=== PATIENT | female | born 1955 | race Caucasian/White ===

== ENCOUNTER 2019-10-31 21:37 | Observation (INO) | payer OTHER, SELFPAY ==
--- NOTE | ~2019-10-31 | CT_ITS ---
EXAMINATION: CT brain wo con DATE: 11/01/2019 11:04 INDICATION: Lightheadedness. Dizziness. TECHNIQUE: Computed tomography (CT) of the head was performed without intravenous contrast. The mA wa s adjusted according to patient size. Iterative reconstruction technique was employed. The dose-lengt h product was 605.33 mGy-cm. COMPARISON: None FINDINGS: The lateral and third ventricles are dilated out of proportion to the size of the sulci, li tamra secondary to central brain volume loss given the normal size of the temporal horns of the latera l ventricles. There is no intracranial hemorrhage, acute infarction, or abnormal intracranial mass le nohemi. The orbits are normal. The mastoid air cells are normal. The paranasal sinuses are clear. 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 IMPRESSION: 1. No acute intracranial pathology. Reviewed, dictated and finalized at location B. NESS DIRECTOR
[2019-10-31 21:43] VITALS: BP 169/86; PULSE 103; PULSE 99; RESP 20; TEMP 37.4; O2SAT 94
--- NOTE | 2019-10-31 21:46 | ED.WEAKNESS ---
HPI - Weakness General Chief complaint: Weakness Stated complaint: n/v/d Time Seen by Provider: 10/31/19 21:39 Source: patient and RN notes reviewed Mode of arrival: EMS Limitations: no limitations History of Present Illness HPI Narrative: Pt is a 64 y/o female who presents to the ED, via EMS, with c/o BLE weakness that began on Monday (10/29/19). Pt states that she was unable to walk from the bathroom back to the couch without any assistance. Pt notes that she is normally able to ambulate. Pt states that she tried to eat some Jello, but was unable to keep it down. Pt also reports lightheadedness, nausea, vomiting with one episode today, but denies diarrhea, CP, SOB, and ABD pain. MD Complaint: generalized weakness Onset (ago): day(s) (2) Duration: other (still present) Location: LLE and RLE Associated symptoms: nausea/vomiting and other (lightheadedness) Related Data Home Medications Medication Instructions Recorded Confirmed captopril 6.25 mg PO BID 10/31/19 11/01/19 metformin 1,000 mg PO BID 10/31/19 11/01/19 Allergies Allergy/AdvReac Type Severity Reaction Status Date / Time Sulfa (Sulfonamide Allergy Unknown Unknown Verified 10/31/19 22:28 Antibiotics) No Known Allergies Allergy Verified 10/31/19 22:28 Review of Systems Review of Systems: All systems reviewed & are unremarkable except as noted in HPI and below Cardiovascular: Cardiovascular: Denies chest pain and Reports lightheadedness Respiratory: Respiratory: Denies dyspnea Gastrointestinal: Gastrointestinal: Denies abdominal pain, Denies diarrhea and Reports nausea Neurologic: Reports weakness (BLE) PMFSH Past Medical History Medical History (Updated 11/28/19 @ 16:11 by Mitzy Arechiga MD) Diabetic peripheral neuropathy Essential hypertension Type II diabetes mellitus Surgical History Surgical History (Updated 11/01/19 @ 02:27 by Gala Menard DO) Hx of cholecystectomy Injury of bile duct requiring open surgical repair. Performed at [place]. Family History Family History (Updated 11/01/19 @ 02:29 by Gala Menard DO) Mother Patient's mother is in good health Father Diabetes mellitus Sibling Diabetes mellitus Social History Social History (Updated 11/01/19 @ 02:32 by Gala Menard DO) Social History: Primary care physician: Dr. Lucio Dalal Smoking status: Never smoker Additional smoking assessment comments: patient has lifelong nonsmoker. Alcohol intake: never Alcohol use details: She denies any alcohol use. Substance use: never Substance use type: does not use Additional living arrangements comments: She lives in her own home but currently has a house guest who is on parole. Her house guest also has a large dog. Occupation/Education: occupation Additional occupation/education comments: She works at [employer]. Gender identity (if verbalized by the patient): Female Spiritual care concerns: No Agree to blood products: No Exam Const: General: no acute distress and well developed Orientation/consciousness: oriented to person, oriented to place, oriented to time and patient oriented x3 HENMT: Head: normocephalic Ears: external ears normal General nose exam: Normal external nose present Eyes: General: appearance normal, both eyes and all related structures Conjunctivae: conjunctivae normal Neck: Neck: normal visual inspection and full ROM Chest: Chest palpation & inspection: normal inspection of the chest and no tenderness Resp: Effort & Inspection: normal respiratory effort Auscultation: clear to auscultation bilaterally Cardio: Rate: regular rate Rhythm: regular rhythm GI: GI Palp: No abdominal tenderness and Yes Soft to palpation Skin: General skin exam: normal color and turgor normal Neuro: General: oriented to person, oriented to place, oriented to time and patient oriented x3 Cranial nerves: Yes CN's II-XII intact bilater
--- NOTE | 2019-10-31 21:51 | ECG_ITS ---
Measurements Intervals [place] Rate: 100 P: 31 RI: 171 QRS: 14 QRSD: 74 T: 40 QT: 312 QTc: 403 Interpretive Statements SINUS TACHYCARDIA POSSIBLE LEFT ATRIAL ENLARGEMENT BASELINE ARTIFACT- III, AVF BORDERLINE ECG Electronically Signed On 11-01-2019 7:00:44 INTERIOR PANELER by Joey De La O D.O.
[2019-10-31 22:03] LABS: Glucose Point of Care > 500 (65-105)
[2019-10-31 22:06] LABS: Basophils Absolute Auto 0.1 K/mm3 (0.0-0.1); Basophils Percent Auto 0.4 % (0.2-1.2); Hematocrit 35.2 % (37.0-47.0); Immature Granulocyte Absolute 0.05 K/mm3 (0.00-0.031); Immature Granulocyte Percent A 0.4 % (0-0.5); Lymphocytes Absolute Auto 1.06 K/mm3 (0.9-3.2); Lymphocytes Percent Auto 7.4 % (18.3-44.2); Mean Corpuscular HGB Conc 34.1 g/dl (32-36); Mean Corpuscular Hemoglobin 29.2 pg (26-34); Mean Corpuscular Volume 85.6 fl (80-100); Mean Platelet Volume 9.7 fl (7.4-10.4); Monocytes Absolute Auto 0.7 K/mm3 (0.1-0.6); Monocytes Percent Auto 4.7 % (2.6-8.5); Neutrophils Absolute Auto 12.4 K/mm3 (1.3-6.7); Neutrophils Percent Auto 87.1 % (45.5-73.1); Platelet Count Result 393 k/mm3 (150-375); Red Blood Count 4.11 M/mm3 (4.2-5.4); Red Cell Distribution Width 11.6 % (11.5-14.5); White Blood Count 14.3 K/mm3 (4.5-10.0)
--- NOTE | 2019-10-31 22:17 | PC.NURSE ---
Called lab to add on Beta Hydroxybut
[2019-10-31 22:19] LABS: Add Urine Microscopic? YES; Appearance Urine Clear (Clear); Bilirubin Urine Negative (Negative); Blood Urine Negative (Negative); Color Urine Straw (Yellow); Glucose Urine UA 3+ mg/dL (Negative); Ketones Urine 1+ mg/dL (Negative); Leukocyte Esterase Ur Negative LEU/UL (Negative); Mucus Urine Rare /lpf; Nitrate Urine Negative (Negative); Protein Urine 1+ mg/dL (Negative); RBC Urine 0-2 /hpf (0-2); Specific Grav Ur 1.028 (1.001-1.035); Squamous Epithelial Cell Urine Rare /hpf (Few); WBC Urine 0-3 /hpf
[2019-10-31 22:19] LABS: Alanine Aminotransferase 24 U/L (4-35); Albumin Level 3.4 g/dL (3.5-5.1); Alkaline Phosphatase 387 U/L (38-126); Aspartate Amino Transferase 30 U/L (14-36); Bilirubin,Total 0.4 mg/dL (0.2-1.3); Blood Urea Nitrogen 10 mg/dL (7-17); Calcium 8.4 mg/dL (8.4-10.2); Carbon Dioxide 27 mmol/L (22-30); Chloride 85 mmol/L (98-107); Estimated CRCL calculation 92 ml/min; Estimated Glomerular Filt Rate > 60; Glucose 518 mg/dL (65-105); Potassium 4.1 mmol/L (3.4-5.0); Sodium 125 mmol/L (137-145)
[2019-10-31] MEDS: INSULIN HUMAN REGULAR (*BKC) 100 UNITS/ML 10 UNITS IV PUSH ×2 (22:20→23:59)
[2019-10-31 22:32] LABS: Beta-Hydroxybutyrate/Acetoacetate 1.06 mmol/L (0.02-0.27)
[2019-10-31] MEDS: SODIUM CHLORIDE 0.9% IV 1,000 ML 999 ML IV CONT (22:51)
[2019-10-31 23:26] VITALS: BP 137/67; PULSE 95; RESP 24; O2SAT 99
[2019-10-31 23:28] LABS: Alveolar/Arterial O2 Gradient 43.5 mmHg; Base Excess ABG 2.7 mEq/l (+/-2.0); Fractional Inspired Oxygen 21 %; HCO3 ABG 26.5 mEq/l (22.0-26.0); Oxygen Content ABG 15.1 %vol (16.0-22.0); Oxygen Saturation ABG 92.8 % (95.0-100.0); Oxyhemoglobin 91.5 % THb (90.0-100.0); PCO2 ABG 37.8 mmHg (35.0-45.0); Total Hemoglobin 11.7 g/dL (12.0-18.0); pH ABG 7.464 (7.350-7.450)
[2019-10-31 23:29] LABS: Device ROOM AIR; Site Drawn RIGHT BRACHIAL
[2019-10-31 23:42] LABS: Glucose Point of Care 425 (65-105)
[2019-11-01] VITALS (7 sets, daily range): BP systolic 126–147; BP diastolic 56–70; PULSE 70–109; RESP 16–22; TEMP 36.2–37.4; O2SAT 94–100; BMI 21.4
[2019-11-01] MEDS: SODIUM CHLORIDE 0.9% IV 1,000 ML 150 ML IV CONT
[2019-11-01] MEDS: SODIUM CHLORIDE 0.9% IV 1,000 ML 999 ML IV CONT (00:43)
--- NOTE | 2019-11-01 01:10 | PM.IMHP ---
H&P: HPI History of Present Illness Chief complaint: hyperglycemia Narrative: Date and time of patient contact: 11/01/2019 at 01:10 Marine Anglin is a 64 year old female with a past medical history of hypertension, hyperlipidemia and type 2 diabetes mellitus who presented to the ER with generalized weakness. the patient reported that she had noticed increased leg weakness since 10/29/2019. However this evening she became so weak that she could not walk back to the couch from the bathroom. Her house guest became concerned and called EMS. The patient reports that she has been out of her diabetes medications for several months. She initially stated that she could not afford her medications but then also stated that she was waiting for her new insurance to arrive. She has not been to see her primary care physician in 1 year. She had called her primary care physician's office to get a refill on her medications but has not yet been able to go pick them up from the pharmacy. In the field the patient's glucoses were greater than 600. She denies having any polydipsia, or polyphagia. However, she has been having polyuria. She denies any dysuria or hematuria. She reports normal bowel movements without hematochezia or melena. She has been having intermittent nausea on and off for a couple of months. The patient attempted eat Jell-O prior to coming to the ER but was unable to keep the Jell-O down. She has also been having some lightheadedness. She denies any dizziness, visual changes or loss of consciousness. patient has not seen an haunted history tour guide/financial analysis advisor for over 4 years. Review of Systems Review of Systems: Narrative: Except as documented in the HPI, all other systems were reviewed and are negative. [facility] Past Medical History Medical History (Updated 11/01/19 @ 02:37 by Gala Menard DO) Diabetic peripheral neuropathy Essential hypertension Type II diabetes mellitus Surgical History Surgical History (Updated 11/01/19 @ 02:27 by Gala Menard DO) Hx of cholecystectomy Injury of bile duct requiring open surgical repair. Performed at [place]. Family History Family History (Updated 11/01/19 @ 02:29 by Gala Menard DO) Mother Patient's mother is in good health Father Diabetes mellitus Sibling Diabetes mellitus Social History Social History (Updated 11/01/19 @ 02:32 by Gala J. Hopen, DO) Social History: Primary care physician: Dr. Lucio Dalal Smoking status: Never smoker Additional smoking assessment comments: patient has lifelong nonsmoker. Alcohol intake: never Alcohol use details: She denies any alcohol use. Substance use: never Substance use type: does not use Additional living arrangements comments: She lives in her own home but currently has a house guest who is on parole. Her house guest also has a large dog. Occupation/Education: occupation Additional occupation/education comments: She works at [employer]. Gender identity (if verbalized by the patient): Female Spiritual care concerns: No Agree to blood products: No Meds Home Medications and Allergies Home Medications Medication Instructions Recorded Confirmed Type atorvastatin 10 mg PO DAILY 10/31/19 11/01/19 History captopril 6.25 mg PO BID 10/31/19 11/01/19 History glipizide 5 mg PO BID 10/31/19 11/01/19 History metformin 1,000 mg PO BID 10/31/19 11/01/19 History Allergies Allergy/AdvReac Type Severity Reaction Status Date / Time Sulfa (Sulfonamide Allergy Unknown Unknown Verified 10/31/19 22:28 Antibiotics) No Known Allergies Allergy Verified 10/31/19 22:28 Vital Signs Vital Signs - 24 hr 10/31/19 21:43 10/31/19 23:26 11/01/19 00:15 Temperature 99.3 F 98.5 F Pulse Rate 103 H 95 93 Respiratory Rate 20 24 H 22 H Blood Pressure 169/86 H 137/67 138/68 Pulse Oximetry 94 99 100 11/01/19 00:25 Temperature 98.7 F Pulse R
[2019-11-01 01:17] LABS: Glucose Point of Care 324 (65-105)
[2019-11-01 05:33] LABS: Blood Urea Nitrogen 8 mg/dL (7-17); Calcium 8.1 mg/dL (8.4-10.2); Carbon Dioxide 29 mmol/L (22-30); Chloride 98 mmol/L (98-107); Estimated CRCL calculation 92 ml/min; Estimated Glomerular Filt Rate > 60; Glucose 340 mg/dL (65-105); Potassium 4.3 mmol/L (3.4-5.0); Sodium 135 mmol/L (137-145)
[2019-11-01] MEDS: glipiZIDE 5 MG TABLET PO (05:43)
[2019-11-01] MEDS: CAPTOPRIL 12.5 MG 6.25 MG PO (05:43)
[2019-11-01 06:03] LABS: Hemoglobin A1C 16.8 % (<5.7)
[2019-11-01 08:59] LABS: Glucose Point of Care 233 (65-105)
[2019-11-01] MEDS: INSULIN ASPART (*BKC) 100 UNITS/ML SUB-Q ×5 (09:21→17:53)
[2019-11-01] MEDS: ENOXAPARIN 40 MG/0.4 ML SYRINGE SUB-Q (09:31)
[2019-11-01] MEDS: ATORVASTATIN 10 MG TABLET PO ×2 (09:32→10:29)
--- NOTE | 2019-11-01 09:50 | PM.IMPN ---
Progress Note: A&P Assessment and Plan (1) Uncontrolled diabetes mellitus: Qualifiers: Diabetes mellitus type: type 2 Glycemic state: with hyperglycemia Qualified Code(s): E11.65 - Type 2 diabetes mellitus with hyperglycemia Code(s): E11.65 - Type 2 diabetes mellitus with hyperglycemia Status: Acute Assessment and Plan: -----patient's A1c is 16.8 which shows significantly uncontrolled diabetes. The patient does not check her blood glucose and I do not think she understands the risk of diabetes. After a long talk with her today, she seems like she understands a little bit more about it and understands that she needs to be on insulin therapy. She says she does not have insurance so we will do insulin 70 30 and continue her metformin. She will need to follow closely with her primary care doctor. Her last glucose was 233 which is an improvement for her. I will check some routine labs tomorrow such as thyroid, lipid panel, INR, and BMP as I do not think she routinely goes to the doctor. She had no yellowing of her skin or bloating of her abdomen. No signs of infection anywhere. Neuro exam is normal. Will increase atorvastatin. Pt agrees to do foot checks daily. (2) Non-adherence to medical treatment: Code(s): Z91.19 - Patient's noncompliance with other medical treatment and regimen Status: Acute Assessment and Plan: ------Please see above plan. (3) HTN (hypertension) with goal to be determined: Code(s): I10 - Essential (primary) hypertension Status: Acute Assessment and Plan: ----- last bp 126/59. continue catopril. Time Spent With Patient Time with patient: 25 - 35 minutes Subjective Date/time seen: 11/01/19 09:50 Interval history: Pt is a 64 y/o who is here for weakness and uncontrolled diabetes. Patient was seen today and was very upset when she was told that she will need to be on insulin therapy. She said her last A1c was around 7 and she checks her insulin about once every 3 weeks and she thinks she is usually around 130. She says she does not eat a lot of sweets but she does eat pasta at times. She does not seem surprised that her A1c is 16.8. She is very worried about losing her job and asked me to call [employer] for her. She says her weakness is much better and she was able to walk to the bathroom back on my exam. She has no stroke-like symptoms or had any in the past. She understands the risk of uncontrolled diabetes and we talked about eye checks and foot checks. Review of Systems Review of Systems: All systems reviewed & are unremarkable except as noted in HPI and below Exam Narrative: Exam Narrative: General: Well developed well nourished patient resting comfortably in bed in no acute distress HEENT: normocephalic Neck: supple Neuro: Alert and oriented x 4. Cranial nerves 2-12 intact. Equal strength the upper lower extremities 5/5. Able to do [id number] and her gait is normal. CV:RRR Resp:CTA Abd: Soft, non distended. No pain to palpation. Positive bowel sounds Extremities: No swelling, erythema, or pain to palpation. No wounds on her feet Objective Data Vital Signs Vital Signs: Vital Signs - 24 hr 10/31/19 21:43 10/31/19 23:26 11/01/19 00:15 Temperature 99.3 F 98.5 F Pulse Rate 103 H 95 93 Respiratory Rate 20 24 H 22 H Blood Pressure 169/86 H 137/67 138/68 Pulse Oximetry 94 99 100 11/01/19 00:25 11/01/19 06:00 Temperature 98.7 F 97.6 F Pulse Rate 109 H 70 Respiratory Rate 16 16 Blood Pressure 147/68 H 126/59 L Pulse Oximetry 98 99 Intake/Output Intake/Output: Intake & Output 10/29/19 10/30/19 10/31/19 11/01/19 23:59 23:59 23:59 23:59 Intake Total 1000 1400 Output Total 2850 Balance 1000 -1450 Meds/Results Medications: Active Medications Generic Name Dose Route Start Last Admin Trade Name Freq PRN Reason Stop Dose Admin Atorvastatin Calcium 20 mg 11/02/19 09:00
[2019-11-01] MEDS: metFORMIN HCL XR 500 MG TAB.SR.24H 1000 MG PO ×2 (10:26→17:59)
[2019-11-01 12:31] LABS: Glucose Point of Care 346 (65-105)
[2019-11-01 17:09] LABS: Glucose Point of Care 265 (65-105)
[2019-11-01] MEDS: INSULIN GLARGINE (*BKC) 100 UNITS/ML 10 UNITS SUB-Q (22:34)
[2019-11-02 01:16] LABS: Glucose Point of Care 253 (65-105)
[2019-11-02 06:00] VITALS: BP 143/75; PULSE 100; RESP 20; TEMP 36.9; O2SAT 96
[2019-11-02 06:02] LABS: Hematocrit 33.7 % (37.0-47.0); Hemoglobin 11.3 g/dL (12.0-15.0); Mean Corpuscular HGB Conc 33.5 g/dl (32-36); Mean Corpuscular Hemoglobin 28.9 pg (26-34); Mean Corpuscular Volume 86.2 fl (80-100); Mean Platelet Volume 9.6 fl (7.4-10.4); Platelet Count Result 337 k/mm3 (150-375); Red Blood Count 3.91 M/mm3 (4.2-5.4); Red Cell Distribution Width 11.6 % (11.5-14.5); White Blood Count 11.2 K/mm3 (4.5-10.0)
[2019-11-02 06:08] LABS: INR 1.1; Prothrombin Time 13.6 Seconds (11.1-14.7)
[2019-11-02 06:09] LABS: Cholesterol 90 mg/dL (0-200); HDL Direct 14 mg/dL; Triglycerides 132 mg/dL (<150)
[2019-11-02 06:10] LABS: Alanine Aminotransferase 19 U/L (4-35); Albumin Level 2.7 g/dL (3.5-5.1); Alkaline Phosphatase 289 U/L (38-126); Aspartate Amino Transferase 28 U/L (14-36); Bilirubin,Total 0.1 mg/dL (0.2-1.3); Blood Urea Nitrogen 5 mg/dL (7-17); Calcium 8.2 mg/dL (8.4-10.2); Carbon Dioxide 28 mmol/L (22-30); Chloride 90 mmol/L (98-107); Estimated CRCL calculation 92 ml/min; Estimated Glomerular Filt Rate > 60; Glucose 258 mg/dL (65-105); Potassium 3.6 mmol/L (3.4-5.0); Sodium 127 mmol/L (137-145)
[2019-11-02 06:20] LABS: LDL Cholesterol Direct 54 mg/dL
[2019-11-02 07:23] LABS: Folic Acid 9.4 ng/mL (2.76->20)
[2019-11-02 08:00] VITALS: PULSE 94; RESP 20; O2SAT 96
[2019-11-02 08:54] LABS: Glucose Point of Care 252 (65-105)
[2019-11-02 09:13] VITALS: BP 141/57; PULSE 94
[2019-11-02 09:14] LABS: Vitamin B12 > 1000.0 pg/mL (239-931)
[2019-11-02] MEDS: INSULIN ASPART (*BKC) 100 UNITS/ML SUB-Q ×4 (09:20→11:42)
[2019-11-02] MEDS: ONDANSETRON INJ 4 MG/2 ML VIAL IV PUSH (09:36)
[2019-11-02] MEDS: ACETAMINOPHEN 325 MG TABLET 650 MG PO (10:11)
[2019-11-02] MEDS: metFORMIN HCL XR 500 MG TAB.SR.24H 1000 MG PO (10:12)
[2019-11-02] MEDS: ATORVASTATIN 20 MG TABLET PO (10:13)
[2019-11-02] MEDS: ENOXAPARIN 40 MG/0.4 ML SYRINGE SUB-Q (10:13)
--- NOTE | 2019-11-02 10:43 | PM.DS ---
DS: Diagnosis Admitting Diagnosis Admitting Diagnosis: Type 2 diabetes mellitus with hyperglycemia Discharge Diagnosis (1) Uncontrolled diabetes mellitus: Qualifiers: Diabetes mellitus type: type 2 Glycemic state: with hyperglycemia Qualified Code(s): E11.65 - Type 2 diabetes mellitus with hyperglycemia Code(s): E11.65 - Type 2 diabetes mellitus with hyperglycemia Status: Acute Assessment and Plan: -----patient's A1c is 16.8 which shows significantly uncontrolled diabetes. After a long talk with her today, she seems like she understands a little bit more about it and understands that she needs to be on insulin therapy. She does have insurance coverage and was discharged on the medication below. She will need to follow closely with her primary care doctor. Her last glucose was 253 which is an improvement for her. She had no yellowing of her skin or bloating of her abdomen. No signs of infection anywhere. Neuro exam is normal. Will increase atorvastatin. Pt agrees to do foot checks daily. (2) Non-adherence to medical treatment: Code(s): Z91.19 - Patient's noncompliance with other medical treatment and regimen Status: Acute Assessment and Plan: ------Please see above plan. (3) HTN (hypertension) with goal to be determined: Code(s): I10 - Essential (primary) hypertension Status: Acute Assessment and Plan: ----- last bp 141/57. continue catopril. DS: Summary Hospital Course Reason for hospitalization: Weakness Hospital Course: Patient is a 64-year-old female who presented emergency room for overall weakness, inability to ambulate, nausea, vomiting and some lightheadedness. Temperature 37.4?, pulse 99, respiratory 20, blood pressure 169/86, pulse ox 94 on room air. Initial white blood cell count 14.3, hemoglobin 12.0, hematocrit 35.2, platelets 393. Sodium 125 but when corrected for glucose was actually 135. Her glucose was 518. Head CT showed no acute intracranial pathology. Patient was admitted to the hospitalist service. She is a known diabetic but had been noncompliance. Because of her A1c of 16.8, she was started on insulin regimen and metformin was continued. She improved with this treatment and the day of discharge her glucose was 253. She saw the childbirth educator and hardboard press operator while here who helped educate her. Overall, the patient had a better understanding of diabetes and her regimen was adjusted as shown below. Status at Discharge Functional status at discharge: independent ambulation Overall status at discharge: patient is back to baseline Time Spent with Patient Time attestation: Total time spent providing and/or coordinating discharge services: 34 minutes Time spent: Greater than 30 minutes Exam Narrative: Exam Narrative: General: Well developed well nourished patient resting comfortably in bed in no acute distress HEENT: normocephalic Neck: supple Neuro: Alert and oriented x 4. Cranial nerves 2-12 intact. Equal strength the upper lower extremities 5/5. Able to do [id number] and her gait is normal. CV:RRR Resp:CTA Abd: Soft, non distended. No pain to palpation. Positive bowel sounds Extremities: No swelling, erythema, or pain to palpation. No wounds on her feet DS: Data Data Completed and Pending Labs on day of discharge: Labs from last 24 hours 11/02/19 11/02/19 11/02/19 08:48 05:28 05:28 WBC RBC Hgb Hct MCV MCH MCHC RDW Plt Count MPV PT INR Sodium 127 L Potassium 3.6 Chloride 90 L Carbon Dioxide 28 BUN 5 L Creatinine 0.50 L Estim Creat Clear Calc 92 Estimated GFR > 60 Glucose 258 H POC Capillary Glucose 252 H Calcium 8.2 L Total Bilirubin 0.1 L Direct Bilirubin 0.0 AST 28 ALT 19 Alkaline Phosphatase 289 H Total Protein 6.0 L Albumin 2.7 L Ceruloplasmin Pending Triglycerides Cholesterol
[2019-11-02 12:00] LABS: Glucose Point of Care 253 (65-105)
--- NOTE | 2019-11-02 14:00 | PC.NURSE ---
Patient denies nausea and pain at this time.
[2019-11-06 13:37] LABS: Ceruloplasmin 43 mg/dL (18-53)
--- NOTE | 2019-11-08 11:15 | PC.NURSE ---
Ceruloplasm- 43. Darcy Krishna PA-C aware.
== END 2019-11-02 14:20 | disposition home or self-care (01) ==
LOC: ANHED 23:44 → ANH3MED 23:59
PROVIDERS: Physician Assistant; Admitting Provider Internal Medicine; Emergency Provider Emergency Medicine; Visit Provider Internal Medicine
DX: E11.65 Type 2 diabetes mellitus with hyperglycemia (principal); E11.42 Type 2 diabetes mellitus with diabetic polyneuropathy; I10 Essential (primary) hypertension; E78.5 Hyperlipidemia, unspecified; Z79.84 Long term (current) use of oral hypoglycemic drugs; Z79.899 Other long term (current) drug therapy; Z88.2 Allergy status to sulfonamides; Z83.3 Family history of diabetes mellitus; Z91.19 Patient's noncompliance with other medical treatment and regimen
CPT/HCPCS: 36415; 36600; 70450; 80048; 80053; 80061; 80076; 81001; 82010; 82390; 82607; 82746; 82805; 82948; 83036; 84443; 85025; 85027; 85610; 93005; 96361; 96372; 96374; 96376; 97110; 97116; 97161; 97165; 99285; A9270; G0378; J1650; J1815; J2405; J7030

== ENCOUNTER 2020-01-23 14:33 | Inpatient (IN) | payer OTHER, SELFPAY ==
[2020-01-23] VITALS (15 sets, daily range): BP systolic 106–131; BP diastolic 49–85; PULSE 59–122; RESP 18–30; TEMP 35.9–37.2; O2SAT 85–100; BMI 21.7
--- NOTE | ~2020-01-23 | CT_ITS ---
EXAMINATION: CT guide absc cath placement DATE: 01/27/2020 15:42 INDICATION: Hepatic abscess TECHNIQUE: The procedure including the risks and benefits was discussed with the patient. Risks discu ssed included bleeding and infection. The patient understood the risks and benefits and agreed to pro ceed. The patient was confirmed to be receiving appropriate antibiotic coverage. Patient was given 50 mcg fentanyl IV for generalized analgesia. The skin overlying the abdomen was prepped and draped in usual sterile fashion. Anesthetic was administered with 1% lidocaine subcutaneously. 18-gauge trocar needle was advanced into the hepatic abscess via posterior approach utilizing intermittent CT guidan ce. The inner needle was removed and a J-wire is advanced into the hepatic abscess with positioning c onfirmed by CT. The needle was removed over the wire and utilizing Seldinger technique the tract was serially dilated to 10 Fr. A 10 Fr catheter was inserted over the wire into the more anterosuperior a spect of the hepatic abscess. Following confirmation of positioning the wire was removed and the pigt ail loop formed and locked. The catheter was stitched to the skin with suture. Antibiotic appointment and a sterile dressing were applied. An additional adhesive fixation device was applied. A total of 50 mL of opaque appearance appearing [id number] fluid was aspirated and sent to the lab. Th e catheter was then attached to suction drainage and was draining additional fluid at the conclusion of the procedure. There were no immediate complications. The dose-length product was 194.37 mGy-cm. FINDINGS: CT images demonstrate the catheter within the multiloculated gas and fluid containing absce ss within the right hepatic lobe. 50 mL fluid was aspirated for testing. IMPRESSION: 1. Successful CT-guided percutaneous hepatic abscess drain catheter placement. 2. 50 mL fluid was sent for aerobic and anaerobic cultures. 3. The catheter will be managed by Dr. Becerra. Reviewed, dictated and finalized at location A.
--- NOTE | ~2020-01-23 | CT_ITS ---
EXAMINATION: CT abdomen pelvis wo/w con DATE: 01/27/2020 10:53 INDICATION: Liver mass TECHNIQUE: Computed tomography (CT) of the abdomen and pelvis was performed without and with 100 mL O mnipaque-350 intravenous contrast utilizing a dedicated liver mass protocol. Automated exposure contr ol and iterative reconstruction technique were employed. The dose-length product was 958.93 mGy-cm. COMPARISON: Ultrasound dated 01/27/2020 FINDINGS: Small right pleural effusion with dependent compressive atelectasis in the dependent right lower lobe and additional right middle and lower lobar atelectasis along the mildly elevated right hemidiaphrag m. Additional mild atelectasis in the dependent left lower lobe. Heart size is normal. Atheroscleroti c coronary artery calcification. No pericardial or left pleural effusion. Surgical clips at the gallb ladder fossa consistent with prior cholecystectomy. There is a loop of small bowel extending to the g allbladder fossa which could represent a hepatojejunostomy for treatment of a reported bile duct inju ry occurring at the time of the cholecystectomy. There is a multiloculated gas, fluid and debris fill ed mass in the right hepatic lobe which measures 17.4 x 10.7 x 10.4 cm concerning for hepatic abscess . Relatively uniform decreased parenchymal enhancement throughout the surrounding right hepatic lobe. Portal vein and its branches appear to remain patent with no evident thrombosis. Spleen, pancreas, b ilateral adrenal glands and left kidney are normal. 1 cm low-attenuation nonenhancing cyst at the low er pole of the right kidney. There is a short likely transient small bowel intussusception at the sit e of a small bowel anastomosis. Large amount of stool scattered throughout the colon. No dilated ricarda l to suggest obstruction. Normal appendix. Bladder, uterus and bilateral adnexa are unremarkable. No free intraperitoneal gas or fluid. No pathologically enlarged abdominal or pelvic lymphadenopathy. Mi ld scattered degenerative skeletal changes and a few scattered small benign bone islands. IMPRESSION: 1. 17.4 x 10.7 x 10.4 cm multiloculated gas and fluid collections occupying a significant portion of the right hepatic lobe concerning for hepatic abscess. Differential would include less likely necroti c malignant mass. 2. Small right pleural effusion. Reviewed, dictated and finalized at location A. IMPRESSION: 1. 17.4 x 10.7 x 10.4 cm multiloculated gas and fluid collections occupying a s ignificant portion of the right hepatic lobe concerning for hepatic abscess. Di fferential would include less likely necrotic malignant mass. 2. Small right pleural effusion.
--- NOTE | ~2020-01-23 | XR_ITS ---
XR chest 2V 01/23/2020 15:47 Indication: Shortness of breath Procedure: AP and lateral views of the chest Comparison: 07/11/2016 Findings: Right middle lobe and lower lobe airspace disease. No pleural effusion or pneumothorax. Karin vated right diaphragm. No edema. No acute osseous abnormality. Impression: 1: Right middle and lower lobe airspace disease, atelectasis versus pneumonia. Reviewed, dictated and finalized at location A. Impression: 1: Right middle and lower lobe airspace disease, atelectasis versus pneumonia.
--- NOTE | ~2020-01-23 | CT_ITS ---
EXAMINATION: CT brain wo con DATE: 01/23/2020 15:48 INDICATION: Status post fall. Headache. Weakness. TECHNIQUE: Computed tomography (CT) of the head was performed without intravenous contrast. The dose- length product was 605.33 mGy-cm. The mA was adjusted according to patient size. Iterative reconstruc tion technique was employed. COMPARISON: CT dated 11/01/2019 FINDINGS: Mild generalized atrophy. Prominence of the ventricles, likely due to parenchymal volume lo ss. No midline shift. Basilar cisterns are patent. There is intracranial atherosclerosis. There are s cattered mild periventricular and subcortical white matter changes, most likely related to small vess el ischemic disease (microangiopathy). No acute intracranial hemorrhage, infarction, mass or mass eff ect. Paranasal sinuses and mastoids are pneumatized. No depressed skull fractures. IMPRESSION: 1. No acute intracranial abnormality. 2: Chronic age-related findings. Reviewed, dictated and finalized at location A.
--- NOTE | ~2020-01-23 | US_ITS ---
EXAMINATION: US right upper quadrant DATE: 01/27/2020 08:36 INDICATION: Elevated alkaline phosphatase levels. Positive liver tip. TECHNIQUE: Multiple grayscale and Doppler ultrasound images of the abdomen were obtained. COMPARISON: None FINDINGS: The pancreatic head and body are normal in appearance. The pancreatic tail is not visualized. There is an approximately 15.2 cm mass in the right hepatic lobe with heterogeneous peripheral hyperechoic echogenicity and central decreased echogenicity. There appears to be internal flow on color Doppler. Normal echogenicity and contour, with a smooth surface at the left hepatic lobe. No intrahepatic bili shayla duct dilation suspected. First hepatofugal portal venous flow on color Doppler. The gallbladder i s not visualized and reportedly surgically absent. IMPRESSION: 1. 15.2 cm mass in the right hepatic lobe. Differential would include neoplasm either benign or malig nant, hepatic abscess or hematoma. Recommend further evaluation with hepatic mass protocol pre and po stcontrast of the abdomen and pelvis. 2. Reversal flow in the main portal vein consistent with portal venous hypertension. Reviewed, dictated and finalized at location A. IMPRESSION: 1. 15.2 cm mass in the right hepatic lobe. Differential would include neoplasm either benign or malignant, hepatic abscess or hematoma. Recommend further eval uation with hepatic mass protocol pre and postcontrast of the abdomen and pelvi s. 2. Reversal flow in the main portal vein consistent with portal venous hyperten nohemi.
--- NOTE | 2020-01-23 14:45 | ECG_ITS ---
Measurements Intervals [place] Rate: 123 P: 36 MA: 170 QRS: 24 QRSD: 81 T: 11 QT: 291 QTc: 417 Interpretive Statements SINUS TACHYCARDIA BASELINE ARTIFACT- I, II, III, AVF ABNORMAL ECG Electronically Signed On 01-23-2020 16:22:04 CDT by Joey De La O D.O.
--- NOTE | 2020-01-23 14:58 | ED.WEAKNESS ---
HPI - Weakness General Chief complaint: Weakness Stated complaint: WEAKNESS Time Seen by Provider: 01/23/20 14:44 Source: patient Mode of arrival: ambulatory Limitations: no limitations History of Present Illness HPI Narrative: Patient is a 64-year-old female who presents to the emergency department via EMS for generalized weakness. EMS reports being called to her home by a friend for a welfare check and lift assist from a fall. EMS reports when they arrived patient had gotten herself up but seemed very weak. She refused care on their initial call to her residence. Patient evidently spoke with her primary care physician who advised she come to the emergency department to be evaluated, so patient called EMS for transport to the hospital. Patient denies to me that she fell. She states she thought she had enough energy to take a shower, but ended up having to sit down in the shower due to weakness and had significant difficulty getting herself back up. Complaint: generalized weakness Related Data Allergies Allergy/AdvReac Type Severity Reaction Status Date / Time Sulfa (Sulfonamide Allergy Unknown Unknown Verified 01/23/20 15:26 Antibiotics) No Known Allergies Allergy Verified 01/23/20 14:45 Review of Systems Review of Systems: All systems reviewed & are unremarkable except as noted in HPI and below Constitutional: Constitutional: Denies fever(s) Cardiovascular: Cardiovascular: Denies chest pain Respiratory: Respiratory: Denies cough and Denies dyspnea Gastrointestinal: Gastrointestinal: Denies diarrhea, Denies nausea and Denies vomiting PMFSH Past Medical History Medical History Diabetic peripheral neuropathy Essential hypertension Type II diabetes mellitus Surgical History Surgical History Hx of cholecystectomy Injury of bile duct requiring open surgical repair. Performed at [place]. Family History Family History (Updated 11/01/19 @ 02:29 by Gala Menard DO) Mother Patient's mother is in good health Father Diabetes mellitus Sibling Diabetes mellitus Social History Social History Social History: Primary care physician: Dr. Lucio Dalal Smoking status: Never smoker Additional smoking assessment comments: patient has lifelong nonsmoker. Alcohol intake: never Substance use: never Substance use type: does not use Additional living arrangements comments: She lives in her own home but currently has a house guest who is on parole. Her house guest also has a large dog. Additional occupation/education comments: She works at [employer]. Gender identity (if verbalized by the patient): Male Spiritual care concerns: No Agree to blood products: Yes Exam Const: General: cooperative, no acute distress and alert Nutritional Appearance: well nourished Eyes: Conjunctivae: conjunctivae normal Pupils: Equal, round and reactive pupils present Resp: Effort & Inspection: normal respiratory effort Auscultation: diminished lung sounds on the right in the lower lung ricci Cardio: Rate: tachycardic Rhythm: regular rhythm GI: GI Palp: Yes Soft to palpation and No Tenderness to palpation present (GI) Auscultation: normal bowel sounds Skin: General skin exam: normal color Neuro: General: patient oriented x3 Cognition (Neuro): normal cognition Speech: normal speech Extrem: General: normal to inspection, full ROM and no clubbing, cyanosis or edema Psych: Mental Status: mental status grossly normal Affect: normal affect Attitude: cooperative Course Course Emergency Course: Patient presents with tachycardia, tachypnea, elevated white blood cell count, and findings both of pneumonia and UTI with criteria met for sepsis. Patient does have elevated lactic acid, but is not h
[2020-01-23] MEDS: SODIUM CHLORIDE 0.9% IV 1,000 ML 999 ML IV CONT (14:59)
[2020-01-23 15:16] LABS: Mean Corpuscular Hemoglobin 20.8 pg (26-34); Mean Corpuscular Volume 74.4 fl (80-100); Mean Platelet Volume 8.7 fl (7.4-10.4); Platelet Count Result 618 k/mm3 (150-375); Red Blood Count 3.36 M/mm3 (4.2-5.4); Red Cell Distribution Width 17.6 % (11.5-14.5); White Blood Count 24.5 K/mm3 (4.5-10.0)
[2020-01-23 15:20] LABS: Alveolar/Arterial O2 Gradient 56.4 mmHg; Base Excess ABG 1.2 mEq/l (+/-2.0); Carboxyhemoglobin 0.3 % THb (0-2.0); Fractional Inspired Oxygen 28 %; HCO3 ABG 24.3 mEq/l (22.0-26.0); Methemoglobin ABG 0.3 %THb (0-1.5); Oxygen Content ABG 9.7 %vol (16.0-22.0); Oxygen Saturation ABG 98.3 % (95.0-100.0); Oxyhemoglobin 96.6 % THb (90.0-100.0); PCO2 ABG 31.7 mmHg (35.0-45.0); PO2 ABG 105.8 mmHg (80.0-100.0); PO2 FiO2 Ratio Arterial Blood 3.78 %; Reduced Hemoglobin 2.8 %THb (0-5.0); pH ABG 7.502 (7.350-7.450)
[2020-01-23 15:21] LABS: Device NASAL CANNULA; Modified Allen's Test Pass; Site Drawn RIGHT RADIAL
[2020-01-23 15:26] LABS: INR 1.2
[2020-01-23 15:27] LABS: Partial Thromboplastin Time 35.5 SECONDS (22.3-36.8)
[2020-01-23 15:29] LABS: Alanine Aminotransferase 12 U/L (4-35); Albumin Level 2.8 g/dL (3.5-5.1); Alkaline Phosphatase 437 U/L (38-126); Aspartate Amino Transferase 24 U/L (14-36); Bilirubin,Total 0.2 mg/dL (0.2-1.3); Blood Urea Nitrogen 9 mg/dL (7-17); Calcium 8.1 mg/dL (8.4-10.2); Carbon Dioxide 25 mmol/L (22-30); Chloride 96 mmol/L (98-107); Estimated CRCL calculation 96 ml/min; Estimated Glomerular Filt Rate > 60; Glucose 138 mg/dL (65-105); Potassium 3.5 mmol/L (3.4-5.0); Sodium 130 mmol/L (137-145)
[2020-01-23 15:30] LABS: Phosphorus 4.2 mg/dL (2.5-4.5)
[2020-01-23 15:32] LABS: Add Urine Microscopic? YES; Appearance Urine Cloudy (Clear); Bacteria Urine 2+ /hpf; Bilirubin Urine Negative (Negative); Blood Urine Negative (Negative); Color Urine Yellow (Yellow); Glucose Urine UA Negative (Negative); Ketones Urine Negative (Negative); Leukocyte Esterase Ur 3+ LEU/UL (Negative); Mucus Urine Rare /lpf; Nitrate Urine Negative (Negative); Protein Urine 2+ mg/dL (Negative); Specific Grav Ur 1.013 (1.001-1.035); Squamous Epithelial Cell Urine Rare /hpf (Few); WBC Urine >75 /hpf
[2020-01-23 15:37] LABS: Band Neutrophils Percent 9 % (0-6); Lymphocytes Absolute Manual 3.92 K/mm3 (1.1-4.5); Monocytes Absolute Manual 0.24 K/mm3 (0.1-0.90); Monocytes Percent Manual 1 % (3-9); Neutrophils Absolute Manual 20.33 K/mm3 (1.7-7.2); Neutrophils Percent Manual 74 % (46-73); Total Cells Counted 100
[2020-01-23 15:38] LABS: Hypochromasia 1+ (NORMAL); Platelet Estimate Increased (Adequate)
[2020-01-23 15:39] LABS: Anisocytosis 3+ (NORMAL)
[2020-01-23 15:48] LABS: Creatine Kinase < 20 U/L (30-135)
[2020-01-23] MEDS: SODIUM CHLORIDE 0.9% IV 2,700 ML/1,000 ML BAG 999 ML IV CONT ×3 (16:41→19:45)
--- NOTE | 2020-01-23 17:02 | PC.NURSE ---
Pt clammy, diaphoretic and drowsy. Blood glocose taken with a result of 38. Dr Wild notified and juice given per verbal order
--- NOTE | 2020-01-23 17:42 | PC.NURSE ---
blood glucose 67 after 12oz juice. Okay per MD for pt to eat faustino crackers at this time
[2020-01-23 18:14] LABS: Reflex Lactic Acid Yes or No Add Lactic
[2020-01-23 18:23] LABS: Glucose Point of Care 38 (65-105)
[2020-01-23 18:23] LABS: Glucose Point of Care 67 (65-105)
[2020-01-23 18:24] LABS: Glucose Point of Care 73 (65-105)
--- NOTE | 2020-01-23 20:00 | PM.IMHP ---
H&P: HPI History of Present Illness Chief complaint: Generalized weakness. Narrative: Marine Anglin is a 64-year-old female, hyperlipidemia, and type 2 diabetes mellitus who presented to the emergency department earlier this afternoon via EMS from home for evaluation of generalized weakness. She was admitted to us in October 2019 after coming in with the same chief complaint. At that time, she was found to have uncontrolled diabetes with a hemoglobin A1c of 16.8%. She was discharged with Basaglar KwikPen, 10 units at bedtime, and she tells me now that now she is taking 5 units with each meal and at bedtime. Her glucose this morning was 146, and she did take her morning dose, however her glucoses have been low since arrival to the emergency department she is currently on a dextrose drip. In any regard, she reports that she has been feeling just fine but when she went to take a shower this morning, she began to feel weak in felt it would be best for her to take a bath instead. She was unable to fully stand to get out of the bath due to generalized weakness, and then she crawled to the couch to call her friend for help. He in turn called EMS and she was brought in for evaluation. Labs done in the emergency department demonstrated a hemoglobin 4 grams lower than what it was just 3 months ago. She was also found to have a white blood cell count of 24.5 and a lactic acidosis. With further questioning, she denies fever, chills, sweats, cold and flu symptoms, cough, chest pain, shortness breath, nausea, vomiting, diarrhea, and dysuria. No focal weakness or paresthesias. She denies facial asymmetry and dysarthria. No recent travel or sick contacts. Review of Systems Review of Systems: Narrative: Twelve systems were reviewed with pertinent positives and negatives as per HPI. No headache or neck ache. Denies sore throat. No rash. She denies exertional chest pain shortness of breath. No orthopnea, PND, or lower extremity edema. She denies nausea and vomiting. No diarrhea. Denies blurry vision, polyuria, and polydipsia. States her appetite has been as per usual. She had a normal bowel movement yesterday. She does report left knee pain from an injury sustained last February, which was re-injured several months ago. This is unchanged. Except as documented, all other systems were reviewed and are negative. [facility] Past Medical History Medical History (Updated 01/23/20 @ 23:06 by Yazmin Hugo PA-C) Diabetic peripheral neuropathy Essential hypertension Insulin dependent type 2 diabetes mellitus Hemoglobin A1c was 16.8% in October 2019. Surgical History Surgical History (Updated 01/23/20 @ 22:57 by Yazmin Hugo PA-C) History of cholecystectomy Injury of bile duct Requiring open surgical repair. Performed at [facility]. Family History Family History Mother Patient's mother is in good health Father Diabetes mellitus Sibling Diabetes mellitus Social History Social History (Updated 01/23/20 @ 22:58 by Yazmin Hugo PA-C) Social History: Surrogate decision maker: Jessica Maria, friend. Code status: Full code. Primary care physician: Dr. Lucio Dalal Smoking status: Never smoker Additional smoking assessment comments: Lifelong nonsmoker. Alcohol intake: never Substance use: never Additional living arrangements comments: Lives in her own home in [place]. Additional occupation/education comments: She works at [employer], but has not work since October 2019. Spiritual care concerns: No Agree to blood products: Yes Meds Home Medications and Allergies Home Medications Medication Instructions Recorded Confirmed Type insulin lispro [Humalog KwikPen 5 unit SUB-Q TIDWM #3 ml 11/02/19 01/23/20 Rx Insulin] Allergies Allergy/AdvReac Type Severity Reaction Status Date / Time Sulfa (Sulfonamide Kenn
--- NOTE | 2020-01-23 20:14 | ADMIMU ---
This patient, Marine Anglin, was admitted to IMU status, and placed in Intensive Care Unit-3. Patient/family oriented to hospital policies and general routines including ID bracelet, bed and alarms, visiting hours, pain management, procedures, bathroom and other care routines, personal items, smoking policy, room service/diet, and visiting hours. Valuables list has been completed. Information on how to activate the Rapid Response Team has been discussed. Patient/Family are encouraged to report perceived risks to care and to ask questions if they do not understand what they are told or what they should do.
[2020-01-23] MEDS: DEXTROSE 5% 1,000 ML 1,000 ML 75 ML IV CONT (20:20)
[2020-01-23 20:35] LABS: Glucose Point of Care 63 (65-105)
[2020-01-23 20:35] LABS: Glucose Point of Care 69 (65-105)
[2020-01-23 22:11] LABS: Glucose Point of Care 76 (65-105)
[2020-01-23 22:25] LABS: Hemoglobin A1C 8.2 % (<5.7)
[2020-01-23 22:28] LABS: Lactic Acid 1.6 mmol/L (0.7-2.1)
[2020-01-23 22:31] LABS: Lactate Dehydrogenase 400 U/L (313-618); Sodium 135 mmol/L (137-145)
[2020-01-23 22:40] LABS: Hematocrit 27.7 % (37.0-47.0); Hemoglobin 8.2 g/dL (12.0-15.0)
[2020-01-23 23:23] LABS: Iron 37 ug/dL (37-170)
[2020-01-23 23:31] LABS: Percent Iron Saturation 19 % (20-50)
[2020-01-24] VITALS (15 sets, daily range): BP systolic 102–137; BP diastolic 53–78; PULSE 87–104; RESP 18–29; TEMP 36.3–37.1; O2SAT 97–100
[2020-01-24] MEDS: DEXTROSE 50% 25 GM/50 ML SYRINGE IV PUSH ×2 (00:28→05:09)
[2020-01-24 00:33] LABS: Folic Acid 12.3 ng/mL (2.76->20)
[2020-01-24 00:56] LABS: Glucose Point of Care 108 (65-105)
[2020-01-24 00:56] LABS: Glucose Point of Care 51 (65-105)
[2020-01-24 02:05] LABS: Glucose Point of Care 82 (65-105)
[2020-01-24] MEDS: DEXTROSE 10% 1,000 ML 75 ML IV CONT ×2 (05:16→21:34)
[2020-01-24 05:47] LABS: Glucose Point of Care 25 (65-105)
[2020-01-24 05:47] LABS: Glucose Point of Care 323 (65-105)
[2020-01-24 05:47] LABS: Glucose Point of Care 150 (65-105)
[2020-01-24 05:49] LABS: Basophils Absolute Auto 0.1 K/mm3 (0.0-0.1); Basophils Percent Auto 0.3 % (0.2-1.2); Eosinophils Absolute Auto 0.1 K/mm3 (0-0.3); Eosinophils Percent Auto 0.4 % (0-4.4); Hematocrit 29.3 % (37.0-47.0); Hemoglobin 8.6 g/dL (12.0-15.0); Immature Granulocyte Absolute 0.15 K/mm3 (0.00-0.031); Immature Granulocyte Percent A 0.8 % (0-0.5); Lymphocytes Absolute Auto 3.21 K/mm3 (0.9-3.2); Lymphocytes Percent Auto 16.8 % (18.3-44.2); Mean Corpuscular HGB Conc 29.4 g/dl (32-36); Mean Corpuscular Hemoglobin 22.6 pg (26-34); Mean Corpuscular Volume 77.1 fl (80-100); Mean Platelet Volume 8.7 fl (7.4-10.4); Monocytes Absolute Auto 0.9 K/mm3 (0.1-0.6); Monocytes Percent Auto 4.9 % (2.6-8.5); Neutrophils Absolute Auto 14.6 K/mm3 (1.3-6.7); Neutrophils Percent Auto 76.8 % (45.5-73.1); Platelet Count Result 439 k/mm3 (150-375); Red Cell Distribution Width 18.5 % (11.5-14.5); White Blood Count 19.1 K/mm3 (4.5-10.0)
[2020-01-24 06:06] LABS: Blood Urea Nitrogen 8 mg/dL (7-17); Calcium 7.4 mg/dL (8.4-10.2); Carbon Dioxide 24 mmol/L (22-30); Chloride 105 mmol/L (98-107); Estimated CRCL calculation 78 ml/min; Estimated Glomerular Filt Rate > 60; Glucose 244 mg/dL (65-105); Magnesium 2.1 mg/dL (1.6-2.3); Phosphorus 3.3 mg/dL (2.5-4.5); Potassium 3.5 mmol/L (3.4-5.0); Sodium 135 mmol/L (137-145)
[2020-01-24 06:17] LABS: Anisocytosis 1+ (NORMAL); Platelet Estimate Adequate (Adequate)
[2020-01-24 06:38] LABS: Glucose Point of Care 109 (65-105)
--- NOTE | 2020-01-24 11:33 | P.PNIM_ITS ---
Progress Note: A&P Assessment and Plan (1) Pneumonia involving right lung: Qualifiers: Lung location: lower lobe of lung Pneumonia type: due to unspecified organism Qualified Code(s): J18.9 - Pneumonia, unspecified organism Code(s): J18.9 - Pneumonia, unspecified organism Status: Acute Assessment and Plan: * She has been started on azithromycin and ceftriaxone. * Specimen has been obtained which was sent for COVID-19 testing. * Sputum to be attempted for culture. * Check urinary antigens. * Albuterol MDI as needed for shortness of breath. * She remains on room air. (2) Sepsis: Qualifiers: Sepsis acute organ dysfunction status: unspecified Sepsis type: sepsis due to unspecified organism Qualified Code(s): A41.9 - Sepsis, unspecified organism Code(s): A41.9 - Sepsis, unspecified organism Status: Acute Assessment and Plan: * Present on admission and supported by tachycardia, leukocytosis, and lactic acidosis. * She received IV fluid rehydration, with repeat lactic acid level normal. * Vital signs, including blood pressure, remains stable. * Blood cultures have been obtained and are pending. * Continue Rocephin and azithromycin. (3) Microcytic anemia: Code(s): D50.9 - Iron deficiency anemia, unspecified Status: Acute Assessment and Plan: * Hgb 12 back in October but was 7.0 on admission here * Likely a contributing factor to her generalized weakness. * B12 folate levels are normal. * Ferritin level normal but could be acute phase reactant. Iron level normal but TIBC low to suggest more of anemia chronic disease. * Patient transfuse 1 unit. Repeat hemoglobin 8.6 today. * Will send stool to check for occult blood. * Continue to monitor hemoglobin closely. (4) UTI (urinary tract infection): Qualifiers: Hematuria presence: without hematuria Urinary tract infection type: site unspecified Qualified Code(s): N39.0 - Urinary tract infection, site not specified Code(s): N39.0 - Urinary tract infection, site not specified Status: Acute Assessment and Plan: * UA consistent with UTI. * Currently on ceftriaxone * Follow up on urine culture. (5) Insulin dependent type 2 diabetes mellitus: Code(s): E11.9 - Type 2 diabetes mellitus without complications; Z79.4 - [employer] (current) use of insulin Status: Acute Assessment and Plan: * Basal insulin on hold given hypoglycemia. * A1c 16.8 in October and now 8.2 now * Continue Accu-Cheks, cover with sliding scale insulin; Continue hypoglycemic protocol. (6) Hypoglycemia: Code(s): E16.2 - Hypoglycemia, unspecified Status: Acute Assessment and Plan: * Related to insulin and sepsis. * Glucose 244 by BMP but FSBS still low normal * Eating normally but currently on a dextrose drip. Continue the same. * Continue frequent Accu-Cheks. (7) Generalized weakness: Code(s): R53.1 - Weakness Status: Acute Assessment and Plan: * Secondary to infection, hypoglycemia and anemia. * Initiate fall precautions. * PT/OT has been consulted. (8) DVT prophylaxis: Code(s): Z29.9 - Encounter for prophylactic measures, unspecified Status: Acute Assessment and Plan: SCDs Subjective Date/time seen: 01/24/20 11:33 Interval history: 64yo female with DM and HTN here for weakness and found to have PNA. Feels well. Denies feeling SOB or cough. No CP. No n/v. Comp
--- NOTE | 2020-01-24 11:33 | PM.IMPN ---
Progress Note: A&P Assessment and Plan (1) Pneumonia involving right lung: Qualifiers: Lung location: lower lobe of lung Pneumonia type: due to unspecified organism Qualified Code(s): J18.9 - Pneumonia, unspecified organism Code(s): J18.9 - Pneumonia, unspecified organism Status: Acute Assessment and Plan: She has been started on azithromycin and ceftriaxone. Specimen has been obtained which was sent for COVID-19 testing. Sputum to be attempted for culture. Check urinary antigens. Albuterol MDI as needed for shortness of breath. She remains on room air. (2) Sepsis: Qualifiers: Sepsis acute organ dysfunction status: unspecified Sepsis type: sepsis due to unspecified organism Qualified Code(s): A41.9 - Sepsis, unspecified organism Code(s): A41.9 - Sepsis, unspecified organism Status: Acute Assessment and Plan: Present on admission and supported by tachycardia, leukocytosis, and lactic acidosis. She received IV fluid rehydration, with repeat lactic acid level normal. Vital signs, including blood pressure, remains stable. Blood cultures have been obtained and are pending. Continue Rocephin and azithromycin. (3) Microcytic anemia: Code(s): D50.9 - Iron deficiency anemia, unspecified Status: Acute Assessment and Plan: Hgb 12 back in October but was 7.0 on admission here Likely a contributing factor to her generalized weakness. B12 folate levels are normal. Ferritin level normal but could be acute phase reactant. Iron level normal but TIBC low to suggest more of anemia chronic disease. Patient transfuse 1 unit. Repeat hemoglobin 8.6 today. Will send stool to check for occult blood. Continue to monitor hemoglobin closely. (4) UTI (urinary tract infection): Qualifiers: Hematuria presence: without hematuria Urinary tract infection type: site unspecified Qualified Code(s): N39.0 - Urinary tract infection, site not specified Code(s): N39.0 - Urinary tract infection, site not specified Status: Acute Assessment and Plan: UA consistent with UTI. Currently on ceftriaxone Follow up on urine culture. (5) Insulin dependent type 2 diabetes mellitus: Code(s): E11.9 - Type 2 diabetes mellitus without complications; Z79.4 - alf (current) use of insulin Status: Acute Assessment and Plan: Basal insulin on hold given hypoglycemia. A1c 16.8 in October and now 8.2 now Continue Accu-Cheks, cover with sliding scale insulin; Continue hypoglycemic protocol. (6) Hypoglycemia: Code(s): E16.2 - Hypoglycemia, unspecified Status: Acute Assessment and Plan: Related to insulin and sepsis. Glucose 244 by BMP but FSBS still low normal Eating normally but currently on a dextrose drip. Continue the same. Continue frequent Accu-Cheks. (7) Generalized weakness: Code(s): R53.1 - Weakness Status: Acute Assessment and Plan: Secondary to infection, hypoglycemia and anemia. Initiate fall precautions. PT/OT has been consulted. (8) DVT prophylaxis: Code(s): Z29.9 - Encounter for prophylactic measures, unspecified Status: Acute Assessment and Plan: SCDs Subjective Date/time seen: 01/24/20 11:33 Interval history: 64yo female with DM and HTN here for weakness and found to have PNA. Feels well. Denies feeling SOB or cough. No CP. No n/v. Complains of right sided abd pain that is a common occurrence when her glucose is high. No dysuria or hematuria. no VALLEJO or sorethroat. Exam Narrative: Exam Narrative: General: NARD lying almost flat in bed Chest: decreased BS in the right lung base with possible egophony mid right lung field, nml RR CV: RRR with S1-S2. Tele showing no significant dysrhythmias GI: soft, NT/ND, +BS Skin: Warm and dry Ext: No pedal edema Neurological: Alert and approp
--- NOTE | 2020-01-24 11:40 | PCOTNOTE ---
OT evaluation attempted. Patient refusing therapy at this time despite encouragement. Will attempt OT evaluation at later time.
--- NOTE | 2020-01-24 11:43 | PCPTNOTE ---
Attempted physical therapy initial evaluation this morning, however patient refused due to reporting not feeling well and tired despite max encouragement from therapist. Patient reported needing to use bathroom to urinate, in which therapist encouraged patient to trial bedside commode, however patient refused due to reporting urgency and was going to have an accident. PT assisted patient and placed bedpan. Patient demonstrated independence with bridging and bed mobility. Patient reported being done, however did not urinate. Patient left in bed, all needs within reach, and bed alarm armed. Will re-attempt PT evaluation as deemed appropriate. Concern for patient's reduced voluntary participation and reduced motivation. Sinai Davis, PT, DPT
[2020-01-24 12:04] LABS: Glucose Point of Care 51 (65-105)
[2020-01-24 13:31] LABS: SARS-CoV-2 RNA PCR Negative
[2020-01-24 14:04] LABS: Glucose Point of Care 97 (65-105)
--- NOTE | 2020-01-24 14:04 | PC.NURSE ---
This patient, Marine Anglin, was received from ICU-3 on 01/24/20 at 1404. Personal belongings list checked and signed. Patient/family oriented to unit policies and routines
--- NOTE | 2020-01-24 14:08 | PC.NURSE ---
This patient, Marine Anglin, was transferred to [facility] on 01/24/20 at 1400. Personal belongings sent with patient. Report given to Kelley CHARLTON. Appropriate documentation sent with patient.
--- NOTE | 2020-01-24 14:12 | PC.NURSE ---
This patient, Marine Anglin, was received from [ ] on 01/24/20 at 141. Personal belongings list checked and signed. Patient/family oriented to unit policies and routines
[2020-01-24 16:20] LABS: Glucose Point of Care 131 (65-105)
[2020-01-24 20:13] LABS: Glucose Point of Care 133 (65-105)
[2020-01-25] VITALS (11 sets, daily range): BP systolic 126–142; BP diastolic 60–72; PULSE 98–117; RESP 16–32; TEMP 36.7–37.7; O2SAT 94–97
[2020-01-25 00:16] LABS: Glucose Point of Care 139 (65-105)
[2020-01-25 04:54] LABS: Basophils Absolute Auto 0.1 K/mm3 (0.0-0.1); Basophils Percent Auto 0.4 % (0.2-1.2); Eosinophils Absolute Auto 0.1 K/mm3 (0-0.3); Eosinophils Percent Auto 0.7 % (0-4.4); Hematocrit 26.1 % (37.0-47.0); Hemoglobin 7.5 g/dL (12.0-15.0); Immature Granulocyte Absolute 0.14 K/mm3 (0.00-0.031); Immature Granulocyte Percent A 0.7 % (0-0.5); Lymphocytes Absolute Auto 3.86 K/mm3 (0.9-3.2); Mean Corpuscular HGB Conc 28.7 g/dl (32-36); Mean Corpuscular Hemoglobin 22.2 pg (26-34); Mean Corpuscular Volume 77.2 fl (80-100); Mean Platelet Volume 8.8 fl (7.4-10.4); Monocytes Absolute Auto 1.1 K/mm3 (0.1-0.6); Monocytes Percent Auto 5.6 % (2.6-8.5); Neutrophils Percent Auto 72.6 % (45.5-73.1); Platelet Count Result 400 k/mm3 (150-375); Red Blood Count 3.38 M/mm3 (4.2-5.4); Red Cell Distribution Width 18.7 % (11.5-14.5); White Blood Count 19.3 K/mm3 (4.5-10.0)
[2020-01-25 04:57] LABS: Glucose Point of Care 117 (65-105)
[2020-01-25 05:16] LABS: Alanine Aminotransferase 11 U/L (4-35); Albumin Level 2.3 g/dL (3.5-5.1); Alkaline Phosphatase 376 U/L (38-126); Aspartate Amino Transferase 19 U/L (14-36); Bilirubin,Total 0.2 mg/dL (0.2-1.3); Blood Urea Nitrogen 10 mg/dL (7-17); CRP 6.9 mg/dL (<1.0); Calcium 7.4 mg/dL (8.4-10.2); Carbon Dioxide 24 mmol/L (22-30); Chloride 102 mmol/L (98-107); Estimated CRCL calculation 68 ml/min; Estimated Glomerular Filt Rate > 60; Glucose 120 mg/dL (65-105); Potassium 4.5 mmol/L (3.4-5.0); Sodium 131 mmol/L (137-145)
[2020-01-25 08:43] LABS: Glucose Point of Care 134 (65-105)
[2020-01-25] MEDS: DEXTROSE 10% 1,000 ML 75 ML IV CONT (12:18)
[2020-01-25 12:54] LABS: Glucose Point of Care 188 (65-105)
--- NOTE | 2020-01-25 13:17 | P.PNIM_ITS ---
Progress Note: A&P Assessment and Plan (1) Pneumonia involving right lung: Qualifiers: Lung location: lower lobe of lung Pneumonia type: due to unspecified organism Qualified Code(s): J18.9 - Pneumonia, unspecified organism Code(s): J18.9 - Pneumonia, unspecified organism Status: Acute Assessment and Plan: * Sepsis symptoms on admission. CXR showing right middle and lower lobe airspace disease. * Azithromycin and ceftriaxone started * COVID-19 testing negative. * Sputum to be attempted for culture. * Albuterol MDI as needed for shortness of breath. * She remains on room air. * WBC and CRP no change at 19K and 6.9 respectfully; continue to monitor WBC (2) Sepsis: Qualifiers: Sepsis acute organ dysfunction status: unspecified Sepsis type: sepsis due to unspecified organism Qualified Code(s): A41.9 - Sepsis, unspecified organism Code(s): A41.9 - Sepsis, unspecified organism Status: Acute Assessment and Plan: * Present on admission and supported by tachycardia, leukocytosis, and lactic acidosis. * She received IV fluid rehydration, with repeat lactic acid level normal. * HR mildly elevated. BP stable. No fevers * Blood cultures NGTD * Continue Rocephin and azithromycin. (3) Hypoglycemia: Code(s): E16.2 - Hypoglycemia, unspecified Status: Acute Assessment and Plan: * Related to insulin and sepsis. * Glucose 120 by BMP with mild elevated FSBS * Eating normally; still on D10 drip. * Continue frequent Accu-Cheks. * Wean off D10 (4) Microcytic anemia: Code(s): D50.9 - Iron deficiency anemia, unspecified Status: Acute Assessment and Plan: * Hgb 12 back in October but was 7.0 on admission here * Likely a contributing factor to her generalized weakness. * B12 and folate levels are normal. * Ferritin level normal but could be up due to being an acute phase reactant. Iron level normal but TIBC low to suggest more of anemia chronic disease. * Patient transfuse 1 unit with repeat hemoglobin 8.6; Hgb dropped to 7.5 today. * Stool occult blood test pending * Continue to monitor hemoglobin closely. * Add Protonix (5) UTI (urinary tract infection): Qualifiers: Hematuria presence: without hematuria Urinary tract infection type: site unspecified Qualified Code(s): N39.0 - Urinary tract infection, site not specified Code(s): N39.0 - Urinary tract infection, site not specified Status: Acute Assessment and Plan: * UA consistent with UTI. * Urine culture growing Klebsiella sensitive to Rocephin. * Continue ceftriaxone (6) Insulin dependent type 2 diabetes mellitus: Code(s): E11.9 - Type 2 diabetes mellitus without complications; Z79.4 - alf (current) use of insulin Status: Acute Assessment and Plan: * Basal insulin on hold given hypoglycemia. * A1c 16.8 in October and now 8.2 now * Continue Accu-Cheks, cover with sliding scale insulin; Continue hypoglycemic protocol. (7) Generalized weakness: Code(s): R53.1 - Weakness Status: Acute Assessment and Plan: * Secondary to infection, hypoglycemia and anemia. * Fall precautions. * PT/OT (8) DVT prophylaxis: Code(s): Z29.9 - Encounter for prophylactic measures, unspecified Status: Acute Assessment and Plan: SCDs Subjective Date/time seen: 01/25/20 13:17 Interval history: 64yo female with DM and HTN here for precious
--- NOTE | 2020-01-25 13:17 | PM.IMPN ---
Progress Note: A&P Assessment and Plan (1) Pneumonia involving right lung: Qualifiers: Lung location: lower lobe of lung Pneumonia type: due to unspecified organism Qualified Code(s): J18.9 - Pneumonia, unspecified organism Code(s): J18.9 - Pneumonia, unspecified organism Status: Acute Assessment and Plan: Sepsis symptoms on admission. CXR showing right middle and lower lobe airspace disease. Azithromycin and ceftriaxone started COVID-19 testing negative. Sputum to be attempted for culture. Albuterol MDI as needed for shortness of breath. She remains on room air. WBC and CRP no change at 19K and 6.9 respectfully; continue to monitor WBC (2) Sepsis: Qualifiers: Sepsis acute organ dysfunction status: unspecified Sepsis type: sepsis due to unspecified organism Qualified Code(s): A41.9 - Sepsis, unspecified organism Code(s): A41.9 - Sepsis, unspecified organism Status: Acute Assessment and Plan: Present on admission and supported by tachycardia, leukocytosis, and lactic acidosis. She received IV fluid rehydration, with repeat lactic acid level normal. HR mildly elevated. BP stable. No fevers Blood cultures NGTD Continue Rocephin and azithromycin. (3) Hypoglycemia: Code(s): E16.2 - Hypoglycemia, unspecified Status: Acute Assessment and Plan: Related to insulin and sepsis. Glucose 120 by BMP with mild elevated FSBS Eating normally; still on D10 drip. Continue frequent Accu-Cheks. Wean off D10 (4) Microcytic anemia: Code(s): D50.9 - Iron deficiency anemia, unspecified Status: Acute Assessment and Plan: Hgb 12 back in October but was 7.0 on admission here Likely a contributing factor to her generalized weakness. B12 and folate levels are normal. Ferritin level normal but could be up due to being an acute phase reactant. Iron level normal but TIBC low to suggest more of anemia chronic disease. Patient transfuse 1 unit with repeat hemoglobin 8.6; Hgb dropped to 7.5 today. Stool occult blood test pending Continue to monitor hemoglobin closely. Add Protonix (5) UTI (urinary tract infection): Qualifiers: Hematuria presence: without hematuria Urinary tract infection type: site unspecified Qualified Code(s): N39.0 - Urinary tract infection, site not specified Code(s): N39.0 - Urinary tract infection, site not specified Status: Acute Assessment and Plan: UA consistent with UTI. Urine culture growing Klebsiella sensitive to Rocephin. 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 A1c 16.8 in October and now 8.2 now Continue Accu-Cheks, cover with sliding scale insulin; Continue hypoglycemic protocol. (7) Generalized weakness: Code(s): R53.1 - Weakness Status: Acute Assessment and Plan: Secondary to infection, hypoglycemia and anemia. Fall precautions. PT/OT (8) DVT prophylaxis: Code(s): Z29.9 - Encounter for prophylactic measures, unspecified Status: Acute Assessment and Plan: SCDs Subjective Date/time seen: 01/25/20 13:17 Interval history: 64yo female with DM and HTN here for weakness and found to have PNA. Patient states she is 'improving'. She denies cough, SOB or CP. no abd pain, nausea or vomiting. Was up to the chair earlier. Eating okay. Exam Narrative: Exam Narrative: General: NARD sittin gup in bed Chest: distant BS, nml RR CV: RRR with S1-S2. Tele showing no significant dysrhythmias GI: soft, NT/ND, +BS Skin: Warm and dry Ext: No pedal edema Neurological: Alert and appropriate Psychiatric: Pleasant and cooperative Objectiv
[2020-01-25 14:50] LABS: Pneumococcal Antigen Urine Not Detected (Not Detected)
[2020-01-25 16:20] LABS: Glucose Point of Care 277 (65-105)
[2020-01-25] MEDS: INSULIN ASPART (*BKC) 100 UNITS/ML SUB-Q (17:21)
--- NOTE | 2020-01-25 18:45 | PC.NURSE ---
This patient, Marine Anglin, was transferred to [facility] on 01/25/20 at 1845. Personal belongings sent with patient. Belongings list checked and signed with receiving RN. Report given to LATESHA Chang. Appropriate documentation sent with patient.
--- NOTE | 2020-01-25 18:56 | PC.NURSE ---
This patient, Marine Anglin, was received from IMU on 01/25/20 at 1855. Personal belongings list checked and signed. Patient oriented to unit policies and routines
[2020-01-25 21:43] LABS: Glucose Point of Care 253 (65-105)
[2020-01-26 01:34] LABS: Glucose Point of Care 256 (65-105)
[2020-01-26 04:45] LABS: Glucose Point of Care 193 (65-105)
[2020-01-26 05:07] LABS: Basophils Absolute Auto 0.1 K/mm3 (0.0-0.1); Basophils Percent Auto 0.3 % (0.2-1.2); Eosinophils Absolute Auto 0.1 K/mm3 (0-0.3); Eosinophils Percent Auto 0.8 % (0-4.4); Hematocrit 26.8 % (37.0-47.0); Hemoglobin 7.8 g/dL (12.0-15.0); Immature Granulocyte Percent A 0.6 % (0-0.5); Lymphocytes Absolute Auto 3.71 K/mm3 (0.9-3.2); Lymphocytes Percent Auto 23.2 % (18.3-44.2); Mean Corpuscular HGB Conc 29.1 g/dl (32-36); Mean Corpuscular Hemoglobin 22.5 pg (26-34); Mean Corpuscular Volume 77.5 fl (80-100); Mean Platelet Volume 8.5 fl (7.4-10.4); Monocytes Absolute Auto 0.9 K/mm3 (0.1-0.6); Monocytes Percent Auto 5.7 % (2.6-8.5); Neutrophils Absolute Auto 11.1 K/mm3 (1.3-6.7); Neutrophils Percent Auto 69.4 % (45.5-73.1); Platelet Count Result 346 k/mm3 (150-375); Red Blood Count 3.46 M/mm3 (4.2-5.4); Red Cell Distribution Width 19.3 % (11.5-14.5)
[2020-01-26 05:27] LABS: Alanine Aminotransferase 11 U/L (4-35); Albumin Level 2.4 g/dL (3.5-5.1); Alkaline Phosphatase 378 U/L (38-126); Aspartate Amino Transferase 16 U/L (14-36); Bilirubin,Total 0.2 mg/dL (0.2-1.3); Blood Urea Nitrogen 11 mg/dL (7-17); Calcium 7.5 mg/dL (8.4-10.2); Carbon Dioxide 27 mmol/L (22-30); Chloride 101 mmol/L (98-107); Estimated CRCL calculation 60 ml/min; Estimated Glomerular Filt Rate > 60; Glucose 202 mg/dL (65-105); Potassium 4.6 mmol/L (3.4-5.0); Sodium 130 mmol/L (137-145)
[2020-01-26] MEDS: LANSOPRAZOLE ORAL SUSP 30 MG/10 ML ORAL.SUSP PO (05:30)
[2020-01-26 06:56] LABS: Platelet Estimate Adequate (Adequate)
[2020-01-26 06:57] LABS: Hypochromasia 2+ (NORMAL); Ovalocytes 1+ (NORMAL); Poikilocytosis 1+ (NORMAL)
[2020-01-26 07:53] LABS: Glucose Point of Care 146 (65-105)
[2020-01-26 09:18] VITALS: BP 137/58; PULSE 105; RESP 20; TEMP 36.2; O2SAT 97
[2020-01-26 11:22] LABS: Glucose Point of Care 246 (65-105)
[2020-01-26] MEDS: INSULIN ASPART (*BKC) 100 UNITS/ML SUB-Q ×2 (11:31→16:22)
[2020-01-26 13:48] VITALS: BP 136/65; PULSE 104; RESP 16; TEMP 37.1; O2SAT 96
--- NOTE | 2020-01-26 14:00 | PCPTNOTE ---
Attempted to perform PT treatment with Marine. She refused stating that she was tired. Could not even persuade her to do exercises in bed. Will try again tomorrow.
[2020-01-26 16:00] VITALS: BP 133/61; PULSE 96; RESP 18; TEMP 36.8; O2SAT 97
[2020-01-26 16:21] LABS: Glucose Point of Care 275 (65-105)
--- NOTE | 2020-01-26 17:19 | P.PNIM_ITS ---
Progress Note: A&P Assessment and Plan (1) Pneumonia involving right lung: Qualifiers: Lung location: lower lobe of lung Pneumonia type: due to unspecified organism Qualified Code(s): J18.9 - Pneumonia, unspecified organism Code(s): J18.9 - Pneumonia, unspecified organism Status: Acute Assessment and Plan: * Sepsis symptoms on admission. CXR showing right middle and lower lobe airspace disease. * Azithromycin and ceftriaxone started * COVID-19 testing negative. * Sputum to be attempted for culture. * Albuterol MDI as needed for shortness of breath. * She remains on room air. * WBC down to 16K today. Continue to monitor WBC (2) Sepsis: Qualifiers: Sepsis acute organ dysfunction status: unspecified Sepsis type: sepsis due to unspecified organism Qualified Code(s): A41.9 - Sepsis, unspecified organism Code(s): A41.9 - Sepsis, unspecified organism Status: Acute Assessment and Plan: * Present on admission and supported by tachycardia, leukocytosis, and lactic acidosis. * She received IV fluid rehydration, with repeat lactic acid level normal. * HR mildly elevated. BP stable. No fevers * Blood cultures NGTD * Continue Rocephin and azithromycin. (3) Hypoglycemia: Code(s): E16.2 - Hypoglycemia, unspecified Status: Acute Assessment and Plan: * Related to insulin and sepsis. * Glucose 202 this morning by BNP but 146 by FSBS. * Weaned off the Dextrose drip last night * Continue frequent Accu-Cheks. * Consider Levemir QAM at discharge (4) Microcytic anemia: Code(s): D50.9 - Iron deficiency anemia, unspecified Status: Acute Assessment and Plan: * Hgb 12 back in October but was 7.0 on admission here * Likely a contributing factor to her generalized weakness. * B12 and folate levels are normal. * Ferritin level normal but could be up due to being an acute phase reactant. Iron level normal but TIBC low to suggest more of anemia chronic disease. * Patient transfuse 1 unit with repeat hemoglobin 8.6; Hgb dropped to 7.5 today. * Stool occult blood test pending * Continue to monitor hemoglobin closely. * Continue Prevacid (she could not take oral pills) * Will need to see GI as outpatient (5) UTI (urinary tract infection): Qualifiers: Hematuria presence: without hematuria Urinary tract infection type: site unspecified Qualified Code(s): N39.0 - Urinary tract infection, site not specified Code(s): N39.0 - Urinary tract infection, site not specified Status: Acute Assessment and Plan: * UA consistent with UTI. * Urine culture growing Klebsiella sensitive to Rocephin. * Continue ceftriaxone (6) Insulin dependent type 2 diabetes mellitus: Code(s): E11.9 - Type 2 diabetes mellitus without complications; Z79.4 - half-way (current) use of insulin Status: Acute Assessment and Plan: * Home insulin on hold given hypoglycemia. * A1c 16.8 in October and now 8.2 * Continue Accu-Cheks, cover with sliding scale insulin; Continue hypoglycemic protocol. (7) Generalized weakness: Code(s): R53.1 - Weakness Status: Acute Assessment and Plan: * Secondary to infection, hypoglycemia and anemia. * Initiate fall precautions. * PT/OT ordered but patietn refusing; she was educated about the need to have therapy. (8) DVT prophylaxis: Code(s): Z29.9 - Encounter for prophylactic measures, unspecified Status: Acute Assessme
--- NOTE | 2020-01-26 17:19 | PM.IMPN ---
Progress Note: A&P Assessment and Plan (1) Pneumonia involving right lung: Qualifiers: Lung location: lower lobe of lung Pneumonia type: due to unspecified organism Qualified Code(s): J18.9 - Pneumonia, unspecified organism Code(s): J18.9 - Pneumonia, unspecified organism Status: Acute Assessment and Plan: Sepsis symptoms on admission. CXR showing right middle and lower lobe airspace disease. Azithromycin and ceftriaxone started COVID-19 testing negative. Sputum to be attempted for culture. Albuterol MDI as needed for shortness of breath. She remains on room air. WBC down to 16K today. Continue to monitor WBC (2) Sepsis: Qualifiers: Sepsis acute organ dysfunction status: unspecified Sepsis type: sepsis due to unspecified organism Qualified Code(s): A41.9 - Sepsis, unspecified organism Code(s): A41.9 - Sepsis, unspecified organism Status: Acute Assessment and Plan: Present on admission and supported by tachycardia, leukocytosis, and lactic acidosis. She received IV fluid rehydration, with repeat lactic acid level normal. HR mildly elevated. BP stable. No fevers Blood cultures NGTD Continue Rocephin and azithromycin. (3) Hypoglycemia: Code(s): E16.2 - Hypoglycemia, unspecified Status: Acute Assessment and Plan: Related to insulin and sepsis. Glucose 202 this morning by BNP but 146 by FSBS. Weaned off the Dextrose drip last night Continue frequent Accu-Cheks. Consider Levemir QAM at discharge (4) Microcytic anemia: Code(s): D50.9 - Iron deficiency anemia, unspecified Status: Acute Assessment and Plan: Hgb 12 back in October but was 7.0 on admission here Likely a contributing factor to her generalized weakness. B12 and folate levels are normal. Ferritin level normal but could be up due to being an acute phase reactant. Iron level normal but TIBC low to suggest more of anemia chronic disease. Patient transfuse 1 unit with repeat hemoglobin 8.6; Hgb dropped to 7.5 today. Stool occult blood test pending Continue to monitor hemoglobin closely. Continue Prevacid (she could not take oral pills) Will need to see GI as outpatient (5) UTI (urinary tract infection): Qualifiers: Hematuria presence: without hematuria Urinary tract infection type: site unspecified Qualified Code(s): N39.0 - Urinary tract infection, site not specified Code(s): N39.0 - Urinary tract infection, site not specified Status: Acute Assessment and Plan: UA consistent with UTI. Urine culture growing Klebsiella sensitive to Rocephin. Continue ceftriaxone (6) Insulin dependent type 2 diabetes mellitus: Code(s): E11.9 - Type 2 diabetes mellitus without complications; Z79.4 - assisted (current) use of insulin Status: Acute Assessment and Plan: Home insulin on hold given hypoglycemia. A1c 16.8 in October and now 8.2 Continue Accu-Cheks, cover with sliding scale insulin; Continue hypoglycemic protocol. (7) Generalized weakness: Code(s): R53.1 - Weakness Status: Acute Assessment and Plan: Secondary to infection, hypoglycemia and anemia. Initiate fall precautions. PT/OT ordered but patietn refusing; she was educated about the need to have therapy. (8) DVT prophylaxis: Code(s): Z29.9 - Encounter for prophylactic measures, unspecified Status: Acute Assessment and Plan: SCDs Subjective Date/time seen: 01/26/20 17:19 Interval history: 64yo female with DM and HTN here for weakness and found to have PNA. Complains of abd pain today with nausea. Eating okay. No cough or SOB. Still feels very weak. She is refusing therapy. She lives home alone Exam Narrative: Exam Narrative: General: NARD Chest: few basilar crackles o/w clear CV: RRR with S1-S2 GI: soft, mild tenderness but no guarding, +BS E
[2020-01-26 18:57] LABS: Legionella pneumophila Ag Ur Not Detected (Not Detected)
[2020-01-26 20:59] LABS: Glucose Point of Care 291 (65-105)
[2020-01-26 22:00] VITALS: BP 130/72; PULSE 100; RESP 18; TEMP 36.6; O2SAT 96
[2020-01-26 23:42] LABS: Glucose Point of Care 310 (65-105)
[2020-01-27] VITALS (12 sets, daily range): BP systolic 120–137; BP diastolic 62–78; PULSE 87–97; RESP 14–18; TEMP 36.4–36.8; O2SAT 94–96
[2020-01-27 04:18] LABS: Glucose Point of Care 231 (65-105)
[2020-01-27 04:33] LABS: Immunochemical Fecal Occult Bl Negative (N)
[2020-01-27 04:34] LABS: IFOB Positive Control Positive
[2020-01-27 05:16] LABS: Hematocrit 27.3 % (37.0-47.0); Hemoglobin 7.9 g/dL (12.0-15.0); Mean Corpuscular HGB Conc 28.9 g/dl (32-36); Mean Corpuscular Hemoglobin 22.5 pg (26-34); Mean Corpuscular Volume 77.8 fl (80-100); Mean Platelet Volume 8.6 fl (7.4-10.4); Platelet Count Result 315 k/mm3 (150-375); Red Blood Count 3.51 M/mm3 (4.2-5.4); Red Cell Distribution Width 19.9 % (11.5-14.5); White Blood Count 15.3 K/mm3 (4.5-10.0)
[2020-01-27 05:25] LABS: Alanine Aminotransferase 14 U/L (4-35); Albumin Level 2.5 g/dL (3.5-5.1); Alkaline Phosphatase 454 U/L (38-126); Aspartate Amino Transferase 19 U/L (14-36); Bilirubin,Total 0.2 mg/dL (0.2-1.3); Blood Urea Nitrogen 11 mg/dL (7-17); Carbon Dioxide 27 mmol/L (22-30); Chloride 98 mmol/L (98-107); Estimated CRCL calculation 78 ml/min; Estimated Glomerular Filt Rate > 60; Glucose 226 mg/dL (65-105); Potassium 4.3 mmol/L (3.4-5.0); Sodium 128 mmol/L (137-145)
[2020-01-27] MEDS: LANSOPRAZOLE ORAL SUSP 30 MG/10 ML ORAL.SUSP PO (06:05)
[2020-01-27 09:02] LABS: Glucose Point of Care 169 (65-105)
--- NOTE | 2020-01-27 11:42 | P.PNIM_ITS ---
Progress Note: A&P Assessment and Plan (1) Liver abscess: Code(s): K75.0 - Abscess of liver Status: Acute Assessment and Plan: * Patient had lap cholecystectomy that was complicated by biliary injury requiring SB conduit * US performed due to persistently elevated AP and mild RUQ tenderness which should mass. * CT scan performed this morning showed a 17.4 x 10.7 x 10.4 cm multiloculated gas and fluid collections occupying a significant portion of the right hepatic lobe concerning for hepatic abscess vs less likely necrotic malignant mass. * This may have been present for a few months * Discussed with Radiology with plans for IR for drainage; Cx ordered * Abx changed to Zosyn; General Surgery consult for drain management (2) Pneumonia involving right lung: Qualifiers: Lung location: lower lobe of lung Pneumonia type: due to unspecified organism Qualified Code(s): J18.9 - Pneumonia, unspecified organism Code(s): J18.9 - Pneumonia, unspecified organism Status: Acute Assessment and Plan: * CXR showing right middle and lower lobe airspace disease. * Azithromycin and ceftriaxone started but changed to Zosyn today * COVID-19 testing negative. * Albuterol MDI as needed for shortness of breath but she remains on room air. * WBC down to 15K today. Continue to monitor WBC (3) Sepsis: Qualifiers: Sepsis acute organ dysfunction status: unspecified Sepsis type: sepsis due to unspecified organism Qualified Code(s): A41.9 - Sepsis, unspecified organism Code(s): A41.9 - Sepsis, unspecified organism Status: Acute Assessment and Plan: * Present on admission and supported by severe hypoglycemia, tachycardia, leukocytosis, and lactic acidosis. * Sepsis related to liver abscess and/or PNA * She received IV fluid hydration, with repeat lactic acid level normal. * Sepsis symptoms resolving * Blood cultures NGTD * Abx changed to Zosyn (4) Hypoglycemia: Code(s): E16.2 - Hypoglycemia, unspecified Status: Acute Assessment and Plan: * Glucose 38 on admission and was as low as 25 felt related to insulin and sepsis. * Glucose 226 this morning by BNP but 152 by FSBS. * Weaned off the Dextrose drip on 01/25/20 * Continue frequent Accu-Cheks. * Remains on sliding scale only (5) Microcytic anemia: Code(s): D50.9 - Iron deficiency anemia, unspecified Status: Acute Assessment and Plan: * Hgb 12 back in October but was 7.0 on admission here * Likely a contributing factor to her generalized weakness. * B12 and folate levels are normal. * Ferritin level normal, Iron level normal but TIBC low to suggest more of anemia chronic disease. * Patient transfused 1 unit with repeat hemoglobin 8.6 but mostly in the 7 range since * Stool occult blood test negative * Continue Prevacid (she could not take oral pills) * Suspect anemia related to chronic inflammatory response from liver abscess (6) UTI (urinary tract infection): Qualifiers: Hematuria presence: without hematuria Urinary tract infection type: site unspecified Qualified Code(s): N39.0 - Urinary tract infection, site not s pecified Code(s): N39.0 - Urinary tract infection, site not specified Status: Acute Assessment and Plan: * UA consistent with UTI. * Urine culture growing Klebsiella sensitive to Rocephin. * Continue IV abx (7) Insulin dependent type 2 diabetes mellitus: Code(s): E11.9 - Type 2 diabetes mellitus without complications; Z79.4 -
--- NOTE | 2020-01-27 11:42 | PM.IMPN ---
Progress Note: A&P Assessment and Plan (1) Liver abscess: Code(s): K75.0 - Abscess of liver Status: Acute Assessment and Plan: Patient had lap cholecystectomy that was complicated by biliary injury requiring SB conduit US performed due to persistently elevated AP and mild RUQ tenderness which should mass. CT scan performed this morning showed a 17.4 x 10.7 x 10.4 cm multiloculated gas and fluid collections occupying a significant portion of the right hepatic lobe concerning for hepatic abscess vs less likely necrotic malignant mass. This may have been present for a few months Discussed with Radiology with plans for IR for drainage; Cx ordered Abx changed to Zosyn; General Surgery consult for drain management (2) Pneumonia involving right lung: Qualifiers: Lung location: lower lobe of lung Pneumonia type: due to unspecified organism Qualified Code(s): J18.9 - Pneumonia, unspecified organism Code(s): J18.9 - Pneumonia, unspecified organism Status: Acute Assessment and Plan: CXR showing right middle and lower lobe airspace disease. Azithromycin and ceftriaxone started but changed to Zosyn today COVID-19 testing negative. Albuterol MDI as needed for shortness of breath but she remains on room air. WBC down to 15K today. Continue to monitor WBC (3) Sepsis: Qualifiers: Sepsis acute organ dysfunction status: unspecified Sepsis type: sepsis due to unspecified organism Qualified Code(s): A41.9 - Sepsis, unspecified organism Code(s): A41.9 - Sepsis, unspecified organism Status: Acute Assessment and Plan: Present on admission and supported by severe hypoglycemia, tachycardia, leukocytosis, and lactic acidosis. Sepsis related to liver abscess and/or PNA She received IV fluid hydration, with repeat lactic acid level normal. Sepsis symptoms resolving Blood cultures NGTD Abx changed to Zosyn (4) Hypoglycemia: Code(s): E16.2 - Hypoglycemia, unspecified Status: Acute Assessment and Plan: Glucose 38 on admission and was as low as 25 felt related to insulin and sepsis. Glucose 226 this morning by BNP but 152 by FSBS. Weaned off the Dextrose drip on 01/25/20 Continue frequent Accu-Cheks. Remains on sliding scale only (5) Microcytic anemia: Code(s): D50.9 - Iron deficiency anemia, unspecified Status: Acute Assessment and Plan: Hgb 12 back in October but was 7.0 on admission here Likely a contributing factor to her generalized weakness. B12 and folate levels are normal. Ferritin level normal, Iron level normal but TIBC low to suggest more of anemia chronic disease. Patient transfused 1 unit with repeat hemoglobin 8.6 but mostly in the 7 range since Stool occult blood test negative Continue Prevacid (she could not take oral pills) Suspect anemia related to chronic inflammatory response from liver abscess (6) UTI (urinary tract infection): Qualifiers: Hematuria presence: without hematuria Urinary tract infection type: site unspecified Qualified Code(s): N39.0 - Urinary tract infection, site not specified Code(s): N39.0 - Urinary tract infection, site not specified Status: Acute Assessment and Plan: UA consistent with UTI. Urine culture growing Klebsiella sensitive to Rocephin. 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 A1c 16.8 in October and now 8.2 Continue Accu-Cheks, cover with sliding scale insulin; Continue hypoglycemic protocol. (8) Generalized weakness: Code(s): R53.1 - Weakness Status: Acute Assessment and Plan: Secondary to infection, hypoglycemia and anemia. Initiate fall prec
[2020-01-27 12:19] LABS: Glucose Point of Care 152 (65-105)
--- NOTE | 2020-01-27 13:30 | PM.CNGS ---
Assessment and Plan Assessment and plan (1) Liver abscess: Code(s): K75.0 - Abscess of liver Status: Acute Assessment and Plan: CT scan of the abdomen and pelvis and ultrasound were reviewed and discussed with the patient in detail. She has evidence of a large multiloculated hepatic abscess in the right lobe of the liver that appears to be amenable to percutaneous drainage. The etiology of the hepatic abscess is unclear. She had a cholecystectomy with common bile duct injury and subsequent open surgical repair with likely a hepatojejunostomy, but this was about 24 years ago and seems unlikely to be contributing to this issue. Dr. Becerra and myself discussed the CT scan and ultrasound with the Radiologist, who is planning to place a percutaneous abscess drain today. We would agree with draining this abscess percutaneously, which will also allow for cultures to be sent. Will await C&S results and continue with the IV Zosyn for now. Could consider consulting Infectious Disease for their recommendations, which I will discuss with the Hospitalist. We will continue to trend labs, follow with serial abdominal exams, and monitor the patient closely. Thank you for allowing us to evaluate the patient in consultation and we will continue to follow along with you. (2) Pneumonia: Qualifiers: Laterality: right Lung location: lower lobe of lung Pneumonia type: due to unspecified organism Qualified Code(s): J18.9 - Pneumonia, unspecified organism Code(s): J18.9 - Pneumonia, unspecified organism Status: Acute Assessment and Plan: Currently on IV antibiotics and albuterol. COVID-19 testing negative. Currently on room air with no respiratory distress. Management per Hospitalist. (3) UTI (urinary tract infection): Qualifiers: Hematuria presence: without hematuria Urinary tract infection type: site unspecified Qualified Code(s): N39.0 - Urinary tract infection, site not specified Code(s): N39.0 - Urinary tract infection, site not specified Status: Acute Assessment and Plan: Urine culture showed growth of Klebsiella pneumoniae. Currently receiving IV antibitiocs. Management per Hospitalist. (4) Sepsis: Qualifiers: Sepsis acute organ dysfunction status: unspecified Sepsis type: sepsis due to unspecified organism Qualified Code(s): A41.9 - Sepsis, unspecified organism Code(s): A41.9 - Sepsis, unspecified organism Status: Acute Assessment and Plan: Criteria met on admission. Patient was started on IV antibiotics and received IV fluid resuscitation. Lactic acid normalized. Blood cultures NGTD. (5) Microcytic anemia: Code(s): D50.9 - Iron deficiency anemia, unspecified Status: Acute (6) Insulin dependent type 2 diabetes mellitus: Code(s): E11.9 - Type 2 diabetes mellitus without complications; Z79.4 - half-way (current) use of insulin Status: Acute (7) Hypertension: Qualifiers: Hypertension type: unspecified Qualified Code(s): I10 - Essential (primary) hypertension Code(s): I10 - Essential (primary) hypertension Status: Acute Additional Plan I discussed the patient's case and plan of care with Dr. Becerra today. The patient also had a large amount of stool in her colon and rectum. Will give her a dulcolax suppository now and could consider starting her on a gentle laxative if needed for constipation. History of Present Illness Consult details Consult date: 01/27/20 Reason for consult: other (Liver abscess) Requesting physician: Patrice Madden MD Narrative: This is a 64-year-old female with a history of uncontrolled diabetes mellitus with a recent hospitalization with generalized weakness in October of 2019 with a hemoglobin A1C of 16.8 and treated for her uncontrolled diabetes. She was started on insulin and discharged back home. The patient presented back to the emergency department on
--- NOTE | 2020-01-27 14:21 | PC.NURSE ---
To CT per bed. Consent sign by patient.
[2020-01-27] MEDS: BISACODYL 10 MG SUPPOSITORY RECTAL (16:25)
[2020-01-27 16:32] LABS: Glucose Point of Care 138 (65-105)
[2020-01-27 20:55] LABS: Glucose Point of Care 249 (65-105)
[2020-01-28 06:00] VITALS: BP 141/63; PULSE 87; RESP 20; TEMP 36.9; O2SAT 97
[2020-01-28] MEDS: LANSOPRAZOLE ORAL SUSP 30 MG/10 ML ORAL.SUSP PO (06:16)
[2020-01-28 06:30] LABS: Basophils Absolute Auto 0.1 K/mm3 (0.0-0.1); Basophils Percent Auto 0.4 % (0.2-1.2); Eosinophils Absolute Auto 0.1 K/mm3 (0-0.3); Eosinophils Percent Auto 0.5 % (0-4.4); Hematocrit 26.8 % (37.0-47.0); Hemoglobin 7.7 g/dL (12.0-15.0); Immature Granulocyte Absolute 0.07 K/mm3 (0.00-0.031); Immature Granulocyte Percent A 0.5 % (0-0.5); Lymphocytes Absolute Auto 3.34 K/mm3 (0.9-3.2); Lymphocytes Percent Auto 25.2 % (18.3-44.2); Mean Corpuscular HGB Conc 28.7 g/dl (32-36); Mean Corpuscular Hemoglobin 22.3 pg (26-34); Mean Corpuscular Volume 77.7 fl (80-100); Mean Platelet Volume 9.1 fl (7.4-10.4); Monocytes Absolute Auto 0.7 K/mm3 (0.1-0.6); Monocytes Percent Auto 5.4 % (2.6-8.5); Platelet Count Result 365 k/mm3 (150-375); Red Blood Count 3.45 M/mm3 (4.2-5.4); Red Cell Distribution Width 20.2 % (11.5-14.5); White Blood Count 13.2 K/mm3 (4.5-10.0)
[2020-01-28 06:42] LABS: Alanine Aminotransferase 12 U/L (4-35); Albumin Level 2.5 g/dL (3.5-5.1); Alkaline Phosphatase 446 U/L (38-126); Aspartate Amino Transferase 33 U/L (14-36); Bilirubin,Total 0.3 mg/dL (0.2-1.3); Blood Urea Nitrogen 13 mg/dL (7-17); Calcium 8.1 mg/dL (8.4-10.2); Carbon Dioxide 27 mmol/L (22-30); Chloride 97 mmol/L (98-107); Estimated CRCL calculation 76 ml/min; Estimated Glomerular Filt Rate > 60; Glucose 282 mg/dL (65-105); Potassium 4.3 mmol/L (3.4-5.0); Sodium 129 mmol/L (137-145)
[2020-01-28 07:28] LABS: Anisocytosis 1+ (NORMAL); Microcytosis 1+ (NORMAL); Platelet Estimate Adequate (Adequate)
[2020-01-28 07:29] LABS: Hypochromasia 1+ (NORMAL)
[2020-01-28] MEDS: INSULIN ASPART (*BKC) 100 UNITS/ML SUB-Q ×3 (07:57→16:19)
[2020-01-28 08:16] LABS: Glucose Point of Care 256 (65-105)
--- NOTE | 2020-01-28 08:47 | PM.PNGS ---
Progress Note: A&P Assessment and Plan (1) Liver abscess: Onset Date: 01/27/20 Code(s): K75.0 - Abscess of liver Status: Acute Assessment and Plan: Plan to leave drain in until follow-up CT shows complete collapse of the intrahepatic abscess Await ID recommendations for length of treatment. Await cultures for bacterial ID (2) Pneumonia involving right lung: Onset Date: ~01/23/20 Qualifiers: Lung location: lower lobe of lung Pneumonia type: due to unspecified organism Qualified Code(s): J18.9 - Pneumonia, unspecified organism Code(s): J18.9 - Pneumonia, unspecified organism Status: Acute Assessment and Plan: Patient had been on ceftriaxone for possible pneumonia. Now on Zosyn until further ID of the above abscess. (3) Microcytic anemia: Onset Date: Unknown Code(s): D50.9 - Iron deficiency anemia, unspecified Status: Acute Assessment and Plan: Has received transfusion at least 1 unit already this admission. Serial lab testing currently ordered. (4) Insulin dependent type 2 diabetes mellitus: Onset Date: Unknown Code(s): E11.9 - Type 2 diabetes mellitus without complications; Z79.4 - intermediate (current) use of insulin Status: Acute Assessment and Plan: Encouraged following a carbohydrate controlled diet with a little extra sodium. (5) Hypertension: Onset Date: Unknown Qualifiers: Hypertension type: unspecified Qualified Code(s): I10 - Essential (primary) hypertension Code(s): I10 - Essential (primary) hypertension Status: Acute (6) UTI (urinary tract infection): Onset Date: ~01/23/20 Qualifiers: Hematuria presence: without hematuria Urinary tract infection type: site unspecified Qualified Code(s): N39.0 - Urinary tract infection, site not specified Code(s): N39.0 - Urinary tract infection, site not specified Status: Acute Assessment and Plan: On appropriate antibiotics. (Klebsiella pneumonia) (7) Hyponatremia: Code(s): E87.1 - Hypo-osmolality and hyponatremia Status: Acute Assessment and Plan: Sodium is been running low the entire admission. Patient states that because of her hypertension she has been on a low-sodium diet. Additional Plan Plan to leave drain in until follow-up CT shows complete collapse of the intrahepatic abscess Await ID recommendations for length of treatment. Await cultures for bacterial ID. Subjective Subjective Date/Time Seen: 01/28/20 08:47 The patient lying in bed when I entered the room. States she had breakfast. Denies pain except for a small amount of pain near the drain site right posterior thorax. Positive bowel movement yesterday. Review of Systems Constitutional: Constitutional: Reports no additional constitutional complaints ENT: Reports other (Mucous Membranes moist.) Cardiovascular: Cardiovascular: Denies dyspnea Respiratory: Respiratory: Denies pain on inspiration and Denies dyspnea Musculoskeletal: Musculoskeletal: Reports other (No calf swelling or edema) Integumentary/Breasts: Skin/Breast: Reports system reviewed and no additional complaints, except as docu Exam Const: General: cooperative, no acute distress, alert and awake Orientation/consciousness: patient oriented x3 HENMT: Mouth: Yes moist mucous membranes Neck: Neck: normal visual inspection Chest: Chest palpation & inspection: normal inspection of the chest Resp: Effort & Inspection: normal respiratory effort Auscultation: clear to auscultation bilaterally Cardio: Jugular venous distension: no JVD Rate: regular rate Rhythm: regular rhythm GI: Inspection: normal to inspection and scar (Transverse upper abdominal scar from previous surgery.) GI Palp: No abdominal tenderness and Yes Soft to palpation Auscultation: normal bowel sounds Rectal Exam: deferred Other: Drain exits posterior right upper q
--- NOTE | 2020-01-28 10:30 | PCPTNOTE ---
Attempted Therapy session, Pt refused therapy stating I walked this morning with nursing and want to rest because I am very tired. Therapist reminded pt of the importance of therapy, Pt agreed however requested therapy to come back another time.
--- NOTE | 2020-01-28 11:05 | PCOTNOTE ---
Attempted to see patient this AM, patient declined at this time, stating, I just want to take a nap. Patient requested that therapist try back later if time permits. Will continue plan of care.
[2020-01-28 11:34] LABS: Glucose Point of Care 253 (65-105)
--- NOTE | 2020-01-28 11:38 | PM.IMPN ---
Progress Note: A&P Assessment and Plan (1) Liver abscess: Onset Date: 01/27/20 Code(s): K75.0 - Abscess of liver Status: Acute Assessment and Plan: Had laparoscopic cholecystectomy that was complicated by biliary injury requiring SB conduit. RUQ ultrasound with 15.2 cm mass right hepatic lobe. CT abdomen/pelvis with 17.4 x 10.7 x 10.4 cm multiloculated gas and fluid collection in right hepatic lobe. General surgery consulted and appreciate input. Of drain in hepatic abscess by Interventional Radiology on 01/27/2020. Still with. Still with purulent drainage. Infectious disease has been consulted. Now on IV Zosyn. Abscess culture pending. Blood cultures negative date. Will continue to monitor. (2) Pneumonia involving right lung: Onset Date: ~01/23/20 Qualifiers: Lung location: lower lobe of lung Pneumonia type: due to unspecified organism Qualified Code(s): J18.9 - Pneumonia, unspecified organism Code(s): J18.9 - Pneumonia, unspecified organism Status: Acute Assessment and Plan: Chest x-ray with right middle and lower lobe airspace disease. Initially on IV azithromycin ceftriaxone but now on IV Zosyn as noted above. COVID-19 testing negative. Remains on room air. Albuterol HFA as needed. (3) Sepsis: Qualifiers: Sepsis acute organ dysfunction status: unspecified Sepsis type: sepsis due to unspecified organism Qualified Code(s): A41.9 - Sepsis, unspecified organism Code(s): A41.9 - Sepsis, unspecified organism Status: Acute Assessment and Plan: Criteria met on admission. Cultures as noted above. Most likely result of liver abscess and/or pneumonia. IV Zosyn as noted above. (4) UTI (urinary tract infection): Onset Date: ~01/23/20 Qualifiers: Hematuria presence: without hematuria Urinary tract infection type: site unspecified Qualified Code(s): N39.0 - Urinary tract infection, site not specified Code(s): N39.0 - Urinary tract infection, site not specified Status: Acute Assessment and Plan: Urine culture positive for Klebsiella pneumoniae. Continue IV antibiotics as noted above. (5) Hypoglycemia: Code(s): E16.2 - Hypoglycemia, unspecified Status: Acute Assessment and Plan: Glucose low on admission with patient on dextrose drip which was discontinued on 01/25/2020. Glucose reviewed today with elevation. Treatment of diabetes as noted below. (6) Insulin dependent type 2 diabetes mellitus: Onset Date: Unknown Code(s): E11.9 - Type 2 diabetes mellitus without complications; Z79.4 - counter tender (current) use of insulin Status: Acute Assessment and Plan: Hemoglobin A1c currently 8.2. Glucose reviewed on 01/28/2020 and now elevated. Will resume home scheduled mealtime insulin along with sliding scale. Will continue to monitor. Adjust treatment as needed. (7) Microcytic anemia: Onset Date: Unknown Code(s): D50.9 - Iron deficiency anemia, unspecified Status: Acute Assessment and Plan: Hemoglobin low but stable at 7.7 today. No sign of active bleeding. Did receive 1 unit PRBC on 01/23/2020. Will continue to monitor. (8) Generalized weakness: Code(s): R53.1 - Weakness Status: Acute Assessment and Plan: Result of infection, hypoglycemia and anemia. Continue PT/OT. (9) DVT prophylaxis: Code(s): Z29.9 - Encounter for prophylactic measures, unspecified Status: Acute Assessment and Plan: SCDs. Time Spent With Patient Time with patient: 15 - 25 minutes Subjective Date/time seen: 01/28/20 11:38 Interval history: Date of Service: 01/28/2020. Admitted with weakness and hypoglcyemia. Found to have liver abscess with possible pneumonia. Denies abdominal pain. Denies cough and shortness of breath. Denies chest pain. Review of Systems Constitutional: Constitutional: De
[2020-01-28 13:41] VITALS: BP 125/60; PULSE 96; RESP 16; TEMP 37; O2SAT 97
--- NOTE | 2020-01-28 14:11 | WPDINFPN2 ---
Progress Note: A&P Assessment and Plan (1) Liver abscess: Onset Date: 01/27/20 Code(s): K75.0 - Abscess of liver Status: Acute Assessment and Plan: Liver abscess, source indeterminate so far. DM REC PipTazo #2, f/u micro, 2-3 weeks IV anticipated Subjective Date/time seen: 01/28/20 14:11 Objective Data Vital Signs Vital Signs: Vital Signs - 24 hr 01/27/20 14:45 01/27/20 14:50 01/27/20 14:55 Temperature Pulse Rate 90 92 93 Respiratory Rate 14 16 15 Blood Pressure 126/71 134/78 137/64 Pulse Oximetry 96 96 95 01/27/20 15:00 01/27/20 15:05 01/27/20 15:10 Temperature Pulse Rate 90 96 93 Respiratory Rate 16 17 17 Blood Pressure 129/68 131/72 128/65 Pulse Oximetry 94 94 95 01/27/20 15:15 01/27/20 15:20 01/27/20 15:25 Temperature Pulse Rate 93 92 91 Respiratory Rate 16 16 15 Blood Pressure 126/62 124/62 124/63 Pulse Oximetry 96 96 96 01/27/20 22:00 01/28/20 06:00 01/28/20 13:41 Temperature 36.4 C 36.9 C 37.0 C Pulse Rate 87 87 96 Respiratory Rate 18 20 16 Blood Pressure 125/62 141/63 H 125/60 Pulse Oximetry 96 97 97 Intake/Output Intake/Output: Intake & Output 01/25/20 01/26/20 01/27/20 01/28/20 23:59 23:59 23:59 23:59 Intake Total 3537 2180 740 930 Output Total 300 442 260 Balance 3237 2180 298 670 Meds/Results Medications: Active Medications Generic Name Dose Route Start Last Admin Trade Name Freq PRN Reason Stop Dose Admin Albuterol 2 puff 01/23/20 23:10 Proventil Hfa INHALATION QIDRT PRN Shortness Of Breath Dextrose 12.5 gm 01/23/20 23:09 01/24/20 05:09 Dextrose 50% Syringe IV PUSH 12.5 gm PRN PRN Administration Hypoglycemia Protocol Glucagon 1 mg 01/23/20 23:09 Glucagon For Inj IM PRN PRN Hypoglycemia Protocol Glucose 15 gm 01/23/20 23:09 Glutose 15 PO PRN PRN Hypoglycemia Protocol Dextrose 1,000 mls @ 100 mls/hr 01/23/20 23:09 Dextrose 5% 1,000 Ml IVPB PRN PRN Hypoglycemia Protocol Piperacillin/Tazobactam/Dextrose 3.375 gm in 50 mls @ 100 mls/hr 01/27/20 12:00 01/28/20 11:49 Zosyn 3.375 Gm/D5w 50ml Pm IVPB Infused Q6HR SULMA Infusion Insulin Aspart 3 - 6 units 01/24/20 08:00 01/28/20 11:21 Novolog SUB-Q 4 units TIDWM SULMA Administration Protocol Lansoprazole 30 mg 01/26/20 06:30 01/28/20 06:16 Prevacid Susp PO 30 mg DAILY@0630 SULMA Administration Radiology Results: ITS Impressions Chest X-Ray 01/23/20 15:54 Impression: 1: Right middle and lower lobe airspace disease, atelectasis versus pneumonia. Head CT 01/23/20 15:57 IMPRESSION: 1. No acute intracranial abnormality. 2: Chronic age-related findings. Upper Quadrant Ultrasound 01/27/20 09:02 IMPRESSION: 1. 15.2 cm mass in the right hepatic lobe. Differential would include neoplasm either benign or malignant, hepatic abscess or hematoma. Recommend further evaluation with hepatic mass protocol pre and postcontrast of the abdomen and pelvis. 2. Reversal flow in the main portal vein consistent with portal venous hypertension. Abdomen/Pelvis CT 01/27/20 10:54 IMPRESSION: 1. 17.4 x 10.7 x 10.4 cm multiloculated gas and fluid collections occupying a significant portion of the right hepatic lobe concerning for hepatic abscess. Differential would include less likely necrotic malignant mass. 2. Small right pleural effusion. Catheter Placement CT 01/27/20 15:55 IMPRESSION: 1. Successful CT-guided percutaneous hepatic abscess drain catheter placement. 2. 50 mL fluid was sent for aerobic and anaerobic cultures. 3. The catheter will be managed by Dr. Becerra. Labs Labs: Laboratory Results - last 24 hr 01/27/20 01/27/20 01/28/20 16:23 20:49 05:39 WBC 13.2 H RBC 3.45 L Hgb 7.7 L Hct 26.8 L MCV 77.7 L MCH 22.3 L MCHC 28.7 L RDW 20.2 H Plt Count 365 MPV 9.1 Immature Gran % (
--- NOTE | 2020-01-28 14:33 | PCOTNOTE ---
Attempted to see patient again 2x this afternoon, first attempt patient was working with HEALTH PRACTICE MANAGER. On second afternoon attempt, patient declined to work with OT, stating I just want to rest. Patient not seen this date for OT. Will continue plan of care tomorrow, 01/29/2020.
--- NOTE | 2020-01-28 15:31 | CONS_ITS ---
DATE OF CONSULTATION: 01/28/2020 REASON FOR CONSULTATION: Liver abscess. HISTORY OF PRESENT ILLNESS: Ms. Anglin is a 64-year-old female who was here in the hospital earlier this year with uncontrolled diabetes mellitus, A1c 16%. It is now down to 8%. She presented to the hospital on January 22 with marked weakness. Here, she was started on ceftriaxone and azithromycin. It was changed to piperacillin and tazobactam yesterday, day #2 now. Consultation requested. The patient has had evaluation here initially including a chest x-ray, followed by right upper quadrant ultrasound and abdomen CT, then percutaneous catheter drainage of a liver fluid collection. The patient denies any fever, abdominal pain, nausea, vomiting, weight loss, diarrhea. She follows no particular diets, has had no undercooked or uncooked food. She has largely been homebound since October and states a friend of hers who often drop off food for her, prepared elsewhere. She has had no livestock exposure nor recent travel. She denies any previous such episodes. She underwent cholecystectomy some 24 years ago, surgical scar indicates this was an open procedure. There apparently was an intraoperative injury to one of her ducts and this was repaired at the same time by her description. She denies any subsequent problems with the biliary tract. ALLERGIES: SULFA CAUSED UNKNOWN REACTION. PRESENT MEDICATIONS: List reviewed. No immunosuppressants. HABITS: No tobacco. No alcohol. PAST MEDICAL HISTORY: In addition to the above, hypertension, peripheral neuropathy, and hand surgery. FAMILY HISTORY: Diabetes. 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 She lives here in [place]. REVIEW OF SYSTEMS: 14-point review otherwise negative. PHYSICAL EXAMINATION: GENERAL: This is a middle-aged female who appears older than her actual age, thin, but not cachectic. No acute distress. VITAL SIGNS: T-max on the was 37.7, otherwise consistently afebrile, 125/60, 96, 16, 97%. SKIN: No rashes, warm and dry, and no ulcers. EENT: The conjunctivae are clear. The oropharynx and oral mucosa are normal. No paranasal sinus erythema, edema, tenderness. NECK: Without mass, thyromegaly or meningismus. LUNGS: Clear to auscultation and percussion. BACK: No CVAT. CARDIAC: Regular rate and rhythm. No murmur, gallop, or rub. Pulses are 1+ and equal. ABDOMEN: Drainage catheter in the posterior flank, right side, draining thin, cloudy fluid, no blood. She has no hepatosplenomegaly. The bladder is not palpable and elsewhere the abdomen is nontender, soft, and she has normal bowel sounds. EXTREMITIES: No clubbing, cyanosis, edema. LABORATORY DATA: Blood cultures, no growth after 5 days. Urine culture with Klebsiella pneumoniae and other gram-negative rods in small numbers, from her aspirate yesterday, gram-stain, rare epithelial cells, many white cells, few gram-negative rods. Culture is in process. White blood cell count 13.2, down from 24.5. On admission, hemoglobin 7.7, which is roughly stable. Platelets are 365. Differential shows a mild lymphocytosis. Earlier differential with minimal left shift. Prothrombin time 15.0. Blood gases 7.50, 32, 106, 24, 98%. Hyponatremia is demonstrated consistently. BUN and creatinine normal. Blood sugars in the 100s to 200s. A1c as above. Albumin 2.5, alkaline phosphatase 446, down from 454 yesterday. Transaminases, bilirubin normal. Urinalysis, multiple abnormalities, which are reviewed. Pneumococcal antigen was nonreactive. COVID test was nonreactive done for unknown reason. RADIOLOGY DATA: Chest x-ray, right middle and lower lobe airspace disease, and her abdomen and pelvic CT showed a 17 cm, gas f
[2020-01-28 16:23] LABS: Glucose Point of Care 317 (65-105)
[2020-01-28] MEDS: INSULIN ASPART (*BKC) 100 UNITS/ML 10 UNITS SUB-Q (21:26)
[2020-01-28 21:30] LABS: Glucose Point of Care 357 (65-105)
[2020-01-28 22:00] VITALS: BP 133/62; PULSE 94; RESP 18; TEMP 36.6; O2SAT 97
[2020-01-29 01:52] LABS: Glucose Point of Care 324 (65-105)
[2020-01-29] MEDS: INSULIN ASPART (*BKC) 100 UNITS/ML 12 UNITS SUB-Q (02:19)
[2020-01-29 05:52] VITALS: BP 142/72; PULSE 89; RESP 18; TEMP 36.4; O2SAT 98
[2020-01-29] MEDS: LANSOPRAZOLE ORAL SUSP 30 MG/10 ML ORAL.SUSP PO (05:56)
[2020-01-29 06:14] LABS: Hematocrit 27.4 % (37.0-47.0); Hemoglobin 8.1 g/dL (12.0-15.0); Mean Corpuscular HGB Conc 29.6 g/dl (32-36); Mean Corpuscular Hemoglobin 22.6 pg (26-34); Mean Corpuscular Volume 76.3 fl (80-100); Mean Platelet Volume 8.6 fl (7.4-10.4); Platelet Count Result 352 k/mm3 (150-375); Red Blood Count 3.59 M/mm3 (4.2-5.4); Red Cell Distribution Width 19.9 % (11.5-14.5); White Blood Count 15.3 K/mm3 (4.5-10.0)
[2020-01-29 06:31] LABS: Alanine Aminotransferase 11 U/L (4-35); Albumin Level 2.7 g/dL (3.5-5.1); Alkaline Phosphatase 440 U/L (38-126); Aspartate Amino Transferase 17 U/L (14-36); Bilirubin,Total 0.2 mg/dL (0.2-1.3); Blood Urea Nitrogen 11 mg/dL (7-17); Calcium 8.1 mg/dL (8.4-10.2); Carbon Dioxide 30 mmol/L (22-30); Chloride 98 mmol/L (98-107); Estimated CRCL calculation 89 ml/min; Estimated Glomerular Filt Rate > 60; Glucose 140 mg/dL (65-105); Magnesium 1.9 mg/dL (1.6-2.3); Potassium 4.1 mmol/L (3.4-5.0); Sodium 131 mmol/L (137-145)
[2020-01-29 07:51] LABS: Glucose Point of Care 154 (65-105)
[2020-01-29] MEDS: INSULIN ASPART (*BKC) 100 UNITS/ML SUB-Q ×5 (07:51→22:51)
[2020-01-29 09:48] LABS: Glucose Point of Care 181 (65-105)
--- NOTE | 2020-01-29 10:23 | PM.PNGS ---
Progress Note: A&P Assessment and Plan (1) Liver abscess: Onset Date: 01/27/20 Code(s): K75.0 - Abscess of liver Status: Acute Assessment and Plan: Plan to leave drain in until follow-up CT shows complete collapse of the intrahepatic abscess Await ID recommendations for length of treatment. Await cultures for bacterial ID (2) Pneumonia involving right lung: Onset Date: ~01/23/20 Qualifiers: Lung location: lower lobe of lung Pneumonia type: due to unspecified organism Qualified Code(s): J18.9 - Pneumonia, unspecified organism Code(s): J18.9 - Pneumonia, unspecified organism Status: Acute Assessment and Plan: Patient had been on ceftriaxone for possible pneumonia. Now on Zosyn until further ID of the above abscess. (3) Microcytic anemia: Onset Date: Unknown Code(s): D50.9 - Iron deficiency anemia, unspecified Status: Acute Assessment and Plan: Has received transfusion at least 1 unit already this admission. Serial lab testing currently ordered. Hemoglobin up to 8.1 today and now stable over several days. (4) Insulin dependent type 2 diabetes mellitus: Onset Date: Unknown Code(s): E11.9 - Type 2 diabetes mellitus without complications; Z79.4 - emt intermediate (current) use of insulin Status: Acute Assessment and Plan: Encouraged following a carbohydrate controlled diet with a little extra sodium. (5) Hypertension: Onset Date: Unknown Qualifiers: Hypertension type: unspecified Qualified Code(s): I10 - Essential (primary) hypertension Code(s): I10 - Essential (primary) hypertension Status: Acute Assessment and Plan: Apparently had 1 fairly elevated reading this morning. Nursing and hospitalist are working on this. (6) UTI (urinary tract infection): Onset Date: ~01/23/20 Qualifiers: Hematuria presence: without hematuria Urinary tract infection type: site unspecified Qualified Code(s): N39.0 - Urinary tract infection, site not specified Code(s): N39.0 - Urinary tract infection, site not specified Status: Acute Assessment and Plan: On appropriate antibiotics. (Klebsiella pneumonia) (7) Hyponatremia: Code(s): E87.1 - Hypo-osmolality and hyponatremia Status: Acute Assessment and Plan: Sodium is been running low the entire admission. Patient states that because of her hypertension she has been on a low-sodium diet. Additional Plan Plan to leave drain in until follow-up CT shows complete collapse of the intrahepatic abscess Await ID recommendations for length of treatment. Await cultures for bacterial ID. Encouraged activity and good nutrition. Subjective Subjective Date/Time Seen: 01/29/20 10:23 Patient seen lying in bed in her room. States he she has been up walking with PT. States that she felt slightly dizzy while sitting in her chair this morning and was found to have very high blood pressure. Denies any abdominal pain or problems. States she ate a regular breakfast without trouble today. Does not remember Dr. Mcelroy visiting yesterday. Review of Systems Constitutional: Constitutional: Reports as per HPI, Reports no additional constitutional complaints, Denies chills, Denies excessive sweating, Denies fever(s) and Denies headache(s) Eyes: Eyes: Denies change in vision and Denies loss of vision ENT: Denies dizziness, Denies headache(s) and Reports other (Mucous Membranes moist.) Cardiovascular: Cardiovascular: Denies chest pain, Denies syncope, Denies leg edema, Denies lightheadedness, Denies radiating jaw, neck or arm pain and Denies dyspnea Respiratory: Respiratory: Denies cough, Denies pain on inspiration, Denies dyspnea and Denies wheezing Gastrointestinal: Gastrointestinal: Reports as per HPI, Denies abdominal pain, Denies melena, Denies bloating, Denies hematochezia, Denies change in bowel habits, Denies cons
[2020-01-29 11:23] LABS: Glucose Point of Care 181 (65-105)
--- NOTE | 2020-01-29 12:35 | WPDINFPN2 ---
Progress Note: A&P Assessment and Plan (1) Liver abscess: Onset Date: 01/27/20 Code(s): K75.0 - Abscess of liver Status: Acute Assessment and Plan: 1. Liver abscess, source indeterminate so far. Klebsiella isolated, susceptibility pending. 2. Bacteriuria, same organism. This raises possibility of transient bacteremia from kidney, seeding the liver. But portal circulation is a more common source of liver abscess. 3. DM REC PipTazo #3, f/u susceptibility. 2-3 weeks IV anticipated. I will continue using PipTazo, rather than a more narrow spectrum agent, due to potential for co-pathogens not isolated to date. Subjective Date/time seen: 01/29/20 12:35 Interval history: up in chair earlier. No abd pain Exam Narrative: Exam Narrative: afebrile. Appears chronically ill, no resp distress Const: General: no acute distress Neck: Neck: supple Resp: Effort & Inspection: normal respiratory effort Auscultation: clear to auscultation bilaterally Cardio: Rate: regular rate Rhythm: regular rhythm Heart sounds: no gallops and no murmurs GI: Inspection: non-distended GI Palp: Yes Soft to palpation, No Tenderness to palpation present (GI) and No Guarding due to palpation present (GI) Objective Data Vital Signs Vital Signs: Vital Signs - 24 hr 01/28/20 13:41 01/28/20 22:00 01/29/20 05:52 Temperature 37.0 C 36.6 C 36.4 C Pulse Rate 96 94 89 Respiratory Rate 16 18 18 Blood Pressure 125/60 133/62 142/72 H Pulse Oximetry 97 97 98 Intake/Output Intake/Output: Intake & Output 01/26/20 01/27/20 01/28/20 01/29/20 23:59 23:59 23:59 23:59 Intake Total 2180 740 1320 780 Output Total 003 957 7481 Balance 2180 298 1000 -220 Meds/Results Medications: Active Medications Generic Name Dose Route Start Last Admin Trade Name Freq PRN Reason Stop Dose Admin Acetaminophen 1,000 mg 01/29/20 10:20 Tylenol Tablet PO Q6H PRN Mild Pain (1-3) or Fever Albuterol 2 puff 01/23/20 23:10 Proventil Hfa INHALATION QIDRT PRN Shortness Of Breath Dextrose 12.5 gm 01/23/20 23:09 01/24/20 05:09 Dextrose 50% Syringe IV PUSH 12.5 gm PRN PRN Administration Hypoglycemia Protocol Glucagon 1 mg 01/23/20 23:09 Glucagon For Inj IM PRN PRN Hypoglycemia Protocol Glucose 15 gm 01/23/20 23:09 Glutose 15 PO PRN PRN Hypoglycemia Protocol Dextrose 1,000 mls @ 100 mls/hr 01/23/20 23:09 Dextrose 5% 1,000 Ml IVPB PRN PRN Hypoglycemia Protocol Piperacillin/Tazobactam/Dextrose 3.375 gm in 50 mls @ 100 mls/hr 01/27/20 12:00 01/29/20 11:45 Zosyn 3.375 Gm/D5w 50ml Pm IVPB Infused Q6HR SULMA Infusion Insulin Aspart 3 - 6 units 01/24/20 08:00 01/29/20 11:18 Novolog SUB-Q Not Given TIDWM SULMA Protocol Insulin Aspart 5 units 01/29/20 08:00 01/29/20 11:18 Novolog SUB-Q 02/28/20 08:01 5 units TIDWM SULMA Administration Lansoprazole 30 mg 01/26/20 06:30 01/29/20 05:56 Prevacid Susp PO 30 mg DAILY@0630 SULMA Administration Radiology Results: ITS Impressions Chest X-Ray 01/23/20 15:54 Impression: 1: Right middle and lower lobe airspace disease, atelectasis versus pneumonia. Head CT 01/23/20 15:57 IMPRESSION: 1. No acute intracranial abnormality. 2: Chronic age-related findings. Upper Quadrant Ultrasound 01/27/20 09:02 IMPRESSION: 1. 15.2 cm mass in the right hepatic lobe. Differential would include neoplasm either benign or malignant, hepatic abscess or hematoma. Recommend further evaluation with hepatic mass protocol pre and postcontrast of the abdomen and pelvis. 2. Reversal flow in the main portal vein consistent with portal venous hypertension. Abdomen/Pelvis CT 01/27/20 10:54 IMPRESSION: 1. 17.4 x 10.7 x 10.4 cm multiloculated gas and fluid collections occupying a significant portion of the right hepatic lobe concerning for hepatic abscess. Differe
[2020-01-29 14:00] VITALS: BP 124/54; PULSE 90; RESP 18; TEMP 36.2; O2SAT 96
--- NOTE | 2020-01-29 15:18 | PM.IMPN ---
Progress Note: A&P Assessment and Plan (1) Liver abscess: Onset Date: 01/27/20 Code(s): K75.0 - Abscess of liver Status: Acute Assessment and Plan: Had laparoscopic cholecystectomy that was complicated by biliary injury requiring SB conduit. RUQ ultrasound with 15.2 cm mass right hepatic lobe. CT abdomen/pelvis with 17.4 x 10.7 x 10.4 cm multiloculated gas and fluid collection in right hepatic lobe. General surgery consulted and appreciate input. Placement of drain in hepatic abscess by Interventional Radiology on 01/27/2020. Still with purulent drainage. Appreciate help from Infectious Disease. Abscess now growing Klebsiella pneumoniae with sensitivities pending. Remains on IV Zosyn for now. Plan for 2-3 weeks IV antibiotics. Blood cultures remain negative. Will continue to monitor. (2) Pneumonia involving right lung: Onset Date: ~01/23/20 Qualifiers: Lung location: lower lobe of lung Pneumonia type: due to unspecified organism Qualified Code(s): J18.9 - Pneumonia, unspecified organism Code(s): J18.9 - Pneumonia, unspecified organism Status: Acute Assessment and Plan: Chest x-ray with right middle and lower lobe airspace disease. Initially on IV azithromycin and ceftriaxone but now on IV Zosyn as noted above with addition of abscess. COVID-19 testing negative. Stable on room air. Albuterol HFA as needed. (3) Sepsis: Qualifiers: Sepsis acute organ dysfunction status: unspecified Sepsis type: sepsis due to unspecified organism Qualified Code(s): A41.9 - Sepsis, unspecified organism Code(s): A41.9 - Sepsis, unspecified organism Status: Acute Assessment and Plan: Criteria met on admission. Cultures as noted above. Most likely result of liver abscess and/or pneumonia. Continue IV Zosyn as noted above. (4) UTI (urinary tract infection): Onset Date: ~01/23/20 Qualifiers: Hematuria presence: without hematuria Urinary tract infection type: site unspecified Qualified Code(s): N39.0 - Urinary tract infection, site not specified Code(s): N39.0 - Urinary tract infection, site not specified Status: Acute Assessment and Plan: Urine culture also positive for Klebsiella pneumoniae. Continue IV antibiotics as noted above. (5) Hypoglycemia: Code(s): E16.2 - Hypoglycemia, unspecified Status: Acute Assessment and Plan: Glucose low on admission with patient on dextrose drip which was discontinued on 01/25/2020. Glucose reviewed on 01/29/2020 and acceptable. Continue treatment of diabetes as noted below. 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 Glucose reviewed on 01/29/2020 and generally acceptable with occasional elevated reading. Will continue home scheduled mealtime insulin along with sliding scale. Will continue to monitor. Adjust treatment as needed. (7) Microcytic anemia: Onset Date: Unknown Code(s): D50.9 - Iron deficiency anemia, unspecified Status: Acute Assessment and Plan: Hemoglobin better at 8.1 today. No sign of active bleeding. Iron studies consistent with chronic disease. Vitamin B12 and folate normal. Did receive 1 unit PRBC on 01/23/2020. Will continue to monitor. (8) Generalized weakness: Code(s): R53.1 - Weakness Status: Acute Assessment and Plan: Result of infection, hypoglycemia and anemia. Improving. Continue PT/OT. (9) DVT prophylaxis: Code(s): Z29.9 - Encounter for prophylactic measures, unspecified Status: Acute Assessment and Plan: SCDs. Time Spent With Patient Time with patient: 15 - 25 minutes Subjective Date/time seen: 01/29/20 15:18 Interva
[2020-01-29 17:05] LABS: Glucose Point of Care 305 (65-105)
[2020-01-29 21:14] LABS: Glucose Point of Care 306 (65-105)
[2020-01-29 21:57] VITALS: BP 130/61; PULSE 91; RESP 16; TEMP 36.2; O2SAT 97
[2020-01-29 23:49] LABS: Glucose Point of Care 364 (65-105)
[2020-01-30] MEDS: INSULIN ASPART (*BKC) 100 UNITS/ML 6 UNITS SUB-Q (00:52)
[2020-01-30] MEDS: ACETAMINOPHEN 500 MG TABLET 1000 MG PO (03:46)
[2020-01-30 05:51] LABS: Blood Urea Nitrogen 12 mg/dL (7-17); Calcium 8.2 mg/dL (8.4-10.2); Carbon Dioxide 28 mmol/L (22-30); Chloride 101 mmol/L (98-107); Estimated CRCL calculation 75 ml/min; Estimated Glomerular Filt Rate > 60; Glucose 171 mg/dL (65-105); Potassium 4.3 mmol/L (3.4-5.0); Sodium 132 mmol/L (137-145)
[2020-01-30 06:00] VITALS: BP 121/67; PULSE 84; RESP 18; TEMP 35.7; O2SAT 97
[2020-01-30] MEDS: LANSOPRAZOLE ORAL SUSP 30 MG/10 ML ORAL.SUSP PO (06:51)
[2020-01-30 07:56] LABS: Glucose Point of Care 180 (65-105)
[2020-01-30] MEDS: INSULIN ASPART (*BKC) 100 UNITS/ML SUB-Q ×2 (07:58→11:50)
[2020-01-30 11:39] LABS: Glucose Point of Care 164 (65-105)
--- NOTE | 2020-01-30 12:46 | PM.PNGS ---
Progress Note: A&P Assessment and Plan (1) Liver abscess: Onset Date: 01/27/20 Code(s): K75.0 - Abscess of liver Status: Acute Assessment and Plan: Plan to leave drain in until follow-up CT shows complete collapse of the intrahepatic abscess Await ID recommendations for length of treatment. Await cultures for bacterial ID --- prelim is Klebsialla pnue. sens to Zosyn. (2) Pneumonia involving right lung: Onset Date: ~01/23/20 Qualifiers: Lung location: lower lobe of lung Pneumonia type: due to unspecified organism Qualified Code(s): J18.9 - Pneumonia, unspecified organism Code(s): J18.9 - Pneumonia, unspecified organism Status: Acute Assessment and Plan: Now on Zosyn until further ID of the above abscess. (3) Microcytic anemia: Onset Date: Unknown Code(s): D50.9 - Iron deficiency anemia, unspecified Status: Acute Assessment and Plan: Has received transfusion at least 1 unit already this admission. Serial lab testing currently ordered. Hemoglobin up to 8.1 today and now stable over several days. (4) Insulin dependent type 2 diabetes mellitus: Onset Date: Unknown Code(s): E11.9 - Type 2 diabetes mellitus without complications; Z79.4 - jail (current) use of insulin Status: Acute Assessment and Plan: Encouraged following a carbohydrate controlled diet with a little extra sodium. (5) Hypertension: Onset Date: Unknown Qualifiers: Hypertension type: unspecified Qualified Code(s): I10 - Essential (primary) hypertension Code(s): I10 - Essential (primary) hypertension Status: Acute Assessment and Plan: Nursing and hospitalist are working on this. (6) UTI (urinary tract infection): Onset Date: ~01/23/20 Qualifiers: Hematuria presence: without hematuria Urinary tract infection type: site unspecified Qualified Code(s): N39.0 - Urinary tract infection, site not specified Code(s): N39.0 - Urinary tract infection, site not specified Status: Acute Assessment and Plan: On appropriate antibiotics. (Klebsiella pneumonia) ( This appears to be similar etiologic agent as the liver abscess ) (7) Hyponatremia: Code(s): E87.1 - Hypo-osmolality and hyponatremia Status: Acute Assessment and Plan: Sodium is been running low the entire admission. Patient states that because of her hypertension she has been on a low-sodium diet. Additional Plan Plan to leave drain in until follow-up CT shows complete collapse of the intrahepatic abscess Await ID recommendations for length of treatment. Encouraged activity and good nutrition. Subjective Subjective Date/Time Seen: 01/30/20 12:46 Patient lying in bed comfortable when I entered the room. States she did not get enough at breakfast, so ordered more and has completed breakfast now. Denies abdominal pain. Has not had a bowel movement in the last 24 hours. Review of Systems Constitutional: Constitutional: Reports as per HPI, Reports no additional constitutional complaints, Denies chills, Denies excessive sweating, Denies fever(s) and Denies headache(s) Eyes: Eyes: Denies change in vision and Denies loss of vision ENT: Denies dizziness, Denies headache(s) and Reports other (Mucous Membranes moist.) Cardiovascular: Cardiovascular: Denies chest pain, Denies syncope, Denies leg edema, Denies lightheadedness, Denies radiating jaw, neck or arm pain and Denies dyspnea Respiratory: Respiratory: Denies cough, Denies pain on inspiration, Denies dyspnea and Denies wheezing Gastrointestinal: Gastrointestinal: Reports as per HPI, Denies abdominal pain, Denies melena, Denies bloating, Denies hematochezia, Denies change in bowel habits, Denies constipation, Denies diarrhea, Denies nausea and Denies vomiting Musculoskeletal: Musculoskeletal: Denies deformity, Denies joint swelling, Denies radiating pa
--- NOTE | 2020-01-30 13:51 | WPDINFPN2 ---
Progress Note: A&P Assessment and Plan (1) Liver abscess: Onset Date: 01/27/20 Code(s): K75.0 - Abscess of liver Status: Acute Assessment and Plan: 1. Liver abscess, Klebsiella and perhaps co-pathogens also. susceptibility is slightly different from from the urine isolate. 2. Bacteriuria, same organism. This raises possibility of transient bacteremia from kidney, seeding the liver. But portal circulation is a more common source of liver abscess. 3. DM REC PipTazo #4 / 14 days, through 02/09/20. BCs final ng. Removal of drain per Surgery, she has minimal volume thin straw fluid in bag now. Subjective Date/time seen: 01/30/20 13:51 Interval history: ruq pain at times. no n/v Exam Narrative: Exam Narrative: afebrile Const: General: no acute distress Eyes: General: appearance normal, both eyes and all related structures Resp: Effort & Inspection: normal respiratory effort Auscultation: clear to auscultation bilaterally Cardio: Rate: regular rate Rhythm: regular rhythm Heart sounds: no murmurs GI: Inspection: non-distended GI Palp: Yes Soft to palpation and No Tenderness to palpation present (GI) Objective Data Vital Signs Vital Signs: Vital Signs - 24 hr 01/29/20 14:00 01/29/20 21:57 01/30/20 06:00 Temperature 36.2 C L 36.2 C L 35.7 C L Pulse Rate 90 91 84 Respiratory Rate 18 16 18 Blood Pressure 124/54 L 130/61 121/67 Pulse Oximetry 96 97 97 Intake/Output Intake/Output: Intake & Output 01/27/20 01/28/20 01/29/20 01/30/20 23:59 23:59 23:59 23:59 Intake Total 740 1320 1370 1360 Output Total 407 438 4057 Balance 298 4008 341 4828 Meds/Results Medications: Active Medications Generic Name Dose Route Start Last Admin Trade Name Freq PRN Reason Stop Dose Admin Acetaminophen 1,000 mg 01/29/20 10:20 01/30/20 03:46 Tylenol Tablet PO 1,000 mg Q6H PRN Administration Mild Pain (1-3) or Fever Albuterol 2 puff 01/23/20 23:10 Proventil Hfa INHALATION QIDRT PRN Shortness Of Breath Dextrose 12.5 gm 01/23/20 23:09 01/24/20 05:09 Dextrose 50% Syringe IV PUSH 12.5 gm PRN PRN Administration Hypoglycemia Protocol Glucagon 1 mg 01/23/20 23:09 Glucagon For Inj IM PRN PRN Hypoglycemia Protocol Glucose 15 gm 01/23/20 23:09 Glutose 15 PO PRN PRN Hypoglycemia Protocol Dextrose 1,000 mls @ 100 mls/hr 01/23/20 23:09 Dextrose 5% 1,000 Ml IVPB PRN PRN Hypoglycemia Protocol Piperacillin/Tazobactam/Dextrose 3.375 gm in 50 mls @ 100 mls/hr 01/27/20 12:00 01/30/20 11:59 Zosyn 3.375 Gm/D5w 50ml Pm IVPB 100 mls/hr Q6HR SULMA Administration Insulin Aspart 3 - 6 units 01/24/20 08:00 01/30/20 11:50 Novolog SUB-Q Not Given TIDWM SULMA Protocol Insulin Aspart 5 units 01/30/20 08:00 01/30/20 11:50 Novolog SUB-Q 5 units 08,12 SULMA Administration Insulin Aspart 8 units 01/30/20 17:00 Novolog SUB-Q 17 SULMA Lansoprazole 30 mg 01/26/20 06:30 01/30/20 06:51 Prevacid Susp PO 30 mg DAILY@0630 SULMA Administration Radiology Results: ITS Impressions Chest X-Ray 01/23/20 15:54 Impression: 1: Right middle and lower lobe airspace disease, atelectasis versus pneumonia. Head CT 01/23/20 15:57 IMPRESSION: 1. No acute intracranial abnormality. 2: Chronic age-related findings. Upper Quadrant Ultrasound 01/27/20 09:02 IMPRESSION: 1. 15.2 cm mass in the right hepatic lobe. Differential would include neoplasm either benign or malignant, hepatic abscess or hematoma. Recommend further evaluation with hepatic mass protocol pre and postcontrast of the abdomen and pelvis. 2. Reversal flow in the main portal vein consistent with portal venous hypertension. Abdomen/Pelvis CT 01/27/20 10:54 IMPRESSION: 1. 17.4 x 10.7 x 10.4 cm multiloculated gas and fluid collections occupying a significant portion of the right hepatic lobe con
[2020-01-30 14:00] VITALS: BP 132/65; PULSE 90; RESP 16; TEMP 36.7; O2SAT 97
--- NOTE | 2020-01-30 14:53 | PM.IMPN ---
Progress Note: A&P Assessment and Plan (1) Liver abscess: Onset Date: 01/27/20 Code(s): K75.0 - Abscess of liver Status: Acute Assessment and Plan: Had laparoscopic cholecystectomy that was complicated by biliary injury requiring SB conduit. RUQ ultrasound with 15.2 cm mass right hepatic lobe. CT abdomen/pelvis with 17.4 x 10.7 x 10.4 cm multiloculated gas and fluid collection in right hepatic lobe. General surgery consulted and appreciate input. Placement of drain in hepatic abscess by Interventional Radiology on 01/27/2020. lso aAppreciate help from Infectious Disease. Abscess now growing Klebsiella pneumoniae sensitive to IV Zosyn. Per Infectious Disease plan for 14 days treatment with IV Zosyn and currently on day #4. Care coordination working on placement as patient will not be able to do IV antibiotics at home. Will need PICC line prior to discharge. Blood cultures final and negative. Per surgery, plan to leave drain in until repeat CT. Will continue to monitor. Continue PT/OT. (2) Pneumonia involving right lung: Onset Date: ~01/23/20 Qualifiers: Lung location: lower lobe of lung Pneumonia type: due to unspecified organism Qualified Code(s): J18.9 - Pneumonia, unspecified organism Code(s): J18.9 - Pneumonia, unspecified organism Status: Acute Assessment and Plan: Chest x-ray with right middle and lower lobe airspace disease. Initially on IV azithromycin and ceftriaxone but now on IV Zosyn as noted above with addition of abscess. COVID-19 testing negative. Improved and stable on room air. Continue albuterol HFA as needed. (3) Sepsis: Qualifiers: Sepsis acute organ dysfunction status: unspecified Sepsis type: sepsis due to unspecified organism Qualified Code(s): A41.9 - Sepsis, unspecified organism Code(s): A41.9 - Sepsis, unspecified organism Status: Acute Assessment and Plan: Criteria met on admission. Cultures as noted above. Most likely result of liver abscess and/or pneumonia. Continue IV Zosyn for 2 week course as noted above. (4) UTI (urinary tract infection): Onset Date: ~01/23/20 Qualifiers: Hematuria presence: without hematuria Urinary tract infection type: site unspecified Qualified Code(s): N39.0 - Urinary tract infection, site not specified Code(s): N39.0 - Urinary tract infection, site not specified Status: Acute Assessment and Plan: Urine culture also positive for Klebsiella pneumoniae. Continue IV antibiotics as noted above. (5) Hypoglycemia: Code(s): E16.2 - Hypoglycemia, unspecified Status: Acute Assessment and Plan: Glucose low on admission with patient on dextrose drip which was discontinued on 01/25/2020. Glucose reviewed on 01/30/2020 and acceptable. Continue treatment of diabetes as noted below. 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 Glucose reviewed on 01/30/2020 and remains generally acceptable with occasional elevated reading. Will continue home scheduled mealtime insulin along with sliding scale. Will continue to monitor. Adjust treatment as needed. (7) Microcytic anemia: Onset Date: Unknown Code(s): D50.9 - Iron deficiency anemia, unspecified Status: Acute Assessment and Plan: Hemoglobin increased again to 9.1 today. No sign of active bleeding. Iron studies consistent with chronic disease. Vitamin B12 and folate normal. Did receive 1 unit PRBC on 01/23/2020. Will continue to monitor. (8) Generalized weakness: Code(s): R53.1 - Weakness Status: Acute Assessment and Plan: Result of infection, hypoglycemia and anemia. Improving. Continue PT/OT. (9) DVT p
[2020-01-30] MEDS: INSULIN ASPART (*BKC) 100 UNITS/ML 8 UNITS SUB-Q (16:38)
[2020-01-30 16:44] LABS: Glucose Point of Care 197 (65-105)
[2020-01-30 17:35] LABS: Basophils Absolute Auto 0.1 K/mm3 (0.0-0.1); Basophils Percent Auto 0.4 % (0.2-1.2); Eosinophils Absolute Auto 0.1 K/mm3 (0-0.3); Eosinophils Percent Auto 0.8 % (0-4.4); Hematocrit 32.1 % (37.0-47.0); Hemoglobin 9.1 g/dL (12.0-15.0); Immature Granulocyte Absolute 0.08 K/mm3 (0.00-0.031); Immature Granulocyte Percent A 0.5 % (0-0.5); Lymphocytes Absolute Auto 2.19 K/mm3 (0.9-3.2); Lymphocytes Percent Auto 12.8 % (18.3-44.2); Mean Corpuscular HGB Conc 28.3 g/dl (32-36); Mean Corpuscular Hemoglobin 22.7 pg (26-34); Mean Platelet Volume 8.9 fl (7.4-10.4); Monocytes Absolute Auto 0.4 K/mm3 (0.1-0.6); Monocytes Percent Auto 2.5 % (2.6-8.5); Neutrophils Absolute Auto 14.2 K/mm3 (1.3-6.7); Platelet Count Result 450 k/mm3 (150-375); Red Blood Count 4.01 M/mm3 (4.2-5.4); Red Cell Distribution Width 21.1 % (11.5-14.5); White Blood Count 17.1 K/mm3 (4.5-10.0)
[2020-01-30 17:42] LABS: Hypochromasia 1+ (NORMAL); Platelet Estimate Increased (Adequate)
[2020-01-30 20:53] LABS: Glucose Point of Care 294 (65-105)
[2020-01-30 22:00] VITALS: BP 129/65; PULSE 97; RESP 16; TEMP 36.1; O2SAT 96
[2020-01-31 05:25] VITALS: BP 130/60; PULSE 89; RESP 16; TEMP 36.1; O2SAT 97
[2020-01-31 05:30] LABS: Blood Urea Nitrogen 10 mg/dL (7-17); Calcium 8.4 mg/dL (8.4-10.2); Carbon Dioxide 28 mmol/L (22-30); Chloride 98 mmol/L (98-107); Estimated CRCL calculation 85 ml/min; Estimated Glomerular Filt Rate > 60; Glucose 242 mg/dL (65-105); Potassium 4.5 mmol/L (3.4-5.0); Sodium 130 mmol/L (137-145)
[2020-01-31] MEDS: LANSOPRAZOLE ORAL SUSP 30 MG/10 ML ORAL.SUSP PO (06:03)
[2020-01-31 07:42] LABS: Glucose Point of Care 233 (65-105)
[2020-01-31] MEDS: INSULIN ASPART (*BKC) 100 UNITS/ML SUB-Q ×5 (07:58→16:45)
[2020-01-31 11:29] LABS: Glucose Point of Care 234 (65-105)
--- NOTE | 2020-01-31 12:14 | PM.IMPN ---
Progress Note: A&P Assessment and Plan (1) Liver abscess: Onset Date: 01/27/20 Code(s): K75.0 - Abscess of liver Status: Acute Assessment and Plan: Had laparoscopic cholecystectomy that was complicated by biliary injury requiring SB conduit. RUQ ultrasound with 15.2 cm mass right hepatic lobe. CT abdomen/pelvis with 17.4 x 10.7 x 10.4 cm multiloculated gas and fluid collection in right hepatic lobe. General surgery consulted and appreciate input. Placement of drain in hepatic abscess by Interventional Radiology on 01/27/2020. Appreciate help from Infectious Disease. Abscess now growing Klebsiella pneumoniae sensitive to IV Zosyn. Per Infectious Disease plan is for 14 days treatment with IV Zosyn. On Day #5/14 IV Zosyn. Has been accepted at [facility] when okay with others for discharge. Will need PICC line placed before discharge. Per general surgery, plan to leave drain in place until follow-up CT shows complete collapse of intrahepatic abscess. (2) Pneumonia involving right lung: Onset Date: ~01/23/20 Qualifiers: Lung location: lower lobe of lung Pneumonia type: due to unspecified organism Qualified Code(s): J18.9 - Pneumonia, unspecified organism Code(s): J18.9 - Pneumonia, unspecified organism Status: Acute Assessment and Plan: Chest x-ray with right middle and lower lobe airspace disease. Initially on IV azithromycin and ceftriaxone but now on IV Zosyn as noted above with addition of abscess. COVID-19 testing negative. Clinically improved. On room air. Continue albuterol HFA as needed. (3) Sepsis: Qualifiers: Sepsis acute organ dysfunction status: unspecified Sepsis type: sepsis due to unspecified organism Qualified Code(s): A41.9 - Sepsis, unspecified organism Code(s): A41.9 - Sepsis, unspecified organism Status: Acute Assessment and Plan: Criteria met on admission. Abscess culture as noted above. Blood cultures negative and final. Most likely result of liver abscess and/or pneumonia. Continue IV Zosyn for 2 week course as noted above. (4) UTI (urinary tract infection): Onset Date: ~01/23/20 Qualifiers: Hematuria presence: without hematuria Urinary tract infection type: site unspecified Qualified Code(s): N39.0 - Urinary tract infection, site not specified Code(s): N39.0 - Urinary tract infection, site not specified Status: Acute Assessment and Plan: Urine culture also positive for Klebsiella pneumoniae. Continue IV antibiotics as noted above. (5) Hypoglycemia: Code(s): E16.2 - Hypoglycemia, unspecified Status: Acute Assessment and Plan: Glucose low on admission with patient on dextrose drip which was discontinued on 01/25/2020. Glucose now elevated with treatment of diabetes as noted below. 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 Glucose reviewed on 01/31/2020 and now with more elevated readings. Will add low-dose Lantus. Continue home scheduled mealtime insulin. Continue sliding scale insulin. Will continue to monitor and adjust as needed. (7) Microcytic anemia: Onset Date: Unknown Code(s): D50.9 - Iron deficiency anemia, unspecified Status: Acute Assessment and Plan: Hemoglobin increased again to 9.1 on 01/30/2020. No sign of active bleeding. Iron studies consistent with chronic disease. Vitamin B12 and folate normal. Did receive 1 unit PRBC on 01/23/2020. Will continue to monitor. (8) Generalized weakness: Code(s): R53.1 - Weakness Status: Acute Assessment and Plan: Result of infection, hypoglycemia and anemia. Continues to improve. Continue PT/OT. (9) DVT prophylaxis:
--- NOTE | 2020-01-31 12:56 | WPDINFPN2 ---
Progress Note: A&P Assessment and Plan (1) Liver abscess: Onset Date: 01/27/20 Code(s): K75.0 - Abscess of liver Status: Acute Assessment and Plan: 1. Liver abscess, Klebsiella and perhaps co-pathogens also. susceptibility is slightly different from from the urine isolate. 2. Bacteriuria, same organism. This raises possibility of transient bacteremia from kidney, seeding the liver. But portal circulation is a more common source of liver abscess. 3. DM REC PipTazo #5 / 14 days, through 02/09/20. After IV therapy, give 7 days of Augmentin orally, see orders. Ok to swing bed Subjective Date/time seen: 01/31/20 12:56 Interval history: no abd pain. Exam Narrative: Exam Narrative: drain output lower, about 70 cc / 24 hours. Afebrile Const: General: no acute distress Eyes: General: appearance normal, both eyes and all related structures Resp: Effort & Inspection: normal respiratory effort Auscultation: clear to auscultation bilaterally Cardio: Rate: regular rate Rhythm: regular rhythm Heart sounds: no gallops and no murmurs GI: Inspection: non-distended GI Palp: Yes Soft to palpation and No Tenderness to palpation present (GI) Percussion: Yes normal to percussion Auscultation: normal bowel sounds Objective Data Vital Signs Vital Signs: Vital Signs - 24 hr 01/30/20 14:00 01/30/20 22:00 01/31/20 05:25 Temperature 36.7 C 36.1 C L 36.1 C L Pulse Rate 90 97 89 Respiratory Rate 16 16 16 Blood Pressure 132/65 129/65 130/60 Pulse Oximetry 97 96 97 Intake/Output Intake/Output: Intake & Output 01/28/20 01/29/20 01/30/20 01/31/20 23:59 23:59 23:59 23:59 Intake Total 1320 1370 2220 1340 Output Total 320 1000 170 Balance 1515 560 0238 1170 Meds/Results Medications: Active Medications Generic Name Dose Route Start Last Admin Trade Name Freq PRN Reason Stop Dose Admin Acetaminophen 1,000 mg 01/29/20 10:20 01/30/20 03:46 Tylenol Tablet PO 1,000 mg Q6H PRN Administration Mild Pain (1-3) or Fever Albuterol 2 puff 01/23/20 23:10 Proventil Hfa INHALATION QIDRT PRN Shortness Of Breath Dextrose 12.5 gm 01/23/20 23:09 01/24/20 05:09 Dextrose 50% Syringe IV PUSH 12.5 gm PRN PRN Administration Hypoglycemia Protocol Glucagon 1 mg 01/23/20 23:09 Glucagon For Inj IM PRN PRN Hypoglycemia Protocol Glucose 15 gm 01/23/20 23:09 Glutose 15 PO PRN PRN Hypoglycemia Protocol Dextrose 1,000 mls @ 100 mls/hr 01/23/20 23:09 Dextrose 5% 1,000 Ml IVPB PRN PRN Hypoglycemia Protocol Piperacillin/Tazobactam/Dextrose 3.375 gm in 50 mls @ 100 mls/hr 01/27/20 12:00 01/31/20 11:32 Zosyn 3.375 Gm/D5w 50ml Pm IVPB 100 mls/hr Q6HR SULMA Administration Insulin Aspart 3 - 6 units 01/24/20 08:00 01/31/20 11:32 Novolog SUB-Q 3 units TIDWM SULMA Administration Protocol Insulin Aspart 5 units 01/30/20 08:00 01/31/20 11:32 Novolog SUB-Q 5 units 08,12 SULMA Administration Insulin Aspart 8 units 01/30/20 17:00 01/30/20 16:38 Novolog SUB-Q 8 units 17 SULMA Administration Lansoprazole 30 mg 01/26/20 06:30 01/31/20 06:03 Prevacid Susp PO 30 mg DAILY@0630 SULMA Administration Radiology Results: ITS Impressions Chest X-Ray 01/23/20 15:54 Impression: 1: Right middle and lower lobe airspace disease, atelectasis versus pneumonia. Head CT 01/23/20 15:57 IMPRESSION: 1. No acute intracranial abnormality. 2: Chronic age-related findings. Upper Quadrant Ultrasound 01/27/20 09:02 IMPRESSION: 1. 15.2 cm mass in the right hepatic lobe. Differential would include neoplasm either benign or malignant, hepatic abscess or hematoma. Recommend further evaluation with hepatic mass protocol pre and postcontrast of the abdomen and pelvis. 2. Reversal flow in the main portal vein consistent with portal venous hypertension. Abdomen/Pelvis CT 01/08
--- NOTE | 2020-01-31 13:32 | PM.PNGS ---
Progress Note: A&P Assessment and Plan (1) Liver abscess: Onset Date: 01/27/20 Code(s): K75.0 - Abscess of liver Status: Acute Assessment and Plan: Plan to leave drain in until follow-up CT shows complete collapse of the intrahepatic abscess. Abscess cultures showing growth of Klebsialla pnuem. sensitive to Zosyn. Continue antibiotics per ID. Will repeat the CT scan mid next week and have this forwarded to Dr. Becerra and Dr. Mcelroy. Will schedule a follow-up appointment with the patient after the CT scan. ID's recommendations noted and appreciated. Plan for patient to get a PICC/midline for IV antibiotics and be transferred to a swing bed. (2) Pneumonia involving right lung: Onset Date: ~01/23/20 Qualifiers: Pneumonia type: due to unspecified organism Lung location: lower lobe of lung Qualified Code(s): J18.9 - Pneumonia, unspecified organism Code(s): J18.9 - Pneumonia, unspecified organism Status: Acute Assessment and Plan: Management per Hospitalist. Currently on IV antibiotics as mentioned above. (3) Microcytic anemia: Onset Date: Unknown Code(s): D50.9 - Iron deficiency anemia, unspecified Status: Acute Assessment and Plan: Hemoglobin stable for several days. (4) Insulin dependent type 2 diabetes mellitus: Onset Date: Unknown Code(s): E11.9 - Type 2 diabetes mellitus without complications; Z79.4 - intermediate designer (current) use of insulin Status: Acute (5) Hypertension: Onset Date: Unknown Qualifiers: Hypertension type: unspecified Qualified Code(s): I10 - Essential (primary) hypertension Code(s): I10 - Essential (primary) hypertension Status: Acute (6) UTI (urinary tract infection): Onset Date: ~01/23/20 Qualifiers: Hematuria presence: without hematuria Urinary tract infection type: site unspecified Qualified Code(s): N39.0 - Urinary tract infection, site not specified Code(s): N39.0 - Urinary tract infection, site not specified Status: Acute Assessment and Plan: Management per Hospitalist/ID. Urine culture shows growth of Klebsiella pneum. as well as abscess cultures with slightly different sensitivities. Continue abx per ID as above. (7) Hyponatremia: Code(s): E87.1 - Hypo-osmolality and hyponatremia Status: Acute Additional Plan Encouraged increased activity and good nutrition. Discussed plan of care with Dr. Becerra today. Subjective Subjective Date/Time Seen: 01/31/20 10:32 Patient reports: tolerating a regular diet Interval history: Patient reports upper abdominal pain overnight with deep breathing aggravating this pain. Denies nausea, vomiting or bloating. Patient has been afebrile over the past 24 hours. She reports mild upper abdominal pain today intermittently. No other complaints at this time. Review of Systems Review of Systems: All systems reviewed & are unremarkable except as noted in HPI and below Exam Const: General: cooperative, no acute distress, alert and awake Resp: Effort & Inspection: normal respiratory effort and no respiratory distress GI: Inspection: normal to inspection, non-distended and scar (Transverse upper abdominal scar from previous surgery.) GI Palp: Yes Soft to palpation, Yes Tenderness to palpation present (GI) (RUQ and epigastric), No Guarding due to palpation present (GI), No Rigid due to palpation and No Rebound tenderness present Percussion: Yes normal to percussion Auscultation: normal bowel sounds Other: Drain exits posterior right upper quadrant with cloudy landon output in drainage bag. Skin: General skin exam: pallor Neuro: General: patient oriented x3 and moves all extremities Psych: Mental Status: mental status grossly normal Attitude: cooperative Objective Data Vital Signs Vital Signs: Vital Signs - 24 hr 01/30/20 14:00 01/30/20 22:00 01/31/20 05:25 Temperature 36.7 C
[2020-01-31 14:00] VITALS: BP 126/59; PULSE 96; RESP 17; TEMP 36.4; O2SAT 97
[2020-01-31] MEDS: LIDOCAINE HCL 1% PF INJ 5 ML VIAL INFILTRATE (14:00)
--- NOTE | 2020-01-31 14:06 | PCDIET ---
Nutrition Follow-Up Complete: Pt current nutrition is DBCC +Glucerna BID. Nutrition recommendation: Appropriate Last recorded weight is 57 kg. Bowel Motility: 01/27 last BM Labs Reviewed:Glucose elevated at 242, Na 130 Meds Noted:Insulin Additional Notes: Seeing pt 2/2 to LOS. Pt with a great appetite, eating 90-100% of all meals. Pt also drinking Glucerna BID which is appropriate due to lower BMI. Glucerna includes low glycemic carbohydrates to help minimize blood sugar spikes and provides 180 kcal, 10g protein, 16g CHO, and 26 vitamins and minerals per 8oz serving. s/p yeimy and drain to hepatic abscess which is growing klebsiella. Pt on zosyn and preparing for d/c to [facility]. We will continue to monitor PO intake and wt for adequacy if pt remains here.
--- NOTE | 2020-01-31 14:59 | PM.DS ---
DS: Diagnosis Admitting Diagnosis Admitting Diagnosis: Pneumonia, unspecified organism Discharge Diagnosis (1) Liver abscess: Onset Date: 01/27/20 Code(s): K75.0 - Abscess of liver Status: Acute (2) Pneumonia involving right lung: Onset Date: ~01/23/20 Qualifiers: Lung location: lower lobe of lung Pneumonia type: due to unspecified organism Qualified Code(s): J18.9 - Pneumonia, unspecified organism Code(s): J18.9 - Pneumonia, unspecified organism Status: Acute (3) Sepsis: Qualifiers: Sepsis acute organ dysfunction status: unspecified Sepsis type: sepsis due to unspecified organism Qualified Code(s): A41.9 - Sepsis, unspecified organism Code(s): A41.9 - Sepsis, unspecified organism Status: Acute (4) UTI (urinary tract infection): Onset Date: ~01/23/20 Qualifiers: Hematuria presence: without hematuria Urinary tract infection type: site unspecified Qualified Code(s): N39.0 - Urinary tract infection, site not specified Code(s): N39.0 - Urinary tract infection, site not specified Status: Acute (5) Hypoglycemia: Code(s): E16.2 - Hypoglycemia, unspecified Status: Acute (6) Insulin dependent type 2 diabetes mellitus: Onset Date: Unknown Code(s): E11.9 - Type 2 diabetes mellitus without complications; Z79.4 - terminal computer operator (current) use of insulin Status: Acute (7) Microcytic anemia: Onset Date: Unknown Code(s): D50.9 - Iron deficiency anemia, unspecified Status: Acute (8) Generalized weakness: Code(s): R53.1 - Weakness Status: Acute DS: Summary Hospital Course Reason for hospitalization: Generalized weakness. Hospital Course: Date of Service of Discharge: January 31, 2020. History of Present Illness: Patient is a 64-year-old woman with type 2 diabetes mellitus and hyperlipidemia present to the emergency department by EMS from home for evaluation of generalized weakness. Patient was admitted in October 2019 for the same complaint. At that time she was found to have uncontrolled diabetes. Patient was discharged with the Basaglar 10 units at bedtime at that time but is now only using short-acting insulin 5 units with each meal and at bedtime. Glucose level is 146 on the morning of presentation. Glucose however decrease in the emergency room patient placed on dextrose drip. Patient reports at home she was unable to fully stand up to get out of the bath due to generalized weakness. She then crawled to the couch to call her friend for help. He in turn called EMS. In addition to glucose issues, patient was noted to have hemoglobin 4 g lower than what it was 3 months earlier. WBC was elevated with lactic acidosis. Patient on further questioning denied fever, chills, sweats, cold and flu symptoms, cough, chest pain, shortness of breath, nausea, vomiting and diarrhea. Course in Hospital: Patient was initially admitted to the IMU. She was started on IV ceftriaxone and azithromycin. COVID-19 testing was initiated and did eventually return as negative. Patient was placed on albuterol HFA. Blood and urine cultures were obtained with urine culture eventually growing Klebsiella pneumonia. Blood cultures were final and negative discharge. Patient was on room air by the time of discharge with lung exam clear. No urinary symptoms also by the time of discharge. During her stay, patient was noted to have persistently elevated alkaline phosphatase with mild right upper quadrant tenderness. She is known to have laparoscopic cholecystectomy complicated by biliary injury requiring SP conduit. ultrasound was performed which did reveal mass. Follow-up CT scan showed 17.4 x 10.7 x 10.4 cm multiloculated gas and fluid collections occupy a significant portion of the right hepatic lobe concerning for hepatic abscess. General surgery was consulted. Percutaneous drain was placed by Interve
[2020-01-31 16:27] LABS: Glucose Point of Care 356 (65-105)
[2020-01-31] MEDS: INSULIN ASPART (*BKC) 100 UNITS/ML 8 UNITS SUB-Q (16:45)
== END 2020-01-31 17:38 | disposition swing bed (61) | DRG 193 ==
LOC: ANHED 17:01 → ANHICU 18:19 → ANHIMU 01-24 16:44 → ANH2MED 01-27 11:57 → ANHICU 02-04 09:18 → ANHIMU 02-04 09:18
PROVIDERS: Internal Medicine; Physician Assistant; Radiology Diagnostic Radiology; Surgery; Admitting Provider Family Medicine; Emergency Provider Emergency Medicine; PCP Family Medicine; Visit Provider Hospitalist
PROC: 0F9530Z Drainage of Right Hepatic Duct with Drainage Device, Percutaneous Approach (ICD-10-PCS; principal; 2020-01-27 14:00)
DX: J18.9 Pneumonia, unspecified organism (principal); K75.0 Abscess of liver; N39.0 Urinary tract infection, site not specified; B96.1 Klebsiella pneumoniae [K. pneumoniae] as the cause of diseases classified elsewhere; Z20.828 Contact with and (suspected) exposure to other viral communicable diseases; E11.649 Type 2 diabetes mellitus with hypoglycemia without coma; D50.9 Iron deficiency anemia, unspecified; E78.5 Hyperlipidemia, unspecified; E11.42 Type 2 diabetes mellitus with diabetic polyneuropathy; I10 Essential (primary) hypertension; D63.8 Anemia in other chronic diseases classified elsewhere; D72.829 Elevated white blood cell count, unspecified; Z90.49 Acquired absence of other specified parts of digestive tract; Z79.4 Long term (current) use of insulin
CPT/HCPCS: 36415; 36430; 36569; 36600; 51701; 70450; 71046; 74178; 75989; 76705; 80048; 80053; 81001; 82274; 82375; 82550; 82607; 82728; 82746; 82805; 82948; 83036; 83050; 83540; 83550; 83605; 83615; 83735; 84100; 84295; 85014; 85018; 85025; 85027; 85610; 85730; 86140; 86850; 86900; 86901; 86923; 87040; 87070; 87075; 87077; 87086; 87088; 87186; 87205; 87449; 87635; 87899; 93005; 96361; 96365; 96367; 97110; 97116; 97162; 97165; 97530; 97535; 99285; A9270; C1729; C1751; C1769; J0456; J0696; J1815; J2250; J2543; J3010; J7030; J7070; P9016; Q9967; U0003

== ENCOUNTER 2020-01-31 19:30 | Inpatient (IN) | payer OTHER, SELFPAY ==
--- NOTE | ~2020-01-31 | CT_ITS ---
EXAMINATION: CT abdomen pelvis w con DATE: 02/06/2020 14:30 INDICATION: Liver abscess. TECHNIQUE: Computed tomography (CT) of the abdomen and pelvis was performed with 100 mL Omnipaque 350 intravenous contrast. Automated exposure control and iterative reconstruction technique were employe d. The dose-length product was 365.79 mGy-cm. COMPARISON: CT abdomen and pelvis 01/27/2020 FINDINGS: The visualized portions of the lung bases demonstrate mild atelectasis. There is a small ri ght pleural effusion. Cardiomegaly is noted. No pericardial effusion. There is an 8.8 x 4.9 x 3.9 cm abscess containing fluid and gas in right hepatic lobe, decreased from 17.9 x 10.9 x 9.8 cm on 0. There is a percutaneous drain in the inferior aspect of the abscess. There is surrounding hypoenha ncement in right hepatic lobe, consistent with phlegmon. There is chronic total occlusion of some por tomas veins in right hepatic lobe. There are changes of cholecystectomy. The spleen, pancreas, adrenal glands, and kidneys are normal. There are no dilated loops of bowel. The appendix is not visualized. There are no pathologically enlarged lymph nodes. There is no free intraperitoneal fluid. There is mi ld thoracolumbar spondylosis. IMPRESSION: 1. Abscess in right hepatic lobe with interval improvement with percutaneous drain in expected positi on. 2. Small right pleural effusion. Reviewed, dictated and finalized at location A. IMPRESSION: 1. Abscess in right hepatic lobe with interval improvement with percutaneous dr de león in expected position. 2. Small right pleural effusion.
[2020-01-31 18:35] VITALS: BP 127/79; PULSE 113; RESP 20; TEMP 36.6; O2SAT 97
--- NOTE | 2020-01-31 18:48 | PC.NURSE ---
states on very restrictive diabetic diet forType 1 diabetes. Low Carb.
--- NOTE | 2020-01-31 18:52 | ADMGEN ---
This patient, Marine Anglin, was admitted to 2nd Floor Room 205-2 swing bed status post Cholecystomy with drain place for abscess via stretcher/ambulance for IV antibiotics and PT/OT. Patient/family oriented to hospital policies and general routines including ID bracelet, bed and alarms, visiting hours, pain management, procedures, bathroom and other care routines, personal items, smoking policy, room service/diet, and visiting hours. Valuables list has been completed. Information on how to activate the Rapid Response Team has been discussed. Patient/Family are encouraged to report perceived risks to care and to ask questions if they do not understand what they are told or what they should do.
[2020-01-31 18:58] VITALS: BMI 20.4
--- NOTE | 2020-01-31 19:04 | PC.NURSE ---
Poor historian for allergies.
[2020-01-31] MEDS: INSULIN GLARGINE (*BKC) 100 UNITS/ML SUB-Q (21:20)
[2020-01-31 21:26] LABS: Glucose Point of Care 272 (65-105)
--- NOTE | 2020-01-31 21:30 | PC.NURSE ---
PICC Line flushed and cap applied; offered to turn off overbed light, patient declined. Patient hard of hearing. Unable to state mother's medical history. Drain has scant drainage in tubing. Diamond drain is depressed. Nurse at [facility] emptied Drain of 20ml of landon liquid prior to transfer.
--- NOTE | 2020-01-31 22:00 | PC.NURSE ---
Has not voided.
--- NOTE | 2020-01-31 23:25 | PC.NURSE ---
Report given to oncoming shift: no further drainage from drain and depressed. Has not voided. Contact Isolation for urine and Liver drain drainage.
[2020-02-01] VITALS: BP 142/73; PULSE 102; RESP 20; TEMP 36.6; O2SAT 96
--- NOTE | 2020-02-01 00:56 | PC.NURSE ---
[facility] care provided.
--- NOTE | 2020-02-01 01:33 | PC.NURSE ---
[id number] Nichols for clarification on diet order and SS insulin scale.
--- NOTE | 2020-02-01 06:06 | PC.NURSE ---
40ml thick landon liquid obtained from drain L lower back.
--- NOTE | 2020-02-01 06:20 | PC.NURSE ---
0616 Dr. Nichols notified of the unavailability of prevacid elixer. New orders recieved and noted.
[2020-02-01 07:15] VITALS: BP 119/82; PULSE 92; RESP 18; TEMP 36.6; O2SAT 96
[2020-02-01 07:58] LABS: Basophils Absolute Auto 0.04 K/mm3 (0.00-0.10); Basophils Percent Auto 0.3 % (0.0-1.0); Eosinophils Absolute Auto 0.27 K/mm3 (0.02-0.50); Eosinophils Percent Auto 2.1 % (1.0-6.0); Hematocrit 29.2 % (35.0-49.0); Hemoglobin 8.7 g/dL (12.0-15.0); Immature Granulocyte Absolute 0.08 K/mm3 (0.00-0.00); Immature Granulocyte Percent A 0.6 % (0.0-0.0); Lymphocytes Absolute Auto 2.46 K/mm3 (1.10-4.50); Lymphocytes Percent Auto 18.9 % (18.0-42.0); Mean Corpuscular HGB Conc 29.8 g/dL (32.0-36.0); Mean Corpuscular Hemoglobin 23.6 pg (27.0-31.0); Mean Corpuscular Volume 79.1 fL (78.0-102.0); Mean Platelet Volume 8.8 fl (9.2-11.8); Monocytes Absolute Auto 0.51 K/mm3 (0.10-0.90); Monocytes Percent Auto 3.9 % (2.0-11.0); Neutrophils Absolute Auto 9.6 K/mm3 (1.7-7.2); Neutrophils Percent Auto 74.2 % (50.0-70.0); Platelet Count Result 444 K/mm3 (150-420); Red Blood Count 3.69 M/mm3 (4.20-5.40); Red Cell Distribution Width 21.1 % (11.6-14.4)
[2020-02-01 08:08] LABS: Anion Gap 9.2 mmol/L (7-16); Blood Urea Nitrogen 11 mg/dL (7-18); Calcium 8.4 mg/dL (8.5-10.1); Carbon Dioxide 30 mmol/L (21-32); Chloride 101 mmol/L (98-108); Estimated CRCL calculation 63 ml/min; Estimated Glomerular Filt Rate > 60; Glucose 269 mg/dL (70-99); Osmolality Calculated 290 mOsm/kg (285-295); Potassium 4.2 mmol/L (3.5-5.1); Sodium 136 mmol/L (136-145)
[2020-02-01 11:36] LABS: Glucose Point of Care 312 (65-105)
--- NOTE | 2020-02-01 13:13 | PM.IMHP ---
H&P: HPI History of Present Illness Chief complaint: IV antibiotics <ARIES Maurer - Last Filed: 02/01/20 14:13> Narrative: Marine Anglin is a 64 year old female That was admitted into and since hospital for generalized weakness she was admitted for sepsis, UTI, pneumonia and liver abscess. She has a past medical history uncontrolled diabetes, diabetic peripheral neuropathy, and .essential hypertension. during her stay in [facility] she was tested for COVID-19 which was negative, urine cultures was collected and positive for klebsiella pneumonia. she is known to have laparoscopic cholecystecomy complicated by a biliary injury requiring SP conduit. CT scan revealed a 17x 10.7 x 10.4 cm hepatic abscess. General surgery was consulted Dr. Becerra and a percutaneous drain was placed by interventional radiology on 01/27/2020 with return of white creamy purulent drainage. Abscess culture also grew Klebsiella pneumonia. Dr. Mcelroy , infectious Disease was also consulted patient was placed on Zosyn. Once Zosyn is completed she will start Augmentin p.o.. patient is unable to manage IV antibiotics at home so she is being placed here at [facility] for physical therapy occupational therapy and IV antibiotic treatment. midline was placed on 01/31/2020. vital signs on admission 98, 92, 18, 96% on room air, 119/82. Patient admitted in swing bed for rehabilitation due to decreased balance decreased mobility in severe limited function endurant and/or mobility and IV antibiotics treatment. her primary care physician is Dr. Lucio Contreras DO in [facility], she is to make a follow-up appointment with him 1 week after discharging from rehab. <ARIES Maurer - Last Filed: 02/01/20 14:13> Review of Systems Constitutional: Constitutional: Reports as per HPI, Denies fatigue, Denies fever(s), Denies headache(s), Denies poor appetite and Reports weakness <ARIES Maurer - Last Filed: 02/01/20 14:13> Cardiovascular: Cardiovascular: Denies chest pain at rest, Denies dyspnea, Denies dyspnea on exertion and Denies orthopnea <ARIES Maurer - Last Filed: 02/01/20 14:13> Respiratory: Respiratory: Reports as per HPI, Denies chest congestion, Denies dyspnea and Denies wheezing <[facility] - Last Filed: 02/01/20 14:13> Gastrointestinal: Gastrointestinal: Denies constipation, Denies diarrhea, Denies nausea and Denies vomiting <Aydensofía LucienBetty Becerra [facility] - Last Filed: 02/01/20 14:13> Genitourinary: Genitourinary: Reports no additional female genitourinary complaints <Tello Becerra [facility] - Last Filed: 02/01/20 14:13> Musculoskeletal: Musculoskeletal: Reports muscle weakness <Aydensofía Becerra [facility] - Last Filed: 02/01/20 14:13> Integumentary/Breasts: Skin/Breast: Reports wounds ( hepatic drain) <Aydensofía Becerra [facility] - Last Filed: 02/01/20 14:13> Neurologic: Denies confusion, Denies vertigo, Denies dizziness, Denies syncope and Denies tingling <Tello Becerra [facility] - Last Filed: 02/01/20 14:13> Psychiatric: Psychiatric: Reports no additional psychiatric complaints <Aydensofía Becerra [facility] - Last Filed: 02/01/20 14:13> Endocrine: Endocrine: Reports no additional endocrine complaints <Tello Becerra [employer] - Last Filed: 02/01/20 14:13> Hematologic/Lymphatic: Hematologic/Lymphatic: Reports no additional hematologic/lymphatic complaints <[facility] - Last Filed: 02/01/20 14:13> [facility] Past Medical History Medical History: Medical History (Updated 01/28/20 @ 08:57 by Justin Becerra MD) Diabetic peripheral neuropathy Essential hypertension Insulin dependent type 2 diabetes mellitus (Unknown) Hemoglobin A1c was 16.8% in October 2019. <[facility] - Last Filed: 02/01/20 14:13> Family History Family History: Family History (Updated 01/31/20 @ 22:05 by Kristen Machuca RN) Mother Patient's mother is in good health
--- NOTE | 2020-02-01 13:20 | PC.NURSE ---
Patient sleeping quietly in bed. No signs of distress noted. Call light at side.
--- NOTE | 2020-02-01 14:11 | PM.EVENT ---
Event Note Event Note Event Note: Pt. with DM, admitted for Zosyn tx. of a draining K. pneumonia liver abscess. CT of abdomen in one week per Dr. Becerra and Cooper. Drainage tube to be removed if abscess has collapsed. Also has K. pneumonia UTI. She has a stable anemia, HCT = 17. Diabetes mellitus is being managed with Lispro, Lantus and sliding scale. Chart and GEOTHERMAL ELECTRICAL ENGINEER notes reviewed. Pt. in NAD. Drainage tube exits from the posterior lower chest. Cream colored d.c. in bag. Abd. soft and NT> Agree with note and plan.
[2020-02-01 15:45] VITALS: BP 118/74; PULSE 97; RESP 18; TEMP 36.6; O2SAT 98
[2020-02-01 17:36] LABS: Glucose Point of Care 297 (65-105)
[2020-02-01] MEDS: INSULIN GLARGINE (*BKC) 100 UNITS/ML SUB-Q (20:08)
[2020-02-01 20:56] LABS: Glucose Point of Care 214 (65-105)
[2020-02-01 23:13] VITALS: BP 142/77; PULSE 92; RESP 16; TEMP 36.2; O2SAT 98
[2020-02-02 07:22] VITALS: BP 131/85; PULSE 92; RESP 18; TEMP 36.3; O2SAT 97
[2020-02-02] MEDS: ACETAMINOPHEN 500 MG TABLET 1000 MG PO (08:36)
[2020-02-02 08:43] LABS: Glucose Point of Care 212 (65-105)
--- NOTE | 2020-02-02 11:35 | PC.NURSE ---
FRED Rincon in room to work with patient.
[2020-02-02 11:40] LABS: Glucose Point of Care 186 (65-105)
[2020-02-02 16:10] VITALS: BP 117/64; PULSE 87; RESP 18; TEMP 36.2; O2SAT 97
[2020-02-02 17:01] LABS: Glucose Point of Care 168 (65-105)
[2020-02-02] MEDS: INSULIN GLARGINE (*BKC) 100 UNITS/ML SUB-Q (20:06)
[2020-02-02 20:29] LABS: Glucose Point of Care 258 (65-105)
[2020-02-03] VITALS: BP 129/71; PULSE 88; RESP 20; TEMP 36.5; O2SAT 98
--- NOTE | 2020-02-03 | PC.NURSE ---
pt c/o itchy skin all over, red small bumps appears to be heat rash cupola charger notified and will call ERP
--- NOTE | 2020-02-03 00:15 | PC.NURSE ---
Dr. Santos notified of pt's c/o itching and discomfort on her back and legs; Orders received and noted.
--- NOTE | 2020-02-03 01:02 | PC.NURSE ---
pt incontinent of urine, linen and gown changed, tammy care performed, and lotion applied to pt body for puritis,
--- NOTE | 2020-02-03 02:40 | PC.NURSE ---
pt sleeping, no evidence of distress noted at this time.
--- NOTE | 2020-02-03 05:00 | PC.NURSE ---
pt requested to use bsc, voided 800 ml yellow, cloudy urine, pt able to get out of bed without assistance, assistance provided with depend. lotion applied to pt body for puritis
[2020-02-03 06:06] LABS: Hematocrit 33.9 % (35.0-49.0); Hemoglobin 9.7 g/dL (12.0-15.0); Mean Corpuscular HGB Conc 28.6 g/dL (32.0-36.0); Mean Corpuscular Hemoglobin 23.5 pg (27.0-31.0); Mean Corpuscular Volume 82.3 fL (78.0-102.0); Mean Platelet Volume 8.9 fl (9.2-11.8); Platelet Count Result 559 K/mm3 (150-420); Red Blood Count 4.12 M/mm3 (4.20-5.40); Red Cell Distribution Width 22.3 % (11.6-14.4); White Blood Count 10.7 K/mm3 (4.8-10.8)
[2020-02-03 06:22] LABS: Alanine Aminotransferase 14 U/L (14-59); Albumin Level 1.9 g/dL (3.4-5.0); Alkaline Phosphatase 296 U/L (46-116); Anion Gap 8.5 mmol/L (7-16); Aspartate Amino Transferase 13 U/L (15-37); Bilirubin,Total 0.1 mg/dL (0.00-1.00); Blood Urea Nitrogen 12 mg/dL (7-18); Calcium 8.6 mg/dL (8.5-10.1); Carbon Dioxide 30 mmol/L (21-32); Chloride 102 mmol/L (98-108); Estimated CRCL calculation 58 ml/min; Estimated Glomerular Filt Rate > 60; Glucose 215 mg/dL (70-99); Osmolality Calculated 287 mOsm/kg (285-295); Potassium 4.5 mmol/L (3.5-5.1); Sodium 136 mmol/L (136-145); Total Protein 6.7 g/dL (6.4-8.2)
[2020-02-03 07:22] LABS: Glucose Point of Care 206 (65-105)
[2020-02-03 07:25] VITALS: BP 126/73; PULSE 96; RESP 14; TEMP 36.6
[2020-02-03 08:00] VITALS: BP 126/73; PULSE 88; RESP 12; TEMP 36.6
[2020-02-03 11:29] LABS: Glucose Point of Care 311 (65-105)
--- NOTE | 2020-02-03 14:45 | PM.EVENT ---
Event Note Event Note Event Note: I have reviewed patient labs and reords. protein supplement has been added and code status updated.
[2020-02-03 16:19] VITALS: BP 123/62; PULSE 90; RESP 18; TEMP 36.4; O2SAT 97
--- NOTE | 2020-02-03 16:24 | PC.NURSE ---
Patient in bed. Answers questions without difficulty. Denies pain or nausea. Pleasant and smiling at nurse. SUZI drain intact SR up times 2. Call light and belongings within reach.
[2020-02-03 17:15] LABS: Glucose Point of Care 353 (65-105)
[2020-02-03] MEDS: DOCUSATE SODIUM 100 MG CAPSULE PO (20:14)
[2020-02-03 21:12] LABS: Glucose Point of Care 357 (65-105)
[2020-02-03] MEDS: INSULIN GLARGINE (*BKC) 100 UNITS/ML SUB-Q (21:18)
[2020-02-04] VITALS: BP 134/78; PULSE 97; RESP 20; TEMP 36; O2SAT 96
--- NOTE | 2020-02-04 06:00 | PC.NURSE ---
Inc care provided X2 this shift. L posterior drain emptied of thick green/landon liquid.
[2020-02-04 07:35] VITALS: BP 135/79; PULSE 95; RESP 20; TEMP 36.3; O2SAT 97
[2020-02-04 07:44] LABS: Glucose Point of Care 208 (65-105)
--- NOTE | 2020-02-04 08:05 | PC.NURSE ---
SBA up from bed to bathroom then to chair, able to get self up and ambulate with wheeled walker, denies pain, drain in place, dressing to back in place, dry and intact, color pale, breakfast tray provided
--- NOTE | 2020-02-04 09:15 | PC.NURSE ---
SBA up from chair to bed, able to get self up in bed with no assist, drain in place, marilee d/i,
--- NOTE | 2020-02-04 10:26 | PC.NURSE ---
REsting in bed, denies needs, personal items in reach
--- NOTE | 2020-02-04 11:10 | PC.NURSE ---
physical therapy working with patient
[2020-02-04 11:51] LABS: Glucose Point of Care 323 (65-105)
--- NOTE | 2020-02-04 12:50 | PC.NURSE ---
Laying on left side, pain from drain site noted, pain meds given
--- NOTE | 2020-02-04 14:13 | PC.NURSE ---
Resting on left side, no pain noted,
--- NOTE | 2020-02-04 14:19 | PC.NURSE ---
Drain emptied 20ml, dressing to back dry and intact
[2020-02-04 15:43] VITALS: BP 122/71; PULSE 96; RESP 16; TEMP 36.3; O2SAT 97
[2020-02-04 17:01] LABS: Glucose Point of Care 286 (65-105)
[2020-02-04] MEDS: INSULIN GLARGINE (*BKC) 100 UNITS/ML SUB-Q (20:45)
[2020-02-04 20:56] LABS: Glucose Point of Care 397 (65-105)
[2020-02-05] VITALS: BP 138/78; PULSE 84; RESP 20; TEMP 37; O2SAT 97
--- NOTE | 2020-02-05 00:15 | PC.NURSE ---
Pt Inc very lg amkameron valdez. Inc care provided.
--- NOTE | 2020-02-05 05:06 | PC.NURSE ---
Pt calls stating I need my depends changed. Inc care provided. Complete bed change.
[2020-02-05 07:26] LABS: Glucose Point of Care 262 (65-105)
[2020-02-05 07:31] VITALS: BP 123/72; PULSE 80; RESP 14; TEMP 36.9; O2SAT 98
[2020-02-05 11:31] LABS: Glucose Point of Care 345 (65-105)
[2020-02-05 16:00] VITALS: BP 123/70; PULSE 91; RESP 16; TEMP 36.5; O2SAT 98
--- NOTE | 2020-02-05 16:07 | PC.NURSE ---
Patient up to bathroom using w/w and 1 stand by assist. Back to bed and requested soda and jello. Pleasant and able to make needs known. SUZI drain intact with milky drainage. Patient denies pain. SR up x2 with call light, phone, and belongings within reach.
[2020-02-05 16:49] LABS: Glucose Point of Care 203 (65-105)
--- NOTE | 2020-02-05 17:32 | PC.NURSE ---
1720 Patient eating supper. Puncture wounds remain unchanged, redness surrounding site has decreased in size. No changes in neuro status.
--- NOTE | 2020-02-05 18:08 | PC.NURSE ---
1700 1 assist up to chair for supper. call light and belongings within reach. patient tolerated the transfer with gait belt and walker well.
--- NOTE | 2020-02-05 18:10 | PC.NURSE ---
1800 Patient fed self 100% of meal. 1 assist with gait belt and walker back to bed. Patient positioned for comfort. SUZI drain intact with minimal drainage observed. Call light and belongings within reach. Siderails up x2.
--- NOTE | 2020-02-05 18:45 | PC.NURSE ---
Patient in bed. Call light and belongings within reach. Denies pain. SUZI drain intact. PICC line intact to ADDIE.
--- NOTE | 2020-02-05 20:06 | PC.NURSE ---
5230 Patient refused to use bathroom before going back to bed. Stated she did not feel she had to go.
[2020-02-05] MEDS: INSULIN GLARGINE (*BKC) 100 UNITS/ML SUB-Q (20:34)
[2020-02-05] MEDS: DOCUSATE SODIUM 100 MG CAPSULE PO (20:35)
[2020-02-05 20:47] LABS: Glucose Point of Care 368 (65-105)
[2020-02-06] VITALS: BP 124/65; PULSE 88; RESP 18; TEMP 36.4; O2SAT 96
--- NOTE | 2020-02-06 00:50 | PC.NURSE ---
Patient ambulated to the bathroom. Metal Bonding Helper noticed that gauze and tegaderm dressing to drain insertion site was coming off. Existing dressing was removed. Small amount of purulent drainage was noted at the site. Site was cleansed with wound cleanser. A clean 4x4 gauze was placed over the insertion site and covered with a tegaderm. Patient tollerated well.
--- NOTE | 2020-02-06 06:09 | PC.NURSE ---
Patient rang call light and asked for another blanket. Upon entering the room the patient was found to be incontinent of urine. Patent states that she can usually tell when she has to void but she states that she was unable to tell that she needed to void this morning. Fretted String Instrument Repairer asked how long patient had been incontinent and she stated that she usually is not incontinent at home. Fretted String Instrument Repairer assisted patient to the bathroom and assisted her with changing her gown and washing up. After patient got back to bed automobile and property underwriter brought patient her second diet avery mist of the night. Patient has call light within reach.
[2020-02-06 07:15] VITALS: BP 143/70; PULSE 79; RESP 18; TEMP 36.3; O2SAT 98
--- NOTE | 2020-02-06 07:40 | PC.NURSE ---
OT in room to work with patient.
[2020-02-06] MEDS: ACETAMINOPHEN 500 MG TABLET 1000 MG PO (08:16)
--- NOTE | 2020-02-06 10:30 | PC.NURSE ---
Patient resting in bed. HOB elevated. Denies any needs. Call light and belongings within reach.
--- NOTE | 2020-02-06 10:45 | P.PNIM_ITS ---
Progress Note: A&P Assessment and Plan (1) Liver abscess: Onset Date: 01/27/20 Code(s): K75.0 - Abscess of liver Status: Acute Assessment and Plan: * Drain to remain at this time. * CT indicated-17.4 x 10.7 x 10.4 cm multiloculated gas and fluid collections occupying a significant portion of the right hepatic lobe concerning for hepatic abscess. * repeating CT scan today with contrast, results are to go to the surgeon and to infectious disease today for review * Dr. Becerra from surgery consulted and Percutanoues placed on 01/27/2020 * repeat CT of the abdomen and pelvis scheduled today, results are to be faxed to Dr. Becerra surgery at [facility] and Dr. Mcelroy her infectious disease * doctor Hernan , surgeon,will leave drain in place until review of repeat CT and complete collapse of the intra hepatic abscess * periodically checking CBC and BMP - completed today, stable and improved results as discussed above. * Drain and the drainage as discussed in detail above. * Cultures on drainage ordered. (2) DVT prophylaxis: Code(s): Z29.9 - Encounter for prophylactic measures, unspecified Status: Acute Assessment and Plan: continue Lovenox (3) Generalized weakness: Code(s): R53.1 - Weakness Status: Acute Assessment and Plan: *Exhibit tolerance during physical activity as evidenced by a normal fluctuation of vital signs during physical activity. *Patient will be ability to perform required activities of daily living. *Provide appropriate nutrition for healing and strength. *Use appropriate to prevent falls. *Continue physical therapy/occupational therapy ordered up for meals. ordered glucerna for bedtime. working to better control her ACHS glucose checks that have been elevated in 200-300s, through dietary changes and increased scheduled insulin doses. (4) Pneumonia involving right lung: Onset Date: ~01/23/20 Qualifiers: Lung location: lower lobe of lung Pneumonia type: due to unspecified organism Qualified Code(s): J18.9 - Pneumonia, unspecified organism Code(s): J18.9 - Pneumonia, unspecified organism Status: Acute Assessment and Plan: * Chest x-ray from 01/22Right middle and lower lobe airspace disease, atelectasis versus pneumonia. * patient has completed azithromycin and Rocephin * blood cultures returned back negative * will do a repeat chest x-ray Monday * continue nebulizers (5) Insulin dependent type 2 diabetes mellitus: Onset Date: Unknown Code(s): E11.9 - Type 2 diabetes mellitus without complications; Z79.4 - senior care (current) use of insulin Status: Acute Assessment and Plan: * patient blood sugars remain elevated since admission, at 200s to 300s. * continue Accu-Chek with sliding scale and hyper/hypo glycemic protocol * new medications added before patient discharged from [facility], Continued Lantus 100 u at HS; Humalog/Lispro 5mg changed to 10mg t.i.d. with meals yesterday. * patient's hemoglobin A1C from 01/22 - 8.2 * continue diabetic diet * Continue physical therapy/occupational therapy ordered up for meals. ordered glucerna for bedtime. discontinued carnation breakfasts. working to better control her [facility] glucose checks that have been elevated in 200-300s, through dietary changes and increased scheduled insulin doses. (6) Hypertension: Onset Date: Unknown Qualifiers: Hypertension type: unspecified Qualified Code(s): I10 - Essential (primary) hypertension Code(s): I10 - Essential (rachel
--- NOTE | 2020-02-06 10:45 | PM.IMPN ---
Progress Note: A&P Assessment and Plan (1) Liver abscess: Onset Date: 01/27/20 Code(s): K75.0 - Abscess of liver Status: Acute Assessment and Plan: Drain to remain at this time. CT indicated-17.4 x 10.7 x 10.4 cm multiloculated gas and fluid collections occupying a significant portion of the right hepatic lobe concerning for hepatic abscess. repeating CT scan today with contrast, results are to go to the surgeon and to infectious disease today for review Dr. Becerra from surgery consulted and Percutanoues placed on 01/27/[address] of the abdomen and pelvis scheduled today, results are to be faxed to Dr. Becerra surgery at [facility] and Dr. Mcelroy her infectious disease doctor Hernan , surgeon,will leave drain in place until review of repeat CT and complete collapse of the intra hepatic abscess periodically checking CBC and BMP - completed today, stable and improved results as discussed above. Drain and the drainage as discussed in detail above. Cultures on drainage ordered. (2) DVT prophylaxis: Code(s): Z29.9 - Encounter for prophylactic measures, unspecified Status: Acute Assessment and Plan: continue Lovenox (3) Generalized weakness: Code(s): R53.1 - Weakness Status: Acute Assessment and Plan: *Exhibit tolerance during physical activity as evidenced by a normal fluctuation of vital signs during physical activity. *Patient will be ability to perform required activities of daily living. *Provide appropriate nutrition for healing and strength. *Use appropriate to prevent falls. *Continue physical therapy/occupational therapy ordered up for meals. ordered glucerna for bedtime. working to better control her ACHS glucose checks that have been elevated in 200-300s, through dietary changes and increased scheduled insulin doses. (4) Pneumonia involving right lung: Onset Date: ~01/23/20 Qualifiers: Lung location: lower lobe of lung Pneumonia type: due to unspecified organism Qualified Code(s): J18.9 - Pneumonia, unspecified organism Code(s): J18.9 - Pneumonia, unspecified organism Status: Acute Assessment and Plan: Chest x-ray from 01/22Right middle and lower lobe airspace disease, atelectasis versus pneumonia. patient has completed azithromycin and Rocephin blood cultures returned back negative will do a repeat chest x-ray Monday continue nebulizers (5) Insulin dependent type 2 diabetes mellitus: Onset Date: Unknown Code(s): E11.9 - Type 2 diabetes mellitus without complications; Z79.4 - group home (current) use of insulin Status: Acute Assessment and Plan: patient blood sugars remain elevated since admission, at 200s to 300s. continue Accu-Chek with sliding scale and hyper/hypo glycemic protocol new medications added before patient discharged from [facility], Continued Lantus 100 u at HS; Humalog/Lispro 5mg changed to 10mg t.i.d. with meals yesterday. patient's hemoglobin A1C from 01/22 - 8.2 continue diabetic diet Continue physical therapy/occupational therapy ordered up for meals. ordered glucerna for bedtime. discontinued carnation breakfasts. working to better control her [facility] glucose checks that have been elevated in 200-300s, through dietary changes and increased scheduled insulin doses. (6) Hypertension: Onset Date: Unknown Qualifiers: Hypertension type: unspecified Qualified Code(s): I10 - Essential (primary) hypertension Code(s): I10 - Essential (primary) hypertension Status: Acute Assessment and Plan: controlled 119/92 patient currently not on any medication (7) UTI (urinary tract infection): Onset Date: ~01/23/20 Qualifiers: Hematuria presence: without hematuria Urinary tract infection type: site unspecified Qualified Code(s): N39.0 - Urinary tract infection, site not specified
[2020-02-06 10:49] LABS: Basophils Absolute Auto 0.03 K/mm3 (0.00-0.10); Basophils Percent Auto 0.5 % (0.0-1.0); Eosinophils Absolute Auto 0.23 K/mm3 (0.02-0.50); Eosinophils Percent Auto 3.5 % (1.0-6.0); Hematocrit 31.6 % (35.0-49.0); Hemoglobin 9.3 g/dL (12.0-15.0); Immature Granulocyte Absolute 0.02 K/mm3 (0.00-0.00); Immature Granulocyte Percent A 0.3 % (0.0-0.0); Lymphocytes Absolute Auto 1.87 K/mm3 (1.10-4.50); Lymphocytes Percent Auto 28.5 % (18.0-42.0); Mean Corpuscular HGB Conc 29.4 g/dL (32.0-36.0); Mean Corpuscular Hemoglobin 24.5 pg (27.0-31.0); Mean Corpuscular Volume 83.2 fL (78.0-102.0); Mean Platelet Volume 9.3 fl (9.2-11.8); Monocytes Absolute Auto 0.28 K/mm3 (0.10-0.90); Monocytes Percent Auto 4.3 % (2.0-11.0); Neutrophils Absolute Auto 4.1 K/mm3 (1.7-7.2); Neutrophils Percent Auto 62.9 % (50.0-70.0); Platelet Count Result 405 K/mm3 (150-420); White Blood Count 6.6 K/mm3 (4.8-10.8)
[2020-02-06 11:14] LABS: Alanine Aminotransferase 16 U/L (14-59); Albumin Level 2.1 g/dL (3.4-5.0); Alkaline Phosphatase 237 U/L (46-116); Anion Gap 12.8 mmol/L (7-16); Aspartate Amino Transferase 13 U/L (15-37); Bilirubin,Total 0.1 mg/dL (0.00-1.00); Blood Urea Nitrogen 15 mg/dL (7-18); Calcium 8.6 mg/dL (8.5-10.1); Carbon Dioxide 28 mmol/L (21-32); Chloride 99 mmol/L (98-108); Estimated CRCL calculation 53 ml/min; Estimated Glomerular Filt Rate > 60; Magnesium 1.6 mg/dL (1.8-2.4); Osmolality Calculated 299 mOsm/kg (285-295); Potassium 3.8 mmol/L (3.5-5.1); Sodium 136 mmol/L (136-145); Total Protein 7.1 g/dL (6.4-8.2)
[2020-02-06 11:20] LABS: CRP < 0.2 mg/dL (0.0-0.9); Glucose 408 mg/dL (70-99)
--- NOTE | 2020-02-06 11:30 | PC.NURSE ---
Patient remains on tele showing afib and sinus tach
[2020-02-06 11:38] LABS: Glucose Point of Care 277 (65-105)
[2020-02-06 11:42] LABS: Glucose Point of Care 364 (65-105)
--- NOTE | 2020-02-06 13:45 | PC.NURSE ---
Patient taken down to CT via wheelchair by [employer].
--- NOTE | 2020-02-06 14:15 | PC.NURSE ---
Patient back to room from having CT done. Positioned self in bed with no assist. Transferred from wheelchair to bed with gait belt, walker and SBA.
[2020-02-06] MEDS: MAGNESIUM SULF 4 GM/WATER100ML 4 GM/100 ML BAG IVPB (14:31)
[2020-02-06 15:40] VITALS: BP 123/69; PULSE 84; RESP 18; TEMP 36.4; O2SAT 98
[2020-02-06] MEDS: MAGNESIUM OXIDE 400 MG TABLET PO (17:13)
--- NOTE | 2020-02-06 18:30 | PC.NURSE ---
Patient resting quietly in bed. Denies any needs. Call light at side.
[2020-02-06 19:15] LABS: Glucose Point of Care 150 (65-105)
[2020-02-06 21:22] LABS: Glucose Point of Care 317 (65-105)
[2020-02-06] MEDS: INSULIN GLARGINE (*BKC) 100 UNITS/ML SUB-Q (21:40)
[2020-02-07] VITALS (7 sets, daily range): BP systolic 89–119; BP diastolic 47–65; PULSE 95–114; RESP 18; TEMP 36.6–37.4; O2SAT 95–99
--- NOTE | 2020-02-07 00:25 | PC.NURSE ---
Patient remains on sinus reta with a-fib.
--- NOTE | 2020-02-07 01:37 | PC.NURSE ---
Patient resting. telemetry shows sinus reta with a-fib.
--- NOTE | 2020-02-07 01:58 | PC.NURSE ---
Patient continues on tele showing sinus tach.
--- NOTE | 2020-02-07 02:57 | PC.NURSE ---
Patient continues on telemetry showing sinus tach
[2020-02-07 07:57] LABS: Glucose Point of Care 350 (65-105)
[2020-02-07 12:16] LABS: Glucose Point of Care 286 (65-105)
[2020-02-07] MEDS: SODIUM CHLORIDE 0.9% IV 1,000 ML 999 ML IV CONT (14:24)
[2020-02-07] MEDS: MAGNESIUM OXIDE 400 MG TABLET PO (16:39)
[2020-02-07 17:32] LABS: Glucose Point of Care 292 (65-105)
--- NOTE | 2020-02-07 19:42 | PM.IMPN ---
Progress Note: A&P Assessment and Plan (1) Liver abscess: Onset Date: 01/27/20 Code(s): K75.0 - Abscess of liver Status: Acute Assessment and Plan: Continue Zosyn. CT is today showed interval decrease in the size of the abscess. (2) DVT prophylaxis: Code(s): Z29.9 - Encounter for prophylactic measures, unspecified Status: Acute Assessment and Plan: Continue enoxaparin 40 mg daily (3) Weakness: Code(s): R53.1 - Weakness Status: Acute Assessment and Plan: PT and OT to continue. (4) Pneumonia involving right lung: Onset Date: ~01/23/20 Qualifiers: Pneumonia type: due to unspecified organism Lung location: lower lobe of lung Qualified Code(s): J18.9 - Pneumonia, unspecified organism Code(s): J18.9 - Pneumonia, unspecified organism Status: Acute Assessment and Plan: Continue antibiotics. (5) Insulin dependent type 2 diabetes mellitus: Onset Date: Unknown Code(s): E11.9 - Type 2 diabetes mellitus without complications; Z79.4 - halfway (current) use of insulin Status: Acute Assessment and Plan: Continue current treatment. (6) Hypertension: Onset Date: Unknown Qualifiers: Hypertension type: unspecified Qualified Code(s): I10 - Essential (primary) hypertension Code(s): I10 - Essential (primary) hypertension Status: Acute Assessment and Plan: Blood pressure is a bit low today with some tachycardia. She was given 1 L normal saline and both seem to be improving. If these signs persist will consider doing further workup. (7) UTI (urinary tract infection): Onset Date: ~01/23/20 Qualifiers: Hematuria presence: without hematuria Urinary tract infection type: site unspecified Qualified Code(s): N39.0 - Urinary tract infection, site not specified Code(s): N39.0 - Urinary tract infection, site not specified Status: Acute Assessment and Plan: Continue current antibiotic treatment. Time Spent With Patient Time with patient: less than 15 minutes Subjective Date/time seen: 02/07/20 1200 Patient complains that she has had itching on her back in the back of her legs. Nurses have intermittently noticed some redness but there is no other rash noted. Patient received some Benadryl last night for her symptoms and she seemed to be little more sleepy after that. She states she does not feel well today. Review of Systems Review of Systems: All systems reviewed & are unremarkable except as noted in HPI and below Exam Const: General: in distress mild and uncomfortable HENMT: Mouth: Yes moist mucous membranes Eyes: Sclera: sclerae normal Pupils: Equal, round and reactive pupils present EOM: EOMs intact bilaterally Resp: Effort & Inspection: normal respiratory effort Auscultation: clear to auscultation bilaterally, no rales, no rhonchi and no wheezes Cardio: Rate: tachycardic Rhythm: regular rhythm GI: Auscultation: normal bowel sounds Other: Soft, minimal tenderness no right upper quadrant. Drain site shows no erythema or swelling. There is pale yellow thick drainage. Skin: General skin exam: normal color and no rashes or lesions noted Wounds: no wounds Neuro: Cognition (Neuro): normal cognition Speech: normal speech Motor exam (neuro): 5/5 motor strength present throughout Extrem: General: normal to inspection, normal exam except as noted and no pedal edema Psych: Mental Status: mental status grossly normal Affect: normal affect Objective Data Vital Signs Vital Signs: Vital Signs - 24 hr 02/07/20 00:00 02/07/20 07:25 02/07/20 11:45 Temperature 36.9 C 37.4 C 36.9 C Pulse Rate 100 110 H 114 H Respiratory Rate 18 18 18 Blood Pressure 119/65 102/57 L 95/56 L Pulse Oximetry 98 97 95 02/07/20 13:50 02/07/20 15:28 02/07/20 18:00 Temperature 36.7 C 37.2 C 36.6 C Pulse Rate 108 H 95 99 Res
[2020-02-07] MEDS: DOCUSATE SODIUM 100 MG CAPSULE PO (20:35)
[2020-02-07] MEDS: INSULIN GLARGINE (*BKC) 100 UNITS/ML SUB-Q (20:40)
[2020-02-07 21:52] LABS: Glucose Point of Care 192 (65-105)
--- NOTE | 2020-02-07 22:05 | PC.NURSE ---
Patient appears to be sleeping by the rise and fall of her chest. Respirations even and unlabored. No distress noted. Call light in reach.
--- NOTE | 2020-02-07 23:10 | PC.NURSE ---
Patient appears to be sleeping by the rise and fall of her chest. Respirations even and unlabored. No distress noted. Call light in reach.
[2020-02-08] VITALS: BP 111/59; PULSE 98; RESP 18; TEMP 36.7; O2SAT 98
--- NOTE | 2020-02-08 | PC.NURSE ---
Patient's bed linen and gown changed due to incontinence with cares provided. Patient denies pain/complaints/other needs @ this time. No distress noted. Call light in reach.
--- NOTE | 2020-02-08 01:05 | PC.NURSE ---
Patient appears to be sleeping by the rise and fall of her chest. Respirations even and unlabored. No distress noted. Call light in reach.
--- NOTE | 2020-02-08 02:05 | PC.NURSE ---
Patient barely awakened when nurse started IV Zosyn to PICC line in RAC. Line flushes with ease. Respirations even and unlabored. No distress noted. Call light in reach.
--- NOTE | 2020-02-08 03:10 | PC.NURSE ---
Patient appears to be sleeping by the rise and fall of her chest. Respirations even and unlabored. No distress noted. Call light in reach.
--- NOTE | 2020-02-08 04:05 | PC.NURSE ---
Patient appears to be sleeping by the rise and fall of her chest. Respirations even and unlabored. No distress noted. Call light in reach.
--- NOTE | 2020-02-08 05:00 | PC.NURSE ---
Patient appears to be sleeping by the rise and fall of her chest. Respirations even and unlabored. No distress noted. Call light in reach.
--- NOTE | 2020-02-08 05:55 | PC.NURSE ---
Patient incontinent of urine with bed linens and gown being changed following incontinence care being provided. Drain emptied of 20 ml secretions. Denies pain/complaints/needs @ this time. No distress noted. Call light in reach.
[2020-02-08 07:41] LABS: Glucose Point of Care 314 (65-105)
[2020-02-08 08:00] VITALS: BP 121/54; PULSE 98; RESP 20; TEMP 36.6; O2SAT 98
[2020-02-08 10:22] LABS: Basophils Absolute Auto 0.02 K/mm3 (0.00-0.10); Basophils Percent Auto 0.2 % (0.0-1.0); Eosinophils Absolute Auto 0.58 K/mm3 (0.02-0.50); Hematocrit 33.1 % (35.0-49.0); Hemoglobin 9.7 g/dL (12.0-15.0); Immature Granulocyte Absolute 0.03 K/mm3 (0.00-0.00); Immature Granulocyte Percent A 0.4 % (0.0-0.0); Lymphocytes Absolute Auto 1.89 K/mm3 (1.10-4.50); Lymphocytes Percent Auto 22.7 % (18.0-42.0); Mean Corpuscular HGB Conc 29.3 g/dL (32.0-36.0); Mean Corpuscular Hemoglobin 24.9 pg (27.0-31.0); Mean Corpuscular Volume 84.9 fL (78.0-102.0); Mean Platelet Volume 9.1 fl (9.2-11.8); Monocytes Absolute Auto 0.31 K/mm3 (0.10-0.90); Monocytes Percent Auto 3.7 % (2.0-11.0); Neutrophils Absolute Auto 5.5 K/mm3 (1.7-7.2); Platelet Count Result 372 K/mm3 (150-420); Red Cell Distribution Width 25.4 % (11.6-14.4); White Blood Count 8.3 K/mm3 (4.8-10.8)
[2020-02-08 10:39] LABS: Alanine Aminotransferase 16 U/L (14-59); Albumin Level 2.1 g/dL (3.4-5.0); Alkaline Phosphatase 224 U/L (46-116); Anion Gap 11.8 mmol/L (7-16); Aspartate Amino Transferase 16 U/L (15-37); Bilirubin,Total 0.1 mg/dL (0.00-1.00); Blood Urea Nitrogen 13 mg/dL (7-18); CRP 1.5 mg/dL (0.0-0.9); Calcium 8.7 mg/dL (8.5-10.1); Carbon Dioxide 28 mmol/L (21-32); Chloride 102 mmol/L (98-108); Estimated CRCL calculation 52 ml/min; Estimated Glomerular Filt Rate > 60; Glucose 266 mg/dL (70-99); Magnesium 2.1 mg/dL (1.8-2.4); Osmolality Calculated 295 mOsm/kg (285-295); Potassium 3.8 mmol/L (3.5-5.1); Sodium 138 mmol/L (136-145); Total Protein 6.8 g/dL (6.4-8.2)
[2020-02-08 10:40] LABS: Troponin I < 0.02 ng/mL (0.00-0.056)
[2020-02-08 11:49] LABS: Glucose Point of Care 254 (65-105)
[2020-02-08] MEDS: HYDROCORTISONE 1% 30 GM CREAM 1 APPLIC TOPICAL ×2 (13:22→17:33)
--- NOTE | 2020-02-08 13:23 | PC.NURSE ---
Patient refused AM medications colace,pantoprazole,magnesuim,lovenox, miralax,loratidine. PROCESS ENG Peace Morejon aware.
--- NOTE | 2020-02-08 14:18 | PM.IMPN ---
Progress Note: A&P Assessment and Plan (1) Liver abscess: Onset Date: 01/27/20 <Peace SandersonBetty Morejon IMPORT EXPORT COORDINATOR - Last Filed: 02/08/20 14:59> Code(s): K75.0 - Abscess of liver <Peace MorejonIAM - Last Filed: 02/08/20 14:59> Status: Acute <Peace MorejonIAM - Last Filed: 02/08/20 14:59> Assessment and Plan: Drain to remain at this time. CT abdomen and pelvis 01/27/2020 and 02/06/2020. CT on 02/06/20 showed 8.8 x 4.9 x 3.9 cm abscess containing fluid and gas in right hepatic lobe, decreased from 17.9 x 10.9 x 9.8 cm on 01/27/20. There is a percutaneous drain in the inferior aspect of the abscess. There is surrounding hypoenhancement in right hepatic lobe, consistent with phlegmon. 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 There are changes of cholecystectomy. The spleen, pancreas, adrenal glands, and kidneys are normal. There are no dilated loops of bowel. The appendix is not visualized. There are no pathologically enlarged lymph nodes. There is no free intraperitoneal fluid. There is mild thoracolumbar spondylosis. Small right pleural effusion. repeating CT scan on 02/16/20 with contrast, results are to be faxed to Dr. Becerra surgery at [facility] and Dr. Mcelroy, infectious disease for review. Dr. Becerra from surgery consulted and Percutaneous Drain placed on 01/27/2020 per doctor Hernan , surgeon,will leave drain in place until review of repeat CT and complete collapse of the intra hepatic abscess periodically checking CBC and BMP - completed today, stable and improved results as discussed above. Drain and the drainage as discussed in detail above. Cultures on drainage ordered, 02/06/20. It should be noted that yesterday her surgeon Dr. Justin Becerra reviewed her CT scan completed on February 05, he noted the CT scan shows still a fairly large abscess in the right lobe of the liver. He recommend continued drainage for least another week, and consider repeat CT scan in 10 days. If at any time the drainage from the CT-guided drain comes down to less than 5 cc for 24 hours could consider daily flushing of the catheter with sterile saline 10 cc with reconnection to the bag. This should be done in the sterile manner. I have placed the order for the repeat CT scan to be done on February 15 as the Surgeon has asked. This CT scan on February 15 should be faxed to both ID Dr. Mcelroy and to Surgeon Dr. Becerra just as the February 05 CT scan results were for further evaluation and recommendations. <Peace Morejon NP - Last Filed: 02/08/20 14:59> (2) DVT prophylaxis: Code(s): Z29.9 - Encounter for prophylactic measures, unspecified <Peace Morejon NP - Last Filed: 02/08/20 14:59> Status: Acute <Peace Morejon NP - Last Filed: 02/08/20 14:59> Assessment and Plan: continue Lovenox patient has refused a dose, educated her regarding the reason for the medication and her risks if she refuses. <Peace Morejon NP - Last Filed: 02/08/20 14:59> (3) Generalized weakness: Code(s): R53.1 - Weakness <Peace Morejon NP - Last Filed: 02/08/20 14:59> Status: Acute <Peace Morejon NP - Last Filed: 02/08/20 14:59> Assessment and Plan: *Exhibit tolerance during physical activity as evidenced by a normal fluctuation of vital signs during physical activity. *Patient will be ability to perform required activities of daily living. *Provide appropriate nutrition for healing and strength. *Use appropriate to prevent falls. *Continue physical therapy/occupational therapy ordered up for meals. ordered glucerna for bedtime. working to better control her ACHS glucose checks that have been elevated in 200-300s, through dietary changes and increased scheduled insulin doses. <Peace Morejon NP - Last Filed: 02/08/20 14:59> (4) Pneumonia involving right lung: Onset Date: ~01/23/20 <Peace Morejon NP - Last
[2020-02-08 16:00] VITALS: BP 116/55; PULSE 88; RESP 20; TEMP 36.7
[2020-02-08 16:36] LABS: Glucose Point of Care 188 (65-105)
[2020-02-08 20:39] LABS: Glucose Point of Care 209 (65-105)
[2020-02-08] MEDS: INSULIN GLARGINE (*BKC) 100 UNITS/ML SUB-Q (22:02)
[2020-02-09] VITALS: BP 123/65; PULSE 93; RESP 14; TEMP 36.6; O2SAT 97
[2020-02-09 06:43] LABS: Glucose Point of Care 195 (65-105)
[2020-02-09 07:45] VITALS: BP 128/78; PULSE 87; RESP 18; TEMP 36.4; O2SAT 97
[2020-02-09] MEDS: HYDROCORTISONE 1% 30 GM CREAM 1 APPLIC TOPICAL ×3 (09:15→16:30)
[2020-02-09 11:42] LABS: Glucose Point of Care 268 (65-105)
[2020-02-09 15:37] VITALS: BP 116/63; PULSE 88; RESP 16; TEMP 36.2; O2SAT 97
--- NOTE | 2020-02-09 15:40 | PC.NURSE ---
pt resting in bed, tv on, given diet avery mist and melvin
[2020-02-09] MEDS: MAGNESIUM OXIDE 400 MG TABLET PO (16:28)
[2020-02-09 16:36] LABS: Glucose Point of Care 239 (65-105)
--- NOTE | 2020-02-09 20:02 | PC.NURSE ---
complete bed change done, pt reports she woke up from her nap and had wet the bed, brief and gown also changed, pt amb to restroom to void further then back to bed, call light in reach
[2020-02-09] MEDS: INSULIN GLARGINE (*BKC) 100 UNITS/ML SUB-Q (21:22)
[2020-02-09 21:30] LABS: Glucose Point of Care 192 (65-105)
[2020-02-09 23:53] VITALS: BP 131/64; PULSE 80; RESP 14; TEMP 36.3; O2SAT 96
[2020-02-10 06:00] LABS: Basophils Absolute Auto 0.05 K/mm3 (0.00-0.10); Basophils Percent Auto 0.8 % (0.0-1.0); Eosinophils Absolute Auto 0.61 K/mm3 (0.02-0.50); Eosinophils Percent Auto 9.4 % (1.0-6.0); Hematocrit 31.8 % (35.0-49.0); Hemoglobin 9.6 g/dL (12.0-15.0); Immature Granulocyte Absolute 0.02 K/mm3 (0.00-0.00); Immature Granulocyte Percent A 0.3 % (0.0-0.0); Lymphocytes Absolute Auto 1.96 K/mm3 (1.10-4.50); Lymphocytes Percent Auto 30.2 % (18.0-42.0); Mean Corpuscular HGB Conc 30.2 g/dL (32.0-36.0); Mean Corpuscular Hemoglobin 25.2 pg (27.0-31.0); Mean Corpuscular Volume 83.5 fL (78.0-102.0); Mean Platelet Volume 9.1 fl (9.2-11.8); Monocytes Absolute Auto 0.35 K/mm3 (0.10-0.90); Monocytes Percent Auto 5.4 % (2.0-11.0); Neutrophils Absolute Auto 3.5 K/mm3 (1.7-7.2); Neutrophils Percent Auto 53.9 % (50.0-70.0); Platelet Count Result 311 K/mm3 (150-420); Red Blood Count 3.81 M/mm3 (4.20-5.40); Red Cell Distribution Width 25.4 % (11.6-14.4); White Blood Count 6.5 K/mm3 (4.8-10.8)
[2020-02-10 06:43] LABS: Alanine Aminotransferase 19 U/L (14-59); Albumin Level 2.2 g/dL (3.4-5.0); Alkaline Phosphatase 215 U/L (46-116); Anion Gap 12.2 mmol/L (7-16); Aspartate Amino Transferase 17 U/L (15-37); Bilirubin,Total 0.1 mg/dL (0.00-1.00); Blood Urea Nitrogen 11 mg/dL (7-18); Carbon Dioxide 28 mmol/L (21-32); Chloride 106 mmol/L (98-108); Estimated CRCL calculation 61 ml/min; Estimated Glomerular Filt Rate > 60; Glucose 167 mg/dL (70-99); Osmolality Calculated 297 mOsm/kg (285-295); Potassium 4.2 mmol/L (3.5-5.1); Sodium 142 mmol/L (136-145); Total Protein 6.4 g/dL (6.4-8.2)
[2020-02-10 07:25] VITALS: BP 135/84; PULSE 88; RESP 18; TEMP 36.4; O2SAT 99
[2020-02-10 08:02] LABS: Glucose Point of Care 150 (65-105)
[2020-02-10] MEDS: SACCHAROMYCES BOULARDII 250 MG CAPSULE PO (09:26)
[2020-02-10 12:24] LABS: Glucose Point of Care 219 (65-105)
[2020-02-10 15:30] VITALS: BP 136/76; PULSE 84; RESP 16; TEMP 36.3; O2SAT 98
[2020-02-10 16:54] LABS: Glucose Point of Care 145 (65-105)
--- NOTE | 2020-02-10 17:16 | PM.EVENT ---
Event Note Event Note Event Note: Patient has been receiving IV antibiotics for her Klebsiella infection found in both her liver abscess and her urine. Today was the last day of her IV antibiotics, per the last infectious disease note at [place] from Dr. Mcelroy. She is yesica continue on oral antibiotics per that note of Dr. Mcelroy's. I spoke with Gen. Surgeon Dr. Becerra today and he advised that we call and speak to Dr. Mcelroy, infectious disease to see what course he wanted to continue on based on the following new information. Her February 05 CT scan continues to show a liver abscess, and while it has improved, the size is still significant. Due to the CT finding Dr. Becerra wants to continue the drain in place and has given instructions found in my last note. He wants to drain continued, and once the output becomes low, such as around 10-20 mls a day, it needs to be sterilely irrigated with 10 mils of normal saline flush per hospitalist and allowed to than drain out into the collection bag to ensure patency of the drain on a daily basis. He suggested repeating the CT scan on February 15, so that has been ordered Dr. Becerra wants us to discuss with Dr. Mcelroy the results of the wound/drain culture that was collected on February 05 as well as the fungal culture collected the same day. I reached out to lab today and found out that the fungal culture remains pending and can take up to 4 weeks. I also found out that the wound/ drain culture from January 19 is growing rare gram positive rods and rare gram-negative rods, with no identification of bacteria or sensitivities made available yet. Those will need to be followed up on and reported to infectious disease Dr. Mcelroy for consideration in furthering her IV antibiotics and or continuing her oral antibiotics. I called ID Dr. Mcelroy today at both his offices, including at [phone] and left a message for him to call me back; his nurse paged him but I have received no return call today. If patient will continue to be on IV antibiotics, she will need to stay in [facility] to continue that IV antibiotic therapy. If ID Dr. Mcelroy reviews the February 05 culture results and her most recent CT scan and finds that she can graduate to oral antibiotics, then she could go home with home health and follow up with ID and surgeons on an outpatient basis.
[2020-02-10] MEDS: MAGNESIUM OXIDE 400 MG TABLET PO (17:41)
--- NOTE | 2020-02-10 18:30 | PC.NURSE ---
Patient resting quietly in bed. Denies any needs. Call light at side
--- NOTE | 2020-02-10 19:30 | PC.NURSE ---
Patient sleeping quietly in bed. Shows no signs of distress. Breathing unlabored. Call light at side.
[2020-02-10 20:51] LABS: Glucose Point of Care 128 (65-105)
[2020-02-11] VITALS: BP 134/78; PULSE 85; RESP 16; TEMP 36.5; O2SAT 95
[2020-02-11] MEDS: AMOXICILLIN/CLAVULANATE K 500-125 MG TAB 0.5 TABLET PO ×3 (05:31→21:43)
[2020-02-11 07:30] VITALS: BP 133/73; PULSE 81; RESP 16; TEMP 36.2; O2SAT 97
[2020-02-11 07:41] LABS: Glucose Point of Care 140 (65-105)
[2020-02-11] MEDS: MAGNESIUM OXIDE 400 MG TABLET PO (08:26)
--- NOTE | 2020-02-11 10:15 | PC.NURSE ---
Patient sleeping quietly in bed on left side. No signs of distress noted. Call light at side.
[2020-02-11 11:42] LABS: Glucose Point of Care 203 (65-105)
--- NOTE | 2020-02-11 15:35 | PC.NURSE ---
Patient resting in bed with hob elevated. Reports no need at this time. Denies any pain. call devine within reach.
[2020-02-11 16:45] VITALS: BP 111/49; PULSE 83; RESP 18; TEMP 36.2; O2SAT 97
[2020-02-11 16:59] LABS: Glucose Point of Care 119 (65-105)
--- NOTE | 2020-02-11 18:30 | PC.NURSE ---
Patient sitting up in bed resting watching tv. Denies any needs. States she is doing fine. Call light and belongings within reach.
[2020-02-11] MEDS: INSULIN GLARGINE (*BKC) 100 UNITS/ML SUB-Q (21:43)
[2020-02-11 21:54] LABS: Glucose Point of Care 275 (65-105)
[2020-02-12] VITALS: BP 131/68; PULSE 82; RESP 18; TEMP 36.7; O2SAT 96
[2020-02-12] MEDS: AMOXICILLIN/CLAVULANATE K 500-125 MG TAB 0.5 TABLET PO ×2 (05:48→11:45)
[2020-02-12 07:13] LABS: Glucose Point of Care 220 (65-105)
[2020-02-12 07:15] VITALS: BP 136/73; PULSE 79; RESP 14; TEMP 36.3; O2SAT 98
[2020-02-12 07:39] VITALS: BP 136/73; PULSE 78; RESP 14; TEMP 36.3; O2SAT 97
[2020-02-12] MEDS: MAGNESIUM OXIDE 400 MG TABLET PO (08:45)
[2020-02-12] MEDS: HYDROCORTISONE 1% 30 GM CREAM 1 APPLIC TOPICAL ×2 (09:04→11:47)
--- NOTE | 2020-02-12 11:31 | PM.DS ---
DS: Diagnosis Admitting Diagnosis Admitting Diagnosis: Abscess of liver Discharge Diagnosis (1) Liver abscess: Onset Date: 01/27/20 Code(s): K75.0 - Abscess of liver Status: Acute Assessment and Plan: Drain to remain at this time Of discharge CT abdomen and pelvis 01/27/2020 and 02/06/2020. CT on 02/06/20 showed 8.8 x 4.9 x 3.9 cm abscess containing fluid and gas in right hepatic lobe, decreased from 17.9 x 10.9 x 9.8 cm on 01/27/20. There is a percutaneous drain in the inferior aspect of the abscess. There is surrounding hypoenhancement in right hepatic lobe, consistent with phlegmon. 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 There are changes of cholecystectomy. The spleen, pancreas, adrenal glands, and kidneys are normal. There are no dilated loops of bowel. The appendix is not visualized. There are no pathologically enlarged lymph nodes. There is no free intraperitoneal fluid. There is mild thoracolumbar spondylosis. Small right pleural effusion. repeating CT scan on 02/17/20 with contrast, results are to be faxed to Dr. Becerra surgery at [facility] and Dr. Mcelroy, infectious disease for review. Dr. Becerra from surgery consulted and Percutaneous Drain placed on 01/27/[address] per doctor Hernan , surgeon,will leave drain in place until review of repeat CT and complete collapse of the intra hepatic abscess periodically checking CBC and BMP - completed today, stable and improved results as discussed above. It should be noted that yesterday her surgeon Dr. Justin Becerra reviewed her CT scan completed on February 05, he noted the CT scan shows still a fairly large abscess in the right lobe of the liver. He recommend continued drainage for least another week, and consider repeat CT scan in 10 days. If at any time the drainage from the CT-guided drain comes down to less than 5 cc for 24 hours could consider daily flushing of the catheter with sterile saline 10 cc with reconnection to the bag. This should be done in the sterile manner. I have placed the order for the repeat CT scan to be done on February 15 as the Surgeon has asked. This CT scan on February 15 should be faxed to both DEEPAK Mcelroy and to Surgeon Dr. Becerra just as the February 05 CT scan results were for further evaluation and recommendations. Dr. Mcelroy notify of the new culture founding and no action needed at this time (2) DVT prophylaxis: Code(s): Z29.9 - Encounter for prophylactic measures, unspecified Status: Acute Assessment and Plan: continue Lovenox patient has refused a dose, educated her regarding the reason for the medication and her risks if she refuses. (3) Generalized weakness: Code(s): R53.1 - Weakness Status: Acute Assessment and Plan: patient will discharge home with physical therapy/ occupational therapy and home health and instructions on how to care for drain. she will also be given instructions on what to do if drainage become dislodged and follow-up with her surgeon Dr. Becerra (4) Pneumonia involving right lung: Onset Date: ~01/23/20 Qualifiers: Lung location: lower lobe of lung Pneumonia type: due to unspecified organism Qualified Code(s): J18.9 - Pneumonia, unspecified organism Code(s): J18.9 - Pneumonia, unspecified organism Status: Acute Assessment and Plan: Chest x-ray from 01/22Right middle and lower lobe airspace disease, atelectasis versus pneumonia. patient has completed azithromycin and Rocephin blood cultures returned back negative CT scan on 02/06/20 showed only Small right pleural effusion remained. (5) Insulin dependent type 2 diabetes mellitus: Onset Date: Unknown Code(s): E11.9 - Type 2 diabetes mellitus without complications; Z79.4 - [facility] (current) use of insulin Status: Acute Assessment and Plan: patient will discharge home with home insulin a
[2020-02-12 11:39] LABS: Glucose Point of Care 252 (65-105)
--- NOTE | 2020-02-12 23:17 | PM.EVENT ---
Event Note Event Note Event Note: Patient states she feels great. Alert and oriented. Mucous membranes are moist. Lungs are clear to auscultation bilaterally. Regular rate and rhythm without murmur. Abdomen is soft and nontender. Extremities are warm dry pink. DC home today with follow-up with Dr. Becerra. I have examined the patient and reviewed the chart. I discussed the patient's care with Mitch Becerra APN and agree with her assessment and plan.
== END 2020-02-12 15:00 | disposition home health service (06) | DRG 441 ==
PROVIDERS: Family Medicine; Nurse Practitioner; Admitting Provider Emergency Medicine; Visit Provider Emergency Medicine
DX: K75.0 Abscess of liver (principal); J18.9 Pneumonia, unspecified organism; N39.0 Urinary tract infection, site not specified; B96.1 Klebsiella pneumoniae [K. pneumoniae] as the cause of diseases classified elsewhere; R53.1 Weakness; E11.42 Type 2 diabetes mellitus with diabetic polyneuropathy; I10 Essential (primary) hypertension; D64.9 Anemia, unspecified; L29.9 Pruritus, unspecified; Z79.4 Long term (current) use of insulin
CPT/HCPCS: 36415; 74177; 80048; 80053; 83735; 84100; 84484; 85025; 85027; 86140; 87070; 87102; 87186; 87205; 87206; 97110; 97161; 97165; 97530; 97535; A9270; J1650; J1815; J2543; J3475; J7030; Q9965

== ENCOUNTER 2020-02-17 14:26 | Outpatient (CLI) | payer OTHER, SELFPAY ==
--- NOTE | ~2020-02-17 | CT_ITS ---
EXAMINATION: CT abdomen w con EXAM DATE: 02/17/2020 15:14 INDICATION: Liver abscess. TECHNIQUE: Spiral CT of the abdomen was performed following intravenous injection of 100 mL Omnipaque 350. Axial, coronal and sagittal images were reviewed. The dose-length product (DLP) for this exam ination was 321.64 mGy-cm. The exposure was tailored according to patient size (auto mA exposure con trol), and iterative reconstruction (ASIR) was used as additional dose reduction technique. Compariso n is made to prior examination from 02/06/2020. FINDINGS: There is large geographically shaped region of heterogeneous density in the right liver lob e measuring about 10 cm in diameter, could be hypoperfusion/infarction given that portal vein supplyi ng these segments appears to be occluded (approximately 50% of the right liver lobe). Within this the re is a smaller pocket of gas and fluid, difficult to measure its shape but approximately 5 x 3 cm to day, was about 6 x 4 cm on prior study. There is a pigtail catheter in position inferior to this absc ess, uncertain whether or not there is still communication between location of the pigtail catheter a nd this collection. Inflammation surrounding the affected liver segments. Spleen, pancreas, adrenal glands are unremarkable. On previous exam there are multiple foci of gas ad jacent to the inferior margin of the liver, only a few small punctate foci remaining. There are chol ecystectomy clips. Kidneys enhance symmetrically. There is no hydronephrosis. There is no retrope ritoneal lymphadenopathy. There is bowel anastomosis material. No small bowel obstruction. There is expected amount of colonic stool. No free intraperitoneal gas. The heart is normal in size. There are no pericardial or ple ural effusions. The lung bases are unremarkable. There are mild bony degenerative changes. No suspi cious bone lesions. IMPRESSION: Probable large liver infarction with mild interval decrease in the smaller abscess within it. Pigtail catheter position unchanged, within collapsed portion of abscess cavity. Reviewed, dictated and finalized at location A. IMPRESSION: Probable large liver infarction with mild interval decrease in the smaller abscess within it. Pigtail catheter position unchanged, within collapse d portion of abscess cavity.
== END 2020-02-17 14:27 | disposition home or self-care (01) ==
PROVIDERS: PCP Family Medicine; Visit Provider Surgery
DX: K75.0 Abscess of liver (principal)
CPT/HCPCS: 74160; Q9967

== ENCOUNTER 2020-02-27 13:28 | Outpatient (CLI) | payer OTHER, SELFPAY ==
[2020-02-27 15:00] LABS: Alanine Aminotransferase 33 U/L (4-35); Albumin Level 4.1 g/dL (3.5-5.1); Alkaline Phosphatase 333 U/L (38-126); Aspartate Amino Transferase 34 U/L (14-36); Bilirubin,Total 0.3 mg/dL (0.2-1.3); Blood Urea Nitrogen 11 mg/dL (7-17); Calcium 9.5 mg/dL (8.4-10.2); Carbon Dioxide 33 mmol/L (22-30); Chloride 90 mmol/L (98-107); Estimated Glomerular Filt Rate > 60; Glucose 524 mg/dL (65-105); Potassium 4.2 mmol/L (3.4-5.0); Sodium 131 mmol/L (137-145)
== END 2020-02-27 13:29 | disposition home or self-care (01) ==
LOC: ANHLAB 13:32
PROVIDERS: PCP Family Medicine; Visit Provider Family Medicine
DX: E87.1 Hypo-osmolality and hyponatremia (principal); R74.8 Abnormal levels of other serum enzymes
CPT/HCPCS: 36415; 80048; 80076

== ENCOUNTER 2020-03-11 14:39 | Outpatient (CLI) | payer OTHER, SELFPAY ==
[2020-03-11 15:21] LABS: Blood Urea Nitrogen 13 mg/dL (7-17); Calcium 9.6 mg/dL (8.4-10.2); Carbon Dioxide 30 mmol/L (22-30); Chloride 97 mmol/L (98-107); Estimated Glomerular Filt Rate > 60; Glucose 308 mg/dL (65-105); Potassium 4.2 mmol/L (3.4-5.0); Sodium 135 mmol/L (137-145)
== END 2020-03-11 14:40 | disposition home or self-care (01) ==
PROVIDERS: PCP Family Medicine; Visit Provider Family Medicine
DX: R74.8 Abnormal levels of other serum enzymes (principal); E87.1 Hypo-osmolality and hyponatremia
CPT/HCPCS: 36415; 80048

== ENCOUNTER 2020-05-18 10:51 | Outpatient (CLI) | payer OTHER, SELFPAY ==
[2020-05-18 11:50] LABS: Basophils Absolute Auto 0.1 K/mm3 (0.0-0.1); Basophils Percent Auto 0.6 % (0.2-1.2); Eosinophils Absolute Auto 0.2 K/mm3 (0-0.3); Eosinophils Percent Auto 1.9 % (0-4.4); Hematocrit 41.4 % (37.0-47.0); Hemoglobin 14.3 g/dL (12.0-15.0); Immature Granulocyte Absolute 0.02 K/mm3 (0.00-0.031); Immature Granulocyte Percent A 0.2 % (0-0.5); Lymphocytes Percent Auto 34.6 % (18.3-44.2); Mean Corpuscular HGB Conc 34.5 g/dl (32-36); Mean Corpuscular Hemoglobin 30.1 pg (26-34); Mean Corpuscular Volume 87.2 fl (80-100); Mean Platelet Volume 9.3 fl (7.4-10.4); Monocytes Absolute Auto 0.4 K/mm3 (0.1-0.6); Monocytes Percent Auto 4.4 % (2.6-8.5); Neutrophils Absolute Auto 4.9 K/mm3 (1.3-6.7); Neutrophils Percent Auto 58.3 % (45.5-73.1); Platelet Count Result 309 k/mm3 (150-375); Red Blood Count 4.75 M/mm3 (4.2-5.4); Red Cell Distribution Width 12.9 % (11.5-14.5); White Blood Count 8.4 K/mm3 (4.5-10.0)
[2020-05-18 12:04] LABS: Anion Gap 7 mmol/L (8-16); Blood Urea Nitrogen 13 mg/dL (7-17); Calcium 9.5 mg/dL (8.4-10.2); Carbon Dioxide 29 mmol/L (22-30); Chloride 101 mmol/L (98-107); Estimated Glomerular Filt Rate > 60; Glucose 173 mg/dL (65-105); Potassium 4.1 mmol/L (3.4-5.0); Sodium 137 mmol/L (137-145)
[2020-05-18 13:04] LABS: Erythrocyte Sedimentation Rate 29 mm/hr (0-20)
== END 2020-05-18 10:52 | disposition home or self-care (01) ==
PROVIDERS: PCP Family Medicine; Visit Provider Family Medicine
DX: E11.9 Type 2 diabetes mellitus without complications (principal); I10 Essential (primary) hypertension; Z79.4 Long term (current) use of insulin
CPT/HCPCS: 36415; 80048; 85025; 85652

== ENCOUNTER 2020-05-25 15:18 | Observation (INO) | payer OTHER, SELFPAY ==
--- NOTE | ~2020-05-25 | XR_ITS ---
EXAMINATION: XR chest 1V portable INDICATION: Transient alteration of awareness TECHNIQUE: Portable AP chest at 1719 hours COMPARISON: 01/23/2020 FINDINGS: The lungs are free of acute opacities. There is no pleural effusion or pneumothorax. The ca rdiomediastinal silhouette is normal. IMPRESSION: 1. No acute cardiopulmonary abnormality. Reviewed, dictated and finalized at location A.
--- NOTE | ~2020-05-25 | CT_ITS ---
EXAMINATION: CT abdomen pelvis wo con DATE: 05/25/2020 17:14 INDICATION: Hypoglycemia and confusion, history of liver abscess TECHNIQUE: Computed tomography (CT) of the abdomen and pelvis was performed without intravenous contr ast. The dose-length product (DLP) was 296.71 mGy-cm. Automated exposure control and iterative recons truction technique were employed. COMPARISON: 02/17/2020 FINDINGS: Minimal dependent atelectasis is present in the lung bases. The heart size is enlarged. Wit hin the limitations of noncontrast examination, the spleen, pancreas, and adrenal glands are normal. The gallbladder is surgically absent. There is hypoattenuation in the right hepatic lobe at the site of prior liver abscess. No definite acute abnormality of the liver is identified. The kidneys are unr emarkable. No pathologically enlarged abdominal or pelvic lymph nodes are identified. There is no dania e intraperitoneal gas or evidence of bowel obstruction. IMPRESSION: 1. No CT correlate for the patient's symptoms. Reviewed, dictated and finalized at location A.
--- NOTE | ~2020-05-25 | CT_ITS ---
EXAMINATION: CT brain wo con DATE: 05/25/2020 20:07 INDICATION: Altered mental status TECHNIQUE: Computed tomography (CT) of the head was performed without intravenous contrast. Sagittal and coronal reconstructions were performed. The mA was adjusted according to patient size. Iterative reconstruction technique was employed. The dose-length product was 605.33 mGy-cm. COMPARISON: head CT dated 01/23/20 and 11/01/2019 FINDINGS: No acute intracranial hemorrhage, acute infarction or abnormal extra axial fluid collection. There is mild scattered white matter hypoattenuation consistent with chronic small vessel ischemic disease. No interval change in disproportionate dilation of the third ventricle and frontal horns of the left and right lateral ventricles relative to the sulci and temporal horns of the lateral ventricles likel y related to central predominant atrophy. No mass/mass effect. The orbits, paranasal sinuses and mast oid air cells are normal. 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 IMPRESSION: 1. No acute intracranial process. Reviewed, dictated and finalized at location A.
--- NOTE | ~2020-05-25 | XR_ITS ---
EXAMINATION: XR abdomen/kub 1V DATE: 05/26/2020 18:59 INDICATION: Constipation TECHNIQUE: A supine view of the abdomen on 2 radiographs was obtained. COMPARISON: None. FINDINGS: Moderate amount of gas and stool scattered throughout the colon including a 6.5 similar ball of stool at the rectum consistent with given history of constipation. No dilated loops of small bowel to sugg est obstruction. Cholecystectomy clips in the right upper quadrant. Additional suture material the ri ght upper quadrant. Lung bases are clear. Heart size is normal. Mild lumbar dextrocurvature. IMPRESSION: 1. Moderate amount of colonic gas and stool consistent with given history of constipation. Reviewed, dictated and finalized at location A. IMPRESSION: 1. Moderate amount of colonic gas and stool consistent with given history of co nstipation.
--- NOTE | ~2020-05-25 | XR_ITS ---
EXAMINATION: XR abdomen/kub 1V DATE: 05/28/2020 06:35 INDICATION: Fecal impaction. TECHNIQUE: A supine view of the abdomen on 2 radiographs was obtained. COMPARISON: Abdomen radiograph 03/26/2020, CT abdomen and pelvis 03/25/2020 FINDINGS: There are no dilated loops of bowel. There is a moderate volume of stool in the colon. Ther e is a bowel staple line in right abdomen. Surgical clips in the right upper quadrant are likely from cholecystectomy. IMPRESSION: 1. Nonobstructive bowel gas pattern. Reviewed, dictated and finalized at location A.
[2020-05-25 15:28] VITALS: BP 162/90; PULSE 102; RESP 20; TEMP 36.8; O2SAT 98
[2020-05-25 15:29] VITALS: BP 149/79; PULSE 99; RESP 20; TEMP 36.7; O2SAT 97
[2020-05-25 15:29] LABS: Glucose Point of Care 171 (65-105)
--- NOTE | 2020-05-25 15:29 | ED.RECABL ---
HPI - Recheck/Abnormal Lab/Rx General Chief Complaint: Recheck/Abnormal Lab/Rx Stated Complaint: low blood sugar -resolved Time Seen by Provider: 05/25/20 15:20 Source: patient and EMS Mode of arrival: ambulatory Limitations: altered mental status History of Present Illness HPI narrative: Patient presents via EMS for low blood sugar. She was found in her bed diaphoretic and unresponsive. Her blood sugar was 26. She was given glucose and work-up. She does not remember the event. Her hair is still wet from the diaphoresis. She is still somewhat confused. She does not know where she is because they moved me . She said the year was 2019, but was able to correct herself to 2019. She does not complain of any pain. She denies that she has been sick. She admits that she is on insulin. Her record indicates that up until February she had a liver abscess, followed by Dr. Becerra here. Medical noncompliance is written on her diagnosis list. Related Data Allergies Allergy/AdvReac Type Severity Reaction Status Date / Time Sulfa (Sulfonamide Allergy Unknown Unknown Verified 05/25/20 15:35 Antibiotics) Review of Systems Review of Systems: Narrative: CONSTITUTIONAL: Denies fever, chills, or sweats. EYES: Denies visual changes, redness, or discharge. ENT: Denies rhinorrhea, congestion, sore throat, or otalgia. CARDIOVASCULAR: Denies chest pain, palpitations, or edema. RESPIRATORY: Denies cough or dyspnea. GASTROINTESTINAL: Denies abdominal pain, nausea, vomiting, or diarrhea. GENITOURINARY: Denies dysuria or hematuria. SKIN: Denies rash or itching. MUSCULOSKELETAL: Denies back pain, joint pain, or myalgia. NEUROLOGIC: Denies headache, numbness, or weakness. All systems reviewed & are unremarkable except as noted in HPI and below PMFSH Past Medical History Medical History Diabetic peripheral neuropathy Essential hypertension Insulin dependent type 2 diabetes mellitus (Unknown) Hemoglobin A1c was 16.8% in October 2019. Surgical History Surgical History History of cholecystectomy Laparoscopic cholecystectomy around 1995. History of hand surgery Injury of bile duct Following laparoscopic cholecystectomy in 1995, requiring open surgical repair. Performed at [facility]. Social History Social History Social History: Surrogate decision maker: Jessica Crow, friend. Code status: Full code. Primary care physician: Dr. Lucio Dalal Smoking status: Never smoker Second hand tobacco smoke exposure: No Additional smoking assessment comments: Lifelong nonsmoker. Alcohol intake: never Substance use: never Substance use type: does not use Additional living arrangements comments: Lives in her own home in [place]. Additional occupation/education comments: She works at [employer], but has not worked since October 2019. Gender identity (if verbalized by the patient): Female Spiritual care concerns: No Agree to blood products: Yes Exam Narrative: Exam Narrative: GENERAL: Red hair, confused, resisting the gown with the nurses. HEAD: Normocephalic, atraumatic. EYES: PERRLA and EOMI. ENT: Nares clear, no rhinorrhea or epistaxis. Mucous membranes moist. NECK: Supple. CHEST: Clear to auscultation. No respiratory distress. HEART: Regular rate and rhythm. No murmur heard. Normal peripheral pulses. ABDOMEN: Soft, nontender, nondistended, normal active bowel sounds. EXTREMITIES: Normal range of motion. No edema. SKIN: Warm, dry, no rash. NEURO: No focal deficits. Alert and oriented x1. PSYCH: Odd affect. Course Reevaluation(s) Reevaluation #1: The patient's blood sugar has remained above 100 her whole visit. I repeated her CAT scan from the liver abscess in February. There is no more abscess. I went back in to see her and she knew th
[2020-05-25 15:50] LABS: Basophils Percent Auto 0.3 % (0.2-1.2); Hematocrit 44.4 % (37.0-47.0); Hemoglobin 15.4 g/dL (12.0-15.0); Immature Granulocyte Absolute 0.02 K/mm3 (0.00-0.031); Immature Granulocyte Percent A 0.2 % (0-0.5); Lymphocytes Absolute Auto 0.86 K/mm3 (0.9-3.2); Mean Corpuscular HGB Conc 34.7 g/dl (32-36); Mean Corpuscular Hemoglobin 30.1 pg (26-34); Mean Corpuscular Volume 86.9 fl (80-100); Mean Platelet Volume 8.9 fl (7.4-10.4); Monocytes Absolute Auto 0.2 K/mm3 (0.1-0.6); Monocytes Percent Auto 1.5 % (2.6-8.5); Neutrophils Absolute Auto 9.7 K/mm3 (1.3-6.7); Platelet Count Result 322 k/mm3 (150-375); Red Blood Count 5.11 M/mm3 (4.2-5.4); Red Cell Distribution Width 13.1 % (11.5-14.5); White Blood Count 10.8 K/mm3 (4.5-10.0)
[2020-05-25 16:02] LABS: Alanine Aminotransferase 26 U/L (4-35); Albumin Level 4.6 g/dL (3.5-5.1); Alkaline Phosphatase 119 U/L (38-126); Anion Gap 11 mmol/L (8-16); Aspartate Amino Transferase 35 U/L (14-36); Bilirubin,Total 0.8 mg/dL (0.2-1.3); Blood Urea Nitrogen 23 mg/dL (7-17); Calcium 9.7 mg/dL (8.4-10.2); Carbon Dioxide 24 mmol/L (22-30); Chloride 101 mmol/L (98-107); Estimated CRCL calculation 68 ml/min; Estimated Glomerular Filt Rate > 60; Glucose 169 mg/dL (65-105); Potassium 4.9 mmol/L (3.4-5.0); Sodium 136 mmol/L (137-145)
[2020-05-25 17:56] LABS: Add Urine Microscopic? YES; Appearance Urine Clear (Clear); Bacteria Urine Trace /hpf; Bilirubin Urine Negative (Negative); Color Urine Yellow (Yellow); Glucose Urine UA 1+ mg/dL (Negative); Ketones Urine 1+ mg/dL (Negative); Leukocyte Esterase Ur 1+ LEU/UL (Negative); Mucus Urine Few /lpf; Nitrate Urine Negative (Negative); Protein Urine Negative (Negative); Specific Grav Ur 1.028 (1.001-1.035); Squamous Epithelial Cell Urine Few /hpf (Few); WBC Clumps Urine Present /HPF; WBC Urine 16-20 /hpf
[2020-05-25 17:57] LABS: Blood Urine Negative (Negative)
[2020-05-25 18:12] LABS: Glucose Point of Care 152 (65-105)
[2020-05-25 20:18] LABS: Glucose Point of Care 117 (65-105)
[2020-05-25 20:28] LABS: Creatine Kinase 63 U/L (30-135)
[2020-05-25 21:22] VITALS: BP 132/70; PULSE 78; RESP 18; O2SAT 99
--- NOTE | 2020-05-25 21:27 | PC.NURSE ---
patients family called police today for a wellness check because they were not able to contact patient since . police found patient in bed and called ems. ems found patient to have a blood sugar of 24 and was treated with d50. upon arrival to er patient was confused and unable to provide any provide any details as to why she was brought to er. this rn spoke to patients brother on phone and got some details
--- NOTE | 2020-05-25 22:25 | ADMGEN ---
This patient, Marine Anglin, was admitted to Medical Room 344-01. Patient/family oriented to hospital policies and general routines including ID bracelet, bed and alarms, visiting hours, pain management, procedures, bathroom and other care routines, personal items, smoking policy, room service/diet, and visiting hours. Valuables list has been completed. Information on how to activate the Rapid Response Team has been discussed. Patient/Family are encouraged to report perceived risks to care and to ask questions if they do not understand what they are told or what they should do.
[2020-05-25 23:00] VITALS: BMI 21.7
[2020-05-25 23:04] VITALS: BP 139/69; PULSE 119; RESP 18; TEMP 36.6; O2SAT 97; BMI 20.6
[2020-05-25 23:29] LABS: Glucose Point of Care 170 (65-105)
--- NOTE | 2020-05-25 23:59 | PM.IMHP ---
H&P: HPI History of Present Illness Date/Time: 05/25/20 23:59 Chief complaint: altered mental status/hypoglycemia Narrative: This is a 64 year old Diabetic female who was found by EMS poorly responsive and diaphoretic. She was found to have a blood glucose of 26 mg/dl. The patient on arrival to the hospital was still found to be somewhat confused. Her blood sugar eventually normalized and the patient was discharged home although ER provider decided they wanted to keep her in the hospital as they felt the patient could not care for herself as she lives at home alone. On my encounter with the patient prem she is alert and oriented x 4 although slow to answer some questions. She denies any pain, fever, cough, shortness of breath, headache, recent head trauma, abdominal pain, dysuria, hematuria, nausea, vomiting, diarrhea or rectal bleeding. She does admit to having several falls at home although none this week. No other complaints. Review of Systems Review of Systems: All systems reviewed & are unremarkable except as noted in HPI and below PMFSH Past Medical History Medical History (Updated 05/26/20 @ 04:23 by Lucio Coles MD) Diabetic peripheral neuropathy Essential hypertension GERD (gastroesophageal reflux disease) Insulin dependent type 2 diabetes mellitus (Unknown) Hemoglobin A1c was 16.8% in October 2019. Surgical History Surgical History History of cholecystectomy Laparoscopic cholecystectomy around 1995. History of hand surgery Injury of bile duct Following laparoscopic cholecystectomy in 1995, requiring open surgical repair. Performed at [facility]. Family History Family History Mother Patient's mother is in good health Father Diabetes mellitus Hypertension Sibling Diabetes mellitus Social History Social History Social History: Surrogate decision maker: Jessica Maria, friend. Code status: Full code. Primary care physician: Dr. Lucio Dalal Smoking status: Never smoker Second hand tobacco smoke exposure: No Alcohol intake: never Substance use: never Substance use type: does not use Additional living arrangements comments: Lives in her own home in [place]. Additional occupation/education comments: She works at [employer], but has not worked since October 2019. Gender identity (if verbalized by the patient): Female Spiritual care concerns: No Agree to blood products: Yes Meds Home Medications and Allergies Home Medications Medication Instructions Recorded Confirmed Type insulin lispro [Humalog KwikPen 5 unit SUB-Q TIDWM #3 ml 11/02/19 05/25/20 Rx Insulin] Lantus U-100 Insulin 5 unit SUBCUT HS #10 ml 01/31/20 05/25/20 Rx acetaminophen 1,000 mg PO Q6H PRN 14 Days tablet 01/31/20 05/25/20 Rx albuterol sulfate [Proventil HFA] 2 puff INHALATION QIDRT PRN 14 01/31/20 05/25/20 Rx Days gm insulin aspart U-100 [Novolog 3 - 6 unit SUBCUT TIDWM #10 ml 01/31/20 05/25/20 Rx U-100 Insulin aspart] lansoprazole 30 mg PO DAILY@0630 14 Days #14 cap 01/31/20 05/25/20 Rx Saccharomyces boulardii [Florastor] 250 mg PO TID 30 Days #90 cap 02/12/20 05/25/20 Rx docusate sodium 100 mg PO Q12HR PRN 05/25/20 05/25/20 History polyethylene glycol 3350 [Miralax] 17 g PO QAM PRN 05/25/20 05/25/20 History Allergies Allergy/AdvReac Type Severity Reaction Status Date / Time Sulfa (Sulfonamide Allergy Unknown Unknown Verified 05/25/20 15:35 Antibiotics) Vital Signs Vital Signs - 24 hr 05/25/20 15:28 05/25/20 15:29 05/25/20 21:22 Temperature 36.8 C 36.7 C Pulse Rate 102 H 99 78 Respiratory Rate 20 20 18 Blood Pressure 162/90 H 149/79 H 132/70 Pulse Oximetry 98 97 99 05/25/20 23:04 Temperature 36.6 C Pulse Rate 119 H Respiratory Rate 18 Blood Pressure 139/69 Pul
[2020-05-26] VITALS (9 sets, daily range): BP systolic 112–145; BP diastolic 64–74; PULSE 96–120; RESP 16–18; TEMP 36.2–36.9; O2SAT 98–100
[2020-05-26] MEDS: SODIUM CHLORIDE 0.9% IV 1,000 ML 100 ML IV CONT ×3 (00:04→22:14)
[2020-05-26 04:59] LABS: Glucose Point of Care 108 (65-105)
[2020-05-26] MEDS: LANSOPRAZOLE ORAL SUSP 30 MG/10 ML ORAL.SUSP PO (06:00)
[2020-05-26 06:07] LABS: Basophils Absolute Auto 0.1 K/mm3 (0.0-0.1); Basophils Percent Auto 0.5 % (0.2-1.2); Eosinophils Percent Auto 0.4 % (0-4.4); Hemoglobin 13.8 g/dL (12.0-15.0); Immature Granulocyte Absolute 0.03 K/mm3 (0.00-0.031); Immature Granulocyte Percent A 0.3 % (0-0.5); Lymphocytes Absolute Auto 2.16 K/mm3 (0.9-3.2); Lymphocytes Percent Auto 22.2 % (18.3-44.2); Mean Corpuscular HGB Conc 34.5 g/dl (32-36); Mean Corpuscular Hemoglobin 29.9 pg (26-34); Mean Corpuscular Volume 86.8 fl (80-100); Mean Platelet Volume 8.8 fl (7.4-10.4); Monocytes Absolute Auto 0.5 K/mm3 (0.1-0.6); Monocytes Percent Auto 5.1 % (2.6-8.5); Neutrophils Percent Auto 71.5 % (45.5-73.1); Platelet Count Result 314 k/mm3 (150-375); Red Blood Count 4.61 M/mm3 (4.2-5.4); Red Cell Distribution Width 12.9 % (11.5-14.5); White Blood Count 9.8 K/mm3 (4.5-10.0)
[2020-05-26 06:22] LABS: Alanine Aminotransferase 25 U/L (4-35); Albumin Level 4.2 g/dL (3.5-5.1); Alkaline Phosphatase 112 U/L (38-126); Anion Gap 7 mmol/L (8-16); Aspartate Amino Transferase 35 U/L (14-36); Bilirubin,Total 1.1 mg/dL (0.2-1.3); Blood Urea Nitrogen 24 mg/dL (7-17); Calcium 9.6 mg/dL (8.4-10.2); Carbon Dioxide 26 mmol/L (22-30); Chloride 104 mmol/L (98-107); Estimated CRCL calculation 58 ml/min; Estimated Glomerular Filt Rate > 60; Glucose 108 mg/dL (65-105); Potassium 4.1 mmol/L (3.4-5.0); Sodium 137 mmol/L (137-145)
[2020-05-26 07:51] LABS: Glucose Point of Care 86 (65-105)
[2020-05-26] MEDS: SACCHAROMYCES BOULARDII 250 MG CAPSULE PO ×3 (09:26→18:45)
[2020-05-26 11:36] LABS: Glucose Point of Care 313 (65-105)
[2020-05-26] MEDS: INSULIN ASPART (*BKC) 100 UNITS/ML SUB-Q ×2 (12:23→18:44)
--- NOTE | 2020-05-26 15:06 | PM.IMPN ---
Progress Note: A&P Assessment and Plan (1) Hypoglycemic episode in patient with diabetes mellitus: Code(s): E11.649 - Type 2 diabetes mellitus with hypoglycemia without coma Status: Resolved Assessment and Plan: Blood sugar was found to be 26 at presentation. Blood sugars have been fluctuant today ranging from 86-313. A1c is 8.0. Hypoglycemic episode felt to be secondary to poor PO intake. Continue hypoglycemic protocol, SSI, and accuchecks ACHS. 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 A1c is 8.0. I am unsure how compliant patient is with insulin regimen. She states she maybe checks her blood sugar once a day but often less frequently. Continue accuchecks, SSI, and lantus as above. Diabetic diet (3) Confusion: Code(s): R41.0 - Disorientation, unspecified Status: Resolved Assessment and Plan: She is alert and oriented x4 for my evaluation. She does appear confused and incorrectly reports many details. Patient's family did not feel that she would be able to care for herself at home. Care coordination is following for possible placement. Continue to monitor mental status closely. (4) Constipation: Qualifiers: Constipation type: unspecified constipation type Qualified Code(s): K59.00 - Constipation, unspecified Code(s): K59.00 - Constipation, unspecified Status: Acute Assessment and Plan: Nursing staff reported patient had been straining throughout the day to have a BM. Upon examination, patient had several small balls of hard stool stuck in the opening of the rectum. I was able to manually extract the hard stool balls stuck out of the rectum. She has refused stool softeners or miralax today. Order KUB She agreed to fleet enema, although I am unsure how successful this will be given hard stool in rectum Continue to encourage additional PO medications. (5) Urinary retention: Code(s): R33.9 - Retention of urine, unspecified Status: Acute Assessment and Plan: Patient did not urinate throughout the day despite IV fluids. Bladder scan performed which showed >400 cc. Straight cath returned 550 cc. I believe her severe constipation is causing compression of the bladder. Obtain KUB. Closely monitor urine output. Will monitor progression as constipation is managed. (6) GERD (gastroesophageal reflux disease): Code(s): K21.9 - Gastro-esophageal reflux disease without esophagitis Status: Chronic Assessment and Plan: Continue PPI therapy Subjective Date/time seen: 05/26/20 15:06 Interval history: Date of service: 05/26/2020 She reports that she is feeling well today. She is unable to tell me what brought her into the hospital. She stated that she was at a meeting and an EMT told her to come to the hospital. Upon review of records, this is not an accurate representation of what occurred. Family called EMS after not hearing from the patient for several days, and she was found to be laying in her bed diaphoretic and unresponsive. During my evaluation, she is A&O x4 but does appear confused. She is an unreliable historian. At this time, she has no complaints and feels that she is in her usual state of health. She denies having frequent low blood sugars. She denies feeling diaphoretic, shaky, confused, or any other hypoglycemic symptoms. She has not had any nausea or vomiting. She denies abdominal pain. She denies constipation or diarrhea to me, however it is noted that she has been straining to have a bowel movement throughout the day. She has refused stool softeners. Review of Systems Review
[2020-05-26 16:29] LABS: Glucose Point of Care 247 (65-105)
[2020-05-26] MEDS: DOCUSATE SODIUM 100 MG CAPSULE PO (21:45)
[2020-05-26] MEDS: INSULIN GLARGINE (*BKC) 100 UNITS/ML SUB-Q (21:45)
[2020-05-26 21:52] LABS: Glucose Point of Care 132 (65-105)
[2020-05-27] VITALS (7 sets, daily range): BP systolic 138–145; BP diastolic 53–67; PULSE 80–101; RESP 14–18; TEMP 36.4–37.1; O2SAT 97–98
[2020-05-27 05:27] LABS: Basophils Percent Auto 0.4 % (0.2-1.2); Eosinophils Absolute Auto 0.1 K/mm3 (0-0.3); Eosinophils Percent Auto 0.6 % (0-4.4); Hematocrit 33.7 % (37.0-47.0); Hemoglobin 11.8 g/dL (12.0-15.0); Immature Granulocyte Absolute 0.03 K/mm3 (0.00-0.031); Immature Granulocyte Percent A 0.3 % (0-0.5); Lymphocytes Absolute Auto 2.57 K/mm3 (0.9-3.2); Lymphocytes Percent Auto 23.9 % (18.3-44.2); Mean Corpuscular Hemoglobin 30.2 pg (26-34); Mean Corpuscular Volume 86.2 fl (80-100); Mean Platelet Volume 9.2 fl (7.4-10.4); Monocytes Absolute Auto 0.7 K/mm3 (0.1-0.6); Monocytes Percent Auto 6.1 % (2.6-8.5); Neutrophils Absolute Auto 7.4 K/mm3 (1.3-6.7); Neutrophils Percent Auto 68.7 % (45.5-73.1); Platelet Count Result 243 k/mm3 (150-375); Red Blood Count 3.91 M/mm3 (4.2-5.4); Red Cell Distribution Width 12.9 % (11.5-14.5); White Blood Count 10.8 K/mm3 (4.5-10.0)
[2020-05-27 05:56] LABS: Anion Gap 5 mmol/L (8-16); Blood Urea Nitrogen 17 mg/dL (7-17); Calcium 8.6 mg/dL (8.4-10.2); Carbon Dioxide 26 mmol/L (22-30); Chloride 106 mmol/L (98-107); Estimated CRCL calculation 66 ml/min; Estimated Glomerular Filt Rate > 60; Glucose 162 mg/dL (65-105); Potassium 3.7 mmol/L (3.4-5.0); Sodium 137 mmol/L (137-145)
[2020-05-27] MEDS: LANSOPRAZOLE ORAL SUSP 30 MG/10 ML ORAL.SUSP PO (06:48)
[2020-05-27 07:56] LABS: Glucose Point of Care 126 (65-105)
[2020-05-27] MEDS: polyethylene glycoL 3350 17 GM POWD.PACK PO (08:33)
[2020-05-27] MEDS: DOCUSATE SODIUM 100 MG CAPSULE PO (08:33)
[2020-05-27] MEDS: SACCHAROMYCES BOULARDII 250 MG CAPSULE PO ×2 (08:33→16:49)
[2020-05-27] MEDS: SODIUM CHLORIDE 0.9% IV 1,000 ML 100 ML IV CONT ×2 (08:37→23:47)
[2020-05-27 11:33] LABS: Glucose Point of Care 243 (65-105)
[2020-05-27] MEDS: INSULIN ASPART (*BKC) 100 UNITS/ML SUB-Q ×2 (11:40→16:50)
--- NOTE | 2020-05-27 12:15 | PM.IMPN ---
Progress Note: A&P Assessment and Plan (1) Hypoglycemic episode in patient with diabetes mellitus: Code(s): E11.649 - Type 2 diabetes mellitus with hypoglycemia without coma Status: Resolved Assessment and Plan: Blood sugar was found to be 26 at presentation. A1c is 8.0. Hypoglycemic episode felt to be secondary to poor PO intake. Patient reports she did not have food at home and no one brought her food. Continue hypoglycemic protocol, SSI, and accuchecks ACHS. Continue lantus 5 units Resume scheduled 5 units meal time humalog as patient has had good PO intake. 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 A1c is 8.0. I am unsure how compliant patient is with insulin regimen. She states she maybe checks her blood sugar once a day but often less frequently. Continue accuchecks, SSI, and lantus as above. Diabetic diet (3) Confusion: Code(s): R41.0 - Disorientation, unspecified Status: Resolved Assessment and Plan: She is alert and oriented x4 for my evaluation. She does appear confused and incorrectly reports many details. Patient's family did not feel that she would be able to care for herself at home. Care coordination is following for possible placement. Continue to monitor mental status closely. (4) Fecal impaction in rectum: Code(s): K56.41 - Fecal impaction Status: Acute Assessment and Plan: KUB shows 6.5 cm ball of stool at the rectum. I manually extracted several small balls of hard stool which were stuck in the opening of the rectum on 05/26. She had two large bowel movements overnight following. She refused PO stool softeners or miralax yesterday. Fleet enema given 05/26. Continue fleet enemas. She had one last night and was agreeable to repeat today. She refused suppository Continue PO miralax and colace. She has agreed to PO meds today. Repeat KUB tomorrow. (5) Urinary retention: Code(s): R33.9 - Retention of urine, unspecified Status: Acute Assessment and Plan: Patient did not urinate throughout the day despite IV fluids on 05/26. Bladder scan showed >400 cc. Straight cath returned 550 cc. This is most likely secondary to fecal impaction. She has been urinating today and urine output is good. Closely monitor urine output. Will monitor progression as constipation is managed. Repeat bladder scan today (6) GERD (gastroesophageal reflux disease): Qualifiers: Esophagitis presence: esophagitis presence not specified Qualified Code(s): K21.9 - Gastro-esophageal reflux disease without esophagitis Code(s): K21.9 - Gastro-esophageal reflux disease without esophagitis Status: Chronic Assessment and Plan: Continue PPI therapy Subjective Date/time seen: 05/27/20 12:15 Interval history: Date of service: 05/27/2020 Patient here for evaluation of hypoglycemia and found to have severe constipation. She states that she is doing well today. She had 2 large bowel movements overnight. She also states that she was able to urinate today. Yesterday she was having issues with retention. She has refused rectal suppository or enema this morning. I talked with her about the importance of these and she agreed to the enema but not the suppository. She is feeling well and has no complaints at this time. She denies abdominal pain, cramping, or bloating. She denies nausea , vomiting, headache, dizziness, lightheadedness, shortness of breath, cough, or chest pain. She complains of feeling cold but denies fevers, chills, or sweats. She has been eating well today. I asked her about her Episode of hypoglycemia since additional blood sugars have been high, and she tells me she
--- NOTE | 2020-05-27 12:43 | PC.NURSE ---
MEIR MULLEN AWARE OF PT REFUSING DULCOLAX SUP TODAY
[2020-05-27 14:19] LABS: SARS-CoV-2 RNA PCR Negative
[2020-05-27 16:25] LABS: Glucose Point of Care 180 (65-105)
[2020-05-27] MEDS: INSULIN GLARGINE (*BKC) 100 UNITS/ML SUB-Q (20:45)
[2020-05-27 21:05] LABS: Glucose Point of Care 156 (65-105)
[2020-05-28 05:43] VITALS: BP 161/78; PULSE 82; RESP 14; TEMP 36.8; O2SAT 99
[2020-05-28 06:25] LABS: Hematocrit 34.3 % (37.0-47.0); Mean Corpuscular Hemoglobin 30.1 pg (26-34); Mean Platelet Volume 9.7 fl (7.4-10.4); Platelet Count Result 223 k/mm3 (150-375); Red Blood Count 3.99 M/mm3 (4.2-5.4); Red Cell Distribution Width 12.5 % (11.5-14.5); White Blood Count 7.5 K/mm3 (4.5-10.0)
[2020-05-28 07:20] LABS: Anion Gap 2 mmol/L (8-16); Blood Urea Nitrogen 8 mg/dL (7-17); Calcium 8.6 mg/dL (8.4-10.2); Carbon Dioxide 28 mmol/L (22-30); Chloride 109 mmol/L (98-107); Estimated CRCL calculation 89 ml/min; Estimated Glomerular Filt Rate > 60; Glucose 131 mg/dL (65-105); Potassium 3.5 mmol/L (3.4-5.0); Sodium 139 mmol/L (137-145)
[2020-05-28 08:00] LABS: Glucose Point of Care 152 (65-105)
[2020-05-28] MEDS: INSULIN ASPART (*BKC) 100 UNITS/ML SUB-Q ×2 (08:00→11:50)
--- NOTE | 2020-05-28 08:03 | PC.NURSE ---
Patient refusing all meds except for insulin. Patient states that they don't work for me because of my gall bladder surgery ; I haven't had enough to eat and that is why I have this problem . Hospitalist notified.
[2020-05-28 11:58] LABS: Glucose Point of Care 117 (65-105)
--- NOTE | 2020-05-28 13:04 | PM.DS ---
DS: Admitting Diagnosis Admitting Diagnosis Admitting Diagnosis: altered mental status/hypoglycemia DS: Discharge Diagnosis Discharge Diagnosis (1) Hypoglycemic episode in patient with diabetes mellitus: Code(s): E11.649 - Type 2 diabetes mellitus with hypoglycemia without coma Status: Resolved Assessment and Plan: Blood sugar was found to be 26 at presentation. A1c is 8.0. Hypoglycemic episode felt to be secondary to poor PO intake. Patient reported she did not have food at home. she relies on a friend to stock her refrigerator and that friend did not do so. blood sugars were monitored closely and she did not have any further episodes of hypoglycemia. P.o. intake was adequate. Her insulin regimen was resumed. 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 I am unsure how compliant patient is with insulin regimen at home. She reported she was maybe checking her blood sugar once every couple of days. She had poor dietary intake. During her stay, blood sugars were monitored and sliding scale insulin was given. No changes were made to her insulin regimen. Patient will be receiving care at [facility], and insulin will be monitored. Recommended monitoring blood sugars by [facility] staff and recording for PCP review. Recommended continuing diabetic diet. (3) Confusion: Code(s): R41.0 - Disorientation, unspecified Status: Resolved Assessment and Plan: She remained alert and oriented x4 upon my evaluations, however she did seem to be a bit confused and incorrectly reported several details. I had concerns for how this patient would be able to care for herself at home and worry about her reliability with her medication regimen. Patient's family did not feel that she could care for herself at home. Head CT negative. Urine culture negative. She was evaluated by therapy and was felt to have ongoing care needs. She will continue care at [facility]. (4) Fecal impaction in rectum: Code(s): K56.41 - Fecal impaction Status: Acute Assessment and Plan: KUB shows 6.5 cm ball of stool at the rectum. I manually extracted several small balls of hard stool which were stuck in the opening of the rectum on 05/26. She received Fleet enema, MiraLax, and Colace. She began to have several large bowel movements. Repeat KUB did not show evidence of fecal impaction. I discussed with her in great detail the importance of adhering to a bowel regimen. Patient was quite hesitant about taking medications but agreed. She should begin taking Miralax and Colace daily to have a BM every 1-2 days. Recommended nursing staff at [facility] do Fleet enema if no BM for 3 days. (5) Urinary retention: Code(s): R33.9 - Retention of urine, unspecified Status: Acute Assessment and Plan: [place] to be secondary to fecal impaction. Bladder scan 05/26 showed >400 cc. Straight cath returned 550 cc. I&O monitored and urine output was good following resolution of impaction. (6) GERD (gastroesophageal reflux disease): Qualifiers: Esophagitis presence: esophagitis presence not specified Qualified Code(s): K21.9 - Gastro-esophageal reflux disease without esophagitis Code(s): K21.9 - Gastro-esophageal reflux disease without esophagitis Status: Chronic Assessment and Plan: Continue PPI therapy. DS: Summary Hospital Course Reason for hospitalization: hypoglycemia Hospital Course: Date of admission: 05/25/2020 Date of discharge: 05/28/2020 Marine Anglin is a 64 year old female with insulin dependent type 2 DM and recent treatment for liver abscess who presented to the emergency department on 05/25/2020 after she was found by EMS poorly responsive and diapho
[2020-05-28 13:28] VITALS: BP 123/48; PULSE 96; RESP 14; TEMP 36.3; O2SAT 100
== END 2020-05-28 15:35 ==
LOC: ANHED 21:04 → ANH3MED 21:35
PROVIDERS: General Practice; Physician Assistant; Admitting Provider Family Medicine; Emergency Provider Emergency Medicine; PCP Family Medicine; Visit Provider Internal Medicine
DX: E11.649 Type 2 diabetes mellitus with hypoglycemia without coma (principal); Z20.828 Contact with and (suspected) exposure to other viral communicable diseases; E11.42 Type 2 diabetes mellitus with diabetic polyneuropathy; R41.0 Disorientation, unspecified; K56.41 Fecal impaction; R33.9 Retention of urine, unspecified; K21.9 Gastro-esophageal reflux disease without esophagitis; I10 Essential (primary) hypertension; H91.90 Unspecified hearing loss, unspecified ear; Z59.1 Inadequate housing; Z79.4 Long term (current) use of insulin; Z79.899 Other long term (current) drug therapy; Z88.2 Allergy status to sulfonamides
CPT/HCPCS: 36415; 51701; 70450; 71045; 74018; 74176; 80048; 80053; 81001; 82550; 82948; 83036; 85025; 85027; 87086; 87635; 96360; 96361; 97110; 97116; 97161; 97165; 97530; 97535; 99285; A9270; C9803; G0378; J1815; J7030; U0003

== ENCOUNTER 2020-07-12 14:18 | Inpatient (IN) | payer OTHER, SELFPAY ==
[2020-07-12] VITALS (7 sets, daily range): BP systolic 106–158; BP diastolic 61–85; PULSE 90–115; RESP 14–20; TEMP 35.9–36.8; O2SAT 95–99; BMI 20.4
--- NOTE | ~2020-07-12 | XR_ITS ---
EXAMINATION: XR chest 2V DATE: 07/12/2020 15:19 INDICATION: Weakness. Found unresponsive. TECHNIQUE: frontal and lateral views of the chest were obtained. COMPARISON: Chest radiograph dated 05/25/2020 FINDINGS: The lungs remain clear with no focal airspace opacities, pulmonary edema, pleural effusion or pneumot horax. The cardiomediastinal silhouette is normal. Cholecystectomy clips in the right upper quadrant. Couple tiny metallic likely biopsy markers in the right breast. IMPRESSION: 1. No acute cardiopulmonary disease. Reviewed, dictated and finalized at location A.
--- NOTE | ~2020-07-12 | CT_ITS ---
EXAMINATION: CT brain wo con INDICATION: Headache COMPARISON: 05/25/2020 TECHNIQUE: Standard unenhanced head CT. The dose-length product (DLP) was 605.33 mGy-cm. The mA was a djusted according to patient size. Iterative reconstruction technique was employed. FINDINGS: There is no acute intraparenchymal hemorrhage. No evidence of mass lesion. No evidence of a cute infarction. There is mild periventricular and subcortical hypodensity probably related to small vessel ischemic disease. There is mild prominence of the sulci and ventricles related to cerebral atr ophy. Intracranial calcified cerebral atherosclerosis is noted. There are no extra-axial collections. There is no mass effect or midline shift. The orbits and soft tissues are unremarkable. The visuali zed sinuses and mastoid air cells are well aerated. IMPRESSION: 1. No acute intracranial abnormality. 2. Age related findings. Reviewed, dictated and finalized at location A.
--- NOTE | 2020-07-12 14:18 | ED.GENADULT ---
HPI - General Adult General Chief complaint: Recheck/Abnormal Lab/Rx Stated complaint: unresponsive History of Present Illness HPI narrative: Patient is a 64-year-old female who presents ER with altered mental status. Please were sent out to the patient's house for a well person check. They found her unresponsive. Per EMS blood glucose was low. The administered IM glucagon. Patient began to wake up. Here patient is alert and oriented x3 but still with confusion about what is going on. Her Accu-Chek reads 22. Related Data Home Medications Medication Instructions Recorded Confirmed docusate sodium 100 mg PO Q12HR PRN 05/25/20 05/25/20 polyethylene glycol 3350 [Miralax] 17 g PO QAM PRN 05/25/20 05/25/20 Allergies Allergy/AdvReac Type Severity Reaction Status Date / Time Sulfa (Sulfonamide Allergy Unknown Unknown Verified 07/12/20 14:23 Antibiotics) Review of Systems Review of Systems: ROS unobtainable: Yes unobtainable due to mental status PMFSH Past Medical History Medical History (Updated 07/12/20 @ 18:48 by Freedom Mata MD) Diabetic peripheral neuropathy Essential hypertension GERD (gastroesophageal reflux disease) Insulin dependent type 2 diabetes mellitus (Unknown) Hemoglobin A1c was 16.8% in October 2019. Surgical History Surgical History History of cholecystectomy Laparoscopic cholecystectomy around 1995. History of hand surgery Injury of bile duct Following laparoscopic cholecystectomy in 1995, requiring open surgical repair. Performed at [facility]. Social History Social History Social History: Surrogate decision maker: Jessica Crow, friend. Code status: Full code. Primary care physician: Dr. Lucio Dalal Smoking status: Never smoker Second hand tobacco smoke exposure: No Alcohol intake: never Substance use: never Substance use type: does not use Additional living arrangements comments: Lives in her own home in [place]. Additional occupation/education comments: She works at [employer], but has not worked since October 2019. Gender identity (if verbalized by the patient): Female Spiritual care concerns: No Agree to blood products: Yes Exam Narrative: Exam Narrative: GENERAL: ill-appearing, well-nourished, and in no acute distress. HEAD: Normocephalic, atraumatic. ENT: Mucous membranes moist. CHEST: Clear to auscultation. No respiratory distress. HEART: Regular rate and rhythm. Normal peripheral pulses. ABDOMEN: Soft, nontender, nondistended. EXTREMITIES: Normal range of motion. No edema. SKIN: Warm, dry, no rash. NEURO: Alert and oriented x3. Course Course Emergency Course: Patient is technically alert and oriented x3 but she keeps giving unintelligible stories about how her blood sugar got low. She also believes she has been seeing people walking around with her walker in the hallways and that it had at one point been behind her bed. She has also continually asked the nursing staff for her wallet and glasses which were not brought in with her. Patient seems to have a cognitive issue that does not allow her to remember what is going on. Patient has become increasingly tachycardic while here despite having adequate p.o. intake of food. Patient denies having a learning disability or mental disability. She will be hydrated and admitted for observation. Patient has borderline UTI but given agitation/confusion elevated white count she will be admitted with IV antibiotics. Reevaluation(s) Reevaluation #1: Accepted by hospitalist Date: 07/12/20 Time: 18:52 Vital Signs Vital signs: Vital Signs Temperature 96.7 F L 07/12/20 14:14 Pulse Rate 100 07/12/20 14:14 Respiratory Rate 20 07/12/20 14:14 Blood Pressure 158/85 H 07/12/20 14:14 Pulse Oximetry 98 07/12/20 14:14 Temperature 96.7 F L 10/0
[2020-07-12 14:27] LABS: Glucose Point of Care 22 (65-105)
--- NOTE | 2020-07-12 14:27 | PC.NURSE ---
Blood glucose noted to be 22, verbal order received for Dextrose 50% IVP at this time per Dr. Myers.
[2020-07-12] MEDS: DEXTROSE 50% 25 GM/50 ML SYRINGE IV PUSH (14:28)
--- NOTE | 2020-07-12 14:45 | ECG_ITS ---
Measurements Intervals [place] Rate: 100 P: 67 NE: 180 QRS: 43 QRSD: 73 T: 64 QT: 345 QTc: 445 Interpretive Statements SINUS TACHYCARDIA NONSPECIFIC T-WAVE ABNORMALITY- INF/LAT LEADS BASELINE ARTIFACT- I, II, III, AVR, AVL, AVF, V1-V4 BORDERLINE ECG Electronically Signed On 07-12-2020 16:57:55 CDT by Joey De La O D.O.
[2020-07-12 15:06] LABS: Glucose Point of Care 141 (65-105)
[2020-07-12 15:09] LABS: Basophils Percent Auto 0.3 % (0.2-1.2); Eosinophils Percent Auto 0.1 % (0-4.4); Hematocrit 41.4 % (37.0-47.0); Hemoglobin 14.7 g/dL (12.0-15.0); Immature Granulocyte Absolute 0.04 K/mm3 (0.00-0.031); Immature Granulocyte Percent A 0.3 % (0-0.5); Lymphocytes Absolute Auto 1.06 K/mm3 (0.9-3.2); Lymphocytes Percent Auto 6.9 % (18.3-44.2); Mean Corpuscular HGB Conc 35.5 g/dl (32-36); Mean Corpuscular Hemoglobin 31.3 pg (26-34); Mean Corpuscular Volume 88.1 fl (80-100); Mean Platelet Volume 9.3 fl (7.4-10.4); Monocytes Absolute Auto 0.5 K/mm3 (0.1-0.6); Neutrophils Absolute Auto 13.8 K/mm3 (1.3-6.7); Neutrophils Percent Auto 89.4 % (45.5-73.1); Platelet Count Result 356 k/mm3 (150-375); Red Cell Distribution Width 12.1 % (11.5-14.5); White Blood Count 15.4 K/mm3 (4.5-10.0)
[2020-07-12 15:14] LABS: Add Urine Microscopic? YES; Appearance Urine Clear (Clear); Bacteria Urine 4+ /hpf; Bilirubin Urine Negative (Negative); Color Urine Yellow (Yellow); Glucose Urine UA 1+ mg/dL (Negative); Ketones Urine 1+ mg/dL (Negative); Leukocyte Esterase Ur Trace LEU/UL (Negative); Mucus Urine Few /lpf; Nitrate Urine Negative (Negative); Protein Urine Negative (Negative); Specific Grav Ur 1.025 (1.001-1.035); Squamous Epithelial Cell Urine Rare /hpf (Few); WBC Clumps Urine Present /HPF
[2020-07-12 15:17] LABS: Blood Urine Negative (Negative)
[2020-07-12 15:20] LABS: Anion Gap 15 mmol/L (8-16); Blood Urea Nitrogen 19 mg/dL (7-17); Calcium 10.1 mg/dL (8.4-10.2); Carbon Dioxide 25 mmol/L (22-30); Chloride 103 mmol/L (98-107); Estimated Glomerular Filt Rate > 60; Glucose 33 mg/dL (65-105); Potassium 4.3 mmol/L (3.4-5.0); Sodium 143 mmol/L (137-145)
[2020-07-12 16:36] LABS: Glucose Point of Care 102 (65-105)
[2020-07-12 18:38] LABS: Glucose Point of Care 127 (65-105)
[2020-07-12] MEDS: SODIUM CHLORIDE 0.9% IV 1,000 ML 999 ML IV CONT (18:56)
--- NOTE | 2020-07-12 20:25 | ADMGEN ---
This patient, Marine Anglin, was admitted to [facility] Surg Room 302-01. Patient/family oriented to hospital policies and general routines including ID bracelet, bed and alarms, visiting hours, pain management, procedures, bathroom and other care routines, personal items, smoking policy, room service/diet, and visiting hours. Valuables list has been completed. Information on how to activate the Rapid Response Team has been discussed. Patient/Family are encouraged to report perceived risks to care and to ask questions if they do not understand what they are told or what they should do.
[2020-07-12] MEDS: SODIUM CHLORIDE 0.9% IV 1,000 ML 125 ML IV CONT (21:10)
[2020-07-12 21:17] LABS: Glucose Point of Care 208 (65-105)
--- NOTE | 2020-07-12 21:35 | PC.NURSE ---
Addendum entered by Majo Chou RN 07/12/20 21:39: 07/12/20 @ 2135 Return call placed to Dimitri, brother/POA, but was unable to reach. Original Note: aTTEMPTED T
[2020-07-12 22:36] LABS: Glucose Point of Care 161 (65-105)
[2020-07-13 00:16] LABS: Glucose Point of Care 98 (65-105)
--- NOTE | 2020-07-13 00:18 | PM.IMHP ---
H&P: HPI History of Present Illness Date/Time: 07/13/20 00:18 Chief complaint: Unresponsive, low glucose Narrative: Marine Anglin is a 64 year old female with a past medical history of insulin-dependent diabetes mellitus, diabetic peripheral neuropathy, and prior hospital admissions for Klebsiella pneumonia UTI and liver abscess January 2020 who presented to the ER via EMS from home after being found unresponsive. The patient had been hospitalized since a role due to liver abscess sepsis and Klebsiella UTI. She went to rehab and eventually had her liver drain removed the end of February. She has not had any further right upper quadrant abdominal pain. She had underwent physical therapy and was doing better with ambulating with a walker. However in the middle of May she was found to be profoundly hypoglycemic and was admitted to the hospital. Her glucose at that time was 26 and her hemoglobin A1c was 8. She was evaluated physical therapy at that time and felt the need further ongoing cares in the patient was discharged to [facility] for rehabilitation. The patient was discharged from [facility] in mid June when she ran out of skilled days. She has since returned home. She has been ambulating with a walker but has had multiple falls or near falls. Today the police were called for a wellness check when the patient's friend had not heard from her for 2 days. The patient was found unresponsive. Her glucose on scene was reading as low. The patient received IM glucagon. To the ER the patient's glucose was 22 and was confirmed on BMP to be 33. IV dextrose her glucose improved to 141 but trended back down to 102 she received additional dextrose therapy in her glucose improved up to 2 8 and throughout the night as silly trended back down 10 the 90s. The patient reports that she feels hungry and when I entered the room the patient was eating a snack and drinking juice. After snack in juice her sugars were up to 103. The patient reports that she has been eating and does have food in her freezer. She denies any decreased appetite. She still has not been checking her glucoses consistently. She had not checked her glucoses in a couple of days. She has still been taking her Lantus and mealtime bolus insulin of 5 units with meals. Her last hemoglobin A1c in May was down to 8 from a prior value of 16. The patient reports that after she was discharged from the detention she had been doing well with outpatient rehab. She was driving to rehab and was able to get in out of her car okay. She actually made it out to her car on Monday and went to rehab. When she came back home she was so weak she could not get out of the car. She reported that she otherwise did not feel bad. She eventually did make it into the house. But evidently she was so weak that she was having difficulty in his had a multiple falls or near falls. She has multiple areas of bruising that her yellow in color. She states that her right side of her chest is tender to palpation and she indicates an area over a bruise. She told nursing staff that at some point over the last couple of days she could not get up to the bathroom so she placed to tell between her legs in urinated on the towel. She denies any dysuria changes in urinary frequency or urgency. However the patient's urine appears consistent with UTI. The patient is adamant that she was not ill and was just sleeping when EMS found her. She is alert orient x4 and provides detailed information regarding her past medical history but seems have some difficulty comprehending the significance of her medical conditions. On examination the patient was noted to have left foot drop and had complete absent dorsiflexion of the left foot. She states that this is been present since June. She did not have a CT of her head performed when the symptoms developed. Review of Systems Review of Systems: Narrative: 12 systems were reviewed
[2020-07-13 01:03] LABS: Glucose Point of Care 103 (65-105)
[2020-07-13 02:00] VITALS: BP 111/59; PULSE 106; RESP 20; TEMP 36.6; O2SAT 98
--- NOTE | 2020-07-13 05:25 | PC.NURSE ---
Call received from Dimitri, brother/POA, regarding current living conditions and safety concerns of patient. Explained information was entered during admission for possible SNF/Rehab needs at discharge.
[2020-07-13 06:00] VITALS: BP 135/70; PULSE 96; RESP 16; TEMP 36.9; O2SAT 100
[2020-07-13 06:14] LABS: Glucose Point of Care 52 (65-105)
[2020-07-13 06:14] LABS: Glucose Point of Care 147 (65-105)
[2020-07-13 06:14] LABS: Glucose Point of Care 123 (65-105)
[2020-07-13] MEDS: DEXTROSE 50% 25 GM/50 ML SYRINGE (06:15)
[2020-07-13 06:26] LABS: Hematocrit 33.9 % (37.0-47.0); Hemoglobin 11.9 g/dL (12.0-15.0); Mean Corpuscular HGB Conc 35.1 g/dl (32-36); Mean Corpuscular Hemoglobin 30.5 pg (26-34); Mean Corpuscular Volume 86.9 fl (80-100); Mean Platelet Volume 9.5 fl (7.4-10.4); Platelet Count Result 301 k/mm3 (150-375); Red Cell Distribution Width 12.1 % (11.5-14.5); White Blood Count 10.8 K/mm3 (4.5-10.0)
[2020-07-13] MEDS: DEXTROSE 5%/0.45% SOD CHL 1,000 ML 100 ML IV CONT (06:33)
[2020-07-13 06:40] LABS: Anion Gap 6 mmol/L (8-16); Blood Urea Nitrogen 19 mg/dL (7-17); Calcium 9.2 mg/dL (8.4-10.2); Carbon Dioxide 30 mmol/L (22-30); Chloride 106 mmol/L (98-107); Estimated CRCL calculation 65 ml/min; Estimated Glomerular Filt Rate > 60; Glucose 61 mg/dL (65-105); Potassium 3.6 mmol/L (3.4-5.0); Sodium 142 mmol/L (137-145)
[2020-07-13 06:44] LABS: Glucose Point of Care 161 (65-105)
[2020-07-13 06:56] LABS: Hemoglobin A1C 6.3 % (<5.7)
[2020-07-13] MEDS: ASPIRIN 81 MG ENTERIC TABLET PO (08:45)
[2020-07-13] MEDS: ENOXAPARIN 40 MG/0.4 ML SYRINGE SUB-Q (08:45)
[2020-07-13 09:19] LABS: Glucose Point of Care 245 (65-105)
--- NOTE | 2020-07-13 09:24 | PM.IMPN ---
Progress Note: A&P Assessment and Plan (1) Hypoglycemic episode in patient with diabetes mellitus: Code(s): E11.649 - Type 2 diabetes mellitus with hypoglycemia without coma Status: Resolved Assessment and Plan: Likely due to the patient having somewhat decreased oral intake as she had been weak and not getting up as much, in addition to her not checking her glucoses prior to insulin administration; she was lectured on this in detail today. Nursing reports glucose up into 200s this morning, now Continue to hold Lantus Will hold IV dextrose containing fluids. Will continue Q 2 Accu-Cheks as well as mealtime Accu-Cheks Low-dose sliding scale insulin with Accu-Cheks a.c. HS and hypoglycemia protocol have been ordered. Monitor closely and adjust insulin as appropriate; will consider holding mealtime bolus at discharge, or at the very least, giving strict instructions not to administer mealtime bolus if not eating. (2) Acute UTI: Code(s): N39.0 - Urinary tract infection, site not specified Status: Acute Assessment and Plan: UA is consistent with likely urinary tract infection. Patient has been weak over the past couple of days prior to arrival. UCx pending. Continue IV rocephin for now Await urine cultures; tailor antibiotics to cultures Monitor (3) Multiple falls: Code(s): R29.6 - Repeated falls Status: Acute Assessment and Plan: CT brain has been ordered but yet to be done PT and OT evaluation. Consider placement if possible given her recent SNF placement (patient ran out of days) CC following Subjective Date/time seen: 07/13/20 09:24 Interval history: Patient is a 64 year old female with a past medical history of insulin-dependent diabetes mellitus, diabetic peripheral neuropathy, and prior hospital admissions for Klebsiella pneumonia UTI and liver abscess January 2020 who is here for hypoglycemia and suspected UTI. She states she feels okay today. She is eating well this morning. She has residual chest wall pain from a fall a few days ago; notes a resolving bruise at anterior chest. No complaints at the moment. Denies f/c/s, headaches, dizziness, lightheadedness, changes in vision, palpitations, sob/cough, n/v/d/c, abd pain, changes in BMs, dysuria, calf pain. Review of Systems Review of Systems: All systems reviewed & are unremarkable except as noted in HPI and below Exam Narrative: Exam Narrative: General: Patient sitting upright in bed in no acute distress; eating breakfast HEENT: Normocephalic, EOMI, oral mucosa moist. Cardiovascular: Rate and rhythm are regular. Grade II/ systolic murmur appreciated Respiratory: Lungs clear to auscultation in anterolateral lung ricci. Non-labored breathing. Abdomen: Soft, non-tender, non-distended, bowel sounds present. Extremities: Peripheral pulses intact. No edema. Dry, scaling skin noted b/l lower legs and feet Neuro: No focal neurological deficits. Speech is clear. Objective Data Vital Signs Vital Signs: Last Vital Signs Temp 98.5 F 07/13/20 06:00 Pulse 96 07/13/20 06:00 Resp 16 07/13/20 06:00 BP 135/70 07/13/20 06:00 Pulse Ox 100 07/13/20 06:00 Intake/Output Intake/Output: Intake & Output 07/10/20 07/11/20 07/12/20 07/13/20 23:59 23:59 23:59 23:59 Intake Total 1000 340 Balance 1000 340 Meds/Results Medications: Active Medications Generic Name Dose Route Start Last Admin Trade Name Freq PRN Reason Stop Dose Admin Acetaminophen 650 mg 07/12/20 18:53 Tylenol Tablet PO Q4H PRN Mild Pain (1-3) or Fever Hydrocodone Bitart/Acetaminophen 1 tab 07/12/20 18:53 [place] 5-325 Mg PO Q4H PRN Pain Rated 4-6 Aspirin 81 mg 07/13/20 09:00 07/13/20 08:45 Aspirin Ec PO 81 mg DAILY SULMA Administration Dextrose 12.5 gm 07/13/20 06:
[2020-07-13 12:51] LABS: Glucose Point of Care 282 (65-105)
[2020-07-13 14:00] VITALS: BP 129/47; PULSE 103; RESP 16; TEMP 36.7; O2SAT 100
[2020-07-13 20:33] LABS: Glucose Point of Care 182 (65-105)
[2020-07-13] MEDS: GABAPENTIN 300 MG CAPSULE PO (21:43)
[2020-07-13] MEDS: ACETAMINOPHEN 325 MG TABLET 650 MG PO (21:53)
[2020-07-13 22:00] VITALS: BP 147/73; PULSE 100; RESP 16; TEMP 36.9; O2SAT 97
[2020-07-14 02:00] VITALS: BP 160/76; PULSE 106; RESP 18; TEMP 36.9; O2SAT 97
[2020-07-14 04:53] LABS: Glucose Point of Care 155 (65-105)
--- NOTE | 2020-07-14 05:23 | PC.NURSE ---
07/14/20 at 0520. spoke to POA Dimitri per telephone, update on patients plan of care given. TDialRNC
[2020-07-14 05:51] LABS: Hematocrit 31.9 % (37.0-47.0); Hemoglobin 11.1 g/dL (12.0-15.0); Mean Corpuscular HGB Conc 34.8 g/dl (32-36); Mean Corpuscular Hemoglobin 31.1 pg (26-34); Mean Corpuscular Volume 89.4 fl (80-100); Mean Platelet Volume 9.1 fl (7.4-10.4); Platelet Count Result 239 k/mm3 (150-375); Red Blood Count 3.57 M/mm3 (4.2-5.4); White Blood Count 7.9 K/mm3 (4.5-10.0)
[2020-07-14 06:00] VITALS: BP 163/75; PULSE 95; RESP 18; TEMP 36.9; O2SAT 98
[2020-07-14 06:08] LABS: Anion Gap 6 mmol/L (8-16); Blood Urea Nitrogen 17 mg/dL (7-17); Calcium 8.2 mg/dL (8.4-10.2); Carbon Dioxide 28 mmol/L (22-30); Chloride 104 mmol/L (98-107); Estimated CRCL calculation 88 ml/min; Estimated Glomerular Filt Rate > 60; Glucose 142 mg/dL (65-105); Magnesium 1.9 mg/dL (1.6-2.3); Sodium 138 mmol/L (137-145)
[2020-07-14 08:17] LABS: Glucose Point of Care 104 (65-105)
[2020-07-14] MEDS: ASPIRIN 81 MG ENTERIC TABLET PO (08:26)
[2020-07-14] MEDS: ENOXAPARIN 40 MG/0.4 ML SYRINGE SUB-Q (08:27)
--- NOTE | 2020-07-14 10:04 | PM.IMPN ---
Progress Note: A&P Assessment and Plan (1) Hypoglycemic episode in patient with diabetes mellitus: Code(s): E11.649 - Type 2 diabetes mellitus with hypoglycemia without coma Status: Resolved Assessment and Plan: Likely due to the patient having somewhat decreased oral intake as she had been weak and not getting up as much, in addition to her not checking her glucoses prior to insulin administration, as well as, possibly injecting her humalog at nighttime - 28 units; she is unfamiliar with her lantus and states she uses the same insulin at night as she uses during the day for her meal time boluses; we discussed how concerning this is. Willing to meet with DM educator. Will resume Lantus at 5 units as her bgl appear to be well controlled; DM educator consulted; will await their recommendations, but will consider having her only using mealtime boluses if she is unable to appropriately administer Lantus Will hold IV dextrose containing fluids. Accuchecks ACHS, hypoglycemia protocol, correctional insulin, diabetic diet Monitor closely and adjust insulin as appropriate (2) Acute UTI: Code(s): N39.0 - Urinary tract infection, site not specified Status: Acute Assessment and Plan: UA is consistent with likely urinary tract infection. Patient has been weak over the past couple of days prior to arrival. UCx growing enterbacter cloacae complex sensitive to Rocpehin. Continue IV rocephin (day 3/3). Will start PO cefdinir tomorrow to complete 5 days total of antibiotics Monitor (3) Multiple falls: Code(s): R29.6 - Repeated falls Status: Acute Assessment and Plan: CT brain grossly unremarkable PT and OT evaluation. Consider placement if possible given her recent SNF placement/discharge (patient ran out of days) CC following Subjective Date/time seen: 07/14/20 10:04 Interval history: Patient is a 64 year old female with a past medical history of insulin-dependent diabetes mellitus, diabetic peripheral neuropathy, and prior hospital admissions for Klebsiella pneumonia UTI and liver abscess January 2020 who is here for hypoglycemia and suspected UTI. She states she feels okay today. She notes a scrap on her right lateral foot she injured while in the ED. No other complaints. We discussed her insulin and it appears she has been injecting her short acting insulin as if it were her long acting at night. She states she uses the same insulin pen for her mealtime boluses and at night. We discussed this in detail and educated her on ensuring she uses the correct insulin for the appropriate time. She is willing to meet with the DM educator. Otherwise she is eating well. She still has residual chest wall pain from a fall a few days ago; notes a resolving bruise at anterior chest again today. No other complaints at the moment. Denies f/c/s, headaches, dizziness, lightheadedness, changes in vision, palpitations, sob/cough, n/v/d/c, abd pain, changes in BMs, dysuria, calf pain. Review of Systems Review of Systems: All systems reviewed & are unremarkable except as noted in HPI and below Exam Narrative: Exam Narrative: General: Patient lying supine in bed in no acute distress HEENT: Normocephalic, EOMI, oral mucosa moist. Cardiovascular: Rate and rhythm are regular. Grade II/ systolic murmur appreciated Respiratory: Lungs clear to auscultation in anterolateral lung ricci. Non-labored breathing. Abdomen: Soft, non-tender, non-distended, bowel sounds present. Extremities: Peripheral pulses intact. No edema. Dry, scaling skin noted b/l lower legs and feet. Right lower foot/ankle appears to have superficial and healing abrasion. No evidence of discharge, with minimal erythema around the borders. Neuro: No focal neurological deficits. Speech is clear. Objective Data Vital Signs Vital Sign
[2020-07-14 11:59] LABS: Glucose Point of Care 166 (65-105)
[2020-07-14 13:49] LABS: SARS-CoV-2 RNA PCR Negative
[2020-07-14 14:00] VITALS: BP 143/59; PULSE 95; RESP 18; TEMP 37; O2SAT 98
[2020-07-14 17:10] LABS: Glucose Point of Care 198 (65-105)
[2020-07-14] MEDS: INSULIN GLARGINE (*BKC) 100 UNITS/ML SUB-Q (20:13)
[2020-07-14 21:34] LABS: Glucose Point of Care 236 (65-105)
[2020-07-14 22:00] VITALS: BP 155/93; PULSE 98; RESP 18; TEMP 36.6; O2SAT 98
[2020-07-15] MEDS: ACETAMINOPHEN 325 MG TABLET 650 MG PO ×3 (00:59→21:19)
[2020-07-15 06:00] VITALS: BP 164/85; PULSE 92; RESP 18; TEMP 36.8; O2SAT 100
[2020-07-15 06:28] LABS: Hematocrit 34.7 % (37.0-47.0); Hemoglobin 11.8 g/dL (12.0-15.0); Mean Corpuscular Hemoglobin 31.1 pg (26-34); Mean Corpuscular Volume 91.3 fl (80-100); Mean Platelet Volume 9.4 fl (7.4-10.4); Platelet Count Result 259 k/mm3 (150-375); White Blood Count 9.4 K/mm3 (4.5-10.0)
[2020-07-15 06:44] LABS: Anion Gap 6 mmol/L (8-16); Blood Urea Nitrogen 12 mg/dL (7-17); Calcium 8.8 mg/dL (8.4-10.2); Carbon Dioxide 30 mmol/L (22-30); Chloride 102 mmol/L (98-107); Estimated CRCL calculation 88 ml/min; Estimated Glomerular Filt Rate > 60; Glucose 163 mg/dL (65-105); Potassium 3.7 mmol/L (3.4-5.0); Sodium 138 mmol/L (137-145)
[2020-07-15] MEDS: ENOXAPARIN 40 MG/0.4 ML SYRINGE SUB-Q (08:43)
[2020-07-15] MEDS: ASPIRIN 81 MG ENTERIC TABLET PO (08:43)
[2020-07-15] MEDS: CEFDINIR 300 MG CAPSULE PO ×2 (08:43→21:16)
[2020-07-15 08:56] LABS: Glucose Point of Care 170 (65-105)
[2020-07-15 10:45] VITALS: BMI 20.4
[2020-07-15] MEDS: metFORMIN HCL 500 MG TABLET PO ×2 (10:45→17:31)
[2020-07-15 12:22] LABS: Glucose Point of Care 225 (65-105)
--- NOTE | 2020-07-15 12:35 | PM.IMPN ---
Progress Note: A&P Assessment and Plan (1) Hypoglycemic episode in patient with diabetes mellitus: Code(s): E11.649 - Type 2 diabetes mellitus with hypoglycemia without coma Status: Resolved Assessment and Plan: Likely due to the patient having somewhat decreased oral intake as she had been weak and not getting up as much, in addition to her not checking her glucoses prior to insulin administration, as well as, possibly injecting her lantus incorrectly as if it were meal time boluses. DM educator met with patient today. After discussing with ems educator, will continuing Lantus at [address] her back on metformin 500 mg BID WM as she used to take this at one time but was unsure why she was taken off this regimen. Will likely discharge on this regimen Appreciate Invoice Classification Clerk recommendations Will hold IV dextrose containing fluids. Accuchecks ACHS, hypoglycemia protocol, correctional insulin, diabetic diet She will need f/u with PCP after discharge (2) Acute UTI: Code(s): N39.0 - Urinary tract infection, site not specified Status: Acute Assessment and Plan: UA is consistent with likely urinary tract infection. Patient has been weak over the past couple of days prior to arrival. UCx growing enterbacter cloacae complex sensitive to Rocpehin. Continue PO cefdinir to complete 5 days total of antibiotics (through 07/16) monitor (3) Multiple falls: Code(s): R29.6 - Repeated falls Status: Acute Assessment and Plan: CT brain grossly unremarkable PT and OT evaluation. Considering placement if possible given her recent SNF placement/discharge (patient ran out of days) CC following Subjective Date/time seen: 07/15/20 12:35 Interval history: Patient is a 64 year old female with a past medical history of insulin-dependent diabetes mellitus, diabetic peripheral neuropathy, and prior hospital admissions for Klebsiella pneumonia UTI and liver abscess January 2020 who is here for hypoglycemia and suspected UTI. She states she feels okay today. No other complaints at the moment. Denies f/c/s, headaches, dizziness, lightheadedness, changes in vision, palpitations, sob/cough, n/v/d/c, abd pain, changes in BMs, dysuria, calf pain. Review of Systems Review of Systems: All systems reviewed & are unremarkable except as noted in HPI and below Exam Narrative: Exam Narrative: General: Patient lying supine in bed in no acute distress HEENT: Normocephalic, EOMI, oral mucosa moist. Cardiovascular: Rate and rhythm are regular. Grade II/ systolic murmur appreciated Respiratory: Lungs clear to auscultation in anterolateral lung ricci. Non-labored breathing. Abdomen: Soft, non-tender, non-distended, bowel sounds present. Extremities: Peripheral pulses intact. No edema. Dry, scaling skin noted b/l lower legs and feet. Neuro: No focal neurological deficits. Speech is clear. Objective Data Vital Signs Vital Signs: Last Vital Signs Temp 98.3 F 07/15/20 06:00 Pulse 92 07/15/20 06:00 Resp 18 07/15/20 06:00 BP 164/85 H 07/15/20 06:00 Pulse Ox 100 07/15/20 06:00 Intake/Output Intake/Output: Intake & Output 07/12/20 07/13/20 07/14/20 07/15/20 23:59 23:59 23:59 23:59 Intake Total 1000 1170 1970 555 Balance 1000 1170 1970 555 Meds/Results Medications: Active Medications Generic Name Dose Route Start Last Admin Trade Name Rocio PRN Reason Stop Dose Admin Acetaminophen 650 mg 07/12/20 18:53 07/15/20 00:59 Tylenol Tablet PO 650 mg Q4H PRN Administration Mild Pain (1-3) or Fever Hydrocodone Bitart/Acetaminophen 1 tab 07/12/20 18:53 [place] 5-325 Mg PO Q4H PRN Pain Rated 4-6 Aspirin 81 mg 07/13/20 09:00 07/15/20 08:43 Aspirin Ec PO 81 mg DAILY SULMA Administration Cefdinir 300 mg 07/15/20 09:00
[2020-07-15] MEDS: INSULIN ASPART (*BKC) 100 UNITS/ML SUB-Q (12:58)
[2020-07-15 14:00] VITALS: BP 139/66; PULSE 93; RESP 18; TEMP 36.9; O2SAT 98
[2020-07-15 17:43] LABS: Glucose Point of Care 168 (65-105)
[2020-07-15] MEDS: INSULIN GLARGINE (*BKC) 100 UNITS/ML SUB-Q (21:11)
[2020-07-15] MEDS: GABAPENTIN 300 MG CAPSULE PO (21:23)
[2020-07-15 21:34] LABS: Glucose Point of Care 220 (65-105)
[2020-07-15 22:00] VITALS: BP 146/70; PULSE 93; RESP 18; TEMP 37; O2SAT 98
[2020-07-16 06:00] VITALS: BP 153/82; PULSE 94; RESP 20; TEMP 36.8; O2SAT 96
[2020-07-16 06:51] LABS: Anion Gap 4 mmol/L (8-16); Blood Urea Nitrogen 14 mg/dL (7-17); Calcium 9.2 mg/dL (8.4-10.2); Carbon Dioxide 31 mmol/L (22-30); Chloride 102 mmol/L (98-107); Estimated CRCL calculation 75 ml/min; Estimated Glomerular Filt Rate > 60; Glucose 153 mg/dL (65-105); Magnesium 1.8 mg/dL (1.6-2.3); Sodium 137 mmol/L (137-145)
[2020-07-16 08:03] LABS: Glucose Point of Care 133 (65-105)
[2020-07-16] MEDS: ASPIRIN 81 MG ENTERIC TABLET PO (08:45)
[2020-07-16] MEDS: metFORMIN HCL 500 MG TABLET PO ×2 (08:45→18:09)
[2020-07-16] MEDS: CEFDINIR 300 MG CAPSULE PO ×2 (08:46→18:09)
[2020-07-16] MEDS: ENOXAPARIN 40 MG/0.4 ML SYRINGE SUB-Q (08:46)
--- NOTE | 2020-07-16 10:51 | PM.DS ---
DS: Admitting Diagnosis Admitting Diagnosis Admitting Diagnosis: Unresponsive, low glucose DS: Discharge Diagnosis Discharge Diagnosis (1) Hypoglycemic episode in patient with diabetes mellitus: Code(s): E11.649 - Type 2 diabetes mellitus with hypoglycemia without coma Status: Resolved Assessment and Plan: Likely due to the patient having somewhat decreased oral intake as she had been weak and not getting up as much, in addition to her not checking her glucoses prior to insulin administration, as well as, possibly injecting her lantus incorrectly as if it were meal time boluses. DM educator met with patient during stay. After discussing with telehealth nurse educator, will continue Lantus at 5 units and metformin 500 mg BIDWM as she used to take this at one time but was unsure why she was taken off this regimen. Will discharge on this regimen Appreciate Gin Clerk recommendations Accuchecks ACHS, hypoglycemia protocol, correctional insulin, diabetic diet during stay She will need f/u with PCP after discharge (2) Acute UTI: Code(s): N39.0 - Urinary tract infection, site not specified Status: Acute Assessment and Plan: UA is consistent with likely urinary tract infection. Patient has been weak over the past couple of days prior to arrival. UCx growing enterbacter cloacae complex sensitive to Rocpehin. Continue PO cefdinir to complete 5 days total of antibiotics (through 07/16) f/u with PCP (3) Multiple falls: Code(s): R29.6 - Repeated falls Status: Acute Assessment and Plan: CT brain grossly unremarkable PT and OT evaluation. Patient unfortunately cannot go to rehab as she has run out of days; CC has set up HH therapy for her CC following DS: Summary Time Spent with Patient Time attestation: Total time spent providing and/or coordinating discharge services: Exam Narrative: Exam Narrative: General: Patient sitting up in chair at time of visit in no acute distress HEENT: Normocephalic, EOMI, oral mucosa moist. Cardiovascular: Rate and rhythm are regular. S1/S2 noted, normal Respiratory: Lungs clear to auscultation in anterolateral lung ricci. Non-labored breathing. Abdomen: Soft, non-tender, non-distended, bowel sounds present. Extremities: Peripheral pulses intact. No edema. Dry, scaling skin noted b/l lower legs and feet. Neuro: No focal neurological deficits. Speech is clear. DS: Data Data Completed and Pending Labs on day of discharge: Labs from last 24 hours 07/16/20 07/16/20 07/15/20 07:58 05:46 21:09 Sodium 137 Potassium 4.0 Chloride 102 Carbon Dioxide 31 H Anion Gap 4 L BUN 14 Creatinine 0.60 L Estim Creat Clear Calc 75 Estimated GFR > 60 Glucose 153 H POC Capillary Glucose 133 H 220 H Calcium 9.2 Magnesium 1.8 07/15/20 07/15/20 17:02 12:19 Sodium Potassium Chloride Carbon Dioxide Anion Gap BUN Creatinine Estim Creat Clear Calc Estimated GFR Glucose POC Capillary Glucose 168 H 225 H Calcium Magnesium Discharge Plan Discharge Attending physician on discharge: Chris Delgadillo Discharging Clinician: See Dupree Anticipated Discharge Date/Time: 07/16/20 10:56 Patient Disposition: Home Health Service Activity: as tolerated Diet: diabetic Discharge Instructions: Discharge instructions per Hospitalist: Follow up with your PCP in 1-2 weeks after discharge. Call today for an appointment Follow up with our Gin Clerk, Ary Donahue, after discharge Start taking 5 units lantus once daily and 500 mg Metformin twice daily. Stop taking your meal time bolus injections Take 1 capsule of cefdinir tonight to complete your antibiotic treatment for your UTI. Obtain lab work in 1 week to assess your kidney function Check y
[2020-07-16 11:39] LABS: Glucose Point of Care 256 (65-105)
[2020-07-16] MEDS: INSULIN ASPART (*BKC) 100 UNITS/ML SUB-Q (12:30)
[2020-07-16 14:00] VITALS: BP 126/69; PULSE 99; RESP 16; TEMP 36.7; O2SAT 97
[2020-07-16 17:19] LABS: Glucose Point of Care 169 (65-105)
[2020-07-16 22:00] VITALS: BP 147/72; PULSE 99; RESP 16; TEMP 36.7; O2SAT 98
[2020-07-16] MEDS: GABAPENTIN 300 MG CAPSULE PO (22:10)
[2020-07-16] MEDS: INSULIN GLARGINE (*BKC) 100 UNITS/ML SUB-Q (22:15)
[2020-07-17 00:35] LABS: Glucose Point of Care 207 (65-105)
[2020-07-17 06:00] VITALS: BP 150/74; PULSE 97; RESP 16; TEMP 36.4; O2SAT 98
--- NOTE | 2020-07-17 07:16 | PM.IMPN ---
Progress Note: A&P Assessment and Plan (1) Hypoglycemic episode in patient with diabetes mellitus: Code(s): E11.649 - Type 2 diabetes mellitus with hypoglycemia without coma Status: Resolved Assessment and Plan: Likely due to the patient having somewhat decreased oral intake as she had been weak and not getting up as much, in addition to her not checking her glucoses prior to insulin administration, as well as, possibly injecting her lantus incorrectly as if it were meal time boluses. DM educator met with patient during stay. After discussing with asthma educator, will continue Lantus at 5 units and metformin 500 mg BIDWM as she used to take this at one time but was unsure why she was taken off this regimen. Will discharge on this regimen Appreciate Process Control Tech recommendations Accuchecks ACHS, hypoglycemia protocol, correctional insulin, diabetic diet during stay She will need f/u with PCP after discharge Discharge placed on 07/16/20; for unclear reasons, patient did not discharge (2) Acute UTI: Code(s): N39.0 - Urinary tract infection, site not specified Status: Acute Assessment and Plan: UA is consistent with likely urinary tract infection. Patient has been weak over the past couple of days prior to arrival. UCx growing enterbacter cloacae complex sensitive to Rocpehin. Continue PO cefdinir to complete 5 days total of antibiotics (through 07/16) f/u with PCP (3) Multiple falls: Code(s): R29.6 - Repeated falls Status: Acute Assessment and Plan: CT brain grossly unremarkable PT and OT evaluation. Patient unfortunately cannot go to rehab as she has run out of days; CC has set up HH therapy for her CC following Subjective Date/time seen: 07/16/20 10:45 Interval history: Patient is a 64 year old female with a past medical history of insulin-dependent diabetes mellitus, diabetic peripheral neuropathy, and prior hospital admissions for Klebsiella pneumonia UTI and liver abscess January 2020 who is here for hypoglycemia and suspected UTI. She states she feels okay again today. No other complaints at the moment. Denies f/c/s, headaches, dizziness, lightheadedness, changes in vision, palpitations, sob/cough, n/v/d/c, abd pain, changes in BMs, dysuria, calf pain. We again discussed the importance of checking sugars 5 times a day and reporting back to her PCP; she is understanding of instructions Review of Systems Review of Systems: All systems reviewed & are unremarkable except as noted in HPI and below Exam Narrative: Exam Narrative: General: Patient sitting up in chair at time of visit in no acute distress HEENT: Normocephalic, EOMI, oral mucosa moist. Cardiovascular: Rate and rhythm are regular. S1/S2 noted, normal Respiratory: Lungs clear to auscultation in anterolateral lung ricci. Non-labored breathing. Abdomen: Soft, non-tender, non-distended, bowel sounds present. Extremities: Peripheral pulses intact. No edema. Dry, scaling skin noted b/l lower legs and feet. Neuro: No focal neurological deficits. Speech is clear. Objective Data Vital Signs Vital Signs: Vital Signs - 24 hr 07/16/20 14:00 07/16/20 22:00 Temperature 98.1 F 98.0 F Pulse Rate 99 99 Respiratory Rate 16 16 Blood Pressure 126/69 147/72 H Pulse Oximetry 97 98 Intake/Output Intake/Output: Intake & Output 07/14/20 07/15/20 07/16/20 07/17/20 23:59 23:59 23:59 23:59 Intake Total 2019 1914 1759 Balance 2019 1914 1759 Meds/Results Medications: Active Medications Generic Name Dose Route Start Last Admin Trade Name Freq PRN Reason Stop Dose Admin Acetaminophen 650 mg 07/12/20 18:53 07/15/20 21:19 Tylenol Tablet PO 650 mg Q4H PRN Administration Mild Pain (1-3) or Fever Hydrocodone Bitart/Acetaminophen 1 tab 07/12/20 18:53 [place] 5-325 Mg PO
--- NOTE | 2020-07-17 08:03 | PC.NURSE ---
0766 Care coordination was contacted and a message was left.
[2020-07-17 08:23] LABS: Glucose Point of Care 191 (65-105)
[2020-07-17] MEDS: metFORMIN HCL 500 MG TABLET PO (08:56)
[2020-07-17] MEDS: ASPIRIN 81 MG ENTERIC TABLET PO (08:56)
[2020-07-17] MEDS: ENOXAPARIN 40 MG/0.4 ML SYRINGE SUB-Q (08:56)
--- NOTE | 2020-07-17 10:05 | PM.DS ---
DS: Admitting Diagnosis Admitting Diagnosis Admitting Diagnosis: Unresponsive, low glucose DS: Discharge Diagnosis Discharge Diagnosis (1) Hypoglycemic episode in patient with diabetes mellitus: Code(s): E11.649 - Type 2 diabetes mellitus with hypoglycemia without coma Status: Resolved Assessment and Plan: Likely due to the patient having somewhat decreased oral intake as she had been weak and not getting up as much, in addition to her not checking her glucoses prior to insulin administration, as well as, possibly injecting her lantus incorrectly as if it were meal time boluses. DM educator met with patient during stay. After discussing with peer educator, will continue Lantus at 5 units and metformin 500 mg BIDWM as she used to take this at one time but was unsure why she was taken off this regimen. Will discharge on this regimen Appreciate Crisis Intervention Specialist recommendations Accuchecks ACHS, hypoglycemia protocol, correctional insulin, diabetic diet during stay She will need f/u with PCP after discharge Discharge placed on 07/16/20; Due to transportation issues, patient did not discharge (2) Acute UTI: Code(s): N39.0 - Urinary tract infection, site not specified Status: Acute Assessment and Plan: UA is consistent with likely urinary tract infection. Patient has been weak over the past couple of days prior to arrival. UCx growing enterbacter cloacae complex sensitive to Rocpehin. Patient completed 5 days total of antibiotics (through 07/16 with Rocephin then cefdinir) f/u with PCP (3) Multiple falls: Code(s): R29.6 - Repeated falls Status: Acute Assessment and Plan: CT brain grossly unremarkable PT and OT evaluation. Patient unfortunately cannot go to rehab as she has run out of days; CC has set up HH therapy for her CC following DS: Summary Hospital Course Reason for hospitalization: hypoglycemia event, unresponsive, acute UTI Hospital Course: Patient is a 64 yo F with a past medical history of insulin-dependent diabetes mellitus, diabetic peripheral neuropathy, and prior hospital admissions for Klebsiella pneumonia UTI and liver abscess January 2020 who presented to the ER on 07/12 via EMS from home after being found unresponsive. In the field, patient's glucose was found to be low and was given glucagon and in the ER, patient's glucose was 22 and confirmed with BMP at 33 and was given IV dextrose with improvement, but then trended down to 102 and recived additional dextrose. UA suspicious of UTI as well. Patient admitted under this setting of hypoglycemia with DM. Please see H&P for further details. Presenting VS: Temp Pulse Resp BP Pulse Ox 96.7 F L 100 20 158/85 H 98 07/12/20 14:14 07/12/20 14:14 07/12/20 14:14 07/12/20 14:14 07/12/20 14:14 Presenting Pertinent labs: WBC 15.4k, serum glucose 33. UA revealed yellow/clear urine, 1+ glucose, 1+ ketones, 2.0 urobilinogen, trace leuk est, 3-5 RBC, 10-15 WBC, wbc clumps present, 4+ bacteria, 3-4 hyaline casts, mucus. CBC, chamistry, UA otherwise unremarkable. COVID testing negative (placement) Micro: UCx grew enterobacter cloacae complex sensitive to Rocephin Imaging: Chest X-Ray 07/12/20 15:34 IMPRESSION: 1. No acute cardiopulmonary disease. Head CT 07/13/20 19:01 IMPRESSION: 1. No acute intracranial abnormality. 2. Age related findings. ECG: Interpretive Statements SINUS TACHYCARDIA NONSPECIFIC T-WAVE ABNORMALITY- INF/LAT LEADS BASELINE ARTIFACT- I, II, III, AVR, AVL, AVF, V1-V4 BORDERLINE ECG Patient was admitted to the hospitalist service for further evaluation. Patient's home insulin regimen was initially placed on hold and was placed on continuous IV dextrose until her sugars stabilized on following day of admission. DM educator was consulted and met with patient and discussed her insulin
--- NOTE | 2020-07-17 11:51 | PCOTNOTE ---
Attempted to see pt this AM for occupational therapy. Pt declined to participate in therapy stating, I want to take a nap... . Care Coordination stated that pt is d/c today home.
[2020-07-17 11:56] LABS: Glucose Point of Care 169 (65-105)
== END 2020-07-17 12:30 | disposition home health service (06) | DRG 639 ==
LOC: ANHED 19:01 → ANH3MEDSUR 19:44
PROVIDERS: Internal Medicine; Physician Assistant; Admitting Provider Family Medicine; Emergency Provider Emergency Medicine; PCP Family Medicine; Visit Provider Internal Medicine
DX: E11.649 Type 2 diabetes mellitus with hypoglycemia without coma (principal); B96.89 Other specified bacterial agents as the cause of diseases classified elsewhere; H90.3 Sensorineural hearing loss, bilateral; E11.42 Type 2 diabetes mellitus with diabetic polyneuropathy; I10 Essential (primary) hypertension; K21.9 Gastro-esophageal reflux disease without esophagitis; R29.6 Repeated falls; Z20.828 Contact with and (suspected) exposure to other viral communicable diseases; Z28.21 Immunization not carried out because of patient refusal; Z79.4 Long term (current) use of insulin; Z79.82 Long term (current) use of aspirin; Z88.2 Allergy status to sulfonamides
CPT/HCPCS: 36415; 51701; 70450; 71046; 80048; 81001; 82948; 83036; 83735; 85025; 85027; 87077; 87086; 87088; 87186; 87635; 93005; 96361; 96372; 96374; 96375; 97110; 97116; 97161; 97165; 97530; 97535; 99285; A9270; C9803; G0378; J0696; J1650; J1815; J7030; U0003

== ENCOUNTER 2020-07-18 19:48 | Observation (INO) | payer OTHER, SELFPAY ==
[2020-07-18 19:49] VITALS: BP 139/65; PULSE 106; RESP 16; O2SAT 100
--- NOTE | 2020-07-18 19:59 | ED.WEAKNESS ---
HPI - Weakness General Chief complaint: Weakness Stated complaint: weakness Time Seen by Provider: 07/18/20 19:59 Source: patient Mode of arrival: EMS Limitations: no limitations History of Present Illness HPI Narrative: Patient is a 64-year-old female with history of hypertension, diabetes who presents for evaluation of weakness. Patient reports that she has had difficulty completing activities of daily living at home as she has no help. Patient discharged from this facility yesterday. Patient was told that insurance would not cover rehabilitation although patient states she is unable to use the restroom at home as she has no assistance, no neighbors that can help, no family that is helping her. Patient denies any fever, chills, nausea, vomiting, chest pain or abdominal pain. She denies any numbness in the upper or lower extremities. No facial numbness. No headache. Patient states that she tried to use the bathroom this evening, has a low-lying toilet and after she sat down was unable to stand up thus she called EMS. Related Data Home Medications Medication Instructions Recorded Confirmed docusate sodium 100 mg PO Q12HR PRN 05/25/20 07/12/20 aspirin [Adult Low Dose Aspirin] 81 mg PO DAILY 07/12/20 07/12/20 gabapentin 300 mg PO HS 07/12/20 07/12/20 Allergies Allergy/AdvReac Type Severity Reaction Status Date / Time Sulfa (Sulfonamide Allergy Unknown Unknown Verified 07/12/20 14:23 Antibiotics) Review of Systems Review of Systems: Narrative: CONSTITUTIONAL: Denies fever, chills, or sweats. EYES: Denies visual changes, redness, or discharge. ENT: Denies rhinorrhea, congestion, sore throat, or otalgia. CARDIOVASCULAR: Denies chest pain, palpitations, or edema. RESPIRATORY: Denies cough or dyspnea. GASTROINTESTINAL: Denies abdominal pain, nausea, vomiting, or diarrhea. GENITOURINARY: Denies dysuria or hematuria. SKIN: Denies rash or itching. MUSCULOSKELETAL: Denies back pain, joint pain, or myalgia. NEUROLOGIC: Denies headache, numbness, reports leg weakness PMFSH Past Medical History Medical History Diabetic peripheral neuropathy Essential hypertension GERD (gastroesophageal reflux disease) Insulin dependent type 2 diabetes mellitus (Unknown) Hemoglobin A1c was 16.8% 10/2019 down to 8 in 05/2020 Liver abscess (01/27/20) Klebsiella pneumonia treated with antibiotics and percutaneous drain Sensorineural hearing loss (SNHL) of both ears Surgical History Surgical History History of cholecystectomy Laparoscopic cholecystectomy around 1995. History of hand surgery Injury of bile duct Following laparoscopic cholecystectomy in 1995, requiring open surgical repair. Performed at [facility]. Family History Family History Mother Patient's mother is in good health Father Diabetes mellitus Hypertension Sibling Diabetes mellitus Social History Social History Social History: Surrogate decision maker: Jessica Maria, friend. Code status: Full code. Primary care physician: Dr. Lucio Dalal Smoking status: Never smoker Second hand tobacco smoke exposure: No Alcohol intake: never Substance use: never Substance use type: does not use Additional living arrangements comments: Lives in her own home in [place]. She does not have any children and has never been . Additional occupation/education comments: She works at [employer], but has not worked since October 2019. Gender identity (if verbalized by the patient): Female Spiritual care concerns: No Agree to blood products: Yes Exam Narrative: Exam Narrative: GENERAL: Awake, alert, conversant HEAD: Normocephalic, atraumatic. EYES: PERRLA and EOMI. ENT: Nares clear, no rhinorrhea or epista
[2020-07-18 20:00] VITALS: BP 141/65; PULSE 103; RESP 20; O2SAT 99
[2020-07-18] MEDS: SODIUM CHLORIDE 0.9% IV 1,000 ML 999 ML IV CONT (21:03)
--- NOTE | 2020-07-18 21:03 | PC.NURSE ---
Dr Lezama gave permission for patient to take her own Metformin brought from home-Bottle is from [facility] pharmacy Rx #[id number] (patient just got it filled with her discharge on 07/17/2020
[2020-07-18 21:40] LABS: Basophils Percent Auto 0.4 % (0.2-1.2); Eosinophils Absolute Auto 0.2 K/mm3 (0-0.3); Eosinophils Percent Auto 2.2 % (0-4.4); Hematocrit 39.3 % (37.0-47.0); Hemoglobin 13.5 g/dL (12.0-15.0); Immature Granulocyte Absolute 0.03 K/mm3 (0.00-0.031); Immature Granulocyte Percent A 0.3 % (0-0.5); Lymphocytes Absolute Auto 2.09 K/mm3 (0.9-3.2); Lymphocytes Percent Auto 18.7 % (18.3-44.2); Mean Corpuscular HGB Conc 34.4 g/dl (32-36); Mean Corpuscular Hemoglobin 31.4 pg (26-34); Mean Corpuscular Volume 91.4 fl (80-100); Mean Platelet Volume 9.4 fl (7.4-10.4); Monocytes Absolute Auto 0.6 K/mm3 (0.1-0.6); Neutrophils Absolute Auto 8.2 K/mm3 (1.3-6.7); Neutrophils Percent Auto 73.4 % (45.5-73.1); Platelet Count Result 323 k/mm3 (150-375); Red Cell Distribution Width 12.3 % (11.5-14.5); White Blood Count 11.2 K/mm3 (4.5-10.0)
[2020-07-18 21:52] LABS: Anion Gap 12 mmol/L (8-16); Blood Urea Nitrogen 21 mg/dL (7-17); Calcium 9.6 mg/dL (8.4-10.2); Carbon Dioxide 23 mmol/L (22-30); Chloride 101 mmol/L (98-107); Estimated CRCL calculation 78 ml/min; Estimated Glomerular Filt Rate > 60; Glucose 320 mg/dL (65-105); Potassium 4.8 mmol/L (3.4-5.0); Sodium 136 mmol/L (137-145)
--- NOTE | 2020-07-18 23:01 | PM.IMHP ---
"H&P: HPI History of Present Illness Date/Time: 07/18/20 23:01 Chief complaint: Weakness Narrative: This is a diabetic 64 year old female with known history of chronic HTN and GERD who was just discharged from the hospital yesterday after she was treated for a urinary tract infection that grew out enterobacter cloacae. She is known to live alone and went home as she did not meet criteria for rehab. At home today she simply could not get up off the toilet and so she called EMS. The patient admits to me that she believes that she cannot perform her ADLS without help. The patient was set up with home health but it appears that they do not come on weekends. Tonight she denies any other symptoms such as fever, chills, cough, chest pain, shortness of breath, wheezing, abdominal pain, dysuria, hematuria, diarrhea, LE swelling or focal neurological deficits. No other complaints. Review of Systems Review of Systems: All systems reviewed & are unremarkable except as noted in HPI and below PMFSH Past Medical History Medical History Diabetic peripheral neuropathy Essential hypertension GERD (gastroesophageal reflux disease) Insulin dependent type 2 diabetes mellitus (Unknown) Hemoglobin A1c was 16.8% 10/2019 down to 8 in 05/2020 Liver abscess (01/27/20) Klebsiella pneumonia treated with antibiotics and percutaneous drain Sensorineural hearing loss (SNHL) of both ears Surgical History Surgical History History of cholecystectomy Laparoscopic cholecystectomy around 1995. History of hand surgery Injury of bile duct Following laparoscopic cholecystectomy in 1995, requiring open surgical repair. Performed at [facility]. Family History Family History Mother Patient's mother is in good health Father Diabetes mellitus Hypertension Sibling Diabetes mellitus Social History Social History Social History: Surrogate decision maker: Jessica Maria, friend. Code status: Full code. Primary care physician: Dr. Lucio Dalal Smoking status: Never smoker Second hand tobacco smoke exposure: No Alcohol intake: never Substance use: never Substance use type: does not use Additional living arrangements comments: Lives in her own home in [place]. She does not have any children and has never been . Additional occupation/education comments: She works at [employer], but has not worked since October 2019. Gender identity (if verbalized by the patient): Female Spiritual care concerns: No Agree to blood products: Yes Meds Home Medications and Allergies Home Medications Medication Instructions Recorded Confirmed Type docusate sodium 100 mg PO Q12HR PRN 05/25/20 07/19/20 History aspirin [Adult Low Dose Aspirin] 81 mg PO DAILY 07/12/20 07/19/20 History gabapentin 300 mg PO HS 07/12/20 07/19/20 History metformin [Glucophage] 500 mg PO BIDWM #60 tablet 07/15/20 07/19/20 Rx glucose [Dex4 Glucose] 4 g PO Q15M PRN #30 tablet 07/16/20 07/19/20 Rx Lantus U-100 Insulin 5 unit SUBCUT DAILY #10 ml 07/17/20 07/19/20 Rx blood sugar diagnostic [OneTouch #1 pkg 07/17/20 07/19/20 Rx Verio test strips] blood-glucose meter [OneTouch #1 ea 07/17/20 07/19/20 Rx Verio Flex meter] insulin syringe,safetyneedle #1 pkg 07/17/20 07/19/20 Rx lancets [OneTouch Delica Plus #1 pkg 07/17/20 07/19/20 Rx Lancet] Allergies Allergy/AdvReac Type Severity Reaction Status Date / Time Sulfa (Sulfonamide Allergy Unknown Unknown Verified 07/12/20 14:23 Antibiotics) Vital Signs Vital Signs - 24 hr 07/18/20 19:49 07/18/20 20:00 Pulse Rate 106 H 103 H Respiratory Rate 16 20 Blood Pressure 139/65 141/65 H Pulse Oximetry 100 99 Exam Const: General: cooperative, no acut"
[2020-07-18 23:26] VITALS: BP 147/78; PULSE 95; RESP 23; O2SAT 100
[2020-07-18 23:40] VITALS: BP 154/85; PULSE 96; RESP 16; TEMP 36.4; O2SAT 98; BMI 20.8
--- NOTE | 2020-07-18 23:58 | ADMGEN ---
This patient, Marine Anglin, was admitted to 3 [facility] Surg Room 317-01. Patient/family oriented to hospital policies and general routines including ID bracelet, bed and alarms, visiting hours, pain management, procedures, bathroom and other care routines, personal items, smoking policy, room service/diet, and visiting hours. Valuables list has been completed. Information on how to activate the Rapid Response Team has been discussed. Patient/Family are encouraged to report perceived risks to care and to ask questions if they do not understand what they are told or what they should do.
[2020-07-19 00:02] LABS: Add Urine Microscopic? YES; Appearance Urine Clear (Clear); Bacteria Urine Trace /hpf; Bilirubin Urine Negative (Negative); Blood Urine 1+ (Negative); Budding Yeast Urine Present /hpf; Color Urine Yellow (Yellow); Glucose Urine UA 3+ mg/dL (Negative); Ketones Urine Negative (Negative); Leukocyte Esterase Ur 1+ LEU/UL (Negative); Mucus Urine Rare /lpf; Nitrate Urine Negative (Negative); Protein Urine 1+ mg/dL (Negative); Specific Grav Ur 1.024 (1.001-1.035); Squamous Epithelial Cell Urine Rare /hpf (Few); Urobilinogen Urine Negative mg/dL (<2.0); WBC Urine 51-75 /hpf
[2020-07-19 05:57] LABS: Basophils Percent Auto 0.5 % (0.2-1.2); Eosinophils Absolute Auto 0.3 K/mm3 (0-0.3); Eosinophils Percent Auto 3.6 % (0-4.4); Hematocrit 34.8 % (37.0-47.0); Hemoglobin 11.8 g/dL (12.0-15.0); Immature Granulocyte Absolute 0.02 K/mm3 (0.00-0.031); Immature Granulocyte Percent A 0.2 % (0-0.5); Lymphocytes Absolute Auto 2.22 K/mm3 (0.9-3.2); Lymphocytes Percent Auto 25.9 % (18.3-44.2); Mean Corpuscular HGB Conc 33.9 g/dl (32-36); Mean Corpuscular Hemoglobin 30.3 pg (26-34); Mean Corpuscular Volume 89.5 fl (80-100); Monocytes Absolute Auto 0.5 K/mm3 (0.1-0.6); Monocytes Percent Auto 5.2 % (2.6-8.5); Neutrophils Absolute Auto 5.5 K/mm3 (1.3-6.7); Neutrophils Percent Auto 64.6 % (45.5-73.1); Platelet Count Result 306 k/mm3 (150-375); Red Blood Count 3.89 M/mm3 (4.2-5.4); White Blood Count 8.6 K/mm3 (4.5-10.0)
[2020-07-19 06:00] VITALS: BP 150/74; PULSE 98; RESP 18; TEMP 36.3; O2SAT 99
[2020-07-19 07:00] LABS: Anion Gap 5 mmol/L (8-16); Blood Urea Nitrogen 16 mg/dL (7-17); Calcium 9.3 mg/dL (8.4-10.2); Carbon Dioxide 30 mmol/L (22-30); Chloride 102 mmol/L (98-107); Estimated CRCL calculation 77 ml/min; Estimated Glomerular Filt Rate > 60; Glucose 201 mg/dL (65-105); Potassium 4.2 mmol/L (3.4-5.0); Sodium 137 mmol/L (137-145)
[2020-07-19] MEDS: metFORMIN HCL 500 MG TABLET PO ×2 (08:45→17:29)
[2020-07-19] MEDS: ASPIRIN 81 MG ENTERIC TABLET PO (08:45)
[2020-07-19] MEDS: INSULIN GLARGINE (*BKC) 100 UNITS/ML SUB-Q (08:45)
--- NOTE | 2020-07-19 09:29 | PM.IMPN ---
Progress Note: A&P Assessment and Plan (1) Generalized weakness: Code(s): R53.1 - Weakness Status: Acute Assessment and Plan: Likely secondary to chronic debility and recent hospitalization. Will need PT OT evaluation CC consult placed for possible placement. Unfortunately this was attempted last hospitalization but patient ran out of SNF days and was not able to be placed, thus HH was arranged. Await further rec from CC Okay for discharge from medical standpoint (2) Insulin dependent type 2 diabetes mellitus: Onset Date: Unknown Code(s): E11.9 - Type 2 diabetes mellitus without complications; Z79.4 - shelter (current) use of insulin Status: Chronic Assessment and Plan: BGL 200 this morning on BMP Accuchecks ACHS, hypoglycemia protocol, correctional insulin, diabetic diet Continue home lantus and metformin (3) UTI (urinary tract infection): Qualifiers: Urinary tract infection type: site unspecified Hematuria presence: without hematuria Qualified Code(s): N39.0 - Urinary tract infection, site not specified Code(s): N39.0 - Urinary tract infection, site not specified Status: Acute Assessment and Plan: Patient completed ABx therapy on last hospital stay. Asymptomatic today. Dose not appear toxic. UCx pending Will hold on antibiotics as she is asymptomaic If developing symptoms, consider resuming antibiotics (4) GERD (gastroesophageal reflux disease): Qualifiers: Esophagitis presence: esophagitis presence not specified Qualified Code(s): K21.9 - Gastro-esophageal reflux disease without esophagitis Code(s): K21.9 - Gastro-esophageal reflux disease without esophagitis Status: Chronic Assessment and Plan: stable. (5) Hypertension: Onset Date: Unknown Qualifiers: Hypertension type: unspecified Qualified Code(s): I10 - Essential (primary) hypertension Code(s): I10 - Essential (primary) hypertension Status: Chronic Assessment and Plan: Stable although 150s sys this morning Monitor blood pressure Consider adding additional BP med if continued elevation Subjective Date/time seen: 07/19/20 09:29 Interval history: Patient is a diabetic 64 year old female with known history of chronic HTN and GERD known to myself from her recent hospital stay earlier this week who is seen in follow up for generalized weakness and unable to fulfill her ADLs after being discharge home earlier this week. Patient has no complaints for me today. She notes that she had no strength to get up from her commode at home and thus summoned EMS. She notes that if she did go to rehab, she is hoping it only temporary. At home, she notes her BGL were in [id number], although in 300s on arrival. Denies f/c/s, headaches, dizziness, lightheadedness, changes in v/h, cp/palpitations, sob/cough, n/v/d/c, abd pain, changes in BMs, dysuria, hematuria, cloudy urine, calf pain/swelling. Review of Systems Review of Systems: All systems reviewed & are unremarkable except as noted in HPI and below Exam Narrative: Exam Narrative: General: Patient sitting upright in bed in no acute distress. Eating breakfast HEENT: Normocephalic, EOMI, oral mucosa moist. Poor dentition Cardiovascular: Rate and rhythm are regular. No notable murmur, rub, or gallop. Respiratory: Lungs clear to auscultation anterolateral lung ricci. Non-labored breathing. Abdomen: Soft, non-tender, non-distended, bowel sounds present. Extremities: Peripheral pulses intact. No edema. NTTP b/l calves Neuro: No focal neurological deficits. Speech is clear. Objective Data Vital Signs Vital Signs: Last Vital Signs Temp 97.3 F L 07/19/20 06:00 Pulse 98
[2020-07-19 14:00] VITALS: BP 124/64; PULSE 98; RESP 16; TEMP 36.1; O2SAT 98
[2020-07-19 17:20] LABS: Glucose Point of Care 245 (65-105)
[2020-07-19] MEDS: INSULIN ASPART (*BKC) 100 UNITS/ML SUB-Q (17:29)
[2020-07-19] MEDS: GABAPENTIN 300 MG CAPSULE PO (21:43)
[2020-07-19 21:52] LABS: Glucose Point of Care 233 (65-105)
[2020-07-19 22:00] VITALS: BP 147/59; PULSE 102; RESP 19; TEMP 36.6; O2SAT 98
[2020-07-20 06:00] VITALS: BP 152/79; PULSE 104; RESP 17; TEMP 36.1; O2SAT 97
--- NOTE | 2020-07-20 08:10 | PCOTNOTE ---
Attempted to see patient this am, however patient refused stating, No. I have a bunch of whiteheads on my bottom and they hurt. I want to stay in bed where I can relax. Offered patient air cushion for chair to help relieve pain while sitting up. Pt replied, Maybe at lunch, I'll try it. Not now.
[2020-07-20 08:21] LABS: Glucose Point of Care 209 (65-105)
[2020-07-20] MEDS: INSULIN ASPART (*BKC) 100 UNITS/ML SUB-Q ×3 (09:05→17:29)
[2020-07-20] MEDS: INSULIN GLARGINE (*BKC) 100 UNITS/ML 8 UNITS SUB-Q (09:06)
[2020-07-20] MEDS: ASPIRIN 81 MG ENTERIC TABLET PO (09:10)
[2020-07-20] MEDS: metFORMIN HCL 500 MG TABLET PO ×2 (09:10→17:07)
--- NOTE | 2020-07-20 10:17 | PM.IMPN ---
Progress Note: A&P Assessment and Plan (1) Generalized weakness: Code(s): R53.1 - Weakness Status: Acute Assessment and Plan: Likely secondary to chronic debility and recent hospitalization. PT/OT following CC consult placed for possible placement. Unfortunately this was attempted last hospitalization but patient ran out of SNF days and was not able to be placed, thus HH was arranged. Facility has accepted patient in [place], [place], however she is refusing this facility as this is too far from her house which she says she does not want to sell. Await further rec from CC Okay for discharge from medical standpoint (2) Insulin dependent type 2 diabetes mellitus: Onset Date: Unknown Code(s): E11.9 - Type 2 diabetes mellitus without complications; Z79.4 - [employer] (current) use of insulin Status: Chronic Assessment and Plan: BGL 200 this morning Accuchecks ACHS, hypoglycemia protocol, correctional insulin, diabetic diet Will increase home lantus to 8 u daily Continue Metformin (3) UTI (urinary tract infection): Qualifiers: Urinary tract infection type: site unspecified Hematuria presence: without hematuria Qualified Code(s): N39.0 - Urinary tract infection, site not specified Code(s): N39.0 - Urinary tract infection, site not specified Status: Acute Assessment and Plan: Patient completed ABx therapy on last hospital stay. Asymptomatic today. Dose not appear toxic. UCx pending Will hold on antibiotics as she is asymptomaic If developing symptoms, consider resuming antibiotics (4) GERD (gastroesophageal reflux disease): Qualifiers: Esophagitis presence: esophagitis presence not specified Qualified Code(s): K21.9 - Gastro-esophageal reflux disease without esophagitis Code(s): K21.9 - Gastro-esophageal reflux disease without esophagitis Status: Chronic Assessment and Plan: stable. (5) Hypertension: Onset Date: Unknown Qualifiers: Hypertension type: unspecified Qualified Code(s): I10 - Essential (primary) hypertension Code(s): I10 - Essential (primary) hypertension Status: Chronic Assessment and Plan: Stable although 150s sys again this morning; variable, but has trended down to reasonable levels in the afternoons on previous days Monitor blood pressure Consider adding additional BP med if continued elevation Subjective Date/time seen: 07/20/20 10:17 Interval history: Patient is a diabetic 64 year old female with known history of chronic HTN and GERD known to myself from her recent hospital stay earlier this week who is seen in follow up for generalized weakness and unable to fulfill her ADLs after being discharge home earlier this week. Patient has no complaints for me today. She notes that if she did go to a facility, she is hoping it only temporary. CC has arranged for her to go to a facility in [place], but patient is refusing to go to a facility that is not local as she does not want to sell her house. No complaints for me today. Denies subjective f/c/s, cp/palpitations, sob/cough, n/v/d/c, abd pain, changes in BMs, dysuria, hematuria, cloudy urine, calf pain/swelling. Review of Systems Review of Systems: All systems reviewed & are unremarkable except as noted in HPI and below Exam Narrative: Exam Narrative: General: Patient sitting upright in bed in no acute distress HEENT: Normocephalic, EOMI, oral mucosa moist. Poor dentition Cardiovascular: Tachycardic and regular rhythm. No notable murmur, rub, or gallop. Respiratory: Lungs clear to auscultation anterolateral lung ricci. Non-labored breathing. Abdomen: Soft, non-tender, non-distended, bowel sounds present.
[2020-07-20] MEDS: polyethylene glycoL 3350 17 GM POWD.PACK PO (12:25)
[2020-07-20 14:00] VITALS: BP 108/42; PULSE 105; RESP 20; TEMP 36.3; O2SAT 99
[2020-07-20 14:08] LABS: SARS-CoV-2 RNA PCR Negative
[2020-07-20 15:08] LABS: Glucose Point of Care 231 (65-105)
[2020-07-20 17:25] LABS: Glucose Point of Care 257 (65-105)
[2020-07-20] MEDS: GABAPENTIN 300 MG CAPSULE PO (20:37)
[2020-07-20 20:50] LABS: Glucose Point of Care 299 (65-105)
[2020-07-20 22:00] VITALS: BP 140/73; PULSE 100; RESP 18; TEMP 36.5; O2SAT 99
[2020-07-21 06:00] VITALS: BP 141/79; PULSE 102; RESP 20; TEMP 36.6; O2SAT 99
[2020-07-21] MEDS: metFORMIN HCL 500 MG TABLET PO ×2 (08:21→17:56)
[2020-07-21] MEDS: ASPIRIN 81 MG ENTERIC TABLET PO (08:21)
[2020-07-21] MEDS: INSULIN GLARGINE (*BKC) 100 UNITS/ML 8 UNITS SUB-Q (08:24)
[2020-07-21 09:26] LABS: Glucose Point of Care 191 (65-105)
[2020-07-21 12:41] LABS: Glucose Point of Care 294 (65-105)
[2020-07-21] MEDS: INSULIN ASPART (*BKC) 100 UNITS/ML SUB-Q ×2 (12:41→17:42)
[2020-07-21 14:00] VITALS: BP 140/68; PULSE 104; RESP 16; TEMP 37.1; O2SAT 99
--- NOTE | 2020-07-21 16:04 | PM.IMPN ---
Progress Note: A&P Assessment and Plan (1) Generalized weakness: Code(s): R53.1 - Weakness Status: Acute Assessment and Plan: Likely secondary to chronic debility and recent hospitalization. The patient will be excepted into a facility in [place], [place], which will be closer to her family. We have to wait until tomorrow which is when family can pick her up and transfer her to [place], [place] (2) Insulin dependent type 2 diabetes mellitus: Onset Date: Unknown Code(s): E11.9 - Type 2 diabetes mellitus without complications; Z79.4 - correction (current) use of insulin Status: Chronic Assessment and Plan: BGL 200's this morning Continue lantus to 8 u daily, Metformin and SSI (3) UTI (urinary tract infection): Qualifiers: Hematuria presence: without hematuria Urinary tract infection type: site unspecified Qualified Code(s): N39.0 - Urinary tract infection, site not specified Code(s): N39.0 - Urinary tract infection, site not specified Status: Acute Assessment and Plan: Patient completed ABx therapy on last hospital stay. Asymptomatic today. Does not appear toxic. Repeat urine culture showed some growth of yeast but it is only [id number] in the patient remains asymptomatic. (4) GERD (gastroesophageal reflux disease): Qualifiers: Esophagitis presence: esophagitis presence not specified Qualified Code(s): K21.9 - Gastro-esophageal reflux disease without esophagitis Code(s): K21.9 - Gastro-esophageal reflux disease without esophagitis Status: Chronic Assessment and Plan: stable. (5) Hypertension: Onset Date: Unknown Qualifiers: Hypertension type: unspecified Qualified Code(s): I10 - Essential (primary) hypertension Code(s): I10 - Essential (primary) hypertension Status: Chronic Assessment and Plan: Stable although 140s sys again this morning; variable, but has trended down to reasonable levels in the afternoons on previous days. Continue home medications. Time Spent With Patient Time with patient: 25 - 35 minutes Subjective Date/time seen: 07/21/20 16:04 Interval history: Patient is a diabetic 64 year old female with known history of chronic HTN and GERD known to myself from her recent hospital stay earlier this week who is seen in follow up for generalized weakness and unable to fulfill her ADLs after being discharge home earlier this week. Date of service 07/21/2020: Patient reports feeling well today. She is now sitting up in the chair but she is having some right ankle pain from an abrasion she sustained a few days ago. She denies any chest pain, shortness of breath, cough, fever chills, nausea, vomiting, abdominal pain, leg swelling, calf pain, diarrhea, dysuria, frequent urination, abnormal colored urine or any other symptoms at this time. Review of Systems Review of Systems: All systems reviewed & are unremarkable except as noted in HPI and below Exam Narrative: Exam Narrative: General: 64-year-old woman sitting up in the chair. Appears comfortable. In no acute distress. Skin: No jaundice or cyanosis. Good skin turgor. Neck: Full range of motion. Supple. Respiratory: Lungs are clear to auscultation bilaterally. No bony chest wall tenderness. Cardiovascular: The heart has a regular rate and rhythm without murmur. Lower extremities: No lower extremity edema. Distal pulses are easily palpated. No calf tenderness to palpation. Gastrointestinal: The abdomen is soft, nontender and nondistended with active bowel sounds. Psychiatric: Lucid and oriented. Memory intact. Neurologic: No focal deficits. Speech is clear. No facial drooping. Objective Data Vital Signs V
[2020-07-21 18:06] LABS: Glucose Point of Care 220 (65-105)
[2020-07-21] MEDS: GABAPENTIN 300 MG CAPSULE PO (20:12)
[2020-07-21 20:29] LABS: Glucose Point of Care 224 (65-105)
[2020-07-21 22:00] VITALS: BP 138/65; PULSE 99; RESP 20; TEMP 36.5; O2SAT 99
[2020-07-22 06:00] VITALS: BP 146/73; PULSE 94; RESP 20; TEMP 36.9; O2SAT 97
[2020-07-22] MEDS: ASPIRIN 81 MG ENTERIC TABLET PO (08:39)
[2020-07-22] MEDS: metFORMIN HCL 500 MG TABLET PO (08:39)
[2020-07-22 08:45] LABS: Glucose Point of Care 177 (65-105)
[2020-07-22] MEDS: INSULIN GLARGINE (*BKC) 100 UNITS/ML 8 UNITS SUB-Q (08:45)
--- NOTE | 2020-07-22 09:53 | PM.DS ---
DS: Admitting Diagnosis Admitting Diagnosis Admitting Diagnosis: Weakness DS: Discharge Diagnosis Discharge Diagnosis (1) Generalized weakness: Code(s): R53.1 - Weakness Status: Acute Assessment and Plan: Likely secondary to chronic debility and recent hospitalization. The patient will be excepted into a facility in [place], [place], which will be closer to her family. She will be tranferred by her family today to her new living facility to continue PT/OT. The patient and family understand and agree with the plan. All questions answered. (2) Insulin dependent type 2 diabetes mellitus: Onset Date: Unknown Code(s): E11.9 - Type 2 diabetes mellitus without complications; Z79.4 - group home (current) use of insulin Status: Chronic Assessment and Plan: BGL 200's this morning Continue lantus to 8 u daily, Metformin and SSI upon discharge. WIll have them check glucose 5 times per day, hypoglycemia warnings given. (3) GERD (gastroesophageal reflux disease): Qualifiers: Esophagitis presence: esophagitis presence not specified Qualified Code(s): K21.9 - Gastro-esophageal reflux disease without esophagitis Code(s): K21.9 - Gastro-esophageal reflux disease without esophagitis Status: Chronic Assessment and Plan: stable. (4) Hypertension: Onset Date: Unknown Qualifiers: Hypertension type: unspecified Qualified Code(s): I10 - Essential (primary) hypertension Code(s): I10 - Essential (primary) hypertension Status: Chronic Assessment and Plan: Stable although 130-140s sys. Continue home medications. Have the facilty check BP 1-2 times daily and make adjustments if necessary. (5) Abnormal urinalysis: Code(s): R82.90 - Unspecified abnormal findings in urine Status: Acute Assessment and Plan: Patient completed ABx therapy on last hospital stay. Asymptomatic today. Does not appear toxic. Repeat urine culture showed some growth of yeast but it is only [id number] in the patient remains asymptomatic. Most likely contamination. No need for antibiotics at this time or antifungal. DS: Summary Hospital Course Reason for hospitalization: 64-year-old woman with a history of chronic hypertension, who presented to the emergency department worsening weakness. She has been in a hospital last few months with multiple falls and weakness. She recently had a hospitalization and was discharged on 07/17/2020 with a UTI. She returned home and became so weak she was unable to get up from the toilet and called EMS on 07/18/2020. Initial vitals showed temperature 97.6?, blood pressure 154/85, heart rate 96, oxygen saturation 98% on room air. Initial labs showed leukocytosis at 11,200, with slight elevation neutrophils at 73%, otherwise normal CBC with differential. Normal creatinine with slightly elevated BUN at 21. Glucose was 320 on arrival. Urinalysis showed 1+ leukocyte esterase, WBCs 50 1-75, 3+ glucose and yeast present. She Was admitted into the hospital for further evaluation and placement since she is unable to take care of herself at home at this point. Please see above under each diagnosis what transpired during her admission. Status at Discharge Cognitive/behavioral status at discharge: Stable, improved. Time Spent with Patient Time attestation: Total time spent providing and/or coordinating discharge services: Time spent: Greater than 30 minutes Exam Narrative: Exam Narrative: General: 64-year-old woman sitting up in bed with head at 35 degrees. Appears comfortable. In no acute distress. Skin: No jaundice or cyanosis. Good skin turgor. Neck: Full range of motio
[2020-07-22 11:06] LABS: Glucose Point of Care 271 (65-105)
[2020-07-22] MEDS: INSULIN ASPART (*BKC) 100 UNITS/ML SUB-Q (11:17)
== END 2020-07-22 12:55 ==
LOC: ANHED 23:20 → ANH3MEDSUR 23:22
PROVIDERS: Physician Assistant; Admitting Provider Family Medicine; Emergency Provider Emergency Medicine; PCP Family Medicine; Visit Provider Physician Assistant
DX: R53.1 Weakness (principal); R82.90 Unspecified abnormal findings in urine; I10 Essential (primary) hypertension; E11.9 Type 2 diabetes mellitus without complications; E11.42 Type 2 diabetes mellitus with diabetic polyneuropathy; K21.9 Gastro-esophageal reflux disease without esophagitis; H90.3 Sensorineural hearing loss, bilateral; Z79.4 Long term (current) use of insulin; Z79.84 Long term (current) use of oral hypoglycemic drugs; Z79.82 Long term (current) use of aspirin
CPT/HCPCS: 36415; 80048; 81001; 82948; 85025; 87086; 87088; 87635; 96360; 97110; 97116; 97161; 97166; 97530; 97535; 99285; A9270; C9803; G0378; J1815; J7030; U0003

== ENCOUNTER 2020-11-26 21:23 | Inpatient (IN) | payer MEDICARE, SELFPAY ==
--- NOTE | ~2020-11-26 | MR_ITS ---
EXAMINATION: MR brain/brain stem wo con DATE: 12/07/2020 17:24 INDICATION: Delusions. Weakness. Subcortical hypodensities. TECHNIQUE: Magnetic resonance imaging (MRI) of the brain and brainstem was performed without intraven ous contrast. Sequences included sagittal and axial T1-weighted FSE, axial diffusion-weighted FS EPI, axial T2*-weighted GRE, axial T2-weighted FLAIR Propeller, and axial T2-weighted Propeller. Apparent diffusion coefficient (ADC) maps were created. COMPARISON: Head CT 11/26/2020 FINDINGS: There are scattered areas of nonspecific increased T2-weighted signal intensity in the cere bral white matter, which is within normal limits for the patient's age. There is no intracranial hemo rrhage, acute infarction, or abnormal intracranial mass lesion. The ventricles are normal in size. Th ere is minimal mucosal thickening in right maxillary sinus. The orbits are normal. The mastoid air ce lls are normal. IMPRESSION: 1. Normal aging brain. Reviewed, dictated and finalized at location A. TEGIC ANALYST IMPRESSION: 1. Normal aging brain.
--- NOTE | ~2020-11-26 | CT_ITS ---
EXAMINATION: CT abdomen pelvis wo con EXAM DATE: 11/30/2020 13:22 INDICATION: Clostridium bacteremia rule out occult infection. Contrast allergy. History of liver absc ess. TECHNIQUE: Spiral CT of the abdomen and pelvis was performed without contrast. Axial, coronal and s agittal images were reviewed. The dose-length product (DLP) for this examination was 262.82 mGy-cm. The exposure was tailored according to patient size (auto mA exposure control), and iterative recons truction (ASIR) was used as additional dose reduction technique. Comparison is made to prior examinat ion from 05/25/2020. FINDINGS: There is geographic shaped approximately 4 x 6 cm region of decreased attenuation within th e liver inferiorly which is new compared to previous examination. Some linear extensions of this exte nd toward the left liver lobe and IVC. This is of uncertain clinical significance, but patient does h ave history of liver abscess and this potentially could be recurrent infection. It is in location to previously seen infected region. Differential diagnosis including focal hepatic steatosis, infarction , cancer. Since patient has contrast allergy, consider ultrasound. There are cholecystectomy clips. There is no nephrolithiasis or hydronephrosis. The uterus is unre markable. The bladder is unremarkable. There is no retroperitoneal or pelvic lymphadenopathy. Sm all foci of subcutaneous gas anteriorly likely injection sites. The appendix is normal. The stomach and small bowel are unremarkable. There is moderate to large am ount of colonic stool. There is a small bowel anastomosis site. No free intraperitoneal gas. The heart is normal in size. There are no pericardial or pleural effusions. The lung bases are unremark able. There are no osteoblastic or osteolytic lesions identified. IMPRESSION: 1. Development of geographically shaped nonspecific hypodense liver region, could be recurrent liver infection. Less likely considerations above. Consider ultrasound for further evaluation. 2. Moderate to large amount of colonic stool. Reviewed, dictated and finalized at location B. MOLDER IMPRESSION: 1. Development of geographically shaped nonspecific hypodense liver region, co uld be recurrent liver infection. Less likely considerations above. Consider ul trasound for further evaluation. 2. Moderate to large amount of colonic stool.
--- NOTE | ~2020-11-26 | CT_ITS ---
EXAMINATION: CT brain wo con EXAM DATE: 11/26/2020 23:26 INDICATION: Weakness. TECHNIQUE: Spiral CT of the head was performed without contrast. Axial, coronal and sagittal images were reviewed. The dose-length product (DLP) for this examination was 605.33 mGy-cm. The exposure w as tailored according to patient size, and iterative reconstruction (ASIR) was used as additional dos e reduction technique. Comparison is made to prior examination from 07/13/2020. FINDINGS: There is no acute intraparenchymal hemorrhage. No evidence of intraparenchymal brain mass lesion. No evidence of acute infarction. Please note that initial head CT has limited sensitivity f or small or acute infarctions. There is mild periventricular and subcortical hypodensity, nonspecific but probably related to small vessel ischemic disease. There is mild to moderate prominence of the sulci and ventricles related to cerebral atrophy. There is intracranial carotid arteriosclerosis. There are no extra-axial collections. There is no mass effect or midline shift. The orbits are unr emarkable. Soft tissue is unremarkable. The visualized sinuses and mastoid air cells are well aerat ed. IMPRESSION: 1. No acute intracranial findings. 2. Chronic age related findings. Reviewed, dictated and finalized at location G. ATCHER CHIEF COAL SLURRY
--- NOTE | ~2020-11-26 | US_ITS ---
EXAMINATION: US right upper quadrant EXAM DATE: 12/01/2020 07:51 INDICATION: Abnormal liver CT. TECHNIQUE: Multiple grayscale and Doppler images of the abdomen right upper quadrant were obtained (fadi y a technologist who performed the scan) and subsequently reviewed. There is no prior study for emily albarado. FINDINGS: The pancreatic head and body are normal in appearance. The pancreatic tail is not visualized. Along the inferior margin of the liver there is serpiginous region which has approximately 5 mm centr al lumen of fluid, could be small bowel within the gallbladder fossa correlating with CT scan. No foc al liver mass or abscess is identified to correlate with the CT density abnormality. The liver has no rmal echogenicity and contour. There is no evidence of intrahepatic biliary duct dilation. Portal v enous flow was seen in the hepatopedal, normal direction and has normal Doppler waveform. No right-s ided hydronephrosis. Common bile duct measures 4 mm, which is normal. The gallbladder fossa is unremarkable. IMPRESSION: No drainable abscess or ultrasonic correlation to the CT density abnormality. No evidence of liver mass or focal hepatic steatosis. CT abnormality could still be developing infection or infa rction. Reviewed, dictated and finalized at location D. INSPECTOR IMPRESSION: No drainable abscess or ultrasonic correlation to the CT density ab normality. No evidence of liver mass or focal hepatic steatosis. CT abnormality could still be developing infection or infarction.
--- NOTE | ~2020-11-26 | MR_ITS ---
EXAMINATION: MR lumbar spine wo [facility] EXAM DATE: 11/29/2020 10:08 INDICATION: inability to lift right leg . Incontinence. TECHNIQUE: Multi-sequential, multiplanar MR images of the lumbar spine were obtained without contrast . Sagittal T1, T2, T2 fat saturation images. Axial T2 weighted images. There is no prior study for comparison. FINDINGS: The vertebral bodies are aligned in the AP dimension. Vertebral body and disc heights are w ell-maintained. Small hemangioma within L2. The conus medullaris terminates at the L1/2 level and has normal signal intensity and morphology. Mild lumbar levoscoliosis. Paraspinal soft tissue is unrem arkable. Level by level evaluation: T12-L1: Disc does not extend beyond the endplate margin. Facet arthropathy: Mild. Neural foraminal stenosis: No stenosis. Central canal stenosis: No stenosis. L1-L2: Disc does not extend beyond the endplate margin. Facet arthropathy: Mild. Neural foraminal stenosis: No stenosis. Central canal stenosis: No stenosis. L2-L3: There is a mild diffuse disc bulge. Facet arthropathy: Mild. Neural foraminal stenosis: No stenosis. Central canal stenosis: No stenosis. L3-L4: There is a mild diffuse disc bulge. Facet arthropathy: Mild to moderate. Neural foraminal stenosis: No stenosis. Central canal stenosis: No stenosis. L4-L5: There is a mild diffuse disc bulge. Facet arthropathy: Mild to moderate. Neural foraminal stenosis: No stenosis. Central canal stenosis: Mild. L5-S1: Disc does not extend beyond the endplate margin. Facet arthropathy: Mild. Neural foraminal stenosis: No stenosis. Central canal stenosis: No stenosis. IMPRESSION: 1. Mild lumbar spondylosis is no stenosis. There Reviewed, dictated and finalized at location A. OR SOFTWARE TEST ENGINEER
--- NOTE | ~2020-11-26 | XR_ITS ---
EXAMINATION: XR chest 1V portable EXAM DATE: 11/26/2020 23:19 INDICATION: Shortness of breath. TECHNIQUE: Portable AP frontal chest x-ray was obtained. Comparison is made to prior examination from 07/12/2020. FINDINGS: The lungs are clear. There are no pleural effusions. The cardiomediastinal silhouette is within normal limits. There is no pneumothorax suspected. The bones and soft tissues are unremarkab le. IMPRESSION: No acute cardiopulmonary findings. Reviewed, dictated and finalized at location G. CUTTER
[2020-11-26 21:37] VITALS: BP 166/103; PULSE 127; RESP 20; TEMP 36.3; O2SAT 100
--- NOTE | 2020-11-26 21:38 | ECG_ITS ---
Measurements Intervals [place] Rate: 124 P: 66 MS: 161 QRS: 76 QRSD: 85 T: 44 QT: 297 QTc: 427 Interpretive Statements SINUS TACHYCARDIA NONSPECIFIC ST & T-WAVE ABNORMALITY- ANTEROLAT/INF LEADS BASELINE ARTIFACT- I, II, III, AR, AVL, AVF, V1 ABNORMAL ECG Electronically Signed On 11-27-2020 7:08:47 HEMATOLOGY TECHNICIAN by Joey De La O D.O.
[2020-11-26 21:41] VITALS: PULSE 128
[2020-11-26] MEDS: SODIUM CHLORIDE 0.9% IV 1,000 ML 999 ML (22:06)
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
[2020-11-26 22:26] LABS: Basophils Absolute Auto 0.1 K/mm3 (0.0-0.1); Basophils Percent Auto 0.5 % (0.2-1.2); Eosinophils Percent Auto 0.1 % (0-4.4); Hematocrit 45.5 % (37.0-47.0); Hemoglobin 15.1 g/dL (12.0-15.0); Immature Granulocyte Absolute 0.04 K/mm3 (0.00-0.031); Immature Granulocyte Percent A 0.3 % (0-0.5); Lymphocytes Absolute Auto 1.55 K/mm3 (0.9-3.2); Mean Corpuscular HGB Conc 33.2 g/dl (32-36); Mean Corpuscular Hemoglobin 30.3 pg (26-34); Mean Corpuscular Volume 91.2 fl (80-100); Mean Platelet Volume 9.2 fl (7.4-10.4); Monocytes Absolute Auto 0.3 K/mm3 (0.1-0.6); Monocytes Percent Auto 2.6 % (2.6-8.5); Neutrophils Absolute Auto 10.9 K/mm3 (1.3-6.7); Neutrophils Percent Auto 84.5 % (45.5-73.1); Platelet Count Result 553 k/mm3 (150-375); Red Blood Count 4.99 M/mm3 (4.2-5.4); Red Cell Distribution Width 13.8 % (11.5-14.5); White Blood Count 12.9 K/mm3 (4.5-10.0)
[2020-11-26 22:46] LABS: Alanine Aminotransferase 17 U/L (4-35); Albumin Level 4.7 g/dL (3.5-5.1); Alkaline Phosphatase 86 U/L (38-126); Anion Gap 20 mmol/L (8-16); Aspartate Amino Transferase 23 U/L (14-36); Bilirubin,Total 0.9 mg/dL (0.2-1.3); Blood Urea Nitrogen 39 mg/dL (7-17); Calcium 10.9 mg/dL (8.4-10.2); Carbon Dioxide 22 mmol/L (22-30); Chloride 108 mmol/L (98-107); Estimated CRCL calculation 45 ml/min; Estimated Glomerular Filt Rate > 60; Glucose 214 mg/dL (65-105); Lipase 149 U/L (23-300); Potassium 4.3 mmol/L (3.4-5.0); Sodium 150 mmol/L (137-145)
[2020-11-26 22:54] LABS: Lactic Acid Reflex 3.4 mmol/L (0.7-2.1)
[2020-11-26 22:55] LABS: Add Urine Microscopic? YES; Appearance Urine Clear (Clear); Bacteria Urine 2+ /hpf; Bilirubin Urine Negative (Negative); Blood Urine Negative (Negative); Color Urine Yellow (Yellow); Glucose Urine UA 1+ mg/dL (Negative); Ketones Urine 2+ mg/dL (Negative); Leukocyte Esterase Ur 1+ LEU/UL (Negative); Mucus Urine Few /lpf; Nitrate Urine Negative (Negative); Protein Urine 1+ mg/dL (Negative); Specific Grav Ur 1.024 (1.001-1.035); Squamous Epithelial Cell Urine Few /hpf (Few)
[2020-11-26 23:12] LABS: Creatine Kinase < 20 U/L (30-135)
[2020-11-27] VITALS (9 sets, daily range): BP systolic 135–147; BP diastolic 56–69; PULSE 83–112; RESP 18; TEMP 36.8–37.1; O2SAT 99–100; BMI 16.0
[2020-11-27] LABS: Troponin I < 0.012 ng/mL (0.000-0.034)
[2020-11-27] MEDS: SODIUM CHLORIDE 0.9% IV 1,000 ML 999 ML IV CONT (00:57)
[2020-11-27 01:39] LABS: Reflex Lactic Acid Yes or No Add Lactic
[2020-11-27 02:16] LABS: Lactic Acid 1.8 mmol/L (0.7-2.1)
[2020-11-27] MEDS: SODIUM CHLORIDE 0.9% IV 1,000 ML 125 ML IV CONT ×2 (02:41→02:43)
[2020-11-27 05:57] LABS: Hematocrit 39.4 % (37.0-47.0); Hemoglobin 13.3 g/dL (12.0-15.0); Mean Corpuscular HGB Conc 33.8 g/dl (32-36); Mean Corpuscular Hemoglobin 30.6 pg (26-34); Mean Corpuscular Volume 90.8 fl (80-100); Mean Platelet Volume 9.3 fl (7.4-10.4); Platelet Count Result 382 k/mm3 (150-375); Red Blood Count 4.34 M/mm3 (4.2-5.4); Red Cell Distribution Width 13.3 % (11.5-14.5); White Blood Count 13.3 K/mm3 (4.5-10.0)
[2020-11-27 06:12] LABS: Anion Gap 10 mmol/L (8-16); Blood Urea Nitrogen 35 mg/dL (7-17); Calcium 9.6 mg/dL (8.4-10.2); Carbon Dioxide 26 mmol/L (22-30); Chloride 108 mmol/L (98-107); Creatine Kinase 25 U/L (30-135); Estimated CRCL calculation 45 ml/min; Estimated Glomerular Filt Rate > 60; Glucose 369 mg/dL (65-105); Potassium 3.4 mmol/L (3.4-5.0); Sodium 144 mmol/L (137-145)
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
[2020-11-27 08:20] LABS: Glucose Point of Care 350 (65-105)
[2020-11-27] MEDS: INSULIN GLARGINE (*BKC) 100 UNITS/ML SUB-Q (08:22)
[2020-11-27] MEDS: INSULIN ASPART (*BKC) 100 UNITS/ML SUB-Q (08:22)
[2020-11-27] MEDS: metFORMIN HCL 500 MG TABLET PO ×2 (08:26→17:51)
[2020-11-27] MEDS: POTASSIUM CHLORIDE 20 MEQ TABLET PO ×2 (08:26→10:27)
[2020-11-27] MEDS: ENOXAPARIN 40 MG/0.4 ML SYRINGE SUB-Q (08:27)
[2020-11-27 10:09] LABS: Sodium 137 mmol/L (137-145)
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
[2020-11-27 12:34] LABS: Glucose Point of Care 161 (65-105)
--- NOTE | 2020-11-27 15:19 | PC.NURSE ---
ordered bladder scan. Tried to talk to patient about procedure and try to understand why pt is refusing. Called about this. Pt is ignoring the aids and nurses, putting blanket in front of her face. Pt also refusing vital signs and meals at this moment. Told charge nurse about this finding as well.
[2020-11-27 17:46] LABS: Glucose Point of Care 137 (65-105)
[2020-11-27] MEDS: GABAPENTIN 300 MG CAPSULE PO (20:27)
[2020-11-27 20:41] LABS: Glucose Point of Care 195 (65-105)
[2020-11-28] VITALS (8 sets, daily range): BP systolic 121–134; BP diastolic 58–66; PULSE 83–99; RESP 16–20; TEMP 36.4–37.1; O2SAT 98–99
[2020-11-28 06:39] LABS: Basophils Percent Auto 0.5 % (0.2-1.2); Eosinophils Absolute Auto 0.1 K/mm3 (0-0.3); Eosinophils Percent Auto 1.4 % (0-4.4); Hematocrit 32.4 % (37.0-47.0); Hemoglobin 10.9 g/dL (12.0-15.0); Immature Granulocyte Absolute 0.02 K/mm3 (0.00-0.031); Immature Granulocyte Percent A 0.2 % (0-0.5); Lymphocytes Absolute Auto 3.47 K/mm3 (0.9-3.2); Lymphocytes Percent Auto 41.5 % (18.3-44.2); Mean Corpuscular HGB Conc 33.6 g/dl (32-36); Mean Corpuscular Volume 89.3 fl (80-100); Mean Platelet Volume 9.6 fl (7.4-10.4); Monocytes Absolute Auto 0.4 K/mm3 (0.1-0.6); Monocytes Percent Auto 5.1 % (2.6-8.5); Neutrophils Absolute Auto 4.3 K/mm3 (1.3-6.7); Neutrophils Percent Auto 51.3 % (45.5-73.1); Platelet Count Result 270 k/mm3 (150-375); Red Blood Count 3.63 M/mm3 (4.2-5.4); Red Cell Distribution Width 13.2 % (11.5-14.5); White Blood Count 8.4 K/mm3 (4.5-10.0)
[2020-11-28 06:49] LABS: Anion Gap 4 mmol/L (8-16); Blood Urea Nitrogen 19 mg/dL (7-17); CRP < 0.5 mg/dL (<1.0); Calcium 8.8 mg/dL (8.4-10.2); Carbon Dioxide 28 mmol/L (22-30); Chloride 109 mmol/L (98-107); Estimated CRCL calculation 50 ml/min; Estimated Glomerular Filt Rate > 60; Glucose 115 mg/dL (65-105); Potassium 3.4 mmol/L (3.4-5.0); Sodium 141 mmol/L (137-145)
[2020-11-28 08:28] LABS: Glucose Point of Care 139 (65-105)
[2020-11-28] MEDS: POTASSIUM CHLORIDE 20 MEQ TABLET 40 MEQ PO (08:59)
[2020-11-28] MEDS: ENOXAPARIN 40 MG/0.4 ML SYRINGE SUB-Q (09:00)
[2020-11-28] MEDS: metFORMIN HCL 500 MG TABLET PO ×2 (09:00→18:06)
[2020-11-28] MEDS: INSULIN GLARGINE (*BKC) 100 UNITS/ML SUB-Q (09:00)
[2020-11-28 11:51] LABS: Glucose Point of Care 137 (65-105)
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
[2020-11-28] MEDS: metroNIDAZOLE 500 MG/ISO 100ML 500 MG/100 ML BAG 100 MG IVPB ×2 (17:08→20:48)
[2020-11-28 17:29] LABS: Glucose Point of Care 224 (65-105)
[2020-11-28] MEDS: INSULIN ASPART (*BKC) 100 UNITS/ML SUB-Q (18:05)
[2020-11-28] MEDS: TOLNAFTATE 1% POWDER 45 GM BTL 1 APPLIC TOPICAL (20:47)
[2020-11-28] MEDS: GABAPENTIN 300 MG CAPSULE PO (20:47)
[2020-11-28 22:34] LABS: Glucose Point of Care 176 (65-105)
[2020-11-29] MEDS: metroNIDAZOLE 500 MG/ISO 100ML 500 MG/100 ML BAG 100 MG IVPB ×4 (04:01→20:55)
[2020-11-29 06:00] VITALS: BP 143/81; PULSE 77; RESP 16; TEMP 36.2; O2SAT 99
[2020-11-29 06:15] LABS: Basophils Percent Auto 0.6 % (0.2-1.2); Eosinophils Absolute Auto 0.2 K/mm3 (0-0.3); Eosinophils Percent Auto 2.2 % (0-4.4); Hematocrit 32.6 % (37.0-47.0); Immature Granulocyte Absolute 0.02 K/mm3 (0.00-0.031); Immature Granulocyte Percent A 0.3 % (0-0.5); Lymphocytes Percent Auto 33.3 % (18.3-44.2); Mean Corpuscular HGB Conc 33.7 g/dl (32-36); Mean Corpuscular Hemoglobin 30.4 pg (26-34); Mean Corpuscular Volume 90.1 fl (80-100); Mean Platelet Volume 9.8 fl (7.4-10.4); Monocytes Absolute Auto 0.4 K/mm3 (0.1-0.6); Monocytes Percent Auto 5.7 % (2.6-8.5); Neutrophils Absolute Auto 4.2 K/mm3 (1.3-6.7); Neutrophils Percent Auto 57.9 % (45.5-73.1); Platelet Count Result 239 k/mm3 (150-375); Red Blood Count 3.62 M/mm3 (4.2-5.4); Red Cell Distribution Width 13.1 % (11.5-14.5); White Blood Count 7.2 K/mm3 (4.5-10.0)
[2020-11-29 06:27] LABS: Anion Gap 2 mmol/L (8-16); Blood Urea Nitrogen 19 mg/dL (7-17); Calcium 8.4 mg/dL (8.4-10.2); Carbon Dioxide 30 mmol/L (22-30); Chloride 104 mmol/L (98-107); Estimated CRCL calculation 50 ml/min; Estimated Glomerular Filt Rate > 60; Glucose 117 mg/dL (65-105); Potassium 4.4 mmol/L (3.4-5.0); Sodium 136 mmol/L (137-145)
[2020-11-29 07:20] LABS: Hemoglobin A1C 8.1 % (<5.7)
[2020-11-29 07:40] LABS: Glucose Point of Care 120 (65-105)
[2020-11-29 08:00] VITALS: PULSE 77; RESP 16; O2SAT 99
[2020-11-29] MEDS: metFORMIN HCL 500 MG TABLET PO ×2 (08:59→17:40)
[2020-11-29] MEDS: ENOXAPARIN 40 MG/0.4 ML SYRINGE SUB-Q (08:59)
[2020-11-29] MEDS: INSULIN GLARGINE (*BKC) 100 UNITS/ML SUB-Q (09:00)
[2020-11-29] MEDS: TOLNAFTATE 1% POWDER 45 GM BTL 1 APPLIC TOPICAL ×2 (09:01→20:55)
[2020-11-29 13:04] LABS: Glucose Point of Care 157 (65-105)
[2020-11-29 14:00] VITALS: BP 123/65; PULSE 83; RESP 20; TEMP 36.8; O2SAT 100
--- NOTE | 2020-11-29 14:15 | PCPTNOTE ---
Attempted Therapy session at 13:50, Pt requested therapy to come back when she was finished eating her peaches. Will attempt again.
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
[2020-11-29 19:09] LABS: Glucose Point of Care 170 (65-105)
[2020-11-29 20:00] VITALS: PULSE 87; RESP 16; O2SAT 100
[2020-11-29] MEDS: GABAPENTIN 300 MG CAPSULE PO (20:55)
[2020-11-29 21:17] VITALS: BP 123/70; PULSE 87; RESP 16; TEMP 36.8; O2SAT 100
[2020-11-29 23:37] LABS: Glucose Point of Care 167 (65-105)
[2020-11-30] MEDS: metroNIDAZOLE 500 MG/ISO 100ML 500 MG/100 ML BAG 100 MG IVPB ×2 (04:00→09:51)
[2020-11-30 06:00] VITALS: BP 124/68; PULSE 87; RESP 16; TEMP 36.7; O2SAT 98
[2020-11-30 06:12] LABS: Basophils Percent Auto 0.5 % (0.2-1.2); Eosinophils Absolute Auto 0.2 K/mm3 (0-0.3); Eosinophils Percent Auto 2.8 % (0-4.4); Hematocrit 33.2 % (37.0-47.0); Hemoglobin 11.4 g/dL (12.0-15.0); Immature Granulocyte Absolute 0.03 K/mm3 (0.00-0.031); Immature Granulocyte Percent A 0.3 % (0-0.5); Lymphocytes Percent Auto 29.1 % (18.3-44.2); Mean Corpuscular HGB Conc 34.3 g/dl (32-36); Mean Corpuscular Hemoglobin 30.2 pg (26-34); Mean Corpuscular Volume 87.8 fl (80-100); Mean Platelet Volume 9.9 fl (7.4-10.4); Monocytes Absolute Auto 0.4 K/mm3 (0.1-0.6); Monocytes Percent Auto 4.5 % (2.6-8.5); Neutrophils Absolute Auto 5.4 K/mm3 (1.3-6.7); Neutrophils Percent Auto 62.8 % (45.5-73.1); Platelet Count Result 266 k/mm3 (150-375); Red Blood Count 3.78 M/mm3 (4.2-5.4); White Blood Count 8.6 K/mm3 (4.5-10.0)
[2020-11-30 08:25] LABS: Glucose Point of Care 147 (65-105)
[2020-11-30] MEDS: ENOXAPARIN 40 MG/0.4 ML SYRINGE SUB-Q (09:49)
[2020-11-30] MEDS: metFORMIN HCL 500 MG TABLET PO ×2 (09:49→17:22)
[2020-11-30] MEDS: TOLNAFTATE 1% POWDER 45 GM BTL 1 APPLIC TOPICAL ×2 (09:50→21:56)
[2020-11-30] MEDS: INSULIN GLARGINE (*BKC) 100 UNITS/ML SUB-Q (09:50)
[2020-11-30 11:57] LABS: Glucose Point of Care 110 (65-105)
--- NOTE | 2020-11-30 12:58 | WPDINFPN2 ---
Progress Note: A&P Assessment and Plan (1) Bacteremia: Code(s): R78.81 - Bacteremia Status: Acute Assessment and Plan: 1. C perfringens bacteremia with infection, GI source 2. Enterobacter bacteriuria, with potential infection 3. SNHL 4. Prior bile duct injury REC PipTazo #3, continue. Stop metronidazole. Will need several days more IV therapy. Subjective Date/time seen: 11/30/20 12:58 Interval history: denies abd pain Exam Narrative: Exam Narrative: afebrile Const: General: no acute distress Resp: Effort & Inspection: normal respiratory effort Auscultation: clear to auscultation bilaterally Cardio: Rate: regular rate Rhythm: regular rhythm Heart sounds: no gallops and no murmurs GI: Inspection: distended GI Palp: Yes Soft to palpation, No Tenderness to palpation present (GI) and No Guarding due to palpation present (GI) Percussion: Yes normal to percussion Skin: General skin exam: normal color and no rashes or lesions noted Objective Data Vital Signs Vital Signs: Vital Signs - 24 hr 11/29/20 14:00 11/29/20 20:00 11/29/20 21:17 Temperature 36.8 C 36.8 C Pulse Rate 83 87 87 Respiratory Rate 20 16 16 Blood Pressure 123/65 123/70 Pulse Oximetry 100 100 100 11/30/20 06:00 Temperature 36.7 C Pulse Rate 87 Respiratory Rate 16 Blood Pressure 124/68 Pulse Oximetry 98 Intake/Output Intake/Output: Intake & Output 11/27/20 11/28/20 11/29/20 11/30/20 23:59 23:59 23:59 23:59 Intake Total 3670 2290 2300 680 Balance 3670 2290 2300 680 Meds/Results Medications: Active Medications Generic Name Dose Route Start Last Admin Trade Name Freq PRN Reason Stop Dose Admin Dextrose 12.5 gm 11/27/20 03:38 Dextrose 50% 25 Gm/50 Ml Syringe IV PUSH PRN PRN Hypoglycemia Protocol Docusate Sodium 100 mg 11/27/20 03:39 Docusate Sodium 100 Mg Capsule PO Q12HR PRN Constipation Enoxaparin Sodium 40 mg 11/27/20 09:00 11/30/20 09:49 Enoxaparin 40 Mg/0.4 Ml Syringe SUB-Q 40 mg DAILY SULMA Administration Gabapentin 300 mg 11/27/20 21:00 11/29/20 20:55 Gabapentin 300 Mg Capsule PO 300 mg HS SULMA Administration Glucagon 1 mg 11/27/20 03:38 Glucagon For Inj 1 Mg Vial IM PRN PRN Hypoglycemia Protocol Glucose 15 gm 11/27/20 03:38 Glucose Oral Gel 15 Gm Of Glucse In 37.5 Gm Tube PO PRN PRN Hypoglycemia Protocol Dextrose 1,000 mls @ 100 mls/hr 11/27/20 03:38 Dextrose 5% 1,000 Ml IVPB PRN PRN Hypoglycemia Protocol Piperacillin Sod/Tazobactam Sod 4.5 gm in 100 mls @ 200 mls/hr 11/28/20 15:00 11/30/20 06:45 Zosyn 4.5 Gm/D5w 100 Ml IVPB Infused Q8H SULMA Infusion Metronidazole 500 mg in 100 mls @ 100 mls/hr 11/28/20 16:00 11/30/20 10:51 Flagyl 500 Mg/Iso Soln 100 Ml IVPB Infused Q6H SULMA Infusion Insulin Aspart 2 - 5 units 11/27/20 08:00 11/30/20 12:20 Insulin Aspart (*Bkc) 100 Units/Ml SUB-Q Not Given TIDWM SULMA Protocol Insulin Glargine 5 units 11/27/20 09:00 11/30/20 09:50 Insulin Glargine (*Bkc) 100 Units/Ml SUB-Q 5 units DAILY SULMA Administration Metformin HCl 500 mg 11/27/20 08:00 11/30/20 09:49 Metformin Hcl 500 Mg Tablet PO 500 mg BIDWM SULMA Administration Tolnaftate 1 applic 11/28/20 21:00 11/30/20 09:50 Tolnaftate 1% Powder 45 Gm Btl TOPICAL 1 applic Q12HR SULMA Administration Radiology Results: ITS Impressions Chest X-Ray 11/26/20 23:25 IMPRESSION: No acute cardiopulmonary findings. Head CT 11/26/20 23:28 IMPRESSION: 1. No acute intracranial findings. 2. Chronic age related findings. Lumbar Spine MRI 11/29/20 15:09 IMPRESSION: 1. Mild lumbar spondylosis is no stenosis. There Labs Labs: Laboratory Results - last 24 hr 11/29/20 11/29/20 11/29/20 05:39 12:16 17:15 WBC RBC Hgb Hct MCV MCH MCHC RDW Plt Count MPV
[2020-11-30 14:00] VITALS: BP 118/61; PULSE 89; RESP 16; TEMP 36.3; O2SAT 94
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
[2020-11-30 17:12] LABS: Glucose Point of Care 113 (65-105)
[2020-11-30 20:00] VITALS: PULSE 87; RESP 18; O2SAT 98
[2020-11-30] MEDS: GABAPENTIN 300 MG CAPSULE PO (21:55)
[2020-11-30 21:57] VITALS: BP 120/64; PULSE 87; RESP 18; TEMP 36.7; O2SAT 98
[2020-11-30 23:42] LABS: Glucose Point of Care 143 (65-105)
[2020-12-01 05:33] VITALS: BP 108/54; PULSE 91; RESP 18; TEMP 36.7; O2SAT 97
[2020-12-01 06:36] LABS: Hematocrit 36.2 % (37.0-47.0); Hemoglobin 12.4 g/dL (12.0-15.0); Mean Corpuscular HGB Conc 34.3 g/dl (32-36); Mean Corpuscular Hemoglobin 30.7 pg (26-34); Mean Corpuscular Volume 89.6 fl (80-100); Mean Platelet Volume 10.2 fl (7.4-10.4); Platelet Count Result 260 k/mm3 (150-375); Red Blood Count 4.04 M/mm3 (4.2-5.4); White Blood Count 7.5 K/mm3 (4.5-10.0)
[2020-12-01 06:53] LABS: Alanine Aminotransferase 13 U/L (4-35); Albumin Level 3.1 g/dL (3.5-5.1); Alkaline Phosphatase 45 U/L (38-126); Anion Gap 3 mmol/L (8-16); Aspartate Amino Transferase 30 U/L (14-36); Bilirubin,Total 0.3 mg/dL (0.2-1.3); Blood Urea Nitrogen 12 mg/dL (7-17); Calcium 8.9 mg/dL (8.4-10.2); Carbon Dioxide 30 mmol/L (22-30); Chloride 101 mmol/L (98-107); Estimated CRCL calculation 50 ml/min; Estimated Glomerular Filt Rate > 60; Glucose 98 mg/dL (65-105); Sodium 134 mmol/L (137-145)
[2020-12-01 08:44] LABS: Glucose Point of Care 113 (65-105)
[2020-12-01] MEDS: metFORMIN HCL 500 MG TABLET PO ×2 (09:47→17:18)
[2020-12-01] MEDS: INSULIN GLARGINE (*BKC) 100 UNITS/ML SUB-Q (09:47)
[2020-12-01] MEDS: ENOXAPARIN 40 MG/0.4 ML SYRINGE SUB-Q (09:47)
[2020-12-01] MEDS: TOLNAFTATE 1% POWDER 45 GM BTL 1 APPLIC TOPICAL ×2 (09:52→20:37)
--- NOTE | 2020-12-01 11:46 | WPDINFPN2 ---
Progress Note: A&P Assessment and Plan (1) Bacteremia: Code(s): R78.81 - Bacteremia Status: Acute Assessment and Plan: 1. C perfringens bacteremia with infection, GI source, stable status. 2. Enterobacter bacteriuria, with potential infection 3. SNHL 4. Prior bile duct injury 5. Abnormal CT, probably not liver abscess REC PipTazo #4 / 5 days, until tomorrow, then if no clinical deteriorations 10 days oral therapy with Augmentin. Subjective Date/time seen: 12/01/20 11:46 Interval history: no abd pain no anorexia Exam Narrative: Exam Narrative: afebrile Const: General: no acute distress Resp: Effort & Inspection: normal respiratory effort Auscultation: clear to auscultation bilaterally Cardio: Rate: regular rate Rhythm: regular rhythm Heart sounds: no murmurs GI: Inspection: non-distended GI Palp: Yes Soft to palpation, No Tenderness to palpation present (GI) and No Guarding due to palpation present (GI) Auscultation: normal bowel sounds Objective Data Vital Signs Vital Signs: Vital Signs - 24 hr 11/30/20 14:00 11/30/20 20:00 11/30/20 21:57 Temperature 36.3 C L 36.7 C Pulse Rate 89 87 87 Respiratory Rate 16 18 18 Blood Pressure 118/61 120/64 Pulse Oximetry 94 98 98 12/01/20 05:33 Temperature 36.7 C Pulse Rate 91 Respiratory Rate 18 Blood Pressure 108/54 L Pulse Oximetry 97 Intake/Output Intake/Output: Intake & Output 11/28/20 11/29/20 11/30/20 12/01/20 23:59 23:59 23:59 23:59 Intake Total 2290 2300 1120 100 Balance 2290 2300 1120 100 Meds/Results Medications: Active Medications Generic Name Dose Route Start Last Admin Trade Name Freq PRN Reason Stop Dose Admin Dextrose 12.5 gm 11/27/20 03:38 Dextrose 50% 25 Gm/50 Ml Syringe IV PUSH PRN PRN Hypoglycemia Protocol Docusate Sodium 100 mg 11/27/20 03:39 Docusate Sodium 100 Mg Capsule PO Q12HR PRN Constipation Enoxaparin Sodium 40 mg 11/27/20 09:00 12/01/20 09:47 Enoxaparin 40 Mg/0.4 Ml Syringe SUB-Q 40 mg DAILY SULMA Administration Gabapentin 300 mg 11/27/20 21:00 11/30/20 21:55 Gabapentin 300 Mg Capsule PO 300 mg HS SULMA Administration Glucagon 1 mg 11/27/20 03:38 Glucagon For Inj 1 Mg Vial IM PRN PRN Hypoglycemia Protocol Glucose 15 gm 11/27/20 03:38 Glucose Oral Gel 15 Gm Of Glucse In 37.5 Gm Tube PO PRN PRN Hypoglycemia Protocol Dextrose 1,000 mls @ 100 mls/hr 11/27/20 03:38 Dextrose 5% 1,000 Ml IVPB PRN PRN Hypoglycemia Protocol Piperacillin Sod/Tazobactam Sod 4.5 gm in 100 mls @ 200 mls/hr 11/28/20 15:00 12/01/20 06:38 Zosyn 4.5 Gm/D5w 100 Ml IVPB Infused Q8H SULMA Infusion Insulin Aspart 2 - 5 units 11/27/20 08:00 12/01/20 09:41 Insulin Aspart (*Bkc) 100 Units/Ml SUB-Q Not Given TIDWM SULMA Protocol Insulin Glargine 5 units 11/27/20 09:00 12/01/20 09:47 Insulin Glargine (*Bkc) 100 Units/Ml SUB-Q 5 units DAILY SULMA Administration Metformin HCl 500 mg 11/27/20 08:00 12/01/20 09:47 Metformin Hcl 500 Mg Tablet PO 500 mg BIDWM SULMA Administration Tolnaftate 1 applic 11/28/20 21:00 12/01/20 09:52 Tolnaftate 1% Powder 45 Gm Btl TOPICAL 1 applic Q12HR SULMA Administration Radiology Results: ITS Impressions Chest X-Ray 11/26/20 23:25 IMPRESSION: No acute cardiopulmonary findings. Head CT 11/26/20 23:28 IMPRESSION: 1. No acute intracranial findings. 2. Chronic age related findings. Lumbar Spine MRI 11/29/20 15:09 IMPRESSION: 1. Mild lumbar spondylosis is no stenosis. There Abdomen/Pelvis CT 11/30/20 13:29 IMPRESSION: 1. Development of geographically shaped nonspecific hypodense liver region, could be recurrent liver infection. Less likely considerations above. Consider ultrasound for further evaluation. 2. Moderate to large amount of colonic stool. Upper Quadrant Ultra
--- NOTE | 2020-12-01 12:19 | PM.IMPN ---
Progress Note: A&P Assessment and Plan (1) Bacteremia: Code(s): R78.81 - Bacteremia Status: Acute Assessment and Plan: Patient presents with generalized weakness and inability to care for self at home; 1 blood culture growing Clostridium perfringens. GI source is suspected. No abdominal symptoms; CT abd/pelvis with hepatic abnormality concerning for infection, not detected on US this AM. Appreciate ID input; Dr Mcelroy's note reviewed. Continue Zosyn (day 4) anticipate another day of IV abx therapy then home with oral Augmentin per ID recommendations. (2) Bacteriuria with pyuria: Code(s): R82.71 - Bacteriuria; R82.81 - Pyuria Status: Acute Assessment and Plan: 50,000-100,000 Enterobacter. Patient says she has been incontinent but does not know if she has any urinary symptoms. Continue Zosyn (day 4). (3) Generalized weakness: Code(s): R53.1 - Weakness Status: Acute Assessment and Plan: Patient has been getting weaker over several months and reports since Jul 2020 she has had trouble getting her legs to move resulting in trouble walking. She denies numbness or tingling to any part of body. Apparently she has had issues with bladder/bowel movements but on further questioning she described she has control of bowel/bladder but not able to get up to go to the bathroom at home. MRI lumbar spine with no acute pathology. UTI, bacteremia could be worsening this. Continue PT/OT. Concerns for patient caring for herself at home however she declines placement at this time. (4) Severe protein-calorie malnutrition: Code(s): E43 - Unspecified severe protein-calorie malnutrition Status: Acute Assessment and Plan: Continue supplements and diabetic diet. (5) Type 2 diabetes mellitus with hyperglycemia: Qualifiers: Diabetes mellitus custodial insulin use: with custodial use Qualified Code(s): E11.65 - Type 2 diabetes mellitus with hyperglycemia; Z79.4 - intermediate accountant (current) use of insulin Code(s): E11.65 - Type 2 diabetes mellitus with hyperglycemia Status: Acute Assessment and Plan: A1c 8.1%. Blood sugars stable today. Continue lantus and metformin. Continue to monitor with accu-cheks and adjust treatment as needed, cover with SSI. Subjective Date/time seen: 12/01/20 1145 Interval history: Ms. Anglin is a 65yo F admitted for bacteremia. She reports trouble getting her legs to work for a period of time and notes this is improved but still present. She otherwise offers no complaints. Specifically she denies abdominal pain, nausea, vomiting, abdominal bloating, diarrhea or constipation. She has tolerated an entire lunch tray without issues. She denies chest pain or shortness of breath. Review of Systems Review of Systems: All systems reviewed & are unremarkable except as noted in HPI and below Exam Narrative: Exam Narrative: General: Well-developed female resting comfortably in bed in no acute distress. HEENT: normocephalic, EOMI, poor dentition. Neck: Supple Neuro: Alert and oriented x4 today. Equal strength the upper extremities 5/5. Able to lift both legs off the bed. Sensation and pulses intact ANGELIA upper and lower extremities. CV:Rate and rhythm regular. Resp:Clear to auscultation in all ricci. Respirations are even and nonlabored. Tolerating room air. Abd: Soft, non distended. No pain to palpation. Positive bowel sounds. Previous surgical scars noted Extremities: No swelling, erythema, or pain to palpation. Skin: There are a few well-healing scabs on her skin do not appear acutely infected. She also has evidence of fungal infection in her gluteal cleft Objective Data Vital Signs Vital Signs: Last Vital Signs
[2020-12-01 12:45] LABS: Glucose Point of Care 142 (65-105)
[2020-12-01 13:44] VITALS: BP 87/47; PULSE 93; RESP 20; TEMP 36.7; O2SAT 98
[2020-12-01] MEDS: INSULIN ASPART (*BKC) 100 UNITS/ML SUB-Q (17:18)
[2020-12-01 17:28] LABS: Glucose Point of Care 223 (65-105)
--- NOTE | 2020-12-01 18:36 | PC.NURSE ---
Attempted to get patient up to chair for dinner. Patient insists she will not get up and states not tonight maybe tomorrow. Explained to patient she needs to be getting up and moving if she insists on going home alone.
[2020-12-01 20:00] VITALS: PULSE 92; RESP 18; O2SAT 98
[2020-12-01] MEDS: GABAPENTIN 300 MG CAPSULE PO (20:36)
[2020-12-01 21:56] VITALS: BP 120/56; PULSE 92; RESP 18; TEMP 36.6; O2SAT 98
[2020-12-02 05:35] VITALS: BP 137/70; PULSE 92; RESP 18; TEMP 36.6; O2SAT 100
[2020-12-02 06:43] LABS: Basophils Percent Auto 0.5 % (0.2-1.2); Eosinophils Absolute Auto 0.5 K/mm3 (0-0.3); Eosinophils Percent Auto 5.4 % (0-4.4); Hematocrit 34.4 % (37.0-47.0); Hemoglobin 11.7 g/dL (12.0-15.0); Immature Granulocyte Absolute 0.03 K/mm3 (0.00-0.031); Immature Granulocyte Percent A 0.4 % (0-0.5); Lymphocytes Absolute Auto 2.79 K/mm3 (0.9-3.2); Lymphocytes Percent Auto 33.6 % (18.3-44.2); Mean Corpuscular Hemoglobin 30.1 pg (26-34); Mean Corpuscular Volume 88.4 fl (80-100); Mean Platelet Volume 10.3 fl (7.4-10.4); Monocytes Absolute Auto 0.5 K/mm3 (0.1-0.6); Monocytes Percent Auto 5.4 % (2.6-8.5); Neutrophils Absolute Auto 4.6 K/mm3 (1.3-6.7); Neutrophils Percent Auto 54.7 % (45.5-73.1); Platelet Count Result 298 k/mm3 (150-375); Red Blood Count 3.89 M/mm3 (4.2-5.4); Red Cell Distribution Width 13.2 % (11.5-14.5); White Blood Count 8.3 K/mm3 (4.5-10.0)
[2020-12-02 07:21] LABS: Anion Gap 3 mmol/L (8-16); Blood Urea Nitrogen 11 mg/dL (7-17); Calcium 8.6 mg/dL (8.4-10.2); Carbon Dioxide 30 mmol/L (22-30); Chloride 102 mmol/L (98-107); Estimated CRCL calculation 50 ml/min; Estimated Glomerular Filt Rate > 60; Glucose 117 mg/dL (65-105); Magnesium 1.7 mg/dL (1.6-2.3); Sodium 135 mmol/L (137-145)
[2020-12-02 07:51] LABS: Glucose Point of Care 187 (65-105)
[2020-12-02] MEDS: INSULIN GLARGINE (*BKC) 100 UNITS/ML SUB-Q (07:58)
[2020-12-02] MEDS: TOLNAFTATE 1% POWDER 45 GM BTL 1 APPLIC TOPICAL ×2 (08:00→21:15)
[2020-12-02] MEDS: metFORMIN HCL 500 MG TABLET PO ×2 (08:00→17:44)
[2020-12-02] MEDS: ENOXAPARIN 40 MG/0.4 ML SYRINGE SUB-Q (08:01)
[2020-12-02] MEDS: MAGNESIUM OXIDE 200 MG TABLET PO ×2 (09:23→21:12)
--- NOTE | 2020-12-02 10:55 | PCNFU ---
Nutrition Follow-Up Complete: Inadequate Protein energy intake as related to malnutrition as evidenced by significant weight loss (10% in the past 6 months). Goal: Adequate Intake of at least 75% of meals/supplements. Patient has met current goal. No new goal. Pt current nutrition is DBCC. Last recorded weight is 46.3 kg,no new weight. Bowel Motility:+BM reported 11/30 Labs Reviewed:Na 135,Hct 34.4,Hgb 11.7,Glu Meds Noted:Lantus,Glucophage, Mag ox, Lovenox. Additional Notes: Patient seen today for nutrition follow up. Patient was up in a chair, eating breakfast tray. She has been consuming 100% of all trays. She did have Glucerna shakes BID but that order has been discontinued per MD orders. I did give the patient Glucerna shake coupons for home and encouraged her to buy them if possible. Glucerna shakes will provide patient with an additional 220 kcals and 10 gms protein. Agree with diet orders. Monitoring: labs, oral intake, weight, meds every 5 day.
[2020-12-02] MEDS: INSULIN ASPART (*BKC) 100 UNITS/ML SUB-Q (12:55)
--- NOTE | 2020-12-02 13:25 | PM.IMPN ---
Progress Note: A&P Assessment and Plan (1) Bacteremia: Code(s): R78.81 - Bacteremia Status: Acute Assessment and Plan: Patient presents with generalized weakness and inability to care for self at home; 1 blood culture growing Clostridium perfringens. GI source is suspected. No abdominal symptoms; CT abd/pelvis with hepatic abnormality concerning for infection, not detected on US this AM. Appreciate ID input; Dr Mcelroy's note reviewed. Continue Zosyn (day 5) then oral Augmentin for 10 days per ID recommendations. Anticipate home tomorrow with oral abx. (2) Bacteriuria with pyuria: Code(s): R82.71 - Bacteriuria; R82.81 - Pyuria Status: Acute Assessment and Plan: 50,000-100,000 Enterobacter. Patient says she has been incontinent but does not know if she has any urinary symptoms. Continue Zosyn (day 5). (3) Generalized weakness: Code(s): R53.1 - Weakness Status: Acute Assessment and Plan: Patient has been getting weaker over several months and reports since Jul 2020 she has had trouble getting her legs to move resulting in trouble walking. She denies numbness or tingling to any part of body. Apparently she has had issues with bladder/bowel movements but on further questioning she described she has control of bowel/bladder but not able to get up to go to the bathroom at home. MRI lumbar spine with no acute pathology. UTI, bacteremia could be worsening this. Continue PT/OT. Concerns for patient caring for herself at home however she declines placement at this time. (4) Severe protein-calorie malnutrition: Code(s): E43 - Unspecified severe protein-calorie malnutrition Status: Acute Assessment and Plan: Continue supplements and diabetic diet. (5) Type 2 diabetes mellitus with hyperglycemia: Qualifiers: Diabetes mellitus jd edwards developer insulin use: with snf use Qualified Code(s): E11.65 - Type 2 diabetes mellitus with hyperglycemia; Z79.4 - hadoop java developer (current) use of insulin Code(s): E11.65 - Type 2 diabetes mellitus with hyperglycemia Status: Acute Assessment and Plan: A1c 8.1%. Blood sugars stable today. Continue lantus and metformin. Continue to monitor with accu-cheks and adjust treatment as needed, cover with SSI. (6) Self-care deficit: Code(s): Z78.9 - Other specified health status Status: Acute Assessment and Plan: It is noted the patient has difficulty caring for herself at home evident by poor hygiene and malnutrition. Concerned for her overall well-being at home however patient adamantly declines facility placement and insists on discharge home. Open case with Adult Protective Services who will continue to follow after discharge and monitor mental health referral as it seems the patient may have underlying psychiatric illness. Subjective Date/time seen: 12/02/20 1245 Interval history: Ms. Anglin is a 65yo F admitted for bacteremia. She is upset because she would like to lay down in bed although we are encouraging her to sit up in the chair and walk with therapy. She otherwise offers no complaints. She denies chest pain or shortness of breath. She has been tolerating meals without abdominal pain, nausea, vomiting or diarrhea. Review of Systems Review of Systems: All systems reviewed & are unremarkable except as noted in HPI and below Exam Narrative: Exam Narrative: General: Well-developed female resting sitting up in bedside chair in no acute distress. HEENT: normocephalic, EOMI, poor dentition. Neck: Supple Neuro: Alert and oriented x4 today. No focal neurologic deficits are noted. Speech is clear. Hard of hearing +. CV:Rate and rhythm are
--- NOTE | 2020-12-02 13:37 | WPDINFPN2 ---
Progress Note: A&P Assessment and Plan (1) Bacteremia: Code(s): R78.81 - Bacteremia Status: Acute Assessment and Plan: 1. C perfringens bacteremia with infection, GI source, stable status. 2. Enterobacter bacteriuria, with potential infection 3. SNHL 4. Prior bile duct injury 5. Abnormal CT, probably not liver abscess REC PipTazo #5, change to Augmentin x 10 days, ok discharge anytime, will sign off, thanks Subjective Date/time seen: 12/02/20 13:37 Interval history: no abd pain no anorexia no n/v Exam Narrative: Exam Narrative: afebrile Const: General: no acute distress Resp: Effort & Inspection: normal respiratory effort Auscultation: clear to auscultation bilaterally Cardio: Rate: regular rate Rhythm: regular rhythm Heart sounds: no gallops and no murmurs GI: Inspection: non-distended GI Palp: Yes Soft to palpation and No Tenderness to palpation present (GI) Objective Data Vital Signs Vital Signs: Vital Signs - 24 hr 12/01/20 13:44 12/01/20 20:00 12/01/20 21:56 Temperature 36.7 C 36.6 C Pulse Rate 93 92 92 Respiratory Rate 20 18 18 Blood Pressure 87/47 L 120/56 L Pulse Oximetry 98 98 98 12/02/20 05:35 Temperature 36.6 C Pulse Rate 92 Respiratory Rate 18 Blood Pressure 137/70 Pulse Oximetry 100 Intake/Output Intake/Output: Intake & Output 11/29/20 11/30/20 12/01/20 12/02/20 23:59 23:59 23:59 23:59 Intake Total 2300 1120 680 540 Balance 2300 1120 680 540 Meds/Results Medications: Active Medications Generic Name Dose Route Start Last Admin Trade Name Freq PRN Reason Stop Dose Admin Dextrose 12.5 gm 11/27/20 03:38 Dextrose 50% 25 Gm/50 Ml Syringe IV PUSH PRN PRN Hypoglycemia Protocol Docusate Sodium 100 mg 11/27/20 03:39 Docusate Sodium 100 Mg Capsule PO Q12HR PRN Constipation Enoxaparin Sodium 40 mg 11/27/20 09:00 12/02/20 08:01 Enoxaparin 40 Mg/0.4 Ml Syringe SUB-Q 40 mg DAILY SULMA Administration Gabapentin 300 mg 11/27/20 21:00 12/01/20 20:36 Gabapentin 300 Mg Capsule PO 300 mg HS SULMA Administration Glucagon 1 mg 11/27/20 03:38 Glucagon For Inj 1 Mg Vial IM PRN PRN Hypoglycemia Protocol Glucose 15 gm 11/27/20 03:38 Glucose Oral Gel 15 Gm Of Glucse In 37.5 Gm Tube PO PRN PRN Hypoglycemia Protocol Dextrose 1,000 mls @ 100 mls/hr 11/27/20 03:38 Dextrose 5% 1,000 Ml IVPB PRN PRN Hypoglycemia Protocol Piperacillin Sod/Tazobactam Sod 4.5 gm in 100 mls @ 200 mls/hr 11/28/20 15:00 12/02/20 06:57 Zosyn 4.5 Gm/D5w 100 Ml IVPB 200 mls/hr Q8H SULMA Administration Insulin Aspart 2 - 5 units 11/27/20 08:00 12/02/20 12:55 Insulin Aspart (*Bkc) 100 Units/Ml SUB-Q 3 units TIDWM SULMA Administration Protocol Insulin Glargine 5 units 11/27/20 09:00 12/02/20 07:58 Insulin Glargine (*Bkc) 100 Units/Ml SUB-Q 5 units DAILY SULMA Administration Magnesium Oxide 200 mg 12/02/20 09:00 12/02/20 09:23 Magnesium Oxide 200 Mg Tablet PO 200 mg Q12HR SULMA Administration Metformin HCl 500 mg 11/27/20 08:00 12/02/20 08:00 Metformin Hcl 500 Mg Tablet PO 500 mg BIDWM SULMA Administration Tolnaftate 1 applic 11/28/20 21:00 12/02/20 08:00 Tolnaftate 1% Powder 45 Gm Btl TOPICAL 1 applic Q12HR SULMA Administration Radiology Results: ITS Impressions Chest X-Ray 11/26/20 23:25 IMPRESSION: No acute cardiopulmonary findings. Head CT 11/26/20 23:28 IMPRESSION: 1. No acute intracranial findings. 2. Chronic age related findings. Lumbar Spine MRI 11/29/20 15:09 IMPRESSION: 1. Mild lumbar spondylosis is no stenosis. There Abdomen/Pelvis CT 11/30/20 13:29 IMPRESSION: 1. Development of geographically shaped nonspecific hypodense liver region, could be recurrent liver infection. Less likely considerations above. Consider ultrasound for further evaluation. 2. M
[2020-12-02 14:00] VITALS: BP 98/60; PULSE 98; RESP 16; TEMP 36.1; O2SAT 98
[2020-12-02] MEDS: AMOXICILLIN/CLAVULANATE K 500-125 MG TAB 1 TABLET PO ×2 (14:21→21:12)
[2020-12-02 17:48] LABS: Glucose Point of Care 151 (65-105)
[2020-12-02 18:05] LABS: Glucose Point of Care 274 (65-105)
[2020-12-02] MEDS: GABAPENTIN 300 MG CAPSULE PO (21:12)
[2020-12-02 21:20] LABS: Glucose Point of Care 223 (65-105)
[2020-12-02 22:00] VITALS: BP 123/66; PULSE 98; RESP 20; TEMP 37.5; O2SAT 98
[2020-12-03] MEDS: AMOXICILLIN/CLAVULANATE K 500-125 MG TAB 1 TABLET PO ×3 (05:29→20:25)
[2020-12-03 06:00] VITALS: BP 116/67; PULSE 91; RESP 20; TEMP 37; O2SAT 98
[2020-12-03 07:58] LABS: Glucose Point of Care 130 (65-105)
[2020-12-03 08:00] VITALS: PULSE 91; RESP 20; O2SAT 98
[2020-12-03] MEDS: metFORMIN HCL 500 MG TABLET PO ×2 (09:06→18:07)
[2020-12-03] MEDS: MAGNESIUM OXIDE 200 MG TABLET PO ×2 (09:07→20:25)
[2020-12-03] MEDS: TOLNAFTATE 1% POWDER 45 GM BTL 1 APPLIC TOPICAL ×2 (09:07→20:26)
[2020-12-03] MEDS: ENOXAPARIN 40 MG/0.4 ML SYRINGE SUB-Q (09:07)
[2020-12-03] MEDS: INSULIN GLARGINE (*BKC) 100 UNITS/ML SUB-Q (09:08)
[2020-12-03 12:04] LABS: Glucose Point of Care 153 (65-105)
[2020-12-03 15:19] VITALS: BP 135/66; PULSE 104; RESP 20; TEMP 36.7; O2SAT 100
--- NOTE | 2020-12-03 16:45 | PM.IMPN ---
Progress Note: A&P Assessment and Plan (1) Bacteremia: Code(s): R78.81 - Bacteremia Status: Acute Assessment and Plan: Patient presents with generalized weakness and inability to care for self at home; 1 blood culture growing Clostridium perfringens. GI source is suspected. No abdominal symptoms; CT abd/pelvis with hepatic abnormality concerning for infection, not detected on US. Appreciate ID input; Dr Mcelroy's note reviewed. She was treated with 5 days of IV zosyn and now on oral Augmentin for 10 days per ID recommendations. (2) Bacteriuria with pyuria: Code(s): R82.71 - Bacteriuria; R82.81 - Pyuria Status: Acute Assessment and Plan: 50,000-100,000 Enterobacter. Patient says she has been incontinent but does not know if she has any urinary symptoms. Antibiotics as noted above. (3) Generalized weakness: Code(s): R53.1 - Weakness Status: Acute Assessment and Plan: Continue PT/OT. Unfortunately this is now seeming to be more of an issue of cooperation vs. weakness. She is refusing to walk with therapy. She has told a staff member her brain told her legs not to walk until December 07 . An underlying psychiatric diagnosis is suspected. Patient has been getting weaker over several months and reports since Jul 2020 she has had trouble getting her legs to move resulting in trouble walking. She denies numbness or tingling to any part of body. Apparently she has had issues with bladder/bowel movements but on further questioning she described she has control of bowel/bladder but not able to get up to go to the bathroom at home. MRI lumbar spine with no acute pathology. UTI, bacteremia could be worsening this. (4) Severe protein-calorie malnutrition: Code(s): E43 - Unspecified severe protein-calorie malnutrition Status: Acute Assessment and Plan: Continue supplements and diabetic diet. (5) Type 2 diabetes mellitus with hyperglycemia: Qualifiers: Diabetes mellitus [facility] insulin use: with termite helper use Qualified Code(s): E11.65 - Type 2 diabetes mellitus with hyperglycemia; Z79.4 - intermediate manager (current) use of insulin Code(s): E11.65 - Type 2 diabetes mellitus with hyperglycemia Status: Acute Assessment and Plan: A1c 8.1%. Blood sugars stable today. Continue lantus and metformin. Continue to monitor with accu-cheks and adjust treatment as needed, cover with SSI. (6) Self-care deficit: Code(s): Z78.9 - Other specified health status Status: Acute Assessment and Plan: It is noted the patient has difficulty caring for herself at home evident by poor hygiene and malnutrition. She is not walking. Concerned for her overall well-being at home however patient previously was adamantly declining facility placement and insisting on discharge home. Open case with Adult Protective Services who will continue to follow after discharge and monitor mental health referral as it seems the patient may have underlying psychiatric illness. She now seems somewhat agreeable to [facility] placement. She tells us she will walk tomorrow. Subjective Date/time seen: 12/03/20 1200 Interval history: Ms. Anglin is a 65yo F admitted for bacteremia and inability to care for self at home. Unfortunately she continues to decline ambulation with therapy. She has told career resource specialist my brain told my legs not to walk until December 07 . She denies chest pain, shortness of breath. She denies being in any pain for that matter at time of my encounter. She has been tolerating meals without abdominal pain, nausea, vomiting or diarrhea. Review of Systems Review of Systems: All systems reviewed & are
[2020-12-03 16:54] LABS: Glucose Point of Care 223 (65-105)
[2020-12-03] MEDS: INSULIN ASPART (*BKC) 100 UNITS/ML SUB-Q (18:06)
[2020-12-03] MEDS: GABAPENTIN 300 MG CAPSULE PO (20:25)
[2020-12-03] MEDS: DOCUSATE SODIUM 100 MG CAPSULE PO (20:35)
[2020-12-03 21:07] VITALS: BP 124/50; PULSE 95; RESP 18; TEMP 36.9; O2SAT 98
[2020-12-03 21:54] LABS: Glucose Point of Care 160 (65-105)
[2020-12-04] MEDS: AMOXICILLIN/CLAVULANATE K 500-125 MG TAB 1 TABLET PO ×3 (05:33→20:36)
[2020-12-04 06:00] VITALS: BP 126/64; PULSE 91; RESP 18; TEMP 36.9; O2SAT 99
[2020-12-04 07:55] LABS: Glucose Point of Care 161 (65-105)
--- NOTE | 2020-12-04 08:27 | PCOTNOTE ---
Attempted to see patient this AM for skilled OT session. Patient was asleep upon entry but easily aroused by call of name. Patient declined participation in therapy at this time stating, Can I do therapy after I eat my breakfast? Will attempt to see patient a second time this date.
[2020-12-04] MEDS: metFORMIN HCL 500 MG TABLET PO ×2 (09:31→16:27)
[2020-12-04] MEDS: ENOXAPARIN 40 MG/0.4 ML SYRINGE SUB-Q (09:31)
[2020-12-04] MEDS: MAGNESIUM OXIDE 200 MG TABLET PO ×2 (09:32→20:36)
[2020-12-04] MEDS: TOLNAFTATE 1% POWDER 45 GM BTL 1 APPLIC TOPICAL ×2 (09:32→20:41)
[2020-12-04] MEDS: INSULIN GLARGINE (*BKC) 100 UNITS/ML SUB-Q (09:44)
[2020-12-04 11:54] LABS: Glucose Point of Care 164 (65-105)
[2020-12-04 14:00] VITALS: BP 97/64; PULSE 105; RESP 16; TEMP 36.4; O2SAT 98
--- NOTE | 2020-12-04 14:03 | PM.IMPN ---
Progress Note: A&P Assessment and Plan (1) Bacteremia: Code(s): R78.81 - Bacteremia Status: Acute Assessment and Plan: Patient presents with generalized weakness and inability to care for self at home; 1 blood culture grew Clostridium perfringens. GI source is suspected. No abdominal symptoms; CT abd/pelvis with hepatic abnormality concerning for infection, not detected on US. Appreciate ID input; Dr Mcelroy's note reviewed. She was treated with 5 days of IV zosyn and now on oral Augmentin for 10 days per ID recommendations. (2) Bacteriuria with pyuria: Code(s): R82.71 - Bacteriuria; R82.81 - Pyuria Status: Acute Assessment and Plan: 50,000-100,000 Enterobacter. Patient says she has been incontinent but does not know if she has any urinary symptoms. Antibiotics as noted above. (3) Generalized weakness: Code(s): R53.1 - Weakness Status: Acute Assessment and Plan: Continue PT/OT. Unfortunately this is now seeming to be more of an issue of cooperation vs. weakness. She is refusing to walk with therapy. She has told a staff member her brain told her legs not to walk until December 07 . An underlying psychiatric diagnosis is suspected. She continues to refuse ambulation today. It is felt she is not safe to discharge home until she can walk, vs. rehab placement which she has been refusing. Reports since Jul 2020 she has had trouble getting her legs to move resulting in trouble walking. She denies numbness or tingling to any part of body. Apparently she has had issues with bladder/bowel movements but on further questioning she described she has control of bowel/bladder but not able to get up to go to the bathroom at home. MRI lumbar spine with no acute pathology. (4) Severe protein-calorie malnutrition: Code(s): E43 - Unspecified severe protein-calorie malnutrition Status: Acute Assessment and Plan: Continue supplements and diabetic diet. (5) Type 2 diabetes mellitus with hyperglycemia: Qualifiers: Diabetes mellitus retirement insulin use: with predatory animal exterminator use Qualified Code(s): E11.65 - Type 2 diabetes mellitus with hyperglycemia; Z79.4 - terminal block assembler (current) use of insulin Code(s): E11.65 - Type 2 diabetes mellitus with hyperglycemia Status: Acute Assessment and Plan: A1c 8.1%. Blood sugars stable today. Continue lantus and metformin. Continue to monitor with accu-cheks and adjust treatment as needed, cover with SSI. (6) Self-care deficit: Code(s): Z78.9 - Other specified health status Status: Acute Assessment and Plan: It is noted the patient has difficulty caring for herself at home evident by poor hygiene and malnutrition. She is not walking. Concerned for her overall well-being at home however patient previously was adamantly declining facility placement and insisting on discharge home. Open case with Adult Protective Services who will continue to follow after discharge and monitor mental health referral as it seems the patient may have underlying psychiatric illness. Subjective Date/time seen: 12/04/20 1300 Interval history: Ms. Anglin is a 65yo F admitted for bacteremia and inability to care for self at home. Unfortunately she continues to decline ambulation with therapy. She has told staff my brain told my legs not to walk until December 07 . She denies chest pain, shortness of breath. She denies being in any pain for that matter at time of my encounter. She has been tolerating meals without abdominal pain, nausea, vomiting or diarrhea. Irritated but offers no complaints. Review of Systems Review of Systems: All systems reviewed & are unremarkable except
[2020-12-04 17:19] LABS: Glucose Point of Care 149 (65-105)
[2020-12-04] MEDS: GABAPENTIN 300 MG CAPSULE PO (20:36)
[2020-12-04 21:35] LABS: Glucose Point of Care 120 (65-105)
[2020-12-04 22:00] VITALS: BP 138/70; PULSE 88; RESP 16; TEMP 36.7; O2SAT 98
[2020-12-04 22:51] LABS: SARS-CoV-2 RNA PCR Negative
[2020-12-05 06:00] VITALS: BP 136/67; PULSE 88; RESP 16; TEMP 36.5; O2SAT 99
[2020-12-05 06:18] LABS: Basophils Percent Auto 0.5 % (0.2-1.2); Eosinophils Absolute Auto 0.3 K/mm3 (0-0.3); Eosinophils Percent Auto 3.2 % (0-4.4); Hematocrit 34.4 % (37.0-47.0); Hemoglobin 11.6 g/dL (12.0-15.0); Immature Granulocyte Absolute 0.02 K/mm3 (0.00-0.031); Immature Granulocyte Percent A 0.3 % (0-0.5); Lymphocytes Absolute Auto 2.51 K/mm3 (0.9-3.2); Lymphocytes Percent Auto 32.5 % (18.3-44.2); Mean Corpuscular HGB Conc 33.7 g/dl (32-36); Mean Corpuscular Hemoglobin 30.7 pg (26-34); Mean Platelet Volume 10.3 fl (7.4-10.4); Monocytes Absolute Auto 0.4 K/mm3 (0.1-0.6); Monocytes Percent Auto 5.2 % (2.6-8.5); Neutrophils Absolute Auto 4.5 K/mm3 (1.3-6.7); Neutrophils Percent Auto 58.3 % (45.5-73.1); Platelet Count Result 306 k/mm3 (150-375); Red Blood Count 3.78 M/mm3 (4.2-5.4); Red Cell Distribution Width 13.7 % (11.5-14.5); White Blood Count 7.7 K/mm3 (4.5-10.0)
[2020-12-05 06:37] LABS: Anion Gap 3 mmol/L (8-16); Blood Urea Nitrogen 12 mg/dL (7-17); Calcium 8.8 mg/dL (8.4-10.2); Carbon Dioxide 31 mmol/L (22-30); Chloride 103 mmol/L (98-107); Estimated CRCL calculation 58 ml/min; Estimated Glomerular Filt Rate > 60; Glucose 119 mg/dL (65-105); Magnesium 1.8 mg/dL (1.6-2.3); Sodium 137 mmol/L (137-145)
[2020-12-05] MEDS: AMOXICILLIN/CLAVULANATE K 500-125 MG TAB 1 TABLET PO ×3 (08:27→20:44)
[2020-12-05] MEDS: metFORMIN HCL 500 MG TABLET PO ×2 (08:28→17:38)
[2020-12-05] MEDS: ENOXAPARIN 40 MG/0.4 ML SYRINGE SUB-Q (08:28)
[2020-12-05] MEDS: MAGNESIUM OXIDE 200 MG TABLET PO ×2 (08:29→20:44)
[2020-12-05] MEDS: TOLNAFTATE 1% POWDER 45 GM BTL 1 APPLIC TOPICAL ×2 (08:29→20:45)
[2020-12-05] MEDS: INSULIN GLARGINE (*BKC) 100 UNITS/ML SUB-Q (08:30)
[2020-12-05 12:03] LABS: Glucose Point of Care 111 (65-105)
[2020-12-05 14:00] VITALS: BP 135/66; PULSE 55; RESP 16; TEMP 36.8; O2SAT 98
--- NOTE | 2020-12-05 14:27 | PM.IMPN ---
Progress Note: A&P Assessment and Plan (1) Bacteremia: Code(s): R78.81 - Bacteremia Status: Acute Assessment and Plan: Patient presents with generalized weakness and inability to care for self at home; 1 blood culture grew Clostridium perfringens. GI source is suspected. No abdominal symptoms; CT abd/pelvis with hepatic abnormality concerning for infection, not detected on US. Appreciate ID input; Dr Mcelroy's note reviewed. She was treated with 5 days of IV zosyn and now on oral Augmentin (day 3 of 10) days per ID recommendations. (2) Bacteriuria with pyuria: Code(s): R82.71 - Bacteriuria; R82.81 - Pyuria Status: Acute Assessment and Plan: 50,000-100,000 Enterobacter. Patient says she has been incontinent but does not know if she has any urinary symptoms. Antibiotics as noted above. (3) Generalized weakness: Code(s): R53.1 - Weakness Status: Acute Assessment and Plan: Continue PT/OT. Unfortunately this is now seeming to be more of an issue of cooperation vs. weakness. She is refusing to walk with therapy. She has told myself and other staff her brain told her legs not to walk until December 07 . An underlying psychiatric diagnosis is strongly suspected. She continues to refuse ambulation today. It is felt she is not safe to discharge home until she can walk, vs. rehab placement which she has been refusing. She has had this issue since Jul 2020. MRI lumbar spine with no acute pathology. No numbness or tingling. (4) Severe protein-calorie malnutrition: Code(s): E43 - Unspecified severe protein-calorie malnutrition Status: Acute Assessment and Plan: Continue supplements and diabetic diet. (5) Type 2 diabetes mellitus with hyperglycemia: Qualifiers: Diabetes mellitus nursing home insulin use: with nursing home use Qualified Code(s): E11.65 - Type 2 diabetes mellitus with hyperglycemia; Z79.4 - adjunct faculty for medical terminology (current) use of insulin Code(s): E11.65 - Type 2 diabetes mellitus with hyperglycemia Status: Acute Assessment and Plan: A1c 8.1%. Blood sugars stable today. Continue lantus and metformin. Continue to monitor with accu-cheks and adjust treatment as needed, cover with SSI. (6) Self-care deficit: Code(s): Z78.9 - Other specified health status Status: Acute Assessment and Plan: It is noted the patient has difficulty caring for herself at home evident by poor hygiene and malnutrition. She is not walking. Concerned for her overall well-being at home however patient previously was adamantly declining facility placement and insisting on discharge home. Open case with Adult Protective Services who will continue to follow after discharge and monitor mental health referral as it seems the patient may have underlying psychiatric illness. Subjective Date/time seen: 12/05/20 14:15 Interval history: Ms. Anglin is a 65yo F admitted for bacteremia and inability to care for self at home. Unfortunately she continues to decline ambulation with therapy. She continues to tell me she will not walk until December 07 because that's what her brain has told her. Tells me she can't walk because she was overdosed on Metformin in July . Denies pain, chest pain, or shortness of breath. She has been tolerating meals without abdominal pain, nausea, vomiting or diarrhea. Review of Systems Review of Systems: All systems reviewed & are unremarkable except as noted in HPI and below Exam Narrative: Exam Narrative: General: Well-developed female resting supine in bed in no acute distress. HEENT: normocephalic, EOMI, poor dentition. Neck: Supple Neuro: Alert and oriented x4 today. No focal ne
[2020-12-05 18:02] LABS: Glucose Point of Care 128 (65-105)
[2020-12-05] MEDS: GABAPENTIN 300 MG CAPSULE PO (20:44)
[2020-12-05 21:06] LABS: Glucose Point of Care 178 (65-105)
[2020-12-05 21:58] VITALS: BP 125/63; PULSE 90; RESP 16; TEMP 36.3; O2SAT 98
[2020-12-06] MEDS: AMOXICILLIN/CLAVULANATE K 500-125 MG TAB 1 TABLET PO ×3 (05:01→22:50)
[2020-12-06 06:00] VITALS: BP 120/55; PULSE 88; RESP 16; TEMP 36.4; O2SAT 100
[2020-12-06 08:20] LABS: Glucose Point of Care 126 (65-105)
[2020-12-06] MEDS: metFORMIN HCL 500 MG TABLET PO ×2 (09:11→16:56)
[2020-12-06] MEDS: MAGNESIUM OXIDE 200 MG TABLET PO ×2 (09:11→22:50)
[2020-12-06] MEDS: ENOXAPARIN 40 MG/0.4 ML SYRINGE SUB-Q (09:11)
[2020-12-06] MEDS: TOLNAFTATE 1% POWDER 45 GM BTL 1 APPLIC TOPICAL ×2 (09:13→22:50)
[2020-12-06] MEDS: INSULIN GLARGINE (*BKC) 100 UNITS/ML SUB-Q (09:18)
[2020-12-06 12:25] LABS: Glucose Point of Care 133 (65-105)
[2020-12-06 14:00] VITALS: BP 107/49; PULSE 108; RESP 16; TEMP 36.3; O2SAT 100
--- NOTE | 2020-12-06 16:28 | PM.IMPN ---
Progress Note: A&P Assessment and Plan (1) Bacteremia: Code(s): R78.81 - Bacteremia Status: Acute Assessment and Plan: Patient presents with generalized weakness and inability to care for self at home; 1 blood culture grew Clostridium perfringens. GI source is suspected. No abdominal symptoms; CT abd/pelvis with hepatic abnormality concerning for infection, not detected on US. Appreciate ID input; Dr Mcelroy's note reviewed. She was treated with 5 days of IV zosyn and now on oral Augmentin (day 4 of 10) days per ID recommendations. (2) Generalized weakness: Code(s): R53.1 - Weakness Status: Acute Assessment and Plan: Continue PT/OT. Unfortunately this is now seeming to be more of an issue of cooperation vs. weakness. She is still refusing to walk with therapy. She has told myself and other staff her brain told her legs not to walk until December 07 . An underlying psychiatric diagnosis is strongly suspected. It is felt she is not safe to discharge home until she can walk, vs. rehab placement which she has been refusing. She reportedly has had this issue since Jul 2020. CT brain and MRI lumbar spine with no acute pathology. No numbness or tingling. (3) Self-care deficit: Code(s): Z78.9 - Other specified health status Status: Acute Assessment and Plan: See above. It is noted the patient has difficulty caring for herself at home evident by poor hygiene and malnutrition. She is not walking. Concerned for her overall well-being at home however patient previously was adamantly declining facility placement and insisting on discharge home. Open case with Adult Protective Services who will continue to follow after discharge and monitor mental health referral as it seems the patient may have underlying psychiatric illness. (4) Bacteriuria with pyuria: Code(s): R82.71 - Bacteriuria; R82.81 - Pyuria Status: Acute Assessment and Plan: 50,000-100,000 Enterobacter. Patient says she has been incontinent but does not know if she has any urinary symptoms. Antibiotics as noted above. (5) Severe protein-calorie malnutrition: Code(s): E43 - Unspecified severe protein-calorie malnutrition Status: Acute Assessment and Plan: Continue supplements and diabetic diet. (6) Type 2 diabetes mellitus with hyperglycemia: Qualifiers: Diabetes mellitus custodial insulin use: with intermediate teacher use Qualified Code(s): E11.65 - Type 2 diabetes mellitus with hyperglycemia; Z79.4 - terminal gauger supervisor (current) use of insulin Code(s): E11.65 - Type 2 diabetes mellitus with hyperglycemia Status: Acute Assessment and Plan: A1c 8.1%. Blood sugars stable today. Continue lantus and metformin. Continue to monitor with accu-cheks and adjust treatment as needed, cover with SSI. Subjective Date/time seen: 12/06/20 1200 Interval history: Ms. Anglin is a 65yo F admitted for bacteremia and inability to care for self at home. Unfortunately she continues to decline ambulation with therapy. She continues to tell me she will not walk until December 07 because that's what her brain has told her. Tells me she can't walk because she was overdosed on Metformin in July . Denies pain, chest pain, or shortness of breath. She has been tolerating meals without abdominal pain, nausea, vomiting or diarrhea. She rolls and turns independently in bed. She has been educated at length again today the importance of walking so that she can be discharged. Review of Systems Review of Systems: All systems reviewed & are unremarkable except as noted in HPI and below Exam Narrative: Exam Narrative: General: Well-developed female resting
[2020-12-06 17:21] LABS: Glucose Point of Care 135 (65-105)
[2020-12-06 20:00] VITALS: RESP 18; O2SAT 100
[2020-12-06 22:00] VITALS: BP 112/50; PULSE 89; RESP 18; TEMP 36.5; O2SAT 100
[2020-12-06] MEDS: GABAPENTIN 300 MG CAPSULE PO (22:50)
[2020-12-06 22:58] LABS: Glucose Point of Care 178 (65-105)
[2020-12-07 05:43] VITALS: BP 119/56; PULSE 85; RESP 18; TEMP 36.3; O2SAT 98
[2020-12-07] MEDS: AMOXICILLIN/CLAVULANATE K 500-125 MG TAB 1 TABLET PO ×3 (08:04→21:10)
[2020-12-07] MEDS: metFORMIN HCL 500 MG TABLET PO ×2 (08:04→17:40)
[2020-12-07] MEDS: MAGNESIUM OXIDE 200 MG TABLET PO ×2 (08:04→21:10)
[2020-12-07] MEDS: ENOXAPARIN 40 MG/0.4 ML SYRINGE SUB-Q (08:04)
[2020-12-07] MEDS: TOLNAFTATE 1% POWDER 45 GM BTL 1 APPLIC TOPICAL ×2 (08:12→21:10)
[2020-12-07 08:21] LABS: Glucose Point of Care 122 (65-105)
[2020-12-07] MEDS: INSULIN GLARGINE (*BKC) 100 UNITS/ML SUB-Q (08:30)
[2020-12-07 12:27] LABS: Glucose Point of Care 102 (65-105)
[2020-12-07 14:00] VITALS: BP 123/62; PULSE 95; RESP 18; TEMP 36.4; O2SAT 100
--- NOTE | 2020-12-07 14:21 | PCNFU ---
Nutrition Follow-Up Complete: Inadequate Protein energy intake as related to malnutrition as evidenced by significant weight loss (10% in the past 6 months). Goal: adequate Intake of at least 75% of meals/supplements. Patient has met current goal. No new goal. Pt current nutrition is DBCC. Last recorded weight is 46.3 kg,no new weight reported. Bowel Motility:+BM reported / Labs Reviewed:no new labs to report. Meds Noted:Lantus, Mag ox, Glucophage, NovoLog, Lovenox, Additional Notes: Nutrition follow up today. Patient is consuming 75-100% of most meals. She has Glucerna shake coupons for discharge. Patient has been declining therapies. Agree with diet orders. Monitoring: weight, labs, oral intake every 5 days.
--- NOTE | 2020-12-07 14:40 | PM.IMPN ---
Progress Note: A&P Assessment and Plan (1) Ambulatory dysfunction: Code(s): R26.2 - Difficulty in walking, not elsewhere classified Status: Acute Assessment and Plan: Continue PT/OT. Unfortunately this is now seeming to be more of an issue of cooperation instead of weakness. She is still refusing to walk with therapy. She has told myself and other staff her brain told her legs not to walk until December 07 however she is still not walking today. It is felt she is not safe to discharge home until she can walk, vs. rehab placement which she has been refusing. An underlying psychiatric diagnosis is strongly suspected. Spoke with psych, Dr Sunil Corbett ([phone]) to discuss case. He suspects the patient may be showing signs of Binswanger's dementia and noted subcortical hypodensities on her CT brain. He requests an MMSE be performed and MRI brain be obtained. He requests to be called with these results tomorrow as he suspects she may benefit from transfer to inpatient psych at [facility] in next day or so. Previous CT brain and MRI lumbar spine with no acute pathology. No numbness or tingling. She scored 30/30 on mini mental status exam today (hard copy on chart), MRI brain ordered. (2) Bacteremia: Code(s): R78.81 - Bacteremia Status: Acute Assessment and Plan: Patient presents with inability to care for self at home; 1 blood culture grew Clostridium perfringens. GI source is suspected. No abdominal symptoms; CT abd/pelvis with hepatic abnormality concerning for infection, not detected on US. Appreciate ID input. She was treated with 5 days of IV zosyn and now on oral Augmentin (day 6 of 10) days per ID recommendations. (3) Self-care deficit: Code(s): Z78.9 - Other specified health status Status: Acute Assessment and Plan: See above. It is noted the patient has difficulty caring for herself at home evident by poor hygiene and malnutrition. She is not walking. Concerned for her overall well-being at home however patient previously was adamantly declining facility placement and insisting on discharge home. Open case with Adult Protective Services who will continue to follow after discharge and monitor mental health referral as it seems the patient may have underlying psychiatric illness. (4) Bacteriuria with pyuria: Code(s): R82.71 - Bacteriuria; R82.81 - Pyuria Status: Acute Assessment and Plan: 50,000-100,000 Enterobacter. Patient says she has been incontinent but does not know if she has any urinary symptoms. Antibiotics as noted above. (5) Severe protein-calorie malnutrition: Code(s): E43 - Unspecified severe protein-calorie malnutrition Status: Acute Assessment and Plan: Continue supplements and diabetic diet. (6) Type 2 diabetes mellitus with hyperglycemia: Qualifiers: Diabetes mellitus terminal operations supervisor insulin use: with terminal operations supervisor use Qualified Code(s): E11.65 - Type 2 diabetes mellitus with hyperglycemia; Z79.4 - long-term (current) use of insulin Code(s): E11.65 - Type 2 diabetes mellitus with hyperglycemia Status: Acute Assessment and Plan: A1c 8.1%. Blood sugars stable today. Continue lantus and metformin. Continue to monitor with accu-cheks and adjust treatment as needed, cover with SSI. Subjective Date/time seen: 12/07/20 14:40 Interval history: Ms. Anglin is a 65yo F admitted for bacteremia and inability to care for self at home. Still refuses to walk despite extensive education and encouragement by all staff. She describes she can't walk because she was overdosed on Metformin in July . She turns and moves independently in bed. She denies ches
[2020-12-07 14:56] VITALS: O2SAT 98
[2020-12-07 17:36] LABS: Glucose Point of Care 293 (65-105)
[2020-12-07] MEDS: INSULIN ASPART (*BKC) 100 UNITS/ML SUB-Q (17:39)
[2020-12-07 18:21] LABS: SARS-CoV-2 RNA PCR Negative
[2020-12-07] MEDS: GABAPENTIN 300 MG CAPSULE PO (21:10)
[2020-12-07 21:24] LABS: Glucose Point of Care 155 (65-105)
[2020-12-07 21:54] VITALS: BP 120/58; PULSE 88; RESP 16; TEMP 36.5; O2SAT 99
[2020-12-08 06:00] VITALS: BP 112/66; PULSE 80; RESP 16; TEMP 36.1; O2SAT 100
[2020-12-08] MEDS: AMOXICILLIN/CLAVULANATE K 500-125 MG TAB 1 TABLET PO ×2 (06:20→15:47)
[2020-12-08 06:27] LABS: Basophils Absolute Auto 0.1 K/mm3 (0.0-0.1); Basophils Percent Auto 0.8 % (0.2-1.2); Eosinophils Absolute Auto 0.3 K/mm3 (0-0.3); Eosinophils Percent Auto 3.1 % (0-4.4); Hemoglobin 10.9 g/dL (12.0-15.0); Immature Granulocyte Absolute 0.02 K/mm3 (0.00-0.031); Immature Granulocyte Percent A 0.3 % (0-0.5); Lymphocytes Absolute Auto 2.59 K/mm3 (0.9-3.2); Lymphocytes Percent Auto 32.5 % (18.3-44.2); Mean Corpuscular HGB Conc 32.1 g/dl (32-36); Mean Corpuscular Hemoglobin 29.2 pg (26-34); Mean Corpuscular Volume 91.2 fl (80-100); Mean Platelet Volume 9.9 fl (7.4-10.4); Monocytes Absolute Auto 0.5 K/mm3 (0.1-0.6); Monocytes Percent Auto 6.8 % (2.6-8.5); Neutrophils Absolute Auto 4.5 K/mm3 (1.3-6.7); Neutrophils Percent Auto 56.5 % (45.5-73.1); Platelet Count Result 327 k/mm3 (150-375); Red Blood Count 3.73 M/mm3 (4.2-5.4); Red Cell Distribution Width 13.6 % (11.5-14.5)
[2020-12-08 06:43] LABS: Anion Gap 3 mmol/L (8-16); Blood Urea Nitrogen 18 mg/dL (7-17); Calcium 9.4 mg/dL (8.4-10.2); Carbon Dioxide 31 mmol/L (22-30); Chloride 102 mmol/L (98-107); Estimated CRCL calculation 50 ml/min; Estimated Glomerular Filt Rate > 60; Glucose 132 mg/dL (65-105); Magnesium 1.8 mg/dL (1.6-2.3); Potassium 4.5 mmol/L (3.4-5.0); Sodium 136 mmol/L (137-145)
[2020-12-08 07:21] LABS: Hepatitis B Surface Antigen Negative (Negative)
[2020-12-08 07:27] LABS: HAV RESULT Negative (Negative); Hepatitis B Core IgM Result Negative (Negative)
[2020-12-08 07:38] LABS: Hepatitis C Virus Antibody Negative (Negative)
[2020-12-08 07:45] LABS: Folic Acid 4.3 ng/mL (2.76->20)
[2020-12-08 08:09] LABS: Glucose Point of Care 127 (65-105)
[2020-12-08] MEDS: metFORMIN HCL 500 MG TABLET PO ×2 (08:20→16:59)
[2020-12-08] MEDS: ENOXAPARIN 40 MG/0.4 ML SYRINGE SUB-Q (08:20)
[2020-12-08] MEDS: MAGNESIUM OXIDE 200 MG TABLET PO (08:20)
[2020-12-08] MEDS: INSULIN GLARGINE (*BKC) 100 UNITS/ML SUB-Q (08:22)
[2020-12-08] MEDS: TOLNAFTATE 1% POWDER 45 GM BTL 1 APPLIC TOPICAL (08:24)
--- NOTE | 2020-12-08 12:25 | PM.IMPN ---
Progress Note: A&P Assessment and Plan (1) Ambulatory dysfunction: Code(s): R26.2 - Difficulty in walking, not elsewhere classified Status: Acute Assessment and Plan: Unfortunately this is now seeming to be more of an issue of cooperation instead of weakness. She is still refusing to walk with therapy. It is felt she is not safe to discharge home until she can walk. Rehab placement is the obvious choice but she has been refusing. An underlying psychiatric diagnosis is strongly suspected; Dr Sunil Corbett ([phone]) was contacted and ne suspects the patient may be showing signs of Binswanger's dementia and noted subcortical hypodensities on her CT brain. MMSE 30/30. Lumbar MRI showing no stenosis. MRI brain showing no acute findings. Discussed with Dr Corbett who felt patient would benefit from inpatient psychiatric care. Will coordinate with case management. (2) Bacteremia: Code(s): R78.81 - Bacteremia Status: Acute Assessment and Plan: Patient presents with inability to care for self at home; 1 blood culture grew Clostridium perfringens. GI source is suspected. No abdominal symptoms; CT abd/pelvis with hepatic abnormality concerning for infection, not detected on US. She was treated with 5 days of IV zosyn and now on oral Augmentin (day 7 of 10) days per ID recommendations. Appreciate ID input (3) Self-care deficit: Code(s): Z78.9 - Other specified health status Status: Acute Assessment and Plan: See above. It is noted the patient has difficulty caring for herself at home evident by poor hygiene and malnutrition. She is not walking. Concerned for her overall well-being at home however patient previously was adamantly declining facility placement and insisting on discharge home. Open case with Adult Protective Services who will continue to follow after discharge and monitor mental health referral as it seems the patient may have underlying psychiatric illness. (4) Bacteriuria with pyuria: Code(s): R82.71 - Bacteriuria; R82.81 - Pyuria Status: Acute Assessment and Plan: 50,000-100,000 Enterobacter. Patient says she has been incontinent but does not know if she has any urinary symptoms. Antibiotics as noted above. (5) Severe protein-calorie malnutrition: Code(s): E43 - Unspecified severe protein-calorie malnutrition Status: Acute Assessment and Plan: Continue supplements and diabetic diet. (6) Type 2 diabetes mellitus with hyperglycemia: Qualifiers: Diabetes mellitus intermediate teacher insulin use: with nursing home use Qualified Code(s): E11.65 - Type 2 diabetes mellitus with hyperglycemia; Z79.4 - FDC (current) use of insulin Code(s): E11.65 - Type 2 diabetes mellitus with hyperglycemia Status: Acute Assessment and Plan: A1c 8.1%. Blood sugars stable today. Continue lantus and metformin. Continue to monitor with accu-cheks and adjust treatment as needed, cover with SSI. (7) DVT prophylaxis: Code(s): Z29.9 - Encounter for prophylactic measures, unspecified Status: Acute Assessment and Plan: Lovenox Subjective Date/time seen: 12/08/20 12:25 Interval history: Date of service 12/08 65yo Female with DM, HTN and hx of liver abscess here for bacteremia and inability to care for self at home. Assuming care. Chart reviewed. Patient states she slept okay. No problems overnight. She has not been walking or out of bed. She states that she cannot extend her right leg. She was walking with therapy at the rehab facility prior to being discharged home last month. Eating okay. No chest pain shortness of breath. Her last bowel
[2020-12-08 14:00] VITALS: BP 111/57; PULSE 92; RESP 20; TEMP 37.1; O2SAT 100
--- NOTE | 2020-12-08 15:35 | PM.TDS ---
Transfer Discharge Sum: Prov Provider Date of admission: 11/27/20 00:31 Primary care physician: Lucio Dalal, Admitting clinician: Gala Menard DO Consults: 11/27/20 Care Coordination Consult Routine Comment: Reason for Consult:: Senior Living Placement Consult to Dietitian Routine Reason for Consult:: Severe protein calorie malnutrition weight decreased from 89 kg in July down to 46 kg today Attending physician on discharge: Patrice Madden Discharging clinician: Patrice Madden Anticipated date of transfer: 12/08/20 Receiving physician/facility: [facility], Dr Corbett DS: Admitting Diagnosis Admitting Diagnosis Admitting Diagnosis: Weakness DS: Discharge Diagnosis Discharge Diagnosis (1) Ambulatory dysfunction: Code(s): R26.2 - Difficulty in walking, not elsewhere classified Status: Acute Assessment and Plan: Workup was completed regarding her inability to walk. Lumbar MRI showing no stenosis. MRI brain showing no acute findings. It seems to be more of an issue of cooperation instead of weakness. She is still refusing to walk with therapy. It is felt she is not safe to discharge home until she can walk. Rehab placement is the obvious choice but she has been refusing. An underlying psychiatric diagnosis is strongly suspected; Dr Sunil Corbett was contacted and he suspects the patient may be showing signs of Binswanger's dementia and noted subcortical hypodensities on her CT brain. MMSE 30/30. Discussed with Dr Corbett who felt patient would benefit from inpatient psychiatric care which was arranged. Patient transferred in stable condition to [facility]. (2) Bacteremia: Code(s): R78.81 - Bacteremia Status: Acute Assessment and Plan: Patient presents with inability to care for self at home; 1 blood culture grew Clostridium perfringens. GI source is suspected. No abdominal symptoms; CT abd/pelvis with hepatic abnormality concerning for infection, not detected on US. She was treated with 5 days of IV zosyn and now on oral Augmentin per ID recommendations. LAST DOSE OF AUGMENTIN IS December IN THE MORNING (3) Self-care deficit: Code(s): Z78.9 - Other specified health status Status: Acute Assessment and Plan: See above. It is noted the patient has difficulty caring for herself at home evident by poor hygiene and malnutrition. She is not walking. Concerned for her overall well-being at home however patient previously was adamantly declining facility placement and insisting on discharge home. Open case with Adult Protective Services who can continue to follow after discharge and monitor mental health referral as it seems the patient may have underlying psychiatric illness. (4) Bacteriuria with pyuria: Code(s): R82.71 - Bacteriuria; R82.81 - Pyuria Status: Acute Assessment and Plan: 50,000-100,000 Enterobacter. Patient says she has been incontinent but does not know if she has any urinary symptoms. Antibiotics as noted above. (5) Severe protein-calorie malnutrition: Code(s): E43 - Unspecified severe protein-calorie malnutrition Status: Acute Assessment and Plan: Continue supplements and diabetic diet. (6) Type 2 diabetes mellitus with hyperglycemia: Qualifiers: Diabetes mellitus alf insulin use: with alf use Qualified Code(s): E11.65 - Type 2 diabetes mellitus with hyperglycemia; Z79.4 - custodial (current) use of insulin Code(s): E11.65 - Type 2 diabetes mellitus with hyperglycemia Status: Acute Assessment and Plan: A1c 8.1%. Blood sugars stable today. Continue lantus and metformin. Continue to monitor w
[2020-12-08 16:49] LABS: Glucose Point of Care 135 (65-105)
[2020-12-08 16:57] LABS: Glucose Point of Care 128 (65-105)
== END 2020-12-08 17:15 | DRG 42 ==
LOC: ANHED 11-27 00:05 → ANH3MEDSUR 11-27 06:54
PROVIDERS: Family Medicine; Internal Medicine; Internal Medicine Infectious Disease; Physician Assistant; Admitting Provider Internal Medicine; Emergency Provider Emergency Medicine; PCP Family Medicine; Visit Provider Family Medicine
DX: I67.3 Progressive vascular leukoencephalopathy (principal); R78.81 Bacteremia; R53.1 Weakness; R26.2 Difficulty in walking, not elsewhere classified; E43 Unspecified severe protein-calorie malnutrition; R82.71 Bacteriuria; R93.2 Abnormal findings on diagnostic imaging of liver and biliary tract; B96.7 Clostridium perfringens [C. perfringens] as the cause of diseases classified elsewhere; B96.89 Other specified bacterial agents as the cause of diseases classified elsewhere; E11.65 Type 2 diabetes mellitus with hyperglycemia; E11.42 Type 2 diabetes mellitus with diabetic polyneuropathy; K21.9 Gastro-esophageal reflux disease without esophagitis; H90.3 Sensorineural hearing loss, bilateral; E87.0 Hyperosmolality and hypernatremia; E86.0 Dehydration; R32 Unspecified urinary incontinence; E83.52 Hypercalcemia; Z91.14 Patient's other noncompliance with medication regimen; Z68.1 Body mass index [BMI] 19.9 or less, adult; Z90.49 Acquired absence of other specified parts of digestive tract; Z79.4 Long term (current) use of insulin; Z85.828 Personal history of other malignant neoplasm of skin
CPT/HCPCS: 36415; 70450; 70551; 71045; 72148; 74176; 76705; 80048; 80053; 80074; 80076; 81001; 82550; 82607; 82746; 82948; 83036; 83605; 83690; 83735; 84295; 84484; 85025; 85027; 86140; 87040; 87077; 87086; 87088; 87185; 87186; 93005; 96360; 97110; 97161; 97165; 97530; 97535; 99285; A9270; C9803; J0696; J1650; J1815; J2543; J7030; U0003; U0005

== ENCOUNTER 2020-12-21 19:55 | Inpatient (IN) | payer MEDICARE, SELFPAY ==
--- NOTE | ~2020-12-21 | CT_ITS ---
EXAMINATION: CT brain wo con DATE: 12/21/2020 21:02 INDICATION: Confusion. Altered mental status. TECHNIQUE: Computed tomography (CT) of the head was performed without intravenous contrast. The mA wa s adjusted according to patient size. Iterative reconstruction technique was employed. Exam dose: 60 5.33 mGy-cm total exam DLP. COMPARISON: 11/26/2020 CT brain 12/07/2020 MRI brain FINDINGS: No intracranial mass lesion or hemorrhage or cerebrovascular accident is evident. No midlin e shift or mass effect effect is detected. No subdural or epidural hematoma is noted. Bilateral carotid siphon internal carotid artery calcifications. Nonspecific diminished attenuation c erebral white matter, likely due to chronic small vessel ischemic changes. No orbital mass lesion. Included paranasal sinuses and mastoid air cells are unremarkable. No interval fracture or bone destruction of the cranial vault is evident. IMPRESSION: No acute intracranial finding Reviewed, dictated and finalized at [facility]. Reviewed, dictated and finalized at [facility].
--- NOTE | ~2020-12-21 | XR_ITS ---
XR chest 1V portable DATE: 12/21/2020 20:57 INDICATION: Hypertension, weakness. Gastroesophageal reflux. TECHNIQUE: Portable supine AP chest on 12/21/2020 at 2051 hours COMPARISON: 11/26/2020 portable AP chest FINDINGS: No pulmonary infiltrate or consolidation, pleural effusion or pulmonary vascular congestion or pneumothorax. Normal heart size. No hilar or mediastinal enlargement. Diffuse osteopenia. IMPRESSION: No active cardiopulmonary disease Reviewed, dictated and finalized at [facility].
[2020-12-21 19:59] VITALS: BP 134/81; PULSE 93; RESP 20; TEMP 36.6; O2SAT 100
--- NOTE | 2020-12-21 20:15 | ECG_ITS ---
Measurements Intervals [place] Rate: 98 P: 58 ME: 175 QRS: 67 QRSD: 79 T: 51 QT: 338 QTc: 433 Interpretive Statements SINUS RHYTHM EARLY PRECORDIAL R/S TRANSITION NONSPECIFIC T-WAVE ABNORMALITY- INF/HIGH LAT LEADS BASELINE ARTIFACT- I, III, AVR, AVL, AVF BORDERLINE ECG Electronically Signed On 12-23-2020 13:01:08 CDT by Joey De La O D.O.
[2020-12-21 20:54] LABS: Basophils Absolute Auto 0.1 K/mm3 (0.0-0.1); Basophils Percent Auto 0.5 % (0.2-1.2); Eosinophils Absolute Auto 0.2 K/mm3 (0-0.3); Eosinophils Percent Auto 2.1 % (0-4.4); Hematocrit 44.9 % (37.0-47.0); Hemoglobin 15.5 g/dL (12.0-15.0); Immature Granulocyte Absolute 0.02 K/mm3 (0.00-0.031); Immature Granulocyte Percent A 0.2 % (0-0.5); Lymphocytes Absolute Auto 2.25 K/mm3 (0.9-3.2); Lymphocytes Percent Auto 23.8 % (18.3-44.2); Mean Corpuscular HGB Conc 34.5 g/dl (32-36); Mean Corpuscular Hemoglobin 31.2 pg (26-34); Mean Corpuscular Volume 90.3 fl (80-100); Mean Platelet Volume 9.2 fl (7.4-10.4); Monocytes Absolute Auto 0.4 K/mm3 (0.1-0.6); Monocytes Percent Auto 3.8 % (2.6-8.5); Neutrophils Absolute Auto 6.6 K/mm3 (1.3-6.7); Neutrophils Percent Auto 69.6 % (45.5-73.1); Platelet Count Result 411 k/mm3 (150-375); Red Blood Count 4.97 M/mm3 (4.2-5.4); Red Cell Distribution Width 13.2 % (11.5-14.5); White Blood Count 9.5 K/mm3 (4.5-10.0)
[2020-12-21 20:58] LABS: Prothrombin Time 13.9 Seconds (11.1-14.7)
[2020-12-21 20:59] LABS: Partial Thromboplastin Time 30.2 SECONDS (22.3-36.8)
[2020-12-21 21:03] LABS: Ethanol < 10 mg/dL (<10)
[2020-12-21] MEDS: SODIUM CHLORIDE 0.9% IV 1,000 ML 999 ML IV CONT (21:07)
--- NOTE | 2020-12-21 21:12 | ED.GENADULT ---
HPI - General Adult General Chief complaint: Unspecified Stated complaint: weak/can't live alone/r leg not working Time Seen by Provider: 12/21/20 20:01 History of Present Illness HPI narrative: Patient is a 65-year-old female that presents the emergency department with chief complaint of generalized weakness. Patient was recently admitted to the hospital for generalized weakness and hyponatremia the patient was unable to ambulate at that time ultimately got transferred to a inpatient psychiatric facility and then upon being discharged from that facility was discharged back to her house where the patient reports that the ambulance brought her home later in bed and she has not gotten out of bed since. Patient states that she is weak and cannot walk states that she is not having any pain anywhere and states that she cannot care for herself. When EMS arrived at the scene today they found her laying in the bed with urine and feces. The patient states that she had not gotten out of bed since she has been home from the other facility. Related Data Home Medications Medication Instructions Recorded Confirmed docusate sodium 100 mg PO Q12HR PRN 05/25/20 11/27/20 gabapentin 300 mg PO HS 07/12/20 11/27/20 Allergies Allergy/AdvReac Type Severity Reaction Status Date / Time Sulfa (Sulfonamide Allergy Unknown Unknown Verified 07/12/20 14:23 Antibiotics) Review of Systems Review of Systems: Narrative: A 10 system review of systems was completed on the patient and is negative except for what is stated in the HPI. Nursing and ancillary documentation was reviewed. [facility] Past Medical History Medical History Diabetic peripheral neuropathy Essential hypertension GERD (gastroesophageal reflux disease) Insulin dependent type 2 diabetes mellitus (Unknown) Hemoglobin A1c was 16.8% 10/2019 down to 8 in 05/2020 and 6.3 07/13/2020 Liver abscess (01/27/20) Klebsiella pneumonia treated with antibiotics and percutaneous drain Sensorineural hearing loss (SNHL) of both ears Surgical History Surgical History Basal cell carcinoma (BCC) of ala nasi Resected from the right side of the nose History of cholecystectomy Laparoscopic cholecystectomy around 1995. History of hand surgery Injury of bile duct Following laparoscopic cholecystectomy in 1995, requiring open surgical repair. Performed at [place]. Family History Family History Mother Patient's mother is in good health Father Diabetes mellitus Hypertension Sibling Diabetes mellitus Social History Social History Social History: The patient request her surrogate decision maker to be a friend named Karri. However during her last hospitalization on July her brother Dimitri was noted to be year POA by Care coordination. Code status: Full code. Primary care physician: Dr. Lucio Dalal Smoking status: Never smoker Second hand tobacco smoke exposure: No Alcohol intake: never Substance use: never Substance use type: does not use Additional living arrangements comments: Lives in her own home in [place]. She does not have any children and has never been . Additional occupation/education comments: She works at [employer], but has not worked since October 2019. Gender identity (if verbalized by the patient): Female Spiritual care concerns: No Agree to blood products: Yes Exam Narrative: Exam Narrative: GENERAL: Well-appearing, well-nourished, and in no acute distress. HEAD: Normocephalic, atraumatic. EYES: PERRLA and EOMI. ENT: Nares clear, no rhinorrhea or epistaxis. Mucous membranes moist. NECK: Supple. CHEST: Clear to auscultation. No respiratory distress. HEART:
[2020-12-21 21:16] LABS: NT Pro B Type Natriuretic Pept 154 PG/ML (5-100); Troponin I < 0.012 ng/mL (0.000-0.034)
[2020-12-21 21:19] LABS: Alanine Aminotransferase 26 U/L (4-35); Albumin Level 5.3 g/dL (3.5-5.1); Alkaline Phosphatase 99 U/L (38-126); Anion Gap 15 mmol/L (8-16); Aspartate Amino Transferase 32 U/L (14-36); Bilirubin,Total 1.1 mg/dL (0.2-1.3); Blood Urea Nitrogen 16 mg/dL (7-17); Calcium 10.9 mg/dL (8.4-10.2); Carbon Dioxide 27 mmol/L (22-30); Chloride 96 mmol/L (98-107); Creatine Kinase 33 U/L (30-135); Estimated CRCL calculation 56 ml/min; Estimated Glomerular Filt Rate > 60; Glucose 176 mg/dL (65-105); Magnesium 1.7 mg/dL (1.6-2.3); Potassium 4.4 mmol/L (3.4-5.0); Sodium 138 mmol/L (137-145)
[2020-12-21 21:32] LABS: Add Urine Microscopic? YES; Appearance Urine Cloudy (Clear); Bilirubin Urine Negative (Negative); Blood Urine Negative (Negative); Color Urine Yellow (Yellow); Glucose Urine UA Negative (Negative); Ketones Urine Negative (Negative); Leukocyte Esterase Ur Negative LEU/UL (Negative); Nitrate Urine Negative (Negative); Protein Urine Negative (Negative); RBC Urine 0-2 /hpf (0-2); Specific Grav Ur 1.005 (1.001-1.035); Squamous Epithelial Cell Urine Many /hpf (Few); Urobilinogen Urine Negative mg/dL (<2.0); WBC Urine 0-3 /hpf
[2020-12-21 22:11] VITALS: BP 129/71; PULSE 91; RESP 26; O2SAT 100
--- NOTE | 2020-12-21 22:27 | PM.IMHP ---
H&P: HPI History of Present Illness Date/Time: 12/21/20 22:27 Chief Complaint: Not able to get out of bed since discharge home. Narrative: Marine Anglin is a 65 year old female with a past medical history of hypertension, diabetic peripheral neuropathy, insulin-dependent type 2 diabetes mellitus who was just admitted to our hospitalist service 2 weeks ago secondary to ambulatory dysfunction and transferred to [facility] to have underlying psychiatric illness ruled out. It appears that the patient was discharged home and was brought back to the hospital tonight via ambulance after she could not get out of bed or care for herself. The patient cannot tell me how long she was bed ridden for. EMS had reported that they found her laying in the bed covered in feces and urine. The patient did report to ER provider that she has not been ambulating since she was discharged home. The patient has no specific complaints tonight other than generalized weakness. She denies any recent fevers, chills, headache, nausea, vomiting, chest pain, shortness of breath, palpitations, abdominal pain, dysuria, hematuria, diarrhea, rectal bleeding, or lower extremity swelling. The patient verbalizes that she would like to have physical therapy to be able to walk again to the bathroom. On further questioning the patient tells me that her ambulatory dysfunction is secondary to being overdosed by healthcare provider when she was given too much antihypertensive medications. Review of Systems Review of Systems: All systems reviewed & are unremarkable except as noted in HPI and below PMFSH Past Medical History Medical History Diabetic peripheral neuropathy Essential hypertension GERD (gastroesophageal reflux disease) Insulin dependent type 2 diabetes mellitus (Unknown) Hemoglobin A1c was 16.8% 10/2019 down to 8 in 05/2020 and 6.3 07/13/2020 Liver abscess (01/27/20) Klebsiella pneumonia treated with antibiotics and percutaneous drain Sensorineural hearing loss (SNHL) of both ears Surgical History Surgical History Basal cell carcinoma (BCC) of ala nasi Resected from the right side of the nose History of cholecystectomy Laparoscopic cholecystectomy around 1995. History of hand surgery Injury of bile duct Following laparoscopic cholecystectomy in 1995, requiring open surgical repair. Performed at [facility]. Family History Family History Mother Patient's mother is in good health Father Diabetes mellitus Hypertension Sibling Diabetes mellitus Social History Social History Social History: The patient request her surrogate decision maker to be a friend named Karri. However during her last hospitalization on July her brother Dimitri was noted to be year POA by Care coordination. Code status: Full code. Primary care physician: Dr. Lucio Dalal Smoking status: Unknown if ever smoked Second hand tobacco smoke exposure: No Alcohol intake: never Substance use: never Substance use type: does not use Additional living arrangements comments: Lives in her own home in [place]. She does not have any children and has never been . Additional occupation/education comments: She works at [employer], but has not worked since October 2019. Gender identity (if verbalized by the patient): Female Spiritual care concerns: No Agree to blood products: Yes Meds Home Medications and Allergies Home Medications Medication Instructions Recorded Confirmed Type metformin [Glucophage] 500 mg PO BIDWM #60 tablet 07/15/20 12/22/20 Rx OneTouch Verio test strips #1 pkg 07/17/20 12/22/20 Rx blood-glucose meter [OneTouch #1 ea 07/17/20 12/22/20 Rx Verio Flex meter] insulin syringe,safetyneedle
[2020-12-21 23:27] VITALS: BP 119/60; PULSE 86; RESP 20; O2SAT 100
[2020-12-21 23:40] VITALS: BMI 19.1
[2020-12-21 23:44] LABS: Reflex Lactic Acid Yes or No Add Lactic
--- NOTE | 2020-12-22 00:08 | PC.NURSE ---
This patient, Marine Anglin, was admitted to 3 Med Surg Room 329-01 @ 23:35. Patient/family oriented to hospital policies and general routines including ID bracelet, bed and alarms, visiting hours, pain management, procedures, bathroom and other care routines, personal items, smoking policy, room service/diet, and visiting hours. Information on how to activate the Rapid Response Team has been discussed. Patient/Family are encouraged to report perceived risks to care and to ask questions if they do not understand what they are told or what they should do.
[2020-12-22 00:52] LABS: Lactic Acid 2.1 mmol/L (0.7-2.1)
[2020-12-22] MEDS: SODIUM CHLORIDE 0.9% IV 1,000 ML 125 ML IV CONT ×3 (01:35→19:58)
[2020-12-22 05:53] VITALS: BP 135/67; PULSE 97; RESP 20; TEMP 36.5; O2SAT 98
[2020-12-22 08:00] VITALS: PULSE 89; RESP 16; O2SAT 99
[2020-12-22 08:19] LABS: Glucose Point of Care 178 (65-105)
[2020-12-22] MEDS: metFORMIN HCL 500 MG TABLET PO (08:48)
[2020-12-22] MEDS: TOLNAFTATE 1% POWDER 45 GM BTL 1 APPLIC TOPICAL ×2 (09:00→17:47)
[2020-12-22 09:46] VITALS: PULSE 89; RESP 16; O2SAT 99
[2020-12-22 11:36] LABS: Glucose Point of Care 203 (65-105)
[2020-12-22] MEDS: INSULIN ASPART (*BKC) 100 UNITS/ML SUB-Q (12:41)
[2020-12-22 14:00] VITALS: BP 133/67; PULSE 88; RESP 18; TEMP 36.4; O2SAT 100
--- NOTE | 2020-12-22 15:47 | PM.IMPN ---
Progress Note: A&P Assessment and Plan (1) Generalized weakness: Code(s): R53.1 - Weakness Status: Acute Assessment and Plan: Will try to get her Rehabilitation Continue to work in therapy sessions with PT/OT (2) Ambulatory dysfunction: Code(s): R26.2 - Difficulty in walking, not elsewhere classified Status: Chronic Assessment and Plan: Patient has RLE weakness with contracture spasticity. (3) Severe protein-calorie malnutrition: Code(s): E43 - Unspecified severe protein-calorie malnutrition Status: Acute Assessment and Plan: Regular diet Will discontinue Metformin as well which can further worsen weight loss (4) Self-care deficit: Code(s): Z78.9 - Other specified health status Status: Acute Assessment and Plan: Working with OT (5) Dehydration: Code(s): E86.0 - Dehydration Status: Acute Assessment and Plan: IV fluids for now and encourage oral intake Subjective Date/time seen: 12/22/20 15:47 States that she wants to be able to get up by herself Review of Systems Review of Systems: ROS unobtainable: Yes unobtainable due to medical condition (Poor historian) Exam Narrative: Exam Narrative: Sitting in chair Const: General: cooperative, comfortable, no acute distress, alert, awake and other (chronically ill looking.) Nutritional Appearance: thin Orientation/consciousness: patient oriented x3 HENMT: Head: normal to inspection and normocephalic Ears: hearing grossly normal bilaterally General nose exam: Normal external nose present Face and sinus: normal facial exam Eyes: General: appearance normal, both eyes and all related structures Pupils: Equal, round and reactive pupils present EOM: EOMs intact bilaterally Neck: Neck: no lymphadenopathy, supple and no JVD Resp: Effort & Inspection: normal respiratory effort and able to speak in complete sentences Auscultation: clear to auscultation bilaterally Cardio: Jugular venous distension: no JVD Rate: regular rate Rhythm: regular rhythm GI: GI Palp: Yes Soft to palpation and Yes No hepatosplenomegaly present Skin: Rashes: no rashes Neuro: General: patient oriented x3 and CN's II-XI intact bilaterally Cranial nerves: Yes CN's II-XII intact bilaterally and Yes Equal, round and reactive pupils present Speech: normal speech Gait exam (Neuro): Unable to assess gait Motor exam (neuro): Other motor observations present (RLE MS 0/5 contracted) Extrem: General: no pedal edema Objective Data Vital Signs Vital Signs: Vital Signs - 24 hr 12/21/20 19:59 12/21/20 22:11 12/21/20 23:27 Temperature 97.8 F Pulse Rate 93 91 86 Respiratory Rate 20 26 H 20 Blood Pressure 134/81 129/71 119/60 Pulse Oximetry 100 100 100 12/22/20 05:53 12/22/20 08:00 12/22/20 09:46 Temperature 97.7 F Pulse Rate 97 89 89 Respiratory Rate 20 16 16 Blood Pressure 135/67 Pulse Oximetry 98 99 99 12/22/20 14:00 Temperature 97.5 F L Pulse Rate 88 Respiratory Rate 18 Blood Pressure 133/67 Pulse Oximetry 100 Intake/Output Intake/Output: Intake & Output 12/19/20 12/20/20 12/21/20 12/22/20 22:59 23:59 23:59 23:59 Intake Total 1000 2100 Balance 1000 2100 Meds/Results Medications: Active Medications Generic Name Dose Route Start Last Admin Trade Name Freq PRN Reason Stop Dose Admin Captopril 12.5 mg 12/22/20 09:00 12/22/20 11:53 Captopril (Capoten) 12.5 Mg Tablet PO Not Given BID SULMA Dextrose 12.5 gm 12/22/20 06:22 Dextrose 50% 25 Gm/50 Ml Syringe IV PUSH PRN PRN Hypoglycemia Protocol Glucagon 1 mg 12/22/20 06:22 Glucagon For Inj 1 Mg Vial IM PRN PRN Hypoglycemia Protocol Glucose 15 gm 12/22/20 06:22 Glucose Oral Gel 15 Gm Of Glucse In 37.5 Gm Tube PO PRN PRN Hypoglycemia Protocol Sodium Chloride 1,000 mls @ 125 mls/hr 12/21/20 22:40 12/22/20 11:00 Normal Saline Iv IV
[2020-12-22 16:46] LABS: Glucose Point of Care 99 (65-105)
[2020-12-22 20:24] LABS: Glucose Point of Care 148 (65-105)
[2020-12-22 22:00] VITALS: BP 137/67; PULSE 86; RESP 16; TEMP 36.6; O2SAT 99
[2020-12-23] MEDS: SODIUM CHLORIDE 0.9% IV 1,000 ML 125 ML IV CONT ×2 (04:52→09:42)
[2020-12-23 06:00] VITALS: BP 138/68; PULSE 81; RESP 18; TEMP 36.9; O2SAT 97
[2020-12-23 06:22] LABS: Basophils Percent Auto 0.5 % (0.2-1.2); Eosinophils Absolute Auto 0.3 K/mm3 (0-0.3); Eosinophils Percent Auto 4.2 % (0-4.4); Hematocrit 29.5 % (37.0-47.0); Hemoglobin 9.8 g/dL (12.0-15.0); Immature Granulocyte Absolute 0.03 K/mm3 (0.00-0.031); Immature Granulocyte Percent A 0.4 % (0-0.5); Lymphocytes Absolute Auto 2.25 K/mm3 (0.9-3.2); Lymphocytes Percent Auto 27.7 % (18.3-44.2); Mean Corpuscular HGB Conc 33.2 g/dl (32-36); Mean Corpuscular Hemoglobin 30.5 pg (26-34); Mean Corpuscular Volume 91.9 fl (80-100); Mean Platelet Volume 9.4 fl (7.4-10.4); Monocytes Absolute Auto 0.4 K/mm3 (0.1-0.6); Neutrophils Absolute Auto 5.1 K/mm3 (1.3-6.7); Neutrophils Percent Auto 62.2 % (45.5-73.1); Platelet Count Result 263 k/mm3 (150-375); Red Blood Count 3.21 M/mm3 (4.2-5.4); Red Cell Distribution Width 13.3 % (11.5-14.5); White Blood Count 8.1 K/mm3 (4.5-10.0)
[2020-12-23 06:26] LABS: Anion Gap 4 mmol/L (8-16); Blood Urea Nitrogen 11 mg/dL (7-17); Calcium 8.4 mg/dL (8.4-10.2); Carbon Dioxide 26 mmol/L (22-30); Chloride 109 mmol/L (98-107); Estimated CRCL calculation 82 ml/min; Estimated Glomerular Filt Rate > 60; Glucose 118 mg/dL (65-105); Sodium 139 mmol/L (137-145)
[2020-12-23 08:00] VITALS: PULSE 83; RESP 20; O2SAT 97
[2020-12-23] MEDS: TOLNAFTATE 1% POWDER 45 GM BTL 1 APPLIC TOPICAL ×2 (09:42→18:15)
[2020-12-23 12:33] LABS: Glucose Point of Care 167 (65-105)
--- NOTE | 2020-12-23 12:57 | PM.IMPN ---
Progress Note: A&P Assessment and Plan (1) Generalized muscle weakness: Code(s): M62.81 - Muscle weakness (generalized) Status: Acute Assessment and Plan: The patient is states that she wants to work with therapy I would not live on the she is able to walk PT/OT have been consulted Would benefit from inpatient rehabilitation (2) Inability to walk: Code(s): R26.2 - Difficulty in walking, not elsewhere classified Status: Acute Assessment and Plan: Likely secondary to immobility also right lower extremity weakness however imaging negative for stroke thus far believed to be secondary to underlying in psych condition. For precaution Supportive care Encourage participation in therapy session with Physical therapy (3) Ambulatory dysfunction: Code(s): R26.2 - Difficulty in walking, not elsewhere classified Status: Chronic Assessment and Plan: Ongoing issue for the patient. Needs to participate with PT OT in therapy sessions (4) Self-care deficit: Code(s): Z78.9 - Other specified health status Status: Acute Assessment and Plan: Patient unable to care for self Refuses to be placed in outside facility if that is still the case appropriate go home with home health as an alternative (5) Type 2 diabetes mellitus with hyperglycemia: Qualifiers: Diabetes mellitus roasterman insulin use: with residential use Qualified Code(s): E11.65 - Type 2 diabetes mellitus with hyperglycemia; Z79.4 - remote computer terminal operator (current) use of insulin Code(s): E11.65 - Type 2 diabetes mellitus with hyperglycemia Status: Chronic Assessment and Plan: Continue to monitor Accu-Cheks AC and HS Insulin sliding scale as needed (6) Severe protein-calorie malnutrition: Code(s): E43 - Unspecified severe protein-calorie malnutrition Status: Acute Assessment and Plan: Will obtain consult with dietitian (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 Subjective Date/time seen: 12/23/20 12:57 Patient states that she feels fine does not want to sit on the chair. Review of Systems Review of Systems: ROS unobtainable: Yes unobtainable due to medical condition Exam Narrative: Exam Narrative: Lying in bed in no acute distress Const: General: comfortable, no acute distress and other (Chronically ill appearing) Nutritional Appearance: cachectic Orientation/consciousness: patient oriented x3 HENMT: Head: normal to inspection and normocephalic Ears: hearing grossly normal bilaterally General nose exam: Normal external nose present Face and sinus: normal facial exam Mouth: Yes Normal oral and palatal mucosa present Eyes: General: appearance normal, both eyes and all related structures Pupils: Equal, round and reactive pupils present EOM: EOMs intact bilaterally Neck: Neck: no lymphadenopathy, supple and no JVD Resp: Effort & Inspection: able to speak in complete sentences Auscultation: clear to auscultation bilaterally Cardio: Jugular venous distension: no JVD Rate: regular rate Rhythm: regular rhythm GI: GI Palp: Yes Soft to palpation and Yes No hepatosplenomegaly present Skin: Rashes: no rashes Neuro: General: patient oriented x3 and CN's II-XI intact bilaterally Cranial nerves: Yes CN's II-XII intact bilaterally and Yes Equal, round and reactive pupils present Cognition (Neuro): abnormal cognition (Binswanger's dementia) Speech: normal speech Motor exam (neuro): Other motor observations present (RLE ms=0/5 with contracture spasticity) Extrem: General: no pedal edema Objective Data Vital Signs Vital Signs: Vital Signs - 24 hr 12/22/20 14:00 12/22/20 22:00 12/23/20 06:00 Temperature 97.5 F L 97.8 F 98.5 F Pulse Rate 88 86 81 Respiratory Rate 18 16 18 Blood Pr
[2020-12-23 14:00] VITALS: BP 128/57; PULSE 83; RESP 20; TEMP 36.6; O2SAT 97
[2020-12-23 14:15] LABS: SARS-CoV-2 RNA PCR Negative
[2020-12-23 17:26] LABS: Glucose Point of Care 258 (65-105)
[2020-12-23] MEDS: INSULIN ASPART (*BKC) 100 UNITS/ML SUB-Q (17:54)
[2020-12-23 20:40] VITALS: O2SAT 98
[2020-12-23 21:15] LABS: Glucose Point of Care 165 (65-105)
[2020-12-23 22:00] VITALS: BP 132/64; PULSE 81; RESP 20; TEMP 36.6; O2SAT 98
[2020-12-24 06:00] VITALS: BP 126/59; PULSE 71; RESP 20; TEMP 36.7; O2SAT 99
--- NOTE | 2020-12-24 08:05 | PCOTNOTE ---
Attempted to see patient this am, however patient refused. I'm not sitting up in any chairs anymore, because I don't get put back, and I get cold. Pt then covered head with blanket.
[2020-12-24 08:22] LABS: Glucose Point of Care 173 (65-105)
[2020-12-24 12:00] LABS: Glucose Point of Care 148 (65-105)
[2020-12-24 14:00] VITALS: BP 145/70; PULSE 71; RESP 18; TEMP 36.9; O2SAT 99
--- NOTE | 2020-12-24 15:21 | PM.IMPN ---
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 Status: Acute Assessment and Plan: Recently discharged from [facility] (2) Generalized muscle weakness: Code(s): M62.81 - Muscle weakness (generalized) Status: Acute Assessment and Plan: Refusing to participate in therapy sessions Encourage to participate (3) Ambulatory dysfunction: Code(s): R26.2 - Difficulty in walking, not elsewhere classified Status: Chronic Assessment and Plan: RLE contracture spasticity (4) Inability to walk: Code(s): R26.2 - Difficulty in walking, not elsewhere classified Status: Acute Assessment and Plan: RLE contracture spasticity and paralysis (5) Self-care deficit: Code(s): Z78.9 - Other specified health status Status: Acute Assessment and Plan: Patient is unable to care for self (6) Type 2 diabetes mellitus with hyperglycemia: Qualifiers: Diabetes mellitus vermin exterminator insulin use: with vermin exterminator use Qualified Code(s): E11.65 - Type 2 diabetes mellitus with hyperglycemia; Z79.4 - jail (current) use of insulin Code(s): E11.65 - Type 2 diabetes mellitus with hyperglycemia Status: Chronic Assessment and Plan: Continue to monitor Accu checks ACHS (7) Severe protein-calorie malnutrition: Code(s): E43 - Unspecified severe protein-calorie malnutrition Status: Acute Assessment and Plan: Dietitian consult (8) Bacteriuria with pyuria: Code(s): R82.71 - Bacteriuria; R82.81 - Pyuria Status: Acute Assessment and Plan: No pyuria NO need for antibiotics Subjective Date/time seen: 12/24/20 15:21 I feel fine Review of Systems Review of Systems: ROS unobtainable: Yes unobtainable due to medical condition (Dementia.) Exam Const: General: comfortable, no acute distress, well developed, alert and awake Nutritional Appearance: underweight Orientation/consciousness: oriented to person and oriented to place HENMT: Head: normal to inspection, normocephalic and atraumatic Ears: hearing grossly normal bilaterally Face and sinus: normal facial exam Eyes: General: appearance normal, both eyes and all related structures Pupils: Equal, round and reactive pupils present EOM: EOMs intact bilaterally Neck: Neck: full ROM, no lymphadenopathy and no JVD Thyroid: thyroid normal Lymphatic: no lymphadenopathy noted Resp: Effort & Inspection: normal respiratory effort and able to speak in complete sentences Auscultation: clear to auscultation bilaterally Cardio: Jugular venous distension: no JVD Rate: regular rate Rhythm: regular rhythm Heart sounds: S1 normal heart sound present and S2 normal heart sound present GI: GI Palp: Yes Soft to palpation and Yes No hepatosplenomegaly present : General: Yes deferred Skin: Rashes: no rashes Wounds: no wounds Neuro: General: oriented to person, oriented to place and CN's II-XI intact bilaterally Cranial nerves: Yes CN's II-XII intact bilaterally and Yes Equal, round and reactive pupils present Cognition (Neuro): normal cognition Speech: normal speech Gait exam (Neuro): Unable to assess gait Motor exam (neuro): Other motor observations present (RLE MS=0/5 ) Extrem: General: no pedal edema and other (Contracture spasticity of the RLE) Objective Data Vital Signs Vital Signs: Vital Signs - 24 hr 12/23/20 20:40 12/23/20 22:00 12/24/20 06:00 Temperature 98 F 98.1 F Pulse Rate 81 71 Respiratory Rate 20 20 Blood Pressure 132/64 126/59 L Pulse Oximetry 98 98 99 Intake/Output Intake/Output: Intake & Output 12/21/20 12/22/20 12/23/20 12/24/20 23:59 23:59 23:59 23:59 Intake Total 1000 3840 2710 480 Balance 1000 3840 2710 480 Meds/Results Medications: Active Medications Generic Name Dose Route Start Last Admin Trade Name Rocio Mcgraw
[2020-12-24 16:52] LABS: Glucose Point of Care 208 (65-105)
[2020-12-24] MEDS: SODIUM CHLORIDE 0.9% IV 1,000 ML 125 ML IV CONT ×2 (16:56→18:08)
[2020-12-24] MEDS: INSULIN ASPART (*BKC) 100 UNITS/ML SUB-Q (17:00)
[2020-12-24 21:36] VITALS: BP 140/58; PULSE 66; RESP 20; TEMP 36.6; O2SAT 100
[2020-12-24 21:56] LABS: Glucose Point of Care 126 (65-105)
[2020-12-25 06:00] VITALS: BP 153/68; PULSE 74; RESP 20; TEMP 36.2; O2SAT 100
[2020-12-25] MEDS: SODIUM CHLORIDE 0.9% IV 1,000 ML 125 ML IV CONT ×2 (08:20→17:31)
[2020-12-25 08:24] LABS: Glucose Point of Care 135 (65-105)
[2020-12-25 12:32] LABS: Glucose Point of Care 172 (65-105)
[2020-12-25 13:44] VITALS: BMI 19.1
[2020-12-25 14:00] VITALS: BP 124/49; PULSE 87; RESP 16; TEMP 36.5; O2SAT 100
--- NOTE | 2020-12-25 14:20 | PCNSR ---
On 12/25/20, the student, Neha Babin, provided care and completed [employer] documentation on this patient. I have reviewed the student's documentation and agree with the findings. In addition, recommend adding carbohydrate controlled diet for optimal glucose control. Weight loss over the past year is not significant, but further weight loss is undesirable. Noted patient refusing supplements at this time but is consuming 75-100% of most meals thus far. Will follow closely.
[2020-12-25 17:19] LABS: Glucose Point of Care 241 (65-105)
[2020-12-25] MEDS: INSULIN ASPART (*BKC) 100 UNITS/ML SUB-Q (17:31)
--- NOTE | 2020-12-25 17:43 | PM.IMPN ---
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 Status: Acute Assessment and Plan: poor prognosis supportive care (2) Generalized muscle weakness: Code(s): M62.81 - Muscle weakness (generalized) Status: Acute Assessment and Plan: likely secondary to immobility patient spends her days laying in bed refusing therapy (3) Inability to walk: Code(s): R26.2 - Difficulty in walking, not elsewhere classified Status: Acute Assessment and Plan: patient with right lower extremity contracture and spasticity (4) Ambulatory dysfunction: Code(s): R26.2 - Difficulty in walking, not elsewhere classified Status: Chronic Assessment and Plan: unable to walk due to right lower extremity contracture and spasticity (5) Self-care deficit: Code(s): Z78.9 - Other specified health status Status: Acute Assessment and Plan: patient unable to care for self trying to find her placement (6) Type 2 diabetes mellitus with hyperglycemia: Qualifiers: Diabetes mellitus intermediate card tender insulin use: with long-term use Qualified Code(s): E11.65 - Type 2 diabetes mellitus with hyperglycemia; Z79.4 - alf (current) use of insulin Code(s): E11.65 - Type 2 diabetes mellitus with hyperglycemia Status: Chronic Assessment and Plan: continue to monitor metformin was discontinued due to patient's underweight is status (7) Severe protein-calorie malnutrition: Code(s): E43 - Unspecified severe protein-calorie malnutrition Status: Acute Assessment and Plan: consult to dietitian continue to monitor over oral intake (8) Multiple falls: Code(s): R29.6 - Repeated falls Status: Acute Assessment and Plan: likely secondary to deconditioning also right lower extremity paralysis with contracture spasticity PTOT on consult patient has been refusing participation in therapy (9) GERD (gastroesophageal reflux disease): Qualifiers: Esophagitis presence: esophagitis presence not specified Qualified Code(s): K21.9 - Gastro-esophageal reflux disease without esophagitis Code(s): K21.9 - Gastro-esophageal reflux disease without esophagitis Status: Chronic Assessment and Plan: stable PPI as needed supportive care Subjective Date/time seen: 12/25/20 17:43 I am fine Review of Systems Review of Systems: ROS unobtainable: Yes unobtainable due to medical condition (Demenia.) Exam Const: General: comfortable, no acute distress, well developed, alert and awake Nutritional Appearance: underweight Orientation/consciousness: oriented to person, oriented to place and patient oriented x3 HENMT: Head: normal to inspection, normocephalic and atraumatic Ears: hearing grossly normal bilaterally Face and sinus: normal facial exam Eyes: General: appearance normal, both eyes and all related structures Pupils: Equal, round and reactive pupils present EOM: EOMs intact bilaterally Neck: Neck: full ROM, no lymphadenopathy and no JVD Thyroid: thyroid normal Lymphatic: no lymphadenopathy noted Resp: Effort & Inspection: normal respiratory effort and able to speak in complete sentences Auscultation: clear to auscultation bilaterally Cardio: Jugular venous distension: no JVD Rate: regular rate Rhythm: regular rhythm Heart sounds: S1 normal heart sound present and S2 normal heart sound present GI: GI Palp: Yes Soft to palpation and Yes No hepatosplenomegaly present : General: Yes deferred Skin: Rashes: no rashes Wounds: no wounds Neuro: General: oriented to person, oriented to place, patient oriented x3 and CN's II-XI intact bilaterally Cranial nerves: Yes CN's II-XII intact bilaterally and Yes Equal, round and reactive pupils present Cognition (Neuro): normal cognition Speech: nor
[2020-12-25 20:00] VITALS: PULSE 65; RESP 16; O2SAT 100
[2020-12-25 20:58] LABS: Glucose Point of Care 115 (65-105)
[2020-12-25 22:00] VITALS: BP 140/65; PULSE 65; RESP 16; TEMP 36.2; O2SAT 100
[2020-12-26] MEDS: SODIUM CHLORIDE 0.9% IV 1,000 ML 125 ML IV CONT ×2 (01:00→08:36)
[2020-12-26 06:00] VITALS: BP 167/75; PULSE 70; RESP 16; TEMP 35.8; O2SAT 100
[2020-12-26 07:53] LABS: Glucose Point of Care 130 (65-105)
[2020-12-26] MEDS: TOLNAFTATE 1% POWDER 45 GM BTL 1 APPLIC TOPICAL ×2 (08:34→16:56)
[2020-12-26 11:44] LABS: Glucose Point of Care 209 (65-105)
[2020-12-26] MEDS: INSULIN ASPART (*BKC) 100 UNITS/ML SUB-Q ×2 (11:54→16:52)
[2020-12-26 14:00] VITALS: BP 128/57; PULSE 92; RESP 20; TEMP 36.8; O2SAT 100
--- NOTE | 2020-12-26 14:19 | PM.IMPN ---
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 Status: Acute Assessment and Plan: will start Namenda and Seroquel will continue to monitor (2) Generalized muscle weakness: Code(s): M62.81 - Muscle weakness (generalized) Status: Acute Assessment and Plan: likely secondary to immobilization patient lays in bed most of the day on refuses to work with physical therapy will continue to try get the patient to participate (3) Inability to walk: Code(s): R26.2 - Difficulty in walking, not elsewhere classified Status: Acute Assessment and Plan: patient with right lower extremity contracture spasticity PT OT on board (4) Ambulatory dysfunction: Code(s): R26.2 - Difficulty in walking, not elsewhere classified Status: Chronic Assessment and Plan: secondary to right lower extremity contracture spasticity and paralysis (5) Self-care deficit: Code(s): Z78.9 - Other specified health status Status: Acute Assessment and Plan: patient has dementia supportive care (6) Type 2 diabetes mellitus with hyperglycemia: Qualifiers: Diabetes mellitus sourcing intern insulin use: with sourcing intern use Qualified Code(s): E11.65 - Type 2 diabetes mellitus with hyperglycemia; Z79.4 - senior care (current) use of insulin Code(s): E11.65 - Type 2 diabetes mellitus with hyperglycemia Status: Chronic Assessment and Plan: discontinue metformin as patient is obviously on the way this could be contributing to afford await Accu-Cheks a.c. and HS insulin sliding scale as needed (7) Severe protein-calorie malnutrition: Code(s): E43 - Unspecified severe protein-calorie malnutrition Status: Acute Assessment and Plan: likely secondary to poor oral intake as patient does not seem to be able to care for self will continue to monitor her calorie intake dietitian has been consulted (8) Acute hypernatremia: Code(s): E87.0 - Hyperosmolality and hypernatremia Status: Acute Assessment and Plan: likely secondary to poor p.o. intake will continue to monitor free water deficit will be replenished (9) Multiple falls: Code(s): R29.6 - Repeated falls Status: Acute Assessment and Plan: for precautions (10) GERD (gastroesophageal reflux disease): Qualifiers: Esophagitis presence: esophagitis presence not specified Qualified Code(s): K21.9 - Gastro-esophageal reflux disease without esophagitis Code(s): K21.9 - Gastro-esophageal reflux disease without esophagitis Status: Chronic Assessment and Plan: PPI as needed Subjective Date/time seen: 12/26/20 14:19 states that she is fine Review of Systems Review of Systems: Narrative: a very avoidant answer only yes or no and fine, states that still can't walk when asked if participating with therapy she stays yes. Exam Const: General: comfortable, no acute distress, well developed, alert and awake Nutritional Appearance: underweight Orientation/consciousness: oriented to person and oriented to place HENMT: Head: normal to inspection, normocephalic and atraumatic Ears: hearing grossly normal bilaterally Face and sinus: normal facial exam Eyes: General: appearance normal, both eyes and all related structures Pupils: Equal, round and reactive pupils present EOM: EOMs intact bilaterally Neck: Neck: full ROM, no lymphadenopathy and no JVD Thyroid: thyroid normal Lymphatic: no lymphadenopathy noted Resp: Effort & Inspection: normal respiratory effort and able to speak in complete sentences Auscultation: clear to auscultation bilaterally Cardio: Jugular venous distension: no JVD Rate: regular rate Rhythm: regular rhythm Heart sounds: S1 normal heart sound present and S2 normal heart sound present GI: GI Palp: Yes
[2020-12-26 17:37] LABS: Glucose Point of Care 232 (65-105)
[2020-12-26 20:00] VITALS: PULSE 84; O2SAT 98
[2020-12-26 21:45] VITALS: BP 137/57; PULSE 92; RESP 20; TEMP 36.9; O2SAT 100
[2020-12-26 22:23] LABS: Glucose Point of Care 222 (65-105)
--- NOTE | 2020-12-27 03:18 | PC.NURSE ---
12/26/20 2330 BRYSON FROM LAB CALLED STATING PT REFUSED HER LAB DRAW AT 1400 ON 12/26/20. I ASKED PATIENT IF SHE WOULD ALLOW BLOOD TO BE DRAWN NOW. SHE STATES NO . SHE WANTS A DOCTOR TO TELL HER WHY SHE NEEDS IT DRAW AND WHAT THEY ARE LOOKING FOR. LAB AWARE OF PT'S SECOND REFUSAL FOR 12/26/20 LABS.
[2020-12-27 08:05] LABS: Glucose Point of Care 187 (65-105)
[2020-12-27] MEDS: TOLNAFTATE 1% POWDER 45 GM BTL 1 APPLIC TOPICAL ×2 (08:08→16:58)
[2020-12-27 11:55] LABS: Glucose Point of Care 216 (65-105)
[2020-12-27] MEDS: INSULIN ASPART (*BKC) 100 UNITS/ML SUB-Q ×2 (12:03→16:58)
--- NOTE | 2020-12-27 12:33 | PM.IMPN ---
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 Status: Acute Assessment and Plan: started on Namenda and Seroquel continue to monitor (2) Generalized muscle weakness: Code(s): M62.81 - Muscle weakness (generalized) Status: Acute Assessment and Plan: likely secondary to immobility patient lays in bed all day (3) Inability to walk: Code(s): R26.2 - Difficulty in walking, not elsewhere classified Status: Acute Assessment and Plan: patient has a right lower extremity contracture and spasticity (4) Ambulatory dysfunction: Code(s): R26.2 - Difficulty in walking, not elsewhere classified Status: Chronic Assessment and Plan: secondary to right lower extremity contracture spasticity and paralysis has been refusing to work with physical therapy and occupational therapy awaiting placement (5) Self-care deficit: Code(s): Z78.9 - Other specified health status Status: Acute Assessment and Plan: patient unable to care for self likely secondary to underlying dementia and depression awaiting placement (6) Type 2 diabetes mellitus with hyperglycemia: Qualifiers: Diabetes mellitus group home insulin use: with manager intermediate use Qualified Code(s): E11.65 - Type 2 diabetes mellitus with hyperglycemia; Z79.4 - remote computer terminal operator (current) use of insulin Code(s): E11.65 - Type 2 diabetes mellitus with hyperglycemia Status: Chronic Assessment and Plan: patient blood sugars have been fairly well controlled insulin sliding scale as needed (7) Severe protein-calorie malnutrition: Code(s): E43 - Unspecified severe protein-calorie malnutrition Status: Acute Assessment and Plan: dietitian consult poor oral intake likely secondary to patient's inability to care for self likely unable to prepare her own meals (8) Acute hypernatremia: Code(s): E87.0 - Hyperosmolality and hypernatremia Status: Acute Assessment and Plan: trending down will obtain a BMP replace free water deficit accordingly (9) Multiple falls: Code(s): R29.6 - Repeated falls Status: Acute Assessment and Plan: likely secondary to gait disturbance refuses to work with physical therapy (10) GERD (gastroesophageal reflux disease): Qualifiers: Esophagitis presence: esophagitis presence not specified Qualified Code(s): K21.9 - Gastro-esophageal reflux disease without esophagitis Code(s): K21.9 - Gastro-esophageal reflux disease without esophagitis Status: Chronic Assessment and Plan: PPI as needed Subjective Date/time seen: 12/27/20 12:33 I am fine Review of Systems Review of Systems: Narrative: patient was brought to the hospital due to inability to care for self inability to walk and do her daily activities states that she does not want to live until she is able to walk ROS unobtainable: Yes unobtainable due to medical condition Exam Const: General: comfortable, no acute distress, well developed, alert and awake Nutritional Appearance: average body habitus Orientation/consciousness: patient oriented x3 HENMT: Head: normal to inspection, normocephalic and atraumatic Ears: hearing grossly normal bilaterally Face and sinus: normal facial exam Eyes: General: appearance normal, both eyes and all related structures Pupils: Equal, round and reactive pupils present EOM: EOMs intact bilaterally Neck: Neck: full ROM, no lymphadenopathy and no JVD Thyroid: thyroid normal Lymphatic: no lymphadenopathy noted Resp: Effort & Inspection: normal respiratory effort and able to speak in complete sentences Auscultation: clear to auscultation bilaterally Cardio: Jugular venous distension: no JVD Rate: regular rate Rhythm: regular rhythm Heart sounds: S1 normal heart sound present and S2
[2020-12-27 14:00] VITALS: BP 88/49; PULSE 117; RESP 18; TEMP 36.2; O2SAT 99
[2020-12-27 16:59] LABS: Glucose Point of Care 268 (65-105)
--- NOTE | 2020-12-27 20:33 | PC.NURSE ---
Pt refusing all medication stating no thank you over and over again when offered. Pt given education about medications and necessity to medical care plan but pt adamantly refused. Pt repeatedly requesting to have bed alarm off and bed rails down. Education provided to patient about the use of rails and the alarm. Pt continues to request for them off. Pt states they her her knees- refused a pillow when offered and refused to be adjusted in bed to her knees would not be against the rails. Will leave alarm on and rails up at this time.
--- NOTE | 2020-12-27 21:11 | PC.NURSE ---
Pt refusing physical assessment. There will be two care givers in the room when providing care per this RN evaluation/request.
[2020-12-27 21:44] VITALS: BP 137/71; PULSE 73; RESP 12; TEMP 37.1; O2SAT 98
[2020-12-28 06:00] VITALS: BP 130/90; PULSE 80; RESP 20; TEMP 36.8; O2SAT 100
[2020-12-28 08:52] LABS: Glucose Point of Care 173 (65-105)
[2020-12-28] MEDS: TOLNAFTATE 1% POWDER 45 GM BTL 1 APPLIC TOPICAL (09:59)
[2020-12-28] MEDS: MEMANTINE 10 MG TABLET PO ×2 (09:59→20:51)
[2020-12-28 12:11] LABS: Glucose Point of Care 234 (65-105)
[2020-12-28] MEDS: INSULIN ASPART (*BKC) 100 UNITS/ML SUB-Q ×2 (12:25→17:28)
[2020-12-28 14:00] VITALS: BP 130/61; PULSE 89; RESP 16; TEMP 36.9; O2SAT 98
--- NOTE | 2020-12-28 14:10 | PM.IMPN ---
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 (4) Ambulatory dysfunction: Code(s): R26.2 - Difficulty in walking, not elsewhere classified Status: Chronic Assessment and Plan: secondary to right lower extremity contracture the spasticity and paralysis (5) Self-care deficit: Code(s): Z78.9 - Other specified health status Status: Acute Assessment and Plan: likely secondary to patient's dementia she is unable to care for herself (6) Type 2 diabetes mellitus with hyperglycemia: Qualifiers: Diabetes mellitus retirement insulin use: with retirement use Qualified Code(s): E11.65 - Type 2 diabetes mellitus with hyperglycemia; 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 Code(s): E11.65 - Type 2 diabetes mellitus with hyperglycemia Status: Chronic Assessment and Plan: continue to monitor patient's hemoglobin A1c back on October was 16% suspect patient has not been using her insulin insulin sliding scale as needed (7) Severe protein-calorie malnutrition: Code(s): E43 - Unspecified severe protein-calorie malnutrition Status: Acute Assessment and Plan: continue to assess patient's calorie intake consult out to dietitian (8) Acute hypernatremia: Code(s): E87.0 - Hyperosmolality and hypernatremia Status: Acute Assessment and Plan: patient has been refusing lab draws in the last several days (9) Muscular deconditioning: Code(s): R29.898 - Other symptoms and signs involving the musculoskeletal system Status: Acute Assessment and Plan: patient refusing to participate in therapy sessions with physical therapy and occupational therapy (10) GERD (gastroesophageal reflux disease): Qualifiers: Esophagitis presence: esophagitis presence not specified Qualified Code(s): K21.9 - Gastro-esophageal reflux disease without esophagitis Code(s): K21.9 - Gastro-esophageal reflux disease without esophagitis Status: Chronic Assessment and Plan: appears to be stable PPI as needed (11) Insulin dependent type 2 diabetes mellitus: Onset Date: Unknown Code(s): E11.9 - Type 2 diabetes mellitus without complications; 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 Subjective Date/time seen: 12/28/20 14:10 I a.m. fine Review of Systems Review of Systems: Narrative: patient states that she has not been able to walk had 1 sister in the hospital until she is able to get up by herself and walk Exam Const: General: comfortable, no acute distress, well developed, alert and awake Nutritional Appearance: average body habitus Orientation/consciousness: patient oriented x3 HENMT: Head: normal to inspection, normocephalic and atraumatic Ears: hearing grossly normal bilaterally Face and sinus: normal facial exam Eyes: General: appearance normal, both eyes and all related structures Pupils: Equal, round and reactive pupils present EOM: EOMs intact bilaterally Neck: Neck: full ROM, no lymphadenopathy and no JVD Thyroid: thyroid normal Lymphatic: no lymphadenopathy noted Resp: Effort &
--- NOTE | 2020-12-28 14:12 | PC.NURSE ---
Tried to talk to pt and ask about lab drawing blood to get a baseline. Pt totally refused and stated no I do not want them to draw labs PERIOD. Called Dr. Nogueira and let her know about pt refusing lab draw.
[2020-12-28 17:24] LABS: Glucose Point of Care 260 (65-105)
[2020-12-28] MEDS: QUEtiapine FUMARATE 25 MG TABLET 50 MG PO (20:51)
[2020-12-28 21:25] LABS: Glucose Point of Care 248 (65-105)
[2020-12-28 22:00] VITALS: BP 132/60; PULSE 90; RESP 16; TEMP 37.2; O2SAT 100
[2020-12-29 06:00] VITALS: BP 146/75; PULSE 78; RESP 18; TEMP 36.6; O2SAT 99
[2020-12-29 08:00] VITALS: PULSE 78; RESP 18; O2SAT 99
[2020-12-29 08:26] LABS: Glucose Point of Care 137 (65-105)
[2020-12-29] MEDS: MEMANTINE 10 MG TABLET PO ×2 (09:05→20:37)
[2020-12-29] MEDS: TOLNAFTATE 1% POWDER 45 GM BTL 1 APPLIC TOPICAL ×2 (09:16→16:02)
--- NOTE | 2020-12-29 11:24 | PCOTNOTE ---
Attempted to see Patient for A.M. treatment session. Patient refused to participate with any activity this session. Patient pulling the covers over her head and repeating, no come back after lunch .
--- NOTE | 2020-12-29 12:16 | PM.IMPN ---
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 Status: Acute Assessment and Plan: patient was started on Namenda and Seroquel supportive care (2) Generalized muscle weakness: Code(s): M62.81 - Muscle weakness (generalized) Status: Acute Assessment and Plan: likely secondary to patient's immobility patient lays in bed all day PT OT on board (3) Inability to walk: Code(s): R26.2 - Difficulty in walking, not elsewhere classified Status: Acute Assessment and Plan: patient with right lower extremity contracture spasticity (4) Ambulatory dysfunction: Code(s): R26.2 - Difficulty in walking, not elsewhere classified Status: Chronic Assessment and Plan: likely secondary to right lower extremity paralysis (5) Self-care deficit: Code(s): Z78.9 - Other specified health status Status: Acute Assessment and Plan: patient is unable to care for herself awaiting for placement (6) Type 2 diabetes mellitus with hyperglycemia: Qualifiers: Diabetes mellitus emt intermediate insulin use: with emt intermediate use Qualified Code(s): E11.65 - Type 2 diabetes mellitus with hyperglycemia; Z79.4 - group home (current) use of insulin Code(s): E11.65 - Type 2 diabetes mellitus with hyperglycemia Status: Chronic Assessment and Plan: continue to monitor insulin sliding scale as needed (7) Severe protein-calorie malnutrition: Code(s): E43 - Unspecified severe protein-calorie malnutrition Status: Acute Assessment and Plan: dietitian on consult continue to monitor patient calorie intake (8) Acute hypernatremia: Code(s): E87.0 - Hyperosmolality and hypernatremia Status: Acute Assessment and Plan: patient has been refusing blood draws (9) Muscular deconditioning: Code(s): R29.898 - Other symptoms and signs involving the musculoskeletal system Status: Acute Assessment and Plan: likely secondary to immobility has been refusing to work with physical therapy and occupational therapy on multiple occasions (10) Multiple falls: Code(s): R29.6 - Repeated falls Status: Acute Assessment and Plan: no fractures Subjective Date/time seen: 12/29/20 12:16 I a.m. fine Review of Systems Review of Systems: Narrative: the patient presented to the emergency room after her EMS was called patient is states that she is unable to walk and does not want to leave the hospital and she is able to do so ROS unobtainable: Yes unobtainable due to medical condition ( dementia) Exam Const: General: comfortable, no acute distress, well developed, alert and awake Nutritional Appearance: cachectic Orientation/consciousness: patient oriented x3 HENMT: Head: normal to inspection, normocephalic and atraumatic Ears: hearing grossly normal bilaterally Face and sinus: normal facial exam Eyes: General: appearance normal, both eyes and all related structures Pupils: Equal, round and reactive pupils present EOM: EOMs intact bilaterally Neck: Neck: full ROM, no lymphadenopathy and no JVD Thyroid: thyroid normal Lymphatic: no lymphadenopathy noted Resp: Effort & Inspection: normal respiratory effort and able to speak in complete sentences Auscultation: clear to auscultation bilaterally Cardio: Jugular venous distension: no JVD Rate: regular rate Rhythm: regular rhythm Heart sounds: S1 normal heart sound present and S2 normal heart sound present GI: GI Palp: Yes Soft to palpation and Yes No hepatosplenomegaly present : General: Yes deferred Skin: Rashes: no rashes Wounds: no wounds Neuro: General: patient oriented x3 and CN's II-XI intact bilaterally Cranial nerves: Yes CN's II-XII intact bilaterally and Yes Equal, round and reactive pupils present Cognition (Neuro): normal cognition
[2020-12-29 13:31] LABS: Glucose Point of Care 286 (65-105)
[2020-12-29 14:00] VITALS: BP 141/68; PULSE 88; RESP 20; TEMP 36.8; O2SAT 99
[2020-12-29] MEDS: INSULIN ASPART (*BKC) 100 UNITS/ML SUB-Q ×2 (14:04→18:13)
--- NOTE | 2020-12-29 14:40 | PCOTNOTE ---
Attempted to see Patient this afternoon. Patient refused to do anything, stated I asked for cranberry juice, my patience is running out, I want it now . Therapist notified Patient that I would look into her request . Patient refusing to participate.
[2020-12-29 17:54] LABS: Glucose Point of Care 222 (65-105)
[2020-12-29] MEDS: QUEtiapine FUMARATE 25 MG TABLET 50 MG PO (20:37)
[2020-12-29 21:34] LABS: Glucose Point of Care 200 (65-105)
[2020-12-29 22:00] VITALS: BP 142/71; PULSE 91; RESP 16; TEMP 36.2; O2SAT 98
[2020-12-30 06:00] VITALS: BP 130/73; PULSE 70; RESP 16; TEMP 36.1; O2SAT 96
[2020-12-30 08:00] VITALS: PULSE 70; RESP 16; O2SAT 96
[2020-12-30 08:03] LABS: Glucose Point of Care 215 (65-105)
[2020-12-30] MEDS: INSULIN ASPART (*BKC) 100 UNITS/ML SUB-Q ×3 (08:06→18:01)
[2020-12-30] MEDS: MEMANTINE 10 MG TABLET PO ×2 (08:07→20:36)
[2020-12-30] MEDS: TOLNAFTATE 1% POWDER 45 GM BTL 1 APPLIC TOPICAL ×2 (08:07→18:02)
--- NOTE | 2020-12-30 11:35 | PCNFU ---
Addendum entered by Olivia Wen, RD, LDN 12/30/20 12:16: Spoke with and diet orders have been changed from heart healthy to diabetic consistent carb. Original Note: Nutrition Follow-Up Complete: Inadequate oral intake related to generalized weakness as evidenced by consult for malnutrition. Goal: Patient to continue consuming 75% or more of meals on current diet order. Patient is currently meeting nutrition goal. Pt current nutrition is heart healthy. Nutrition Recommendations: [facility] Last recorded weight is 55.3 kg, no new weight to report. Bowel Motility:+BM reported 12/28 Labs Reviewed: no new labs to report. Meds Noted:NovoLog, Namenda, Seroquel. Additional Notes:Nutrition follow up. Patient is eating 100% of heart heathy diet. Spoke with nursing today, patient POC glucose elevated. Patient has been asking for multiple cranberry juices. I did try and reach out to doctor via phone, no answer. Nursing is aware of diet order recommendations for a diabetic diet. Monitoring: patients labs, medications, weight, and oral intake every 5 days.
[2020-12-30 12:29] LABS: Glucose Point of Care 217 (65-105)
--- NOTE | 2020-12-30 13:32 | PCOTNOTE ---
Attempted to see patient this pm however patient reported already completing ADLs and refused exercise.
[2020-12-30 14:00] VITALS: BP 137/62; PULSE 93; RESP 18; TEMP 36.6; O2SAT 96
[2020-12-30 17:36] LABS: Glucose Point of Care 223 (65-105)
--- NOTE | 2020-12-30 19:52 | PM.IMPN ---
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 Status: Acute Assessment and Plan: patient was started on Namenda and Seroquel supportive care (2) Generalized muscle weakness: Code(s): M62.81 - Muscle weakness (generalized) Status: Acute Assessment and Plan: likely secondary to patient's immobility patient lays in bed all day PT OT on board (3) Inability to walk: Code(s): R26.2 - Difficulty in walking, not elsewhere classified Status: Acute Assessment and Plan: patient with right lower extremity contracture spasticity (4) Ambulatory dysfunction: Code(s): R26.2 - Difficulty in walking, not elsewhere classified Status: Chronic Assessment and Plan: likely secondary to right lower extremity paralysis (5) Self-care deficit: Code(s): Z78.9 - Other specified health status Status: Acute Assessment and Plan: patient is unable to care for herself awaiting for placement (6) Type 2 diabetes mellitus with hyperglycemia: Qualifiers: Diabetes mellitus intermediate 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 insulin use: with intermediate accountant use Qualified Code(s): E11.65 - Type 2 diabetes mellitus with hyperglycemia; Z79.4 - [facility] (current) use of insulin Code(s): E11.65 - Type 2 diabetes mellitus with hyperglycemia Status: Chronic Assessment and Plan: continue to monitor insulin sliding scale as needed (7) Severe protein-calorie malnutrition: Code(s): E43 - Unspecified severe protein-calorie malnutrition Status: Acute Assessment and Plan: dietitian on consult continue to monitor patient calorie intake (8) Acute hypernatremia: Code(s): E87.0 - Hyperosmolality and hypernatremia Status: Acute Assessment and Plan: patient has been refusing blood draws (9) Muscular deconditioning: Code(s): R29.898 - Other symptoms and signs involving the musculoskeletal system Status: Acute Assessment and Plan: likely secondary to immobility has been refusing to work with physical therapy and occupational therapy on multiple occasions (10) Multiple falls: Code(s): R29.6 - Repeated falls Status: Acute Assessment and Plan: no fractures Subjective Date/time seen: 12/30/20 19:52 no overnight evets. she states her right leg does not straighten which has been this way. no other complaints. no fver, chills, doing okay. Review of Systems Review of Systems: All systems reviewed & are unremarkable except as noted in HPI and below ROS unobtainable: Yes unobtainable due to medical condition ( dementia) Exam Narrative: Exam Narrative: Lying in bed in no acute distress Const: General: cooperative, comfortable, no acute distress, well developed, alert, awake, poor hygiene, tired appearing, uncomfortable and other (Chronically ill appearing) Nutritional Appearance: cachectic, thin and underweight Orientation/consciousness: oriented to person, oriented to place and patient oriented x3 HENMT: Head: normal to inspection, normocephalic and atraumatic Ears: hearing grossly normal bilaterally General nose exam: Normal external nose present Face and sinus: normal facial exam Mouth: Yes Normal oral and palatal mucosa present and Yes oropharynx normal Eyes: General: appearance normal, both eyes and all related structures Pupils: Equal, round and reactive pupils present EOM: EOMs intact bilaterally Neck: Neck: full ROM, no lymphadenopathy, supple and no JVD Thyroid: thyroid normal Lymphatic: no lymphadenopathy noted and lymphadenopathy not noted Resp: Effort & Inspection: normal respiratory effort and able to speak in complete sentences Auscultation: clear to auscultation bilaterally Cardio: Jugular venous distension: no JVD Rate: regular rate Rhythm: regular rhythm Heart sounds: S1 normal heart sound pres
[2020-12-30] MEDS: QUEtiapine FUMARATE 25 MG TABLET 50 MG PO (20:36)
[2020-12-30 21:32] LABS: Glucose Point of Care 186 (65-105)
[2020-12-30 22:00] VITALS: BP 139/67; PULSE 93; RESP 18; TEMP 36.9; O2SAT 97
[2020-12-31 05:54] VITALS: BP 122/70; PULSE 89; RESP 18; TEMP 36.7; O2SAT 97
[2020-12-31 07:57] LABS: Glucose Point of Care 177 (65-105)
[2020-12-31] MEDS: MEMANTINE 10 MG TABLET PO ×2 (09:19→20:22)
[2020-12-31] MEDS: TOLNAFTATE 1% POWDER 45 GM BTL 1 APPLIC TOPICAL ×2 (09:19→17:08)
[2020-12-31 11:47] LABS: Glucose Point of Care 234 (65-105)
[2020-12-31] MEDS: INSULIN ASPART (*BKC) 100 UNITS/ML SUB-Q (12:58)
--- NOTE | 2020-12-31 13:45 | PM.IMPN ---
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 Status: Acute Assessment and Plan: patient was started on Namenda and Seroquel supportive care (2) Generalized muscle weakness: Code(s): M62.81 - Muscle weakness (generalized) Status: Acute Assessment and Plan: likely secondary to patient's immobility patient lays in bed all day PT OT on board (3) Inability to walk: Code(s): R26.2 - Difficulty in walking, not elsewhere classified Status: Acute Assessment and Plan: patient with right lower extremity contracture spasticity (4) Ambulatory dysfunction: Code(s): R26.2 - Difficulty in walking, not elsewhere classified Status: Chronic Assessment and Plan: likely secondary to right lower extremity paralysis (5) Self-care deficit: Code(s): Z78.9 - Other specified health status Status: Acute Assessment and Plan: patient is unable to care for herself awaiting for placement (6) Type 2 diabetes mellitus with hyperglycemia: Qualifiers: 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 Qualified Code(s): E11.65 - Type 2 diabetes mellitus with hyperglycemia; Z79.4 - intermediate (current) use of insulin Code(s): E11.65 - Type 2 diabetes mellitus with hyperglycemia Status: Chronic Assessment and Plan: continue to monitor insulin sliding scale as needed (7) Severe protein-calorie malnutrition: Code(s): E43 - Unspecified severe protein-calorie malnutrition Status: Acute Assessment and Plan: dietitian on consult continue to monitor patient calorie intake (8) Acute hypernatremia: Code(s): E87.0 - Hyperosmolality and hypernatremia Status: Acute Assessment and Plan: patient has been refusing blood draws (9) Muscular deconditioning: Code(s): R29.898 - Other symptoms and signs involving the musculoskeletal system Status: Acute Assessment and Plan: likely secondary to immobility has been refusing to work with physical therapy and occupational therapy on multiple occasions (10) Multiple falls: Code(s): R29.6 - Repeated falls Status: Acute Assessment and Plan: no fractures Additional Plan Will continue current plan of care and treatment. Patient family has been contacted and brother is in the process of taking power of collections attorney. Will discussed discharge plan with the power of collections attorney.. Subjective Date/time seen: 12/31/20 13:45 Interval history: Patient was seen during the morning rounds today. No shortness of breath or chest pain. Mood stable. Review of Systems Review of Systems: All systems reviewed & are unremarkable except as noted in HPI and below ROS unobtainable: Yes unobtainable due to medical condition ( dementia) Exam Narrative: Exam Narrative: Lying in bed in no acute distress Const: General: cooperative, comfortable, no acute distress, well developed, alert, awake, poor hygiene, tired appearing, uncomfortable and other (Chronically ill appearing) Nutritional Appearance: cachectic, thin and underweight Orientation/consciousness: oriented to person, oriented to place and patient oriented x3 HENMT: Head: normal to inspection, normocephalic and atraumatic Ears: hearing grossly normal bilaterally General nose exam: Normal external nose present Face and sinus: normal facial exam Mouth: Yes Normal oral and palatal mucosa present and Yes oropharynx normal Eyes: General: appearance normal, both eyes and all related structures Pupils: Equal, round and reactive pupils present EOM: EOMs intact bilaterally Neck: Neck: full ROM, no lymphadenopathy, supple and no JVD Thyroid: thyroid normal Lymphatic: no lymphadenopathy noted and lymphadenopathy not noted Resp: Effort & Inspection: normal respiratory effort and able to sp
[2020-12-31 14:00] VITALS: BP 143/68; PULSE 92; RESP 18; TEMP 36.5; O2SAT 99
--- NOTE | 2020-12-31 15:25 | PCPTNOTE ---
I spent ~ 20 minutes educating patient in the importance of increasing her activity and mobility to improve her self care. At this time patient patient demands assist with bed mobility even though her assist level is SBA - CGA and does not try on her own to improve. Patient also instructed in LE positioning to increase knee extension to decrease muscle contractures in LE but continues to position herself into the side lying position with knees and hips flexed. Patient voices understanding.
[2020-12-31 17:28] LABS: Glucose Point of Care 181 (65-105)
[2020-12-31] MEDS: QUEtiapine FUMARATE 25 MG TABLET 50 MG PO (20:22)
[2020-12-31 21:13] LABS: Glucose Point of Care 245 (65-105)
[2020-12-31 22:00] VITALS: BP 139/64; PULSE 88; RESP 18; TEMP 37.1; O2SAT 100
[2021-01-01 06:00] VITALS: BP 151/81; PULSE 88; RESP 18; TEMP 36.3; O2SAT 100
[2021-01-01] MEDS: MEMANTINE 10 MG TABLET PO ×2 (08:59→20:03)
[2021-01-01] MEDS: ENOXAPARIN 40 MG/0.4 ML SYRINGE SUB-Q (09:02)
[2021-01-01] MEDS: TOLNAFTATE 1% POWDER 45 GM BTL 1 APPLIC TOPICAL ×2 (09:02→18:15)
[2021-01-01 09:44] LABS: Glucose Point of Care 161 (65-105)
[2021-01-01 12:33] LABS: Glucose Point of Care 236 (65-105)
--- NOTE | 2021-01-01 13:04 | PM.IMPN ---
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 Status: Acute Assessment and Plan: patient was started on Namenda and Seroquel supportive care (2) Generalized muscle weakness: Code(s): M62.81 - Muscle weakness (generalized) Status: Acute Assessment and Plan: likely secondary to patient's immobility patient lays in bed all day PT OT on board (3) Inability to walk: Code(s): R26.2 - Difficulty in walking, not elsewhere classified Status: Acute Assessment and Plan: patient with right lower extremity contracture spasticity (4) Ambulatory dysfunction: Code(s): R26.2 - Difficulty in walking, not elsewhere classified Status: Chronic Assessment and Plan: likely secondary to right lower extremity paralysis (5) Self-care deficit: Code(s): Z78.9 - Other specified health status Status: Acute Assessment and Plan: patient is unable to care for herself awaiting for placement (6) Type 2 diabetes mellitus with hyperglycemia: Qualifiers: Diabetes mellitus 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 insulin use: with termite 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 use Qualified Code(s): E11.65 - Type 2 diabetes mellitus with hyperglycemia; Z79.4 - nursing home (current) use of insulin Code(s): E11.65 - Type 2 diabetes mellitus with hyperglycemia Status: Chronic Assessment and Plan: continue to monitor insulin sliding scale as needed (7) Severe protein-calorie malnutrition: Code(s): E43 - Unspecified severe protein-calorie malnutrition Status: Acute Assessment and Plan: dietitian on consult continue to monitor patient calorie intake (8) Acute hypernatremia: Code(s): E87.0 - Hyperosmolality and hypernatremia Status: Acute Assessment and Plan: patient has been refusing blood draws (9) Muscular deconditioning: Code(s): R29.898 - Other symptoms and signs involving the musculoskeletal system Status: Acute Assessment and Plan: likely secondary to immobility has been refusing to work with physical therapy and occupational therapy on multiple occasions (10) Multiple falls: Code(s): R29.6 - Repeated falls Status: Acute Assessment and Plan: no fractures Additional Plan Will continue current plan of care and treatment. Patient had to go to rehab. rental manager working on arrangement for possible transfer to rehab when bed available. Subjective Date/time seen: 01/01/21 13:04 Interval history: Patient was seen during the morning rounds today. No shortness of breath or chest pain. Mood stable. Walk with the help of physical therapy. No new complaints Review of Systems Review of Systems: All systems reviewed & are unremarkable except as noted in HPI and below (the history and physical) Exam Narrative: Exam Narrative: Lying in bed in no acute distress Const: General: cooperative, comfortable, no acute distress, well developed, alert, awake, poor hygiene, tired appearing, uncomfortable and other (Chronically ill appearing) Nutritional Appearance: cachectic, thin and underweight Orientation/consciousness: oriented to person, oriented to place and patient oriented x3 HENMT: Head: normal to inspection, normocephalic and atraumatic Ears: hearing grossly normal bilaterally General nose exam: Normal external nose present Face and sinus: normal facial exam Mouth: Yes Normal oral and palatal mucosa present and Yes oropharynx normal Eyes: General: appearance normal, both eyes and all related structures Pupils: Equal, round and reactive pupils present EOM: EOMs intact bilaterally Neck: Neck: full ROM, no lymphadenopathy, supple and no JVD Thyroid: thyroid normal Lymphatic: no lymphadenopathy noted and lymphadenopathy not noted Resp: Effort & Inspection: normal respiratory effort and able to speak in complete sentenc
[2021-01-01] MEDS: INSULIN ASPART (*BKC) 100 UNITS/ML SUB-Q (13:14)
[2021-01-01 14:00] VITALS: BP 144/66; PULSE 96; RESP 16; TEMP 36.2; O2SAT 98
[2021-01-01] MEDS: QUEtiapine FUMARATE 25 MG TABLET 50 MG PO (20:04)
[2021-01-01 21:11] LABS: Glucose Point of Care 250 (65-105)
[2021-01-01 22:00] VITALS: BP 165/79; PULSE 89; RESP 18; TEMP 36.2; O2SAT 100
[2021-01-02 00:35] LABS: Glucose Point of Care 198 (65-105)
[2021-01-02 01:43] LABS: SARS-CoV-2 RNA PCR Negative
[2021-01-02 06:00] VITALS: BP 141/71; PULSE 88; RESP 16; TEMP 36.1; O2SAT 99
[2021-01-02 08:39] LABS: Glucose Point of Care 181 (65-105)
[2021-01-02] MEDS: MEMANTINE 10 MG TABLET PO ×2 (09:40→20:31)
[2021-01-02] MEDS: ENOXAPARIN 40 MG/0.4 ML SYRINGE SUB-Q (09:40)
[2021-01-02] MEDS: TOLNAFTATE 1% POWDER 45 GM BTL 1 APPLIC TOPICAL (09:41)
[2021-01-02 09:45] VITALS: O2SAT 99
[2021-01-02 11:37] LABS: Glucose Point of Care 248 (65-105)
[2021-01-02] MEDS: INSULIN ASPART (*BKC) 100 UNITS/ML SUB-Q ×2 (11:37→16:32)
[2021-01-02 14:00] VITALS: BP 130/61; PULSE 69; RESP 16; TEMP 36.2; O2SAT 100
--- NOTE | 2021-01-02 14:25 | PM.IMPN ---
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 Status: Acute Assessment and Plan: patient was started on Namenda and Seroquel supportive care (2) Generalized muscle weakness: Code(s): M62.81 - Muscle weakness (generalized) Status: Acute Assessment and Plan: likely secondary to patient's immobility patient lays in bed all day PT OT on board (3) Inability to walk: Code(s): R26.2 - Difficulty in walking, not elsewhere classified Status: Acute Assessment and Plan: patient with right lower extremity contracture spasticity (4) Ambulatory dysfunction: Code(s): R26.2 - Difficulty in walking, not elsewhere classified Status: Chronic Assessment and Plan: likely secondary to right lower extremity paralysis (5) Self-care deficit: Code(s): Z78.9 - Other specified health status Status: Acute Assessment and Plan: patient is unable to care for herself awaiting for placement (6) Type 2 diabetes mellitus with hyperglycemia: Qualifiers: 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 insulin 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: with equipment operator intermodal yard use Qualified Code(s): E11.65 - Type 2 diabetes mellitus with hyperglycemia; Z79.4 - [facility] (current) use of insulin Code(s): E11.65 - Type 2 diabetes mellitus with hyperglycemia Status: Chronic Assessment and Plan: continue to monitor insulin sliding scale as needed (7) Severe protein-calorie malnutrition: Code(s): E43 - Unspecified severe protein-calorie malnutrition Status: Acute Assessment and Plan: dietitian on consult continue to monitor patient calorie intake (8) Acute hypernatremia: Code(s): E87.0 - Hyperosmolality and hypernatremia Status: Acute Assessment and Plan: patient has been refusing blood draws (9) Muscular deconditioning: Code(s): R29.898 - Other symptoms and signs involving the musculoskeletal system Status: Acute Assessment and Plan: likely secondary to immobility has been refusing to work with physical therapy and occupational therapy on multiple occasions (10) Multiple falls: Code(s): R29.6 - Repeated falls Status: Acute Assessment and Plan: no fractures Additional Plan Will continue current plan of care and treatment. Patient had to go to rehab. resident care manager working on arrangement for possible transfer to rehab when bed available. Subjective Date/time seen: 01/02/21 14:25 Interval history: no overnight evnets, pateint rpeorts no active issues. no sob, chest pain. awaitign placement. Review of Systems Review of Systems: All systems reviewed & are unremarkable except as noted in HPI and below (the history and physical) ROS unobtainable: Yes unobtainable due to medical condition ( dementia) Exam Narrative: Exam Narrative: Lying in bed in no acute distress Const: General: cooperative, comfortable, no acute distress, well developed, alert, awake, poor hygiene, tired appearing, uncomfortable and other (Chronically ill appearing) Nutritional Appearance: cachectic, thin and underweight Orientation/consciousness: oriented to person, oriented to place and patient oriented x3 HENMT: Head: normal to inspection, normocephalic and atraumatic Ears: hearing grossly normal bilaterally General nose exam: Normal external nose present Face and sinus: normal facial exam Mouth: Yes Normal oral and palatal mucosa present and Yes oropharynx normal Eyes: General: appearance normal, both eyes and all related structures Pupils: Equal, round and reactive pupils present EOM: EOMs intact bilaterally Neck: Neck: full ROM, no lymphadenopathy, supple and no JVD Thyroid: thyroid normal Lymphatic: no lymphadenopathy noted and lymphadenopathy not noted Resp: Effort & Inspection: normal respiratory effort and able to speak in complete s
[2021-01-02 16:42] LABS: Glucose Point of Care 222 (65-105)
[2021-01-02 20:00] VITALS: PULSE 93; RESP 18; O2SAT 99
[2021-01-02] MEDS: QUEtiapine FUMARATE 25 MG TABLET 50 MG PO (20:31)
[2021-01-02 21:57] LABS: Glucose Point of Care 213 (65-105)
[2021-01-02 21:58] VITALS: BP 112/61; PULSE 93; RESP 18; TEMP 37.1; O2SAT 99
[2021-01-03 05:45] VITALS: BP 143/77; PULSE 85; RESP 18; TEMP 36.7; O2SAT 100
[2021-01-03] MEDS: ENOXAPARIN 40 MG/0.4 ML SYRINGE SUB-Q (07:59)
[2021-01-03] MEDS: TOLNAFTATE 1% POWDER 45 GM BTL 1 APPLIC TOPICAL (07:59)
[2021-01-03] MEDS: MEMANTINE 10 MG TABLET PO ×2 (07:59→20:17)
[2021-01-03 08:04] LABS: Glucose Point of Care 170 (65-105)
--- NOTE | 2021-01-03 11:15 | PM.IMPN ---
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 Status: Acute Assessment and Plan: patient was started on Namenda and Seroquel supportive care (2) Generalized muscle weakness: Code(s): M62.81 - Muscle weakness (generalized) Status: Acute Assessment and Plan: likely secondary to patient's immobility patient lays in bed all day PT OT on board (3) Inability to walk: Code(s): R26.2 - Difficulty in walking, not elsewhere classified Status: Acute Assessment and Plan: patient with right lower extremity contracture spasticity (4) Ambulatory dysfunction: Code(s): R26.2 - Difficulty in walking, not elsewhere classified Status: Chronic Assessment and Plan: likely secondary to right lower extremity paralysis (5) Self-care deficit: Code(s): Z78.9 - Other specified health status Status: Acute Assessment and Plan: patient is unable to care for herself awaiting for placement (6) Type 2 diabetes mellitus with hyperglycemia: Qualifiers: 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 insulin 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: with family consumer science teacher use Qualified Code(s): E11.65 - Type 2 diabetes mellitus with hyperglycemia; Z79.4 - [facility] (current) use of insulin Code(s): E11.65 - Type 2 diabetes mellitus with hyperglycemia Status: Chronic Assessment and Plan: continue to monitor insulin sliding scale as needed (7) Severe protein-calorie malnutrition: Code(s): E43 - Unspecified severe protein-calorie malnutrition Status: Acute Assessment and Plan: dietitian on consult continue to monitor patient calorie intake (8) Acute hypernatremia: Code(s): E87.0 - Hyperosmolality and hypernatremia Status: Acute Assessment and Plan: patient has been refusing blood draws (9) Muscular deconditioning: Code(s): R29.898 - Other symptoms and signs involving the musculoskeletal system Status: Acute Assessment and Plan: likely secondary to immobility has been refusing to work with physical therapy and occupational therapy on multiple occasions (10) Multiple falls: Code(s): R29.6 - Repeated falls Status: Acute Assessment and Plan: no fractures Additional Plan Will continue current plan of care and treatment. Patient had to go to rehab. security and compliance project manager working on arrangement for possible transfer to rehab when bed available. Subjective Date/time seen: 01/03/21 11:15 Review of Systems Review of Systems: All systems reviewed & are unremarkable except as noted in HPI and below (the history and physical) ROS unobtainable: Yes unobtainable due to medical condition ( dementia) Exam Narrative: Exam Narrative: Lying in bed in no acute distress Const: General: cooperative, comfortable, no acute distress, well developed, alert, awake, poor hygiene, tired appearing, uncomfortable and other (Chronically ill appearing) Nutritional Appearance: cachectic, thin and underweight Orientation/consciousness: oriented to person, oriented to place and patient oriented x3 HENMT: Head: normal to inspection, normocephalic and atraumatic Ears: hearing grossly normal bilaterally General nose exam: Normal external nose present Face and sinus: normal facial exam Mouth: Yes Normal oral and palatal mucosa present and Yes oropharynx normal Eyes: General: appearance normal, both eyes and all related structures Pupils: Equal, round and reactive pupils present EOM: EOMs intact bilaterally Neck: Neck: full ROM, no lymphadenopathy, supple and no JVD Thyroid: thyroid normal Lymphatic: no lymphadenopathy noted and lymphadenopathy not noted Resp: Effort & Inspection: normal respiratory effort and able to speak in complete sentences Auscultation: clear to auscultation bilaterally Cardio: Jugular venous distension: no JVD Rate: regular
--- NOTE | 2021-01-03 11:19 | PCOTNOTE ---
Patient declined treatment this date due to fatigue.
[2021-01-03] MEDS: INSULIN ASPART (*BKC) 100 UNITS/ML SUB-Q ×2 (12:09→17:23)
[2021-01-03 12:27] LABS: Glucose Point of Care 215 (65-105)
[2021-01-03 14:00] VITALS: BP 142/72; PULSE 93; RESP 16; TEMP 36.6; O2SAT 97
[2021-01-03 17:30] LABS: Glucose Point of Care 226 (65-105)
[2021-01-03] MEDS: QUEtiapine FUMARATE 25 MG TABLET 50 MG PO (20:17)
[2021-01-03 20:58] LABS: Glucose Point of Care 253 (65-105)
[2021-01-03 22:00] VITALS: BP 140/73; PULSE 86; RESP 16; TEMP 36.8; O2SAT 100
[2021-01-04 06:00] VITALS: BP 138/66; PULSE 91; RESP 18; TEMP 36.8; O2SAT 99
[2021-01-04 08:02] LABS: Glucose Point of Care 258 (65-105)
[2021-01-04] MEDS: INSULIN ASPART (*BKC) 100 UNITS/ML SUB-Q ×2 (08:22→12:11)
[2021-01-04] MEDS: MEMANTINE 10 MG TABLET PO ×2 (08:24→20:28)
[2021-01-04] MEDS: TOLNAFTATE 1% POWDER 45 GM BTL 1 APPLIC TOPICAL ×2 (08:24→17:41)
[2021-01-04] MEDS: ENOXAPARIN 40 MG/0.4 ML SYRINGE SUB-Q (08:24)
[2021-01-04 12:32] LABS: Glucose Point of Care 245 (65-105)
--- NOTE | 2021-01-04 12:56 | PCNFU ---
Nutrition Follow-Up Complete: Inadequate oral intake related to generalized weakness as evidenced by consult for malnutrition. Goal:Patient to continue consuming 75% or more of meals on current diet order. Patient has met current goal. No new goal. Pt current nutrition is [facility]. Last recorded weight is 55.3 kg, asked for re-weight today. Bowel Motility:+BM reported 12/31 Labs Reviewed:no new labs to report. POC Glucose 245 Meds Noted:Namenda,Seroquel,NovoLog Additional Notes: Nutrition follow up. Patient remains on a diabetic consistent carb diet. Patient blood sugar have been elevated. She has been ordering multiple cranberry juices and fruit for meals, not exceeding her 60 gms per meal from Dietary. Patient has been offered a variety of different foods, she refuses to order anything different. Variety of foods are encouraged. PO intake remains good, 100% of meals. Monitor patients labs, medications, weight, and oral intake every 7 days.
[2021-01-04 14:00] VITALS: BP 129/66; PULSE 100; RESP 16; TEMP 36.2; O2SAT 100
--- NOTE | 2021-01-04 14:29 | PM.IMPN ---
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 (2) Generalized muscle weakness: Code(s): M62.81 - Muscle weakness (generalized) Status: Acute Assessment and Plan: Patient is participating with physical therapy in therapy session at time of my visit (3) Ambulatory dysfunction: Code(s): R26.2 - Difficulty in walking, not elsewhere classified Status: Chronic Assessment and Plan: right lower extremity paralysis Continue PT OT (4) Self-care deficit: Code(s): Z78.9 - Other specified health status Status: Acute Assessment and Plan: likely secondary to dementia Awaiting placement (5) Type 2 diabetes mellitus with hyperglycemia: Qualifiers: Diabetes mellitus prison insulin use: with prison use Qualified Code(s): E11.65 - Type 2 diabetes mellitus with hyperglycemia; 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 Code(s): E11.65 - Type 2 diabetes mellitus with hyperglycemia Status: Chronic Assessment and Plan: Holding metformin due to weight loss could contribute to it Insulin sliding scale as needed (6) Severe protein-calorie malnutrition: Code(s): E43 - Unspecified severe protein-calorie malnutrition Status: Acute Assessment and Plan: DIETITIAN CONSULTED (7) Acute hypernatremia: Code(s): E87.0 - Hyperosmolality and hypernatremia Status: Acute Assessment and Plan: Resolved (8) Muscular deconditioning: Code(s): R29.898 - Other symptoms and signs involving the musculoskeletal system Status: Acute Assessment and Plan: Likely secondary to immobility Patient lays in bed all day PT OT (9) Multiple falls: Code(s): R29.6 - Repeated falls Status: Acute Assessment and Plan: Fall precaution Subjective Date/time seen: 01/04/21 14:29 I am fine Review of Systems Review of Systems: Narrative: No new issues Constitutional: Comments: No fevers no rigors no chills Cardiovascular: Comments: No PND nor orthopnea no leg swelling Respiratory: Comments: No shortness of breath no cough no sputum production Gastrointestinal: Comments: No nausea no vomiting no diarrhea Genitourinary: Comments: No pain or burning with urination Musculoskeletal: Comments: Right lower extremity paralysis Integumentary/Breasts: Comments: No rash Neurologic: Comments: right lower extremity paresis Exam Const: General: comfortable, no acute distress, well developed, alert and awake Nutritional Appearance: underweight Orientation/consciousness: patient oriented x3 HENMT: Head: normal to inspection, normocephalic and atraumatic Ears: hearing grossly normal bilaterally Face and sinus: normal facial exam Eyes: General: appearance normal, both eyes and all related structures Pupils: Equal, round and reactive pupils present EOM: EOMs intact bilaterally Neck: Neck: full ROM, no lymphadenopathy and no JVD Thyroid: thyroid normal Lymphatic: no lymphadenopathy noted Resp: Effort & Inspection: normal respiratory effort and able to speak in complete sentences Auscultation: clear to auscultation bilaterally Cardio: Jugular venous distension: no JVD Rate: regular rate Rhythm: regular rhythm Heart sounds: S1 normal heart sound present and S2 normal heart sound present GI: GI Palp: Yes Soft to palpation and Yes No hepatosplenomegaly present : General: Yes deferred Skin: Rashes: no rashes Wounds: no wounds Neuro: General: oriented to person, oriented to place and CN's II-XI intact bilaterally Cranial nerves: Yes CN's II-XII intact bilaterally and Yes Equal, round and reactive pupils present Cognition (Neuro): normal cog
[2021-01-04 17:43] LABS: Glucose Point of Care 157 (65-105)
[2021-01-04] MEDS: QUEtiapine FUMARATE 25 MG TABLET 50 MG PO (20:28)
[2021-01-04 20:37] LABS: Glucose Point of Care 215 (65-105)
[2021-01-04 22:00] VITALS: BP 145/83; PULSE 85; RESP 16; TEMP 37.3; O2SAT 90
[2021-01-05 06:00] VITALS: BP 132/62; PULSE 96; RESP 16; TEMP 37.2; O2SAT 99
[2021-01-05 08:28] LABS: Glucose Point of Care 161 (65-105)
[2021-01-05] MEDS: ENOXAPARIN 40 MG/0.4 ML SYRINGE SUB-Q (09:08)
[2021-01-05] MEDS: MEMANTINE 10 MG TABLET PO ×2 (09:08→20:22)
[2021-01-05] MEDS: INSULIN ASPART (*BKC) 100 UNITS/ML SUB-Q ×2 (11:56→16:32)
[2021-01-05 11:59] LABS: Glucose Point of Care 206 (65-105)
[2021-01-05 13:57] VITALS: BP 120/54; PULSE 91; RESP 18; TEMP 36.4; O2SAT 99
--- NOTE | 2021-01-05 14:04 | PM.IMPN ---
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 Status: Acute Assessment and Plan: patient was started on Namenda and Seroquel supportive care (2) Generalized muscle weakness: Code(s): M62.81 - Muscle weakness (generalized) Status: Acute Assessment and Plan: patient has been participating with PT OT in therapy session (3) Inability to walk: Code(s): R26.2 - Difficulty in walking, not elsewhere classified Status: Acute Assessment and Plan: patient with right lower extremity paralysis and contracture spasticity (4) Ambulatory dysfunction: Code(s): R26.2 - Difficulty in walking, not elsewhere classified Status: Chronic Assessment and Plan: likely secondary to right lower extremity paralysis (5) Self-care deficit: Code(s): Z78.9 - Other specified health status Status: Acute Assessment and Plan: patient is awaiting placement (6) Severe protein-calorie malnutrition: Code(s): E43 - Unspecified severe protein-calorie malnutrition Status: Acute Assessment and Plan: continue to assess her patient calorie intake (7) Acute hypernatremia: Code(s): E87.0 - Hyperosmolality and hypernatremia Status: Acute Assessment and Plan: resolved (8) Muscular deconditioning: Code(s): R29.898 - Other symptoms and signs involving the musculoskeletal system Status: Acute Assessment and Plan: continue PT OT (9) GERD (gastroesophageal reflux disease): Qualifiers: Esophagitis presence: esophagitis presence not specified Qualified Code(s): K21.9 - Gastro-esophageal reflux disease without esophagitis Code(s): K21.9 - Gastro-esophageal reflux disease without esophagitis Status: Chronic Assessment and Plan: stable (10) Insulin dependent type 2 diabetes mellitus: Onset Date: Unknown Code(s): E11.9 - Type 2 diabetes mellitus without complications; Z79.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 Status: Chronic Assessment and Plan: continue to monitor Accu-Cheks AC and HS (11) HTN (hypertension) with goal to be determined: Code(s): I10 - Essential (primary) hypertension Status: Acute Assessment and Plan: continue to monitor continue captopril Subjective Date/time seen: 01/05/21 14:04 I am fine Review of Systems Review of Systems: Narrative: patient states that she is fine no new issues Exam Narrative: Exam Narrative: laying in bed Const: General: comfortable, no acute distress, well developed, alert and awake Nutritional Appearance: cachectic Orientation/consciousness: oriented to person and oriented to place HENMT: Head: normal to inspection, normocephalic and atraumatic Ears: hearing grossly normal bilaterally Face and sinus: normal facial exam Eyes: General: appearance normal, both eyes and all related structures Pupils: Equal, round and reactive pupils present EOM: EOMs intact bilaterally Neck: Neck: full ROM, no lymphadenopathy and no JVD Thyroid: thyroid normal Lymphatic: no lymphadenopathy noted Resp: Effort & Inspection: normal respiratory effort and able to speak in complete sentences Auscultation: clear to auscultation bilaterally Cardio: Jugular venous distension: no JVD Rate: regular rate Rhythm: regular rhythm Heart sounds: S1 normal heart sound present and S2 normal heart sound present GI: GI Palp: Yes Soft to palpation and Yes No hepatosplenomegaly present : General: Yes deferred Skin: Rashes: no rashes Wounds: no wounds Neuro: General: oriented to person, oriented to place and CN's II-XI intact bilaterally Cranial nerves: Yes CN's II-XII intact bilaterally and Yes Equal, round and reactive pupils present Cognition (Neuro): normal cognition Speech: normal speech Gait exam (Neuro): Britt
[2021-01-05 16:34] LABS: Glucose Point of Care 211 (65-105)
[2021-01-05] MEDS: QUEtiapine FUMARATE 25 MG TABLET 50 MG PO (20:22)
[2021-01-05 22:00] VITALS: BP 130/63; PULSE 83; RESP 16; TEMP 36.1; O2SAT 97
[2021-01-05 22:29] LABS: Glucose Point of Care 189 (65-105)
[2021-01-06 06:00] VITALS: BP 124/74; PULSE 78; RESP 16; TEMP 37.1; O2SAT 98
[2021-01-06 08:01] LABS: Glucose Point of Care 170 (65-105)
[2021-01-06] MEDS: MEMANTINE 10 MG TABLET PO (11:36)
[2021-01-06] MEDS: ENOXAPARIN 40 MG/0.4 ML SYRINGE SUB-Q (11:36)
[2021-01-06 12:15] LABS: Glucose Point of Care 225 (65-105)
[2021-01-06] MEDS: INSULIN ASPART (*BKC) 100 UNITS/ML SUB-Q (14:15)
--- NOTE | 2021-01-06 16:07 | PM.IMPN ---
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 Status: Acute Assessment and Plan: Patient was started on Seroquel and Namenda (2) Generalized muscle weakness: Code(s): M62.81 - Muscle weakness (generalized) Status: Acute Assessment and Plan: Has been participating with PT OT therapy sessions (3) Inability to walk: Code(s): R26.2 - Difficulty in walking, not elsewhere classified Status: Acute Assessment and Plan: Patient has right lower extremity paralysis secondary to old stroke (4) Ambulatory dysfunction: Code(s): R26.2 - Difficulty in walking, not elsewhere classified Status: Chronic Assessment and Plan: Secondary to right lower extremity paralysis (5) Self-care deficit: Code(s): Z78.9 - Other specified health status Status: Acute Assessment and Plan: Patient is unable to care for herself due to her dementia (6) Acute hypernatremia: Code(s): E87.0 - Hyperosmolality and hypernatremia Status: Acute Assessment and Plan: Resolved Patient has been declining blood draws (7) GERD (gastroesophageal reflux disease): Qualifiers: Esophagitis presence: esophagitis presence not specified Qualified Code(s): K21.9 - Gastro-esophageal reflux disease without esophagitis Code(s): K21.9 - Gastro-esophageal reflux disease without esophagitis Status: Chronic Assessment and Plan: Stable PPI as needed (8) Severe protein-calorie malnutrition: Code(s): E43 - Unspecified severe protein-calorie malnutrition Status: Acute Assessment and Plan: Continue to monitor patient intake Subjective Date/time seen: 01/06/21 16:07 Patient states that she is fine Review of Systems Review of Systems: Narrative: Patient denies any issues currently Exam Narrative: Exam Narrative: Patient laying in bed Const: General: comfortable, no acute distress, well developed and other (Chronically) Nutritional Appearance: average body habitus and cachectic Orientation/consciousness: oriented to person and oriented to place HENMT: Head: normal to inspection, normocephalic and atraumatic Ears: hearing grossly normal bilaterally Face and sinus: normal facial exam Eyes: General: appearance normal, both eyes and all related structures Pupils: Equal, round and reactive pupils present EOM: EOMs intact bilaterally Neck: Neck: full ROM, no lymphadenopathy and no JVD Thyroid: thyroid normal Lymphatic: no lymphadenopathy noted Resp: Effort & Inspection: normal respiratory effort and able to speak in complete sentences Auscultation: clear to auscultation bilaterally Cardio: Jugular venous distension: no JVD Rate: regular rate Rhythm: regular rhythm Heart sounds: S1 normal heart sound present and S2 normal heart sound present GI: GI Palp: Yes Soft to palpation and Yes No hepatosplenomegaly present : General: Yes deferred Skin: Rashes: no rashes Wounds: no wounds Neuro: General: oriented to person and CN's II-XI intact bilaterally Cranial nerves: Yes CN's II-XII intact bilaterally and Yes Equal, round and reactive pupils present Cognition (Neuro): normal cognition Speech: normal speech Gait exam (Neuro): Normal gait present Motor exam (neuro): Abnormal muscle tone present (Right lower extremity paralysis) Extrem: General: no joint enlargement, no pedal edema and other (Right lower extremity contracture spasticity) Objective Data Vital Signs Vital Signs: Vital Signs - 24 hr 01/05/21 22:00 01/06/21 06:00 Temperature 97 F L 98.7 F Pulse Rate 83 78 Respiratory Rate 16 16 Blood Pressure 130/63 124/74 Pulse Oximetry 97 98 Intake/Output Intake/Output: Intake & Output 01/03/21 01/04/21 01/05/21 01/06/21 23:59 23:59 23:59 23:59 Intake Total 820 840 980 360 Balance 820 840 980 360 Meds/Results M
[2021-01-06 17:47] LABS: Glucose Point of Care 299 (65-105)
[2021-01-06 21:37] VITALS: BP 141/67; PULSE 95; RESP 20; TEMP 36.4; O2SAT 99
--- NOTE | 2021-01-07 04:10 | PC.NURSE ---
Patient refused medications and cares from about [id number] because she wouldn't get cranberry juice which had been denied to her since day shift. She had been repeatedly told she would not be given sugary drinks and that she could have a low sugar alternative. She refused alternative drinks, medications, and cares until calling for help with repositioning sometime near midnight.
[2021-01-07 06:00] VITALS: BP 140/80; PULSE 87; RESP 20; TEMP 36.4; O2SAT 100
[2021-01-07 07:40] LABS: Glucose Point of Care 176 (65-105)
[2021-01-07] MEDS: ENOXAPARIN 40 MG/0.4 ML SYRINGE SUB-Q (08:09)
[2021-01-07] MEDS: MEMANTINE 10 MG TABLET PO ×2 (08:09→20:23)
[2021-01-07] MEDS: TOLNAFTATE 1% POWDER 45 GM BTL 1 APPLIC TOPICAL ×2 (08:10→16:41)
[2021-01-07 11:34] LABS: Glucose Point of Care 223 (65-105)
[2021-01-07] MEDS: INSULIN ASPART (*BKC) 100 UNITS/ML SUB-Q ×2 (12:03→16:37)
[2021-01-07 14:00] VITALS: BP 111/51; PULSE 94; RESP 18; TEMP 36.6; O2SAT 99
--- NOTE | 2021-01-07 15:52 | PM.IMPN ---
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 Status: Acute Assessment and Plan: started Namenda and Seroquel supportive care continue to monitor (2) Generalized muscle weakness: Code(s): M62.81 - Muscle weakness (generalized) Status: Acute Assessment and Plan: PT OT the patient has been refusing to work with PT OT continue to monitor likely secondary to lack of exercise (3) Inability to walk: Code(s): R26.2 - Difficulty in walking, not elsewhere classified Status: Acute Assessment and Plan: patient with right lower extremity paralysis secondary to old stroke continue PT OT (4) Ambulatory dysfunction: Code(s): R26.2 - Difficulty in walking, not elsewhere classified Status: Chronic Assessment and Plan: likely secondary to right lower extremity paralysis also contracture spasticity PT OT (5) Self-care deficit: Code(s): Z78.9 - Other specified health status Status: Acute Assessment and Plan: there has been a request for guardianship for the patient to make healthcare surrogate decision making view the patient is unable to care for herself as evidenced by her multiple admissions to the Hospital and after discharge care has been demonstrated patient's inability to care for self (6) Type 2 diabetes mellitus with hyperglycemia: Qualifiers: Diabetes mellitus shelter insulin use: with shelter use Qualified Code(s): E11.65 - Type 2 diabetes mellitus with hyperglycemia; Z79.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 of 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 Code(s): E11.65 - Type 2 diabetes mellitus with hyperglycemia Status: Chronic Assessment and Plan: continue to monitor Accu-Cheks AC and HS insulin sliding scale as needed (7) Severe protein-calorie malnutrition: Code(s): E43 - Unspecified severe protein-calorie malnutrition Status: Acute Assessment and Plan: likely patient was not eating due to lack of self ability secondary to underlying dementia and incapable of self provision (8) GERD (gastroesophageal reflux disease): Qualifiers: Esophagitis presence: esophagitis presence not specified Qualified Code(s): K21.9 - Gastro-esophageal reflux disease without esophagitis Code(s): K21.9 - Gastro-esophageal reflux disease without esophagitis Status: Chronic Assessment and Plan: continue to monitor appears to be a stable patient has not complained of pain Subjective Date/time seen: 01/07/21 15:52 I am fine Review of Systems Review of Systems: Narrative: ROS unobtainable: Yes unobtainable due to medical condition ( secondary to dementia) Exam Narrative: Exam Narrative: patient is laying in bed Const: General: comfortable, no acute distress, well developed, alert and awake Nutritional Appearance: average body habitus Orientation/consciousness: patient oriented x3 HENMT: Head: normal to inspection, normocephalic and atraumatic Ears: hearing grossly normal bilaterally Face and sinus: normal facial exam Eyes: General: appearance normal, both eyes and all related structures Pupils: Equal, round and reactive pupils present EOM: EOMs intact bilaterally Neck: Neck: full ROM, no lymphadenopathy and no JVD Thyroid: thyroid normal Lymphatic: no lymphadenopathy noted Resp: Effort & Inspection: normal respiratory effort and able to speak in complete sentences Auscultation: clear to auscultation bilaterally Cardio: Jugular venous distension: no JVD Rate: regular rate Rhythm: regular rhythm Heart sounds: S1 normal heart sound present and S2 normal heart sound present GI: GI Palp: Yes Soft to palpation and Yes No hepatosplenomegaly present : General: Yes deferred Skin: Rashes: no rashes Wounds: no wounds Neuro: General: patient oriented x3 and CN's II-XI intact bilate
[2021-01-07 16:30] LABS: Glucose Point of Care 204 (65-105)
[2021-01-07] MEDS: QUEtiapine FUMARATE 25 MG TABLET 50 MG PO (20:23)
[2021-01-07 21:52] LABS: Glucose Point of Care 242 (65-105)
[2021-01-07 22:00] VITALS: BP 129/76; PULSE 89; RESP 18; TEMP 37.1; O2SAT 100
[2021-01-08 06:00] VITALS: BP 125/61; PULSE 91; RESP 20; TEMP 36.8; O2SAT 98
[2021-01-08] MEDS: MEMANTINE 10 MG TABLET PO ×2 (08:04→20:10)
[2021-01-08] MEDS: INSULIN ASPART (*BKC) 100 UNITS/ML SUB-Q ×2 (08:05→17:12)
[2021-01-08] MEDS: ENOXAPARIN 40 MG/0.4 ML SYRINGE SUB-Q (08:05)
[2021-01-08] MEDS: TOLNAFTATE 1% POWDER 45 GM BTL 1 APPLIC TOPICAL ×2 (08:06→17:01)
[2021-01-08 08:16] LABS: Glucose Point of Care 202 (65-105)
[2021-01-08 12:06] LABS: Glucose Point of Care 175 (65-105)
--- NOTE | 2021-01-08 12:58 | PCNFU ---
Nutrition Follow-Up Complete: Inadequate oral intake related to generalized weakness as evidenced by consult for malnutrition. Goal: Patient to continue consuming 75% or more of meals on current diet order. Patient has met current goal. No new goal. Pt current nutrition is DBCC. Last recorded weight is 55.3 kg, asked SAMPLE SHOE INSPECTOR AND REWORKER for new weight (re-weight showing 51.3 kg, down 8 ibs per bed scale) Bowel Motility:+BM reported 01/07 Labs Reviewed:POC 175 Meds Noted:NovoLog,Lovenox,Seroquel,Namenda. Additional Notes: Nutrition follow up. Patient remains on a diabetic consistent carb diet. Intake remains good, at least 75% of meals. Patient continues to ask for multiple cranberry juices. Nursing/Dietary have discussed limiting juice intake due to elevated blood sugars. Lunch order today: beef stir dooley, 1 cranberry juice and sherbert. Agree with diet orders. Monitor patients labs, medications, weight, and oral intake every 7 days.
[2021-01-08 14:00] VITALS: BP 131/67; PULSE 100; RESP 16; TEMP 36.2; O2SAT 100
--- NOTE | 2021-01-08 17:08 | PM.IMPN ---
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 Status: Acute Assessment and Plan: patient was started on Namenda and Seroquel guardianship has been requested to make patient's healthcare decisions (2) Generalized muscle weakness: Code(s): M62.81 - Muscle weakness (generalized) Status: Acute Assessment and Plan: patient has been declining physical therapy and occupational therapy (3) Inability to walk: Code(s): R26.2 - Difficulty in walking, not elsewhere classified Status: Acute Assessment and Plan: right lower extremity paralysis supportive care fall precautions (4) Self-care deficit: Code(s): Z78.9 - Other specified health status Status: Acute Assessment and Plan: secondary to dementia (5) Type 2 diabetes mellitus with hyperglycemia: Qualifiers: Diabetes mellitus detention insulin use: with termite helper use Qualified Code(s): E11.65 - Type 2 diabetes mellitus with hyperglycemia; Z79.4 - technician terminal and repeater (current) use of insulin Code(s): E11.65 - Type 2 diabetes mellitus with hyperglycemia Status: Chronic Assessment and Plan: continue 1800 calorie diet restriction (6) Severe protein-calorie malnutrition: Code(s): E43 - Unspecified severe protein-calorie malnutrition Status: Acute Assessment and Plan: likely secondary to poor oral intake while the patient was living by herself continue to monitor patient's intake has been eating all her meals (7) Acute hypernatremia: Code(s): E87.0 - Hyperosmolality and hypernatremia Status: Acute Assessment and Plan: resolved patient has been declining blood draws Subjective Date/time seen: 01/08/21 17:08 patient states that she is fine Review of Systems Review of Systems: Narrative: patient denies any issues at this time Exam Narrative: Exam Narrative: patient is laying in bed Const: General: comfortable, no acute distress, well developed, alert and awake Nutritional Appearance: cachectic Orientation/consciousness: oriented to person and oriented to place HENMT: Head: normal to inspection, normocephalic and atraumatic Ears: hearing grossly normal bilaterally Face and sinus: normal facial exam Eyes: General: appearance normal, both eyes and all related structures Pupils: Equal, round and reactive pupils present EOM: EOMs intact bilaterally Neck: Neck: full ROM, no lymphadenopathy and no JVD Thyroid: thyroid normal Lymphatic: no lymphadenopathy noted Resp: Effort & Inspection: normal respiratory effort and able to speak in complete sentences Auscultation: clear to auscultation bilaterally Cardio: Jugular venous distension: no JVD Rate: regular rate Rhythm: regular rhythm Heart sounds: S1 normal heart sound present and S2 normal heart sound present GI: GI Palp: Yes Soft to palpation and Yes No hepatosplenomegaly present : General: Yes deferred Skin: Rashes: no rashes Wounds: no wounds Neuro: General: oriented to person, oriented to place and CN's II-XI intact bilaterally Cranial nerves: Yes CN's II-XII intact bilaterally and Yes Equal, round and reactive pupils present Cognition (Neuro): normal cognition Speech: normal speech Gait exam (Neuro): Unable to assess gait Motor exam (neuro): Other motor observations present ( right lower extremity paralysis) Extrem: General: full ROM, no joint enlargement, no pedal edema and other ( right lower extremity contracture spasticity) Objective Data Vital Signs Vital Signs: Vital Signs - 24 hr 01/07/21 22:00 01/08/21 06:00 01/08/21 14:00 Temperature 98.8 F 98.3 F 97.1 F L Pulse Rate 89 91 100 Respiratory Rate 18 20 16 Blood Pressure 129/76 125/61 131/67 Pulse Oximetry 100 98 100 Intake/Output Intake/Output: Intake & Output 01/05/21 01/06/21 01/07/21 01/08/21 23:59 23:59
[2021-01-08 17:54] LABS: Glucose Point of Care 205 (65-105)
[2021-01-08] MEDS: QUEtiapine FUMARATE 25 MG TABLET 50 MG PO (20:10)
[2021-01-08 21:53] VITALS: BP 127/55; PULSE 92; RESP 20; TEMP 36.8; O2SAT 99
[2021-01-09 06:00] VITALS: BP 129/59; PULSE 89; RESP 20; TEMP 37.1; O2SAT 99
[2021-01-09 08:07] LABS: Glucose Point of Care 166 (65-105)
[2021-01-09] MEDS: MEMANTINE 10 MG TABLET PO (08:48)
[2021-01-09] MEDS: ENOXAPARIN 40 MG/0.4 ML SYRINGE SUB-Q (08:48)
[2021-01-09] MEDS: TOLNAFTATE 1% POWDER 45 GM BTL 1 APPLIC TOPICAL ×2 (08:49→16:32)
[2021-01-09 11:39] LABS: Glucose Point of Care 282 (65-105)
[2021-01-09] MEDS: INSULIN ASPART (*BKC) 100 UNITS/ML SUB-Q (11:53)
--- NOTE | 2021-01-09 13:31 | PM.IMPN ---
Progress Note: A&P Assessment and Plan (1) Eh's dementia: Code(s): I67.3 - Progressive vascular leukoencephalopathy Status: Acute Assessment and Plan: patient has been started on Namenda and Seroquel have requested guardianship for healthcare decision making (2) Generalized muscle weakness: Code(s): M62.81 - Muscle weakness (generalized) Status: Acute Assessment and Plan: patient has been declining to work with PT OT (3) Self-care deficit: Code(s): Z78.9 - Other specified health status Status: Acute Assessment and Plan: likely secondary to dementia guardianship has been requested (4) Type 2 diabetes mellitus with hyperglycemia: Qualifiers: Diabetes mellitus insurance sales associate insulin use: with insurance sales associate use Qualified Code(s): E11.65 - Type 2 diabetes mellitus with hyperglycemia; Z79.4 - sole rounder (current) use of insulin Code(s): E11.65 - Type 2 diabetes mellitus with hyperglycemia Status: Chronic Assessment and Plan: however started on insulin 70/ 30 continue insulin sliding scale as needed as well Accu-Cheks AC and HS (5) Severe protein-calorie malnutrition: Code(s): E43 - Unspecified severe protein-calorie malnutrition Status: Acute Assessment and Plan: holding metformin carb consistent diet (6) GERD (gastroesophageal reflux disease): Qualifiers: Esophagitis presence: esophagitis presence not specified Qualified Code(s): K21.9 - Gastro-esophageal reflux disease without esophagitis Code(s): K21.9 - Gastro-esophageal reflux disease without esophagitis Status: Chronic Assessment and Plan: stable PPI as needed Subjective Date/time seen: 01/09/21 13:31 I would like a snack like peaches and pudding. Review of Systems Review of Systems: ROS unobtainable: Yes unobtainable due to medical condition ( dementia) Exam Narrative: Exam Narrative: laying in bed Const: General: comfortable, no acute distress, well developed, alert and awake Nutritional Appearance: underweight Orientation/consciousness: oriented to person and oriented to place HENMT: Head: normal to inspection, normocephalic and atraumatic Ears: hearing grossly normal bilaterally Face and sinus: normal facial exam Eyes: General: appearance normal, both eyes and all related structures Pupils: Equal, round and reactive pupils present EOM: EOMs intact bilaterally Neck: Neck: full ROM, no lymphadenopathy and no JVD Thyroid: thyroid normal Lymphatic: no lymphadenopathy noted Resp: Effort & Inspection: normal respiratory effort and able to speak in complete sentences Auscultation: clear to auscultation bilaterally Cardio: Jugular venous distension: no JVD Rate: regular rate Rhythm: regular rhythm Heart sounds: S1 normal heart sound present and S2 normal heart sound present GI: GI Palp: Yes Soft to palpation and Yes No hepatosplenomegaly present : General: Yes deferred Skin: Rashes: no rashes Wounds: no wounds Neuro: General: oriented to person, oriented to place and CN's II-XI intact bilaterally Cranial nerves: Yes CN's II-XII intact bilaterally and Yes Equal, round and reactive pupils present Cognition (Neuro): abnormal cognition ( dementia) Speech: normal speech Gait exam (Neuro): Unable to assess gait Motor exam (neuro): Other motor observations present ( right lower extremity paralysis) Extrem: General: full ROM, no joint enlargement, no pedal edema and other ( right lower extremity contraction with spasticity) Objective Data Vital Signs Vital Signs: Vital Signs - 24 hr 01/08/21 14:00 01/08/21 21:53 01/09/21 06:00 Temperature 97.1 F L 98.2 F 98.8 F Pulse Rate 100 92 89 Respiratory Rate 16 20 20 Blood Pressure 131/67 127/55 L 129/59 L Pulse Oximetry 100 99 99 Intake/Output Intake/Output: Intake & Output 01/06/21 01/07/21 01/08/21 01/09/21 23:59 23:59 23:59 23:59
[2021-01-09 14:00] VITALS: BP 132/65; PULSE 99; RESP 16; TEMP 36.7; O2SAT 99
[2021-01-09 17:06] LABS: Glucose Point of Care 178 (65-105)
--- NOTE | 2021-01-09 21:01 | PC.NURSE ---
Went in to patient room at 2100 to pass medications and check her sugar, her sugar was 291 and she demanded more juice with her pills, I told her that her sugar was too high to get more juice (DIGESTER had just given her one) and she proceeded to yell at me and kick me out of her room. I will try again once she calms down, non amended her medications for now. -AEW RN
[2021-01-09 21:19] LABS: Glucose Point of Care 291 (65-105)
[2021-01-09 21:32] VITALS: BP 134/71; PULSE 87; RESP 20; TEMP 36.4; O2SAT 99
[2021-01-10 01:00] LABS: Glucose Point of Care 221 (65-105)
[2021-01-10] MEDS: MEMANTINE 10 MG TABLET PO ×2 (01:00→09:59)
[2021-01-10] MEDS: QUEtiapine FUMARATE 25 MG TABLET 50 MG PO (01:00)
--- NOTE | 2021-01-10 01:00 | PC.NURSE ---
Patient finally agreed to take medications at 0100 as long as I gave her cranberry juice. I took her blood glucose and she was still in the 200's, we compromised and I gave her about an ounce of juice and a sugar free jello, and she took her meds. -RALPH CHARLTON
[2021-01-10 05:33] VITALS: BP 129/62; PULSE 92; RESP 20; TEMP 36.6; O2SAT 99
[2021-01-10 06:17] LABS: Glucose Point of Care 185 (65-105)
--- NOTE | 2021-01-10 06:26 | PC.NURSE ---
Checked patients blood glucose before giving AM insulin, she was 185.. but she is supposed to get rechecked at 0730 due to being ACHS and not q6.. gave 1 cranberry juice and a sugar free jello as a snack. Will talk to AM nurse about timing of blood glucose checks... -AEJeff RN
[2021-01-10 07:30] LABS: Glucose Point of Care 166 (65-105)
[2021-01-10 11:32] LABS: Glucose Point of Care 163 (65-105)
[2021-01-10 14:00] VITALS: BP 131/61; PULSE 88; RESP 18; TEMP 36.7; O2SAT 100
--- NOTE | 2021-01-10 15:10 | PM.IMPN ---
Progress Note: A&P Assessment and Plan (1) Seenger's dementia: Code(s): I67.3 - Progressive vascular leukoencephalopathy Status: Acute Assessment and Plan: patient has been started on Seroquel and Namenda supportive care guardianship has been requested for healthcare decision making (2) Generalized muscle weakness: Code(s): M62.81 - Muscle weakness (generalized) Status: Acute Assessment and Plan: patient has been declining participating with physical therapy and occupational therapy encouraged to participate in therapies (3) Ambulatory dysfunction: Code(s): R26.2 - Difficulty in walking, not elsewhere classified Status: Chronic Assessment and Plan: secondary to 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 passive range of motion (4) Inability to walk: Code(s): R26.2 - Difficulty in walking, not elsewhere classified Status: Acute Assessment and Plan: secondary to right lower extremity paralysis with contraction with spasticity (5) Self-care deficit: Code(s): Z78.9 - Other specified health status Status: Acute Assessment and Plan: patient with underlying dementia (6) Type 2 diabetes mellitus with hyperglycemia: Qualifiers: Diabetes mellitus senior living insulin use: with senior living use Qualified Code(s): E11.65 - Type 2 diabetes mellitus with hyperglycemia; Z79.4 - shelter (current) use of insulin Code(s): E11.65 - Type 2 diabetes mellitus with hyperglycemia Status: Chronic Assessment and Plan: patient was started on 70 /30 sugars are better controlled (7) Severe protein-calorie malnutrition: Code(s): E43 - Unspecified severe protein-calorie malnutrition Status: Acute Assessment and Plan: continue to monitor patient's calorie intake metformin has been on hold (8) Acute hypernatremia: Code(s): E87.0 - Hyperosmolality and hypernatremia Status: Acute Assessment and Plan: resolved however patient has declined blood draws (9) Muscular deconditioning: Code(s): R29.898 - Other symptoms and signs involving the musculoskeletal system Status: Acute Assessment and Plan: PT OT (10) GERD (gastroesophageal reflux disease): Qualifiers: Esophagitis presence: esophagitis presence not specified Qualified Code(s): K21.9 - Gastro-esophageal reflux disease without esophagitis Code(s): K21.9 - Gastro-esophageal reflux disease without esophagitis Status: Chronic Assessment and Plan: appears to be in remission PPI as knee Subjective Date/time seen: 01/10/21 15:10 I a.mBetty fisher Review of Systems Review of Systems: Narrative: no current issues at the present moment she wishes to have snacks Exam Narrative: Exam Narrative: laying in bed Const: General: comfortable, no acute distress, well developed, alert and awake Nutritional Appearance: average body habitus Orientation/consciousness: oriented to person and oriented to place HENMT: Head: normal to inspection, normocephalic and atraumatic Ears: hearing grossly normal bilaterally Face and sinus: normal facial exam Eyes: General: appearance normal, both eyes and all related structures Pupils: Equal, round and reactive pupils present EOM: EOMs intact bilaterally Neck: Neck: full ROM, no lymphadenopathy and no JVD Thyroid: thyroid normal Lymphatic: no lymphadenopathy noted Resp: Effort & Inspection: normal respiratory effort and able to speak in complete sentences Auscultation: clear to auscultation bilaterally Cardio: Jugular venous distension: no JVD Rate: regular rate Rhythm: regular rhythm Heart sounds: S1 normal heart sound present and S2 normal heart sound present GI: GI Palp: Yes Soft to palpation and Yes No hepatosplenomegaly present : General: Yes deferred Skin: Rashes: no rashes Wounds: no wounds Neuro: General: swati
[2021-01-10 16:44] LABS: Glucose Point of Care 201 (65-105)
[2021-01-10] MEDS: INSULIN ASPART (*BKC) 100 UNITS/ML SUB-Q (17:55)
[2021-01-10 20:43] LABS: Glucose Point of Care 107 (65-105)
[2021-01-10 20:46] VITALS: PULSE 85; RESP 17
--- NOTE | 2021-01-10 20:46 | PC.NURSE ---
Patient refuses medications at this time. However able to do shift assessment and check blood sugar. Rubi requested per patient.
[2021-01-10 22:00] VITALS: BP 128/79; PULSE 93; RESP 20; TEMP 37.1; O2SAT 98
[2021-01-11 06:00] VITALS: BP 139/82; PULSE 91; RESP 20; TEMP 37.1; O2SAT 98
--- NOTE | 2021-01-11 06:22 | PC.NURSE ---
Accu check of 177 this morning and attempted to give pt scheduled 70/30 insulin and she refused stating she does not need if blood sugar is below 200. Pt educated by myself and Thanh CHARLTON on insulin use. Will pass information along to oncoming shift
[2021-01-11 06:28] LABS: Glucose Point of Care 177 (65-105)
[2021-01-11] MEDS: TOLNAFTATE 1% POWDER 45 GM BTL 1 APPLIC TOPICAL ×2 (08:01→16:06)
[2021-01-11 11:31] LABS: Glucose Point of Care 250 (65-105)
[2021-01-11] MEDS: INSULIN ASPART (*BKC) 100 UNITS/ML SUB-Q ×2 (12:30→16:04)
--- NOTE | 2021-01-11 13:22 | PM.IMPN ---
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 Status: Acute Assessment and Plan: Started on Namenda and Seroquel Supportive care Guardianship for healthcare decision making in the process (2) Generalized muscle weakness: Code(s): M62.81 - Muscle weakness (generalized) Status: Acute Assessment and Plan: Patient has been declining to work and participated with PT OT (3) Ambulatory dysfunction: Code(s): R26.2 - Difficulty in walking, not elsewhere classified Status: Chronic Assessment and Plan: Likely secondary to right lower extremity paralysis (4) Type 2 diabetes mellitus with hyperglycemia: Qualifiers: Diabetes mellitus fci insulin use: with cellophane tester use Qualified Code(s): E11.65 - Type 2 diabetes mellitus with hyperglycemia; Z79.4 - correction (current) use of insulin Code(s): E11.65 - Type 2 diabetes mellitus with hyperglycemia Status: Chronic Assessment and Plan: Started on NPH Accu-Cheks AC and HS (5) Severe protein-calorie malnutrition: Code(s): E43 - Unspecified severe protein-calorie malnutrition Status: Acute Assessment and Plan: Continue to monitor patient's calorie intake (6) Acute hypernatremia: Code(s): E87.0 - Hyperosmolality and hypernatremia Status: Acute Assessment and Plan: Resolved (7) Self-care deficit: Code(s): Z78.9 - Other specified health status Status: Acute Assessment and Plan: likely secondary to dementia Subjective Date/time seen: 01/11/21 13:22 I feel fine but I could not have my cranberry juice Review of Systems Review of Systems: ROS unobtainable: Yes unobtainable due to medical condition (Dementia) Exam Narrative: Exam Narrative: Lying in bed Const: General: comfortable, no acute distress, well developed, alert and awake Nutritional Appearance: overweight Orientation/consciousness: oriented to person and oriented to place HENMT: Head: normal to inspection, normocephalic and atraumatic Ears: hearing grossly normal bilaterally Face and sinus: normal facial exam Eyes: General: appearance normal, both eyes and all related structures Pupils: Equal, round and reactive pupils present EOM: EOMs intact bilaterally Neck: Neck: full ROM, no lymphadenopathy and no JVD Thyroid: thyroid normal Lymphatic: no lymphadenopathy noted Resp: Effort & Inspection: normal respiratory effort and able to speak in complete sentences Auscultation: clear to auscultation bilaterally Cardio: Jugular venous distension: no JVD Rate: regular rate Rhythm: regular rhythm Heart sounds: S1 normal heart sound present and S2 normal heart sound present GI: GI Palp: Yes Soft to palpation and Yes No hepatosplenomegaly present : General: Yes deferred Skin: Rashes: no rashes Wounds: no wounds Neuro: General: oriented to person, oriented to place and CN's II-XI intact bilaterally Cranial nerves: Yes CN's II-XII intact bilaterally and Yes Equal, round and reactive pupils present Cognition (Neuro): normal cognition Speech: normal speech Gait exam (Neuro): Normal gait present Motor exam (neuro): Other motor observations present (Right lower extremity paralysis) Extrem: General: full ROM, no joint enlargement, no pedal edema and other (Right lower extremity paralysis with contracture spasticity) Objective Data Vital Signs Vital Signs: Vital Signs - 24 hr 01/10/21 14:00 01/10/21 20:46 01/10/21 22:00 Temperature 98.1 F 98.8 F Pulse Rate 88 85 93 Respiratory Rate 18 17 20 Blood Pressure 131/61 128/79 Pulse Oximetry 100 98 01/11/21 06:00 Temperature 98.7 F Pulse Rate 91 Respiratory Rate 20 Blood Pressure 139/82 Pulse Oximetry 98 Intake/Output Intake/Output: Intake & Output 01/08/21 01/09/21 01/10/21 01/11/21 23:59 23:59 23:59 23:59 Intake Total 1180
[2021-01-11 14:00] VITALS: BP 126/68; PULSE 102; RESP 16; TEMP 36.4; O2SAT 100
[2021-01-11 15:59] LABS: Glucose Point of Care 238 (65-105)
[2021-01-11] MEDS: MEMANTINE 10 MG TABLET PO (20:15)
[2021-01-11] MEDS: QUEtiapine FUMARATE 25 MG TABLET 50 MG PO (20:16)
[2021-01-11 21:00] LABS: Glucose Point of Care 118 (65-105)
[2021-01-11 21:58] VITALS: BP 133/65; PULSE 96; RESP 20; TEMP 36.6; O2SAT 98
[2021-01-12 06:00] VITALS: BP 126/75; PULSE 86; RESP 116; TEMP 37.1; O2SAT 99
[2021-01-12 06:31] LABS: Glucose Point of Care 170 (65-105)
[2021-01-12 07:21] LABS: Glucose Point of Care 191 (65-105)
--- NOTE | 2021-01-12 13:32 | PM.DS ---
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 Status: Acute Assessment and Plan: Started on Namenda and Seroquel Supportive care (2) Generalized muscle weakness: Code(s): M62.81 - Muscle weakness (generalized) Status: Acute Assessment and Plan: Patient to continue with PT OT (3) Ambulatory dysfunction: Code(s): R26.2 - Difficulty in walking, not elsewhere classified Status: Chronic Assessment and Plan: Likely secondary to right lower extremity paralysis (4) Type 2 diabetes mellitus with hyperglycemia: Qualifiers: Diabetes mellitus chcf insulin use: with chcf use Qualified Code(s): E11.65 - Type 2 diabetes mellitus with hyperglycemia; Z79.4 - remote computer terminal operator (current) use of insulin Code(s): E11.65 - Type 2 diabetes mellitus with hyperglycemia Status: Chronic Assessment and Plan: Pt is on oral hypoglycemic medications Accu-Cheks AC and HS (5) Severe protein-calorie malnutrition: Code(s): E43 - Unspecified severe protein-calorie malnutrition Status: Acute Assessment and Plan: Continue to monitor patient's calorie intake (6) Acute hypernatremia: Code(s): E87.0 - Hyperosmolality and hypernatremia Status: Acute Assessment and Plan: Resolved (7) Self-care deficit: Code(s): Z78.9 - Other specified health status Status: Acute Assessment and Plan: Likely secondary to dementia DS: Summary Hospital Course Hospital Course: Pt is stable still having weakness in her right leg, pt awaiting placement. H/o dementia and leg paralysis and DM Time Spent with Patient Time attestation: Total time spent providing and/or coordinating discharge services:40 minutes on day of dischrage Exam Narrative: Exam Narrative: Lying in bed Const: General: cooperative, comfortable and other (Chronically) Orientation/consciousness: oriented to person and oriented to place Eyes: Pupils: Equal, round and reactive pupils present Resp: Effort & Inspection: normal respiratory effort and able to speak in complete sentences Auscultation: clear to auscultation bilaterally Cardio: Jugular venous distension: no JVD Rate: regular rate Rhythm: regular rhythm Heart sounds: S1 normal heart sound present, S2 normal heart sound present and no murmurs GI: Inspection: normal to inspection Auscultation: normal bowel sounds Skin: Rashes: no rashes Wounds: no wounds Neuro: General: oriented to person, oriented to place, CN's II-XI intact bilaterally and Unable to assess gait Cranial nerves: Yes CN's II-XII intact bilaterally and Yes Equal, round and reactive pupils present Cognition (Neuro): normal cognition and abnormal cognition ( dementia) Speech: normal speech Gait exam (Neuro): Normal gait present, Unable to assess gait and Other gait observations present ( patient with right lower extremity contracture and spasticity) Motor exam (neuro): Abnormal muscle tone present (Right lower extremity paralysis) and Other motor observations present (Right lower extremity paralysis) Sensory Exam: normal sensation Extrem: General: full ROM, no joint enlargement, no pedal edema, no edema and other (Right lower extremity paralysis with contracture spasticity) Psych: Mental Status: mental status grossly normal Affect: normal affect DS: Data Data Completed and Pending Labs on day of discharge: Labs from last 24 hours 01/12/21 01/12/21 01/11/21 07:17 06:24 20:11 POC Capillary Glucose 191 H 170 H 118 H 01/11/21 15:57 POC Capillary Glucose 238 H Discharge Plan Discharge Attending physician on discharge: Jerica Davenport Discharging Clinician: Jerica Davenport Anticipated Discharge Chip
[2021-01-12 14:56] VITALS: BP 135/61; PULSE 100; RESP 20; TEMP 36.5; O2SAT 100
--- NOTE | 2021-01-12 15:22 | PM.IMPN ---
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 Status: Acute Assessment and Plan: Started on Namenda and Seroquel Supportive care (2) Generalized muscle weakness: Code(s): M62.81 - Muscle weakness (generalized) Status: Acute Assessment and Plan: Participated with PT OT (3) Ambulatory dysfunction: Code(s): R26.2 - Difficulty in walking, not elsewhere classified Status: Chronic Assessment and Plan: Likely secondary to right lower extremity paralysis (4) Type 2 diabetes mellitus with hyperglycemia: Qualifiers: Diabetes mellitus prison insulin use: with manager intermediate use Qualified Code(s): E11.65 - Type 2 diabetes mellitus with hyperglycemia; Z79.4 - oil heaterman (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) use of insulin Code(s): E11.65 - Type 2 diabetes mellitus with hyperglycemia Status: Chronic Assessment and Plan: Started on NPH Accu-Cheks AC and HS (5) Severe protein-calorie malnutrition: Code(s): E43 - Unspecified severe protein-calorie malnutrition Status: Acute Assessment and Plan: Continue to monitor patient's calorie intake (6) Acute hypernatremia: Code(s): E87.0 - Hyperosmolality and hypernatremia Status: Acute Assessment and Plan: Resolved (7) Self-care deficit: Code(s): Z78.9 - Other specified health status Status: Acute Assessment and Plan: likely secondary to dementia Additional Plan . Subjective Date/time seen: 01/12/21 15:22 Interval history: Pt is stable still having weakness, pt awaiting placement. H/o dementia and leg paralysis Review of Systems Review of Systems: All systems reviewed & are unremarkable except as noted in HPI and below Exam Narrative: Exam Narrative: Lying in bed Resp: Effort & Inspection: normal respiratory effort and able to speak in complete sentences Auscultation: clear to auscultation bilaterally Cardio: Jugular venous distension: no JVD Rate: regular rate Rhythm: regular rhythm Heart sounds: S1 normal heart sound present, S2 normal heart sound present and no murmurs GI: Inspection: normal to inspection Auscultation: normal bowel sounds Skin: General skin exam: normal color Rashes: no rashes Neuro: General: oriented to person, oriented to place, CN's II-XI intact bilaterally and Unable to assess gait Cranial nerves: Yes CN's II-XII intact bilaterally and Yes Equal, round and reactive pupils present Cognition (Neuro): normal cognition and abnormal cognition ( dementia) Speech: normal speech Gait exam (Neuro): Normal gait present, Unable to assess gait and Other gait observations present ( patient with right lower extremity contracture and spasticity) Motor exam (neuro): Abnormal muscle tone present (Right lower extremity paralysis) and Other motor observations present (Right lower extremity paralysis) Sensory Exam: normal sensation Extrem: General: full ROM, no joint enlargement, no pedal edema, no edema and other (Right lower extremity paralysis with contracture spasticity) Psych: Mental Status: mental status grossly normal Affect: normal affect Objective Data Vital Signs Vital Signs: Vital Signs - 24 hr 01/11/21 21:58 01/12/21 06:00 01/12/21 14:56 Temperature 36.6 C 37.1 C 36.5 C Pulse Rate 96 86 100 Respiratory Rate 20 116 H 20 Blood Pressure 133/65 126/75 135/61 Pulse Oximetry 98 99 100 Intake/Output Intake/Output: Intake & Output 01/09/21 01/10/21 01/11/21 01/12/21 23:59 23:59 23:59 23:59 Intake Total 1840 1430 820 660 Output Total 4 Balance 1836 1430 820 660 Meds/Results Medications: Active Medications Generic Name Dose Route Start Last Admin Trade Name Freq PRN Reason Stop Dose Admin Dextrose 12.5 gm 12/22/20 06:22 Dextrose 50% 25 Gm/50 Ml Syringe IV PUSH PRN PRN Hypoglycemia Protocol Enoxaparin Sodium 40
[2021-01-12 15:28] LABS: Glucose Point of Care 185 (65-105)
[2021-01-12 16:50] LABS: Glucose Point of Care 271 (65-105)
[2021-01-12] MEDS: TOLNAFTATE 1% POWDER 45 GM BTL 1 APPLIC TOPICAL (17:30)
[2021-01-12] MEDS: INSULIN ASPART (*BKC) 100 UNITS/ML SUB-Q (17:30)
[2021-01-12 21:08] LABS: Glucose Point of Care 89 (65-105)
[2021-01-12 22:00] VITALS: BP 144/63; PULSE 81; RESP 16; TEMP 36.4; O2SAT 93
[2021-01-13 06:00] VITALS: BP 141/70; PULSE 88; RESP 20; TEMP 36.3; O2SAT 99
[2021-01-13 06:05] LABS: Glucose Point of Care 134 (65-105)
--- NOTE | 2021-01-13 06:10 | PC.NURSE ---
Patient beligerent about medications most of the night. Patient refused most care last night. Refused not only medications but her morning insulin. RN tried to educate patient about the reason she needed the insulin. Patient is very demanding for cranberry juice. Pt is not willing to accept education. Patient became very upset when RN tried to convince patient she needed to take her medications.
[2021-01-13 07:56] LABS: Glucose Point of Care 157 (65-105)
--- NOTE | 2021-01-13 09:16 | PC.NURSE ---
Pt is refusing medications, insulin, and basic care this morning. Pt also refused her COVID swab last night, and is still refusing this morning. Pt told this nurse to get out of her room, she was trying to rest and doesn't want to be bothered by staff.
[2021-01-13 11:46] LABS: Glucose Point of Care 209 (65-105)
--- NOTE | 2021-01-13 12:54 | PC.NURSE ---
Addendum entered by Marielle Pabon RN 01/13/21 12:56: ambulance at 1240 Original Note: Pt has been discharged and taken by ambulance to [facility]. Pt had IV removed, and report was called to LATESHA Hendrix. Ruma exhibited good understanding of pt's discharge plan and all questions were answered to the best of my ability. Pt left by
== END 2021-01-13 12:40 | DRG 56 ==
LOC: ANHED 22:07 → ANH3MEDSUR 22:53
PROVIDERS: Internal Medicine; Admitting Provider Family Medicine; Emergency Provider Emergency Medicine; PCP Family Medicine; Visit Provider Internal Medicine
DX: I67.3 Progressive vascular leukoencephalopathy (principal); E43 Unspecified severe protein-calorie malnutrition; Z68.1 Body mass index [BMI] 19.9 or less, adult; E87.0 Hyperosmolality and hypernatremia; E86.0 Dehydration; Z20.822 Contact with and (suspected) exposure to COVID-19; M62.81 Muscle weakness (generalized); R26.2 Difficulty in walking, not elsewhere classified; G83.11 Monoplegia of lower limb affecting right dominant side; Z78.9 Other specified health status; E11.65 Type 2 diabetes mellitus with hyperglycemia; E11.42 Type 2 diabetes mellitus with diabetic polyneuropathy; H90.3 Sensorineural hearing loss, bilateral; I10 Essential (primary) hypertension; R79.89 Other specified abnormal findings of blood chemistry; K21.9 Gastro-esophageal reflux disease without esophagitis; R82.71 Bacteriuria; Z79.4 Long term (current) use of insulin; Z79.899 Other long term (current) drug therapy; Z85.828 Personal history of other malignant neoplasm of skin; Z88.2 Allergy status to sulfonamides
CPT/HCPCS: 36415; 70450; 71045; 80048; 80053; 80307; 81001; 82550; 82948; 83605; 83735; 83880; 84484; 85025; 85610; 85730; 93005; 96360; 96361; 97110; 97161; 97166; 97168; 97530; 97535; 99285; A9270; C9803; G0378; G0379; J1650; J1815; J7030; U0003; U0005